=== PATIENT | male | born 1960 | race Hispanic/Latino ===

== ENCOUNTER 2019-10-03 08:04 | Emergency (ER) | payer SELFPAY ==
[2019-10-03 08:33] LABS: BASOPHILS % (AUTO) 0.3 % (0.0-5.0); EOSINOPHILS % (AUTO) 0.4 % (0.0-8.0); HEMATOCRIT 43.6 % (42-54); LYMPHOCYTES % (AUTO) 16.4 % (21.0-51.0); MEAN CORPUSCULAR HEMOGLOBIN 30.1 pg (27.0-33.0); MEAN CORPUSCULAR VOLUME 91.2 fL (79-99); MONOCYTES % (AUTO) 6.4 % (3.0-13.0); NEUTROPHILS % (AUTO) 76.1 % (40.0-77.0); PLATELET COUNT (AUTO) 242 K/uL (130-400); RED BLOOD CELL COUNT(AUTO) 4.78 MIL/uL (4.50-6.20); RED CELL DISTRIBUTION WIDTH 13.4 % (11.0-15.5)
[2019-10-03 08:41] LABS: CREATININE 1.1 mg/dL (0.5-1.5); POTASSIUM 4.3 mmol/L (3.5-5.1)
[2019-10-03 08:44] LABS: INR 0.92 (0.85-1.15); PARTIAL THROMBOPLASTIN TIME 25.7 SEC (26.3-35.5)
[2019-10-03 08:47] LABS: ALBUMIN 3.8 g/dL (3.5-5.0); BILIRUBIN,TOTAL 0.4 mg/dL (0.2-1.0); TOTAL PROTEIN, SERUM 7.4 g/dL (6.0-8.3)
[2019-10-03] MEDS ORDERED: CLOPIDOGREL BISULFATE 300 MG TAB ONE (09:40)
[2019-10-03] MEDS ORDERED: METHYLPREDNISOLONE SOD SUCC 125MG/2ML VIAL ONE (09:41)
[2019-10-03] MEDS ORDERED: ACETAMINOPHEN EXTRA STRENGTH 500 MG TABLET ONE (09:41)
[2019-10-03] MEDS ORDERED: BENZONATATE 100 MG CAPSULE PO ONE (09:41)
[2019-10-03] MEDS ORDERED: ALBUTEROL SULFATE 0.083% 2.5 MG/3 ML INH IH ONE (09:52)
[2019-10-03] MEDS ORDERED: LEVOFLOXACIN 500 MG TABLET ONE ×2 (10:15→10:17)
[2019-10-03 10:21] LABS: AMPHET/METH SCREEN,URINE NEGATIVE (NEGATIVE); BARBITURATE SCREEN, URINE NEGATIVE (NEGATIVE); BENZODIAZEPINES SCREEN,URINE NEGATIVE (NEGATIVE); CANNABINOID SCREEN,URINE POSITIVE (NEGATIVE); COCAINE SCREEN,URINE POSITIVE (NEGATIVE); OPIATE SCREEN,URINE NEGATIVE (NEGATIVE); PHENCYCLIDINE SCREEN,URINE NEGATIVE (NEGATIVE)
== END 2019-10-03 10:29 | disposition home or self-care (01) ==
LOC: EDH 08:04
DX: J20.9 Acute bronchitis, unspecified (principal); F14.10 Cocaine abuse, uncomplicated; I10 Essential (primary) hypertension; E78.00 Pure hypercholesterolemia, unspecified; Z88.0 Allergy status to penicillin; Z88.8 Allergy status to other drugs, medicaments and biological substances; Z72.0 Tobacco use
CPT/HCPCS: 36415; 71045; 80053; 80305; 82550; 84484; 85025; 85610; 85730; 93005; 94640; 96374; 99285; J2930

== ENCOUNTER 2020-04-07 09:18 | Emergency (ER) | payer OTHER ==
[2020-04-07 09:56] LABS: BASOPHILS % (AUTO) 0.3 % (0.0-5.0); EOSINOPHILS % (AUTO) 1.7 % (0.0-8.0); HEMATOCRIT 44.5 % (42-54); LYMPHOCYTES % (AUTO) 22.1 % (21.0-51.0); MEAN CORPUSCULAR HEMOGLOBIN 30.8 pg (27.0-33.0); MEAN CORPUSCULAR HGB CONC 33.3 g/dL (32.0-36.0); MEAN CORPUSCULAR VOLUME 92.5 fL (79-99); MONOCYTES % (AUTO) 5.5 % (3.0-13.0); NEUTROPHILS % (AUTO) 70.1 % (40.0-77.0); PLATELET COUNT (AUTO) 216 K/uL (130-400); RED BLOOD CELL COUNT(AUTO) 4.81 MIL/uL (4.50-6.20); RED CELL DISTRIBUTION WIDTH 13.3 % (11.0-15.5); WHITE BLOOD COUNT (AUTO) 5.9 K/uL (4.8-10.8)
[2020-04-07 10:09] LABS: INR 0.89 (0.85-1.15); PARTIAL THROMBOPLASTIN TIME 24.7 SEC (26.3-35.5); PROTHROMBIN TIME 9.7 SEC (9.6-11.6)
[2020-04-07 10:12] LABS: ALBUMIN 3.3 g/dL (3.5-5.0); BILIRUBIN,DIRECT 0.1 mg/dL (0.0-0.3); BILIRUBIN,TOTAL 0.5 mg/dL (0.2-1.0); TOTAL PROTEIN, SERUM 6.5 g/dL (6.0-8.3)
[2020-04-07 10:32] LABS: B-TYPE NATRIURETIC PEPTIDE 21 pg/mL (0-100)
[2020-04-07 11:06] LABS: AMPHET/METH SCREEN,URINE NEGATIVE (NEGATIVE); BARBITURATE SCREEN, URINE NEGATIVE (NEGATIVE); BENZODIAZEPINES SCREEN,URINE NEGATIVE (NEGATIVE); CANNABINOID SCREEN,URINE POSITIVE (NEGATIVE); COCAINE SCREEN,URINE POSITIVE (NEGATIVE); OPIATE SCREEN,URINE NEGATIVE (NEGATIVE); PHENCYCLIDINE SCREEN,URINE NEGATIVE (NEGATIVE)
== END 2020-04-07 13:26 | disposition home or self-care (01) ==
LOC: EDH 09:18
DX: R07.89 Other chest pain (principal); F14.10 Cocaine abuse, uncomplicated; I10 Essential (primary) hypertension; E78.00 Pure hypercholesterolemia, unspecified; Z88.6 Allergy status to analgesic agent
CPT/HCPCS: 36415; 71045; 80048; 80076; 80305; 82550; 83880; 84484; 85025; 85610; 85730; 93005

== ENCOUNTER 2020-05-12 12:40 | Emergency (ER) | payer OTHER ==
[2020-05-12] MEDS ORDERED: SODIUM CHLORIDE 0.9% 1000ML 1,000 ML IV ONE (13:01)
[2020-05-12 13:06] LABS: BASOPHILS % (AUTO) 0.4 % (0.0-5.0); EOSINOPHILS % (AUTO) 0.5 % (0.0-8.0); LYMPHOCYTES % (AUTO) 28.9 % (21.0-51.0); MEAN CORPUSCULAR HEMOGLOBIN 30.5 pg (27.0-33.0); MEAN CORPUSCULAR HGB CONC 33.9 g/dL (32.0-36.0); MONOCYTES % (AUTO) 8.3 % (3.0-13.0); NEUTROPHILS % (AUTO) 61.6 % (40.0-77.0); PLATELET COUNT (AUTO) 223 K/uL (130-400); RED BLOOD CELL COUNT(AUTO) 4.89 MIL/uL (4.50-6.20); WHITE BLOOD COUNT (AUTO) 7.7 K/uL (4.8-10.8)
[2020-05-12] MEDS ORDERED: IOHEXOL 350 MG/ML 100ML INFUS..BTL IV ONE (13:14)
[2020-05-12 13:24] LABS: APPEARANCE,URINE CLEAR (CLEAR); BILIRUBIN,URINE SMALL (NEGATIVE); COLOR,URINE YELLOW (YELLOW); GLUCOSE, URINE (UA) NEGATIVE (NEGATIVE); KETONES,URINE 40 mg/dL (NEGATIVE); LEUKOCYTE ESTERASE ,URINE NEGATIVE (NEGATIVE); NITRATE,URINE NEGATIVE (NEGATIVE); OCCULT BLOOD,URINE TRACE-INTACT (NEGATIVE); PROTEIN,URINE TRACE mg/dL (NEGATIVE)
[2020-05-12 13:29] LABS: INR 0.92 (0.85-1.15); PARTIAL THROMBOPLASTIN TIME 25.2 SEC (26.3-35.5)
[2020-05-12 13:32] LABS: CREATININE 1.4 mg/dL (0.5-1.5); POTASSIUM 3.8 mmol/L (3.5-5.1)
[2020-05-12 13:36] LABS: RAPID GROUP A STREP NEGATIVE (NEGATIVE)
[2020-05-12 13:40] LABS: ALBUMIN 3.9 g/dL (3.5-5.0); BILIRUBIN,TOTAL 1.1 mg/dL (0.2-1.0); TOTAL PROTEIN, SERUM 7.2 g/dL (6.0-8.3)
[2020-05-12 13:41] LABS: BACTERIA,URINE None Seen /HPF (None Seen); RBC,URINE 0-1 /HPF (0-1); SQUAMOUS EPITHELIAL CELL,UR 0-2 /HPF (0-2); WBC,URINE 0-1 /HPF (0-1)
[2020-05-12] MEDS ORDERED: DICYCLOMINE HCL 20 MG TAB ONE (16:53)
== END 2020-05-12 17:31 | disposition home or self-care (01) ==
LOC: EDH 12:40
DX: K57.90 Diverticulosis of intestine, part unspecified, without perforation or abscess without bleeding (principal); K76.0 Fatty (change of) liver, not elsewhere classified; Z20.828 Contact with and (suspected) exposure to other viral communicable diseases; E78.00 Pure hypercholesterolemia, unspecified; I10 Essential (primary) hypertension; Z72.0 Tobacco use; Z88.6 Allergy status to analgesic agent
CPT/HCPCS: 36415; 74177; 80053; 81001; 83605 ×2; 83690; 84484; 85025; 85610; 85730; 87426; 87804 ×2; 87880; 93005; 96365; 96366; 99285; J7030; Q9967; U0003

== ENCOUNTER 2020-05-19 08:55 | Emergency (ER) | payer OTHER ==
[2020-05-19] MEDS ORDERED: ONDANSETRON HCL 4 MG/2 ML VIAL ONE (09:07)
[2020-05-19] MEDS ORDERED: MORPHINE SULFATE 4 MG/1ML SYG ONE (09:08)
[2020-05-19] MEDS ORDERED: KETOROLAC TROMETHAMINE 30MG/ML ONE (09:08)
[2020-05-19 09:13] LABS: BASOPHILS % (AUTO) 0.2 % (0.0-5.0); EOSINOPHILS % (AUTO) 1.4 % (0.0-8.0); HEMATOCRIT 41.9 % (42-54); LYMPHOCYTES % (AUTO) 18.1 % (21.0-51.0); MEAN CORPUSCULAR HGB CONC 33.2 g/dL (32.0-36.0); MEAN CORPUSCULAR VOLUME 90.5 fL (79-99); MONOCYTES % (AUTO) 10.2 % (3.0-13.0); NEUTROPHILS % (AUTO) 69.7 % (40.0-77.0); PLATELET COUNT (AUTO) 196 K/uL (130-400); RED BLOOD CELL COUNT(AUTO) 4.63 MIL/uL (4.50-6.20); RED CELL DISTRIBUTION WIDTH 12.9 % (11.0-15.5); WHITE BLOOD COUNT (AUTO) 5.7 K/uL (4.8-10.8)
[2020-05-19 09:22] LABS: CREATININE 1.1 mg/dL (0.5-1.5); POTASSIUM 3.9 mmol/L (3.5-5.1)
[2020-05-19 09:26] LABS: ALBUMIN 3.5 g/dL (3.5-5.0); BILIRUBIN,TOTAL 0.3 mg/dL (0.2-1.0); TOTAL PROTEIN, SERUM 6.9 g/dL (6.0-8.3)
== END 2020-05-19 11:19 | disposition home or self-care (01) ==
LOC: EDH 08:55
DX: N23 Unspecified renal colic (principal); I10 Essential (primary) hypertension; E78.00 Pure hypercholesterolemia, unspecified; Z72.0 Tobacco use
CPT/HCPCS: 36415; 74176; 80053; 82150; 83690; 85025; 93005; 96374; 96375; 99285; J1885; J2270; J2405

== ENCOUNTER 2020-07-10 17:16 | Emergency (ER) | payer OTHER ==
[2020-07-10 18:03] LABS: BASOPHILS % (AUTO) 0.4 % (0.0-5.0); EOSINOPHILS % (AUTO) 1.1 % (0.0-8.0); HEMATOCRIT 40.9 % (42-54); LYMPHOCYTES % (AUTO) 22.7 % (21.0-51.0); MEAN CORPUSCULAR HEMOGLOBIN 30.5 pg (27.0-33.0); MEAN CORPUSCULAR HGB CONC 32.8 g/dL (32.0-36.0); MEAN CORPUSCULAR VOLUME 93.2 fL (79-99); MONOCYTES % (AUTO) 6.6 % (3.0-13.0); NEUTROPHILS % (AUTO) 68.9 % (40.0-77.0); PLATELET COUNT (AUTO) 230 K/uL (130-400); RED BLOOD CELL COUNT(AUTO) 4.39 MIL/uL (4.50-6.20); RED CELL DISTRIBUTION WIDTH 13.8 % (11.0-15.5); WHITE BLOOD COUNT (AUTO) 7.1 K/uL (4.8-10.8)
[2020-07-10 18:21] LABS: CREATININE 1.7 mg/dL (0.5-1.5); POTASSIUM 4.2 mmol/L (3.5-5.1)
[2020-07-10 18:26] LABS: ALBUMIN 4.1 g/dL (3.5-5.0); BILIRUBIN,TOTAL 0.6 mg/dL (0.2-1.0); INR 1.02 (0.85-1.15); PROTHROMBIN TIME 10.9 SEC (9.6-11.6); TOTAL PROTEIN, SERUM 7.6 g/dL (6.0-8.3)
[2020-07-10 18:27] LABS: PARTIAL THROMBOPLASTIN TIME 22.5 SEC (26.3-35.5)
[2020-07-10 19:46] LABS: APPEARANCE,URINE Cloudy (CLEAR); BILIRUBIN,URINE Negative (NEGATIVE); COLOR,URINE Yellow (YELLOW); GLUCOSE, URINE (UA) Negative (NEGATIVE); KETONES,URINE Trace mg/dL (NEGATIVE); LEUKOCYTE ESTERASE ,URINE Small (NEGATIVE); NITRATE,URINE Negative (NEGATIVE); OCCULT BLOOD,URINE Negative (NEGATIVE); PROTEIN,URINE Trace mg/dL (NEGATIVE)
[2020-07-10 19:54] LABS: AMPHET/METH SCREEN,URINE NEGATIVE (NEGATIVE); BARBITURATE SCREEN, URINE NEGATIVE (NEGATIVE); BENZODIAZEPINES SCREEN,URINE NEGATIVE (NEGATIVE); CANNABINOID SCREEN,URINE POSITIVE (NEGATIVE); COCAINE SCREEN,URINE POSITIVE (NEGATIVE); OPIATE SCREEN,URINE NEGATIVE (NEGATIVE); PHENCYCLIDINE SCREEN,URINE NEGATIVE (NEGATIVE)
[2020-07-10 20:11] LABS: BACTERIA,URINE Rare /HPF (None Seen); MUCUS,URINE Few LPF (None Seen); RBC,URINE None Seen /HPF (0-1); SQUAMOUS EPITHELIAL CELL,UR None Seen /HPF (0-2)
== END 2020-07-10 21:01 | disposition home or self-care (01) ==
LOC: EDH 17:16
DX: R42 Dizziness and giddiness (principal); F19.10 Other psychoactive substance abuse, uncomplicated; R53.1 Weakness; I10 Essential (primary) hypertension; E78.00 Pure hypercholesterolemia, unspecified; Z88.6 Allergy status to analgesic agent; Z88.8 Allergy status to other drugs, medicaments and biological substances
CPT/HCPCS: 36415; 71045; 80053; 80305; 81001; 82550; 84484; 85025; 85610; 85730; 87088; 93005

== ENCOUNTER 2020-08-09 10:00 | Emergency (ER) | payer SELFPAY ==
[2020-08-09 10:54] LABS: AMPHET/METH SCREEN,URINE NEGATIVE (NEGATIVE); BARBITURATE SCREEN, URINE NEGATIVE (NEGATIVE); BENZODIAZEPINES SCREEN,URINE NEGATIVE (NEGATIVE); CANNABINOID SCREEN,URINE POSITIVE (NEGATIVE); COCAINE SCREEN,URINE POSITIVE (NEGATIVE); OPIATE SCREEN,URINE NEGATIVE (NEGATIVE); PHENCYCLIDINE SCREEN,URINE NEGATIVE (NEGATIVE)
== END 2020-08-09 13:51 | disposition home or self-care (01) ==
LOC: EDH 10:00
DX: F14.19 Cocaine abuse with unspecified cocaine-induced disorder (principal); Z76.5 Malingerer [conscious simulation]; Z91.19 Patient's noncompliance with other medical treatment and regimen; E78.00 Pure hypercholesterolemia, unspecified; I10 Essential (primary) hypertension; Z88.6 Allergy status to analgesic agent
CPT/HCPCS: 80305

== ENCOUNTER 2023-01-01 15:30 | Emergency (ER) | payer BC, OTHER ==
[~2023-01-01] VITALS: Ht 180.3 cm; Wt 65.8 kg
[2023-01-01 15:32] VITALS: BP 151/87; PULSE 77; RESP 16
[2023-01-01 16:30] LABS: MEAN CORPUSCULAR HEMOGLOBIN 30.1 pg (27.0-33.0); MEAN CORPUSCULAR HGB CONC 32.3 g/dL (32.0-36.0); MEAN CORPUSCULAR VOLUME 93.1 fL (79-99); RED BLOOD CELL COUNT(AUTO) 4.19 MIL/uL (4.50-6.20); RED CELL DISTRIBUTION WIDTH 13.6 % (11.0-15.5); WHITE BLOOD COUNT (AUTO) 5.6 K/uL (4.8-10.8)
[2023-01-01 16:47] LABS: AMPHET/METH SCREEN,URINE NEGATIVE (NEGATIVE); BARBITURATE SCREEN, URINE NEGATIVE (NEGATIVE); BENZODIAZEPINES SCREEN,URINE NEGATIVE (NEGATIVE); CANNABINOID SCREEN,URINE POSITIVE (NEGATIVE); COCAINE SCREEN,URINE POSITIVE (NEGATIVE); OPIATE SCREEN,URINE NEGATIVE (NEGATIVE); PHENCYCLIDINE SCREEN,URINE NEGATIVE (NEGATIVE)
[2023-01-01 16:48] LABS: POTASSIUM 3.8 mmol/L (3.5-5.1)
[2023-01-01 17:00] LABS: ALBUMIN 3.4 g/dL (3.5-5.0); TOTAL PROTEIN, SERUM 6.5 g/dL (6.0-8.3)
[2023-01-01] MEDS ORDERED: HYDRALAZINE 20MG/ML VIAL IV ONE (17:00)
== END 2023-01-01 18:24 | disposition left against medical advice (07) ==
LOC: EDH 15:30
DX: R55 Syncope and collapse (principal); R56.9 Unspecified convulsions; F14.10 Cocaine abuse, uncomplicated; F12.10 Cannabis abuse, uncomplicated; E11.9 Type 2 diabetes mellitus without complications; I10 Essential (primary) hypertension; Z88.6 Allergy status to analgesic agent
CPT/HCPCS: 36415; 70140; 70450; 71045; 72125; 80053; 80305; 82550; 83874; 84484; 85027; 93005

== ENCOUNTER 2023-07-30 07:35 | Emergency (ER) | payer BC ==
[~2023-07-30] VITALS: Ht 172.7 cm; Wt 74.8 kg
[2023-07-30 08:10] LABS: BASOPHILS # (AUTO) 0.03 K/uL (0.00-0.20); BASOPHILS % (AUTO) 0.5 % (0.0-5.0); EOSINOPHILS # (AUTO) 0.14 K/uL (0.00-0.70); EOSINOPHILS % (AUTO) 2.2 % (0.0-8.0); HEMATOCRIT 41.7 % (42-54); IMMATURE GRANULOCYTE ABSOLUTE 0.02 K/uL (0-1); LYMPHOCYTES # (AUTO) 1.8 K/uL (1.0-4.8); LYMPHOCYTES % (AUTO) 28.5 % (21.0-51.0); MEAN CORPUSCULAR HEMOGLOBIN 29.6 pg (27.0-33.0); MEAN CORPUSCULAR HGB CONC 33.3 g/dL (32.0-36.0); MEAN CORPUSCULAR VOLUME 88.9 fL (79-99); MONOCYTES # (AUTO) 0.5 K/uL (0.1-1.0); MONOCYTES % (AUTO) 7.4 % (3.0-13.0); NEUTROPHILS # (AUTO) 3.9 K/uL (1.8-7.7); NEUTROPHILS % (AUTO) 61.1 % (40.0-77.0); PLATELET COUNT (AUTO) 206 K/uL (130-400); RED BLOOD CELL COUNT(AUTO) 4.69 MIL/uL (4.50-6.20); RED CELL DISTRIBUTION WIDTH 13.9 % (11.0-15.5); WHITE BLOOD COUNT (AUTO) 6.4 K/uL (4.8-10.8)
[2023-07-30 08:27] LABS: CREATININE 1.2 mg/dL (0.5-1.5); POTASSIUM 3.6 mmol/L (3.5-5.1)
[2023-07-30 08:32] LABS: ALBUMIN 3.8 g/dL (3.5-5.0); BILIRUBIN,TOTAL 0.7 mg/dL (0.2-1.0); TOTAL PROTEIN, SERUM 7.3 g/dL (6.0-8.3)
[2023-07-30] MEDS: ACETAMINOPHEN 500 MG TABLET PO ONE (10:44)
[2023-07-30] MEDS: LACTATED RINGERS 1000ML 1,000 ML IV ONE (11:08)
[2023-07-30 11:37] LABS: APPEARANCE,URINE CLEAR (CLEAR); BILIRUBIN,URINE NEGATIVE (NEGATIVE); COLOR,URINE LIGHT-YELLOW (YELLOW); GLUCOSE, URINE (UA) NEGATIVE (NEGATIVE); KETONES,URINE 20 mg/dL (NEGATIVE); LEUKOCYTE ESTERASE ,URINE NEGATIVE Leu/uL (NEGATIVE); NITRATE,URINE NEGATIVE (NEGATIVE); OCCULT BLOOD,URINE NEGATIVE (NEGATIVE); PROTEIN,URINE 10 mg/dL (NEGATIVE)
[2023-07-30 11:38] LABS: ADD UA MICROSCOPIC YES; AMPHET/METH SCREEN,URINE NEGATIVE (NEGATIVE); BARBITURATE SCREEN, URINE NEGATIVE (NEGATIVE); BENZODIAZEPINES SCREEN,URINE NEGATIVE (NEGATIVE); CANNABINOID SCREEN,URINE POSITIVE (NEGATIVE); COCAINE SCREEN,URINE POSITIVE (NEGATIVE); OPIATE SCREEN,URINE NEGATIVE (NEGATIVE); PHENCYCLIDINE SCREEN,URINE NEGATIVE (NEGATIVE)
[2023-07-30 11:40] LABS: RAPID GROUP A STREP negative (NEGATIVE)
[2023-07-30 11:42] LABS: BACTERIA,URINE RARE /HPF (None Seen); MUCUS,URINE RARE LPF (None Seen)
[2023-07-30 11:44] LABS: SARS-CoV-2, RNA, NAAT NEGATIVE SARS CoV-2 (NEGATIVE)
[2023-07-30 11:50] LABS: INFLUENZA TYPE A Negative For Type A (NEGATIVE)
[2023-07-30 12:03] LABS: INFLUENZA TYPE B Positive For Type B (NEGATIVE)
[2023-07-30] MEDS ORDERED: OSEL75 PO (12:27)
[2023-07-30 12:41] VITALS: BP 141/84; PULSE 71; RESP 18; O2SAT 98
== END 2023-07-30 12:50 | disposition home or self-care (01) ==
LOC: EDH 07:35
DX: J10.1 Influenza due to other identified influenza virus with other respiratory manifestations (principal); F19.10 Other psychoactive substance abuse, uncomplicated; E11.9 Type 2 diabetes mellitus without complications; I10 Essential (primary) hypertension; Z86.73 Personal history of transient ischemic attack (TIA), and cerebral infarction without residual deficits; Z88.6 Allergy status to analgesic agent; Z20.822 Contact with and (suspected) exposure to COVID-19
CPT/HCPCS: 99284; 96360; 70450; 87635; 84484; 80053; 80305; 85025; 87880; 87804 ×2; 81001; 36415; 93005; J7120

== ENCOUNTER 2024-04-21 21:08 | Inpatient (IN) | payer BC, OTHER ==
[~2024-04-21] VITALS: Ht 175.3 cm; Wt 70.6 kg
[~2024-04-21 21:08] MED LIST: OSEL75 PO
--- NOTE | 2024-04-21 21:40 | ERN ---
General Chief Complaint: Chest Pain Stated Complaint: CHEST PAIN Time Seen by MD: 21:20 History of Present Illness Initial Comments 63-year-old male with past medical history of multiple strokes, hypertension, arthritis was brought to ED by EMS after he started experiencing central chest pain radiating to bilateral arms and neck half an hour ago. As per the patient he was walking with his when he suddenly started sweating and experiencing chest pain. Chest pain was severe 10/10 intensity , stabbing in nature which comes and goes. He does not have similar history in the past. He also developed shortness of breath .No history of nausea, no vomiting, no fever, no cough, no abdominal pain reported. Patient denies spasm, alcoholism, recreational drug abuse. Admits that he is not taking any medications for his medical. As per the EMS at the time of arrival his EKG showed regular rhythm, at the time of presentation to ED, his vitals are stable and EKG shows normal sinus rhythm with Pmitrale. Timing/Duration: 1/2 hour Severity/Quality: severe, stabbing Location: central Radiation: arms, neck, shoulders Prior Chest Pain/Cardiac Silvana: no prior chest pain Modifying Factors: nitroglycerin Past Medical History Past Medical History: Diabetes-Type II, Hypertension, Stroke Medical History Other: PARKINSONS Past Surgical History: Other Surgical History Other: TUMORS X 2 REMOVED FROM RUQ Family History Family History: Negative Social History Social History: Smokers, Drugs, Lives with family ROS Dictation REVIEW OF SYSTEMS Positive for chest pain CONSTITUTIONAL: Denies fevers, chills, or night sweats. No unintentional weight loss reported. ENT: No hearing loss, otalgia, otorrhea, rhinitis, rhinorrhea, hoarseness, or sore throat. CARDIOVASCULAR: Denies any exertional angina, dyspnea on exertion, orthopnea, paroxysmal nocturnal dyspnea, palpitations claudication. PULMONARY: Denies any shortness of breath, cough, phlegm / sputum, hemoptysis, pleuritic chest pain. SLEEP: Denies morning headaches, daytime somnolence or napping. Denies difficulty falling asleep, staying asleep, waking from sleep. Denies knowledge of snoring. GASTROINTESTINAL: Denies any type of dysphagia to either liquids or solids. Denies nausea, vomiting, abdominal pain, diarrhea, constipation, blood in stools . NEUROLOGICAL: Denies headache, motor weakness, sensory deficit, vertigo / spinning sensation, gait abnormalities, or tremors. GENITOURINARY: Denies frequency, urgency, nocturia, hematuria or incontinence, low urinary stream, straining to void, urinary intermittency or hesitancy ENDOCRINOLOGY: Denies polyuria, polydipsia, polyphagia or heat / cold intolerance. HEMATOLOGY: Denies thrombophilia / previous clots, or coagulopathy / bleeding disorders. ONCOLOGIC: Denies personal history of malignancy. DERMATOLOGIC: Denies rashes or pruritus. PSYCHIATRIC: Denies any suicidal or homicidal ideation. Denies hallucinations. Nurses Notes Reviewed: Yes Physical Exam Physical Exam Dictation PHYSICAL EXAM GENERAL APPEARANCE: Well nourished . Awake and alert. Oriented to time, place and person. No acute cardiopulmonary distress. HEENT: Head normocephalic , atraumatic. Sclera anicteric . Pupils are round and reactive. Extraocular movements intact . No conjunctival injection. No nasal congestion. No throat congestion .Oral mucosa moist. NECK: Supple. No JVD. No thyromegaly. No submental, submandibular, pre- /postauricular, occipital or supraclavicular lymphadenopathy. No carotid bruits. LUNGS: Clear to auscultation bilaterally . No rales, rhonchi or any wheezing. Equal tactile fremitus. Resonant to percussion . CARDIOVASCULAR: Regular rate and rhythm. Distant heart sounds ABDOMEN: Soft, nontender, and nondistended. There is no rebound tenderness, voluntary guarding, or rigidity. No hepatosplenomegaly. Bowel sounds normal in all four quadrants . NEUROLOGICAL: Cranial nerves II-XII grossly intact. Motor is 5/5 in bilateral upper and lower extremities . No sensory deficits. EXTREMITIES: No edema, No cyanosis , No clubbing. Good capillary refill. SKIN: No skin breakdown. No rashes or lesions . PSYCHIATRY: Normal affect .No auditory or visual hallucinations. Normal speech. No dysarthria. Results Laboratory and Microbiology Lab and Micro Result Laboratory Tests Test 04/21/24 21:37 04/21/24 21:51 04/21/24 22:15 White Blood Count 5.9 K/uL (4.8-10.8) Red Blood Count 4.25 MIL/uL (4.50-6.20) L Hemoglobin 12.7 g/dL (14.0-18.0) L Hematocrit 38.5 % (42-54) L Mean Corpuscular Volume 90.6 fL (79-99) Mean Corpuscular Hemoglobin 29.9 pg (27.0-33.0) Mean Corpuscular Hemoglobin Concent 33.0 g/dL (32.0-36.0) Red Cell Distribution Width 13.7 % (11.0-15.5) Platelet Count 204 K/uL (130-400) Mean Platelet Volume 10.6 fL (7.5-10.5) H Immature Granulocyte % (Auto) 0.7 % (0-1) Neutrophils (%) (Auto) 53.2 % (40.0-77.0) Lymphocytes (%) (Auto) 33.2 % (21.0-51.0) Monocytes (%) (Auto) 8.8 % (3.0-13.0) Eosinophils (%) (Auto) 3.6 % (0.0-8.0) Basophils (%) (Auto) 0.5 % (0.0-5.0) Neutrophils # (Auto) 3.1 K/uL (1.8-7.7) Lymphocytes # (Auto) 2.0 K/uL (1.0-4.8) Monocytes # (Auto) 0.5 K/uL (0.1-1.0) Eosinophils # (Auto) 0.21 K/uL (0.00-0.70) Basophils # (Auto) 0.03 K/uL (0.00-0.20) Absolute Immature Granulocyte (auto 0.04 K/uL (0-1) Nucleated Red Blood Cells 0.0 % (0.0-0.19) Sodium Level 137 mmol/L (136-145) Potassium Level 3.6 mmol/L (3.5-5.1) Chloride Level 102 mmol/L (101-111) Carbon Dioxide Level 29 mmol/L (21-32) Blood Urea Nitrogen 24 mg/dL (7-18) H Creatinine 1.0 mg/dL (0.5-1.3) Glomerular Filtration Rate Calc 85 mL/min (>90) Random Glucose 119 mg/dL (70-105) H Total Calcium 8.2 mg/dL (8.5-10.1) L Total Creatine Kinase 116 U/L (21-232) # Troponin I High Sensitivity 59 ng/L (4-75) B-Type Natriuretic Peptide 90 pg/mL (0-100) Troponin I < 0.05 ng/mL (0.00-0.05) Urine Color LIGHT-YELLOW (YELLOW) Urine Appearance CLEAR (CLEAR) Urine pH 6.0 (5.0-8.0) Urine Specific [place] 1.020 (1.001-1.031) Urine Protein NEGATIVE mg/dL (NEGATIVE) Urine Glucose (UA) NEGATIVE mg/dL (NEGATIVE) Urine Ketones NEGATIVE mg/dL (NEGATIVE) Urine Occult Blood NEGATIVE (NEGATIVE) Urine Nitrate NEGATIVE (NEGATIVE) Urine Bilirubin NEGATIVE mg/dL (NEGATIVE) Urine Urobilinogen 0.2 mg/dL (0.2-1.0) Urine Leukocyte Esterase NEGATIVE Madelyn/uL Urine RBC 2-5 /HPF (0-1) H Urine WBC 2-5 /HPF (0-1) H Urine Squamous Epithelial Cells RARE /HPF (0-2) Urine Bacteria None /HPF (None Seen) Urine Opiates Screen NEGATIVE (NEGATIVE) Urine Barbiturates Screen NEGATIVE (NEGATIVE) Urine Phencyclidine Screen NEGATIVE (NEGATIVE) Urine Amphetamines Screen NEGATIVE (NEGATIVE) Urine Benzodiazepines Screen NEGATIVE (NEGATIVE) Urine Cocaine Screen POSITIVE (NEGATIVE) H Urine Marijuana (THC) Screen POSITIVE (NEGATIVE) H Labs Reviewed?: Yes EKG/XRAY/US/CT/MRI EKG Comment EKG 04/21/2024, 9:18 p.m. Normal sinus rhythm, with ventricular rate 75 beats per minute IL interval 145, QTC 460 P mitrale noted, right bundle branch block No ST elevation. X-RAY Comment Chest x-ray interpreted by me Hyperinflation with emphysematous changes without any obvious focal infiltrate. Orders, Meds, Vital Signs Orders Procedure Category Date Status Time Vital Signs Per CPOE 04/21/24 Transmitted Routine 21:15 B-Type Natriuretic LAB 04/21/24 Complete Peptide 21:15 Chest 1vw RAD 04/21/24 Resulted 21:15 12 Lead Ekg Tracing- EKG 04/21/24 Logged Technical 21:15 Oxygen By Nc/Pulse Ox CPOE 04/21/24 Transmitted 21:15 Maintain Iv CPOE 04/21/24 Transmitted 21:15 Iv Insertion CPOE 04/21/24 Transmitted 21:15 Cardiac Monitoring CPOE 04/21/24 Transmitted 21:15 Pulse Oximetry With CPOE 04/21/24 Transmitted Vs And Prn 21:15 Cbc With Differential LAB 04/21/24 Complete 21:15 Activity: Br W/Brp CPOE 04/21/24 Transmitted With Assist 21:15 Creatine Kinase, Total LAB 04/21/24 Complete 21:15 Urinalysis Profile LAB 04/21/24 Complete 21:15 Troponin Poc Order LAB 04/21/24 Logged Only 21:15 Bedside Troponin-I LAB.ER 04/21/24 In Process (Poc) 21:15 Basic Metabolic Panel LAB 04/21/24 Complete 21:15 Drug Screen Urine LAB 04/21/24 Complete 21:20 Nitroglycerin 0.4mg PHA 04/21/24 In Process Sl Tab (Nitrostat) 21:30 Troponin I High LAB 04/21/24 Complete Sensitivity 21:40 Edm Admit Bridge Order ADM 04/21/24 Transmitted 23:26 Admit Orders ADM 04/21/24 Transmitted 23:26 Current Medications Medications (Trade) Dose Ordered Sig/Aaron Route PRN Reason Start Time Stop Time Status Last Admin Dose Admin Nitroglycerin (Nitrostat) 0.4 mg AD PRN SL CHEST PAIN 04/21/24 21:30 05/21/24 21:29 04/21/24 22:27 Vital Signs Date Time Temp Pulse Resp B/P (MAP) Pulse Ox O2 Delivery O2 Flow Rate FiO2 04/21/24 22:26 98.2 66 16 145/85 100 Room Air* 0 21 04/21/24 21:10 98.1 78 20 131/83 98 Room Air 0 Differential diagnosis : Acute OR, musculoskeletal chest pain, cocaine induced vasospasm, arrhythmia, PE Rationale: Tests considered and ordered secondary to shared decision making include: I will re-evaluate the patient after treatment and diagnostic exams have returned to determine whether they require further testing, can be safely discharged home, or need admission for further treatment and evaluation. Given the social determinants of health affecting care, including literacy, access to medical care, prescription drug management, and [id number] drugs, I will ensure that treatment plans are tailored accordingly. There are no social concerns with this patient. Risk of complication and/or morbidity or mortality of patient management: None Need for hospitalization: Patient does not meet criteria for hospitalization. Need for emergency major/minor surgery: No Prescription drug management Prescriptions will include symptomatic care Medications-Per medication reconciliation Previous outside records reviewed: Old ER visits. Patient's prior external medical records from other ER visits were reviewed by me as indicated. Prior testing and results from previous visits were reviewed. Prior tests were taken into account with medical decision making and resource utilization, independent historian/historians were used to obtain complete medical history. I independently interpreted the test that were performed, results were reviewed by me and considered findings on radiology. Medical management and examination interpretation discussions was done by me with other qualified healthcare professionals as indicated for the patient's care. Revaluation Disposition : DX & DISP Departure Impression: Primary Impression: Chest pain Additional Impressions: Illicit drug use, Lifestyle problems, Marijuana abuse, History of stroke, Hypertension, Diabetes mellitus Condition: Stable Additional Instructions: Patient was informed of all the diagnostic labs and procedures conducted in the emergency room today and demonstrated understanding of the results. I personally reviewed and interpreted all the diagnostic exams performed in the ER today. The patient will be admitted to the hospital for further treatment and evaluation. Disposition-admit to facility Condition-stable/guarded Course-uncertain at this time Pain status-decreased Assessment-exam unchanged Admission Certification- I certify that the patients status is appropriate and is based on my best clinical judgment and the patient's condition as documented in the medical records Referrals: BRIAN NELSON (PCP) I have examined patient, & reviewed all documents, & agreed W/ the Diagnosis, and Plan This is a 62-year-old male who came by ambulance with complaints of chest pain mostly in the left precordial area as he and his were walking which they do normally every night. He also started experiencing radiation to the left arm and some diaphoresis and due to discomfort he called EMS for further evaluation. No history of any syncope. Temperature 98 pulse 78 respirations 20 blood pressure 131/83 with a pulse oximetry of 98%. On room air General: awake, alert, some discomfort due to sharp left-sided pain Head/Face: Normocephalic, atraumatic Eyes: PERRL, EOMI, vision at baseline ENT: oral cavity clear, TMs clear, no signs of infection Neck: Trachea midline, supple, no nuchal rigidity Cardiovascular: RRR, normal S1/S2, No MRGs, no JVD Respiratory: CTAB, no respiratory distress, No rales or wheezes Abdomen: Soft, non-tender, non-distended, normal bowel sounds, no guarding or rebound. Skin: Warm, dry, normal turgor, no rash tattoos all over his arms MS/Extremity: Pulses equal, no cyanosis, neurovascular intact, FROM Neuro: COAx4, GCS 15, strength 5/5, CN 2-12 intact, normal cerebellar exam, normal gait, Psych: Normal behavior, mood, and affect normal Extremities-trace edema without any palpable cords, Homans sign is negative labs reviewed CBC showed a hemoglobin of 12.7 BNP 7 showed a BUN and creatinine are 24 and 1.0. First set of troponins less than 0.05 heart score - chest pain moderately suspicious, EKG showed nonspecific repolarization change, age 45-64, risk factors 1-2-- score 4 points impression - left-sided chest pain -moderate suspicion for a coronary event known history of hypertension diabetes mellitus and previous history of stroke history of substance abuse I recommended admission for evaluation of chest pain and rule out cardiac etiology and pursue echocardiogram and stress test etcetera. Patient and are agreeable 11:30 p.m. hospitalist YURIY rich accepted the patient for admission and further management Critical Care Note Critical Time: 30 minutes TAYE ROBERTSON MD Apr 21, 2024 21:40 ANDREW WATTERS MD Apr 21, 2024 22:42
[2024-04-21 21:41] LABS: BASOPHILS # (AUTO) 0.03 K/uL (0.00-0.20); BASOPHILS % (AUTO) 0.5 % (0.0-5.0); EOSINOPHILS # (AUTO) 0.21 K/uL (0.00-0.70); EOSINOPHILS % (AUTO) 3.6 % (0.0-8.0); HEMATOCRIT 38.5 % (42-54); IMMATURE GRANULOCYTE ABSOLUTE 0.04 K/uL (0-1); LYMPHOCYTES % (AUTO) 33.2 % (21.0-51.0); MEAN CORPUSCULAR HEMOGLOBIN 29.9 pg (27.0-33.0); MEAN CORPUSCULAR VOLUME 90.6 fL (79-99); MONOCYTES # (AUTO) 0.5 K/uL (0.1-1.0); MONOCYTES % (AUTO) 8.8 % (3.0-13.0); NEUTROPHILS # (AUTO) 3.1 K/uL (1.8-7.7); NEUTROPHILS % (AUTO) 53.2 % (40.0-77.0); PLATELET COUNT (AUTO) 204 K/uL (130-400); RED BLOOD CELL COUNT(AUTO) 4.25 MIL/uL (4.50-6.20); RED CELL DISTRIBUTION WIDTH 13.7 % (11.0-15.5); WHITE BLOOD COUNT (AUTO) 5.9 K/uL (4.8-10.8)
[2024-04-21 21:52] LABS: POTASSIUM 3.6 mmol/L (3.5-5.1)
[2024-04-21 22:05] LABS: B-TYPE NATRIURETIC PEPTIDE 90 pg/mL (0-100)
[2024-04-21 22:21] LABS: APPEARANCE,URINE CLEAR (CLEAR); BILIRUBIN,URINE NEGATIVE (NEGATIVE); COLOR,URINE LIGHT-YELLOW (YELLOW); GLUCOSE, URINE (UA) NEGATIVE (NEGATIVE); KETONES,URINE NEGATIVE (NEGATIVE); LEUKOCYTE ESTERASE ,URINE NEGATIVE Leu/uL (NEGATIVE); NITRATE,URINE NEGATIVE (NEGATIVE); OCCULT BLOOD,URINE NEGATIVE (NEGATIVE); PROTEIN,URINE NEGATIVE (NEGATIVE); UROBILINOGEN,URINE 0.2 mg/dL (0.2-1.0)
[2024-04-21 22:22] LABS: ADD UA MICROSCOPIC YES
[2024-04-21 22:23] LABS: MUCUS,URINE RARE LPF (None Seen); SQUAMOUS EPITHELIAL CELL,UR RARE /HPF (0-2)
[2024-04-21] MEDS: NITROGLYCERIN 0.4 MG SL TAB SL PRN (22:27)
--- NOTE | 2024-04-21 22:28 | HMCIMG ---
CHEST 1VW HISTORY: Chest pain COMPARISON: 01/01/2023 FINDINGS: A frontal projection of the chest was obtained. No acute pulmonary infiltrates is seen. The heart is normal in size. Degenerative changes are seen. Prominent interstitial markings are seen. No evidence of aortic calcification is seen. IMPRESSION: 1. No acute pulmonary infiltrate is seen.
[2024-04-21 22:30] LABS: AMPHET/METH SCREEN,URINE NEGATIVE (NEGATIVE); BARBITURATE SCREEN, URINE NEGATIVE (NEGATIVE); BENZODIAZEPINES SCREEN,URINE NEGATIVE (NEGATIVE); CANNABINOID SCREEN,URINE POSITIVE (NEGATIVE); COCAINE SCREEN,URINE POSITIVE (NEGATIVE); OPIATE SCREEN,URINE NEGATIVE (NEGATIVE); PHENCYCLIDINE SCREEN,URINE NEGATIVE (NEGATIVE)
--- NOTE | 2024-04-21 23:32 | HP ---
[facility] HISTORY AND PHYSICAL Date of Service: Apr 21, 2024 Time of Service: 23:25 PCP: Osei Meadows HISTORY OF PRESENT ILLNESS: This is a 63-year-old male with past medical history of arthritis , diabetes, hyperlipidemia, hypertension, multiple stroke, Parkinson's disease and seizure disorder who presents to the ED via EMS for complaints of midsternal chest pain radiating to bilateral arms and neck associated with palpitation, diaphoresis and shortness of breaths onset 30 minutes prior to ER arrival. Patient reports that he was walking with his when he started having sweating and cold clammy and he noticed that he started having chest pain and palpitation. Patient described pain as sharp and severe. Patient also reports similar problem week ago did not seek medical help. Patient states that he stopped taking his medications for the past three years because he has no medical insurance. 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 Patient reports he had seizure episode 1 week ago . Patient states he smoke one cigarette per day and uses marijuana last use was 2 hours ago and also he uses cocaine last use was two days ago. Seen and examined patient in the ER awake alert and coherent appears uncomfortable continue to complain of chest pain 8/10 pain level. Shalonda Weinstein was at bedside during my evaluation. Patient denies fever, chills, cough, abdominal pain, nausea and vomiting. Vital signs temperature 98.2, heart rate 66, blood pressure 145/85, saturation 100% on room air. Labs: Hemoglobin 12.7, hematocrit 38.5, platelet count 204. Sodium 137, potassium 3.6, BUN 24, creatinine 1.0 glucose 119, total calcium 8.2 troponin high sens 59 and troponin one less than 0.05. BNP 90. Wean toxicology positive with cocaine and marijuana. Chest x-ray result no acute pulmonary infiltrate is seen. While in the ER patient was given Nitrostat. Dr. Yee was consulted and notified of patient's case. We will admit patient for further medical management REVIEW OF SYSTEMS CONSTITUTIONAL: Positive diaphoresis Denies fevers, chills, or night sweats. No unintentional weight loss reported. NEUROLOGICAL: Denies headache, amaurosis fugax, motor weakness, sensory deficit, vertigo/spinning sensation, gait abnormalities, or tremors. ENT: No hearing loss, otalgia, otorrhea, rhinitis, rhinorrhea, hoarseness, or sore throat. CARDIOVASCULAR: Positive chest pain Denies orthopnea, paroxysmal nocturnal dyspnea, palpitations, life-threatening arrhythmias, claudication. PULMONARY: Positive shortness of breath Denies cough, phlegm/sputum, hemoptysis, pleuritic chest pain. SLEEP: Denies morning headaches, daytime somnolence or napping. Denies difficulty falling asleep, staying asleep, waking from sleep. Denies knowledge of snoring. GASTROINTESTINAL: Denies any type of dysphagia to either liquids or solids. Denies nausea, vomiting, pyrosis, early satiety, abdominal pain, diarrhea, constipation, or changes in stool consistency or caliber. Denies coffee-ground emesis, hematemesis, hematochezia, or melanotic stools. GENITOURINARY: Denies frequency, urgency, nocturia, hematuria or incontinence (Storage/Irritative symptoms.) Low urinary stream, straining to void, urinary intermittency or hesitancy, splitting of the voiding stream, terminal dribbling. ENDOCRINOLOGIC: Denies polyuria, polydipsia, polyphagia or heat/cold intolerances. HEMATOLOGIC: Denies thrombophilia/previous clots, or coagulopathy/bleeding disorders. ONCOLOGIC: Denies personal history of malignancy. DERMATOLOGIC: Denies rashes or pruritus. PSYCHIATRIC: Denies any suicidal or homicidal ideation. Denies hallucinations. PAST MEDICAL HISTORY: [ arthritis , diabetes, hyperlipidemia, hypertension, multiple stroke, Parkinson's disease and seizure disorder ] PAST SURGICAL HISTORY: [ Removal of abdominal two more x2 ] PAST SOCIAL HISTORY: [ Patient lives with . Patient admits to smoking one cigarette per day denies alcohol use admits to using marijuana and cocaine] FAMILY HISTORY: [Noncontributory ] Coded Allergies: ibuprofen (Unverified Allergy, Unknown, 04/07/20) naproxen (Unverified Allergy, Unknown, 04/07/20) PHYSICAL EXAM GENERAL APPEARANCE: The patient is awake, alert, and oriented, in no acute cardiopulmonary distress. NEUROLOGICAL: Cranial nerves II-XII grossly intact. Motor is 5/5 in bilateral upper and lower extremities proximal to distal. No sensory deficits. HEENT: Face is symmetric. Pupils are equal and reactive. Extraocular movements are intact. NECK: Supple. No JVD. No thyromegaly. No submental, submandibular, pre- /postauricular, occipital or supraclavicular lymphadenopathy. CHEST: Normal chest expansion. No Telemetry. LUNGS: Absence of any rales, rhonchi or any wheezing. CARDIOVASCULAR: Regular. S1 and S2 normal. No appreciable rubs, murmurs or gallops. ABDOMEN: Soft, nontender, and nondistended. There is no rebound, voluntary guarding, or rigidity. : Deferred. No Felix. EXTREMITIES: Non-edematous and not cyanotic. No clubbing. Good capillary refill. SKIN: No skin breakdown. Vital Sign (Last 24 Hours) 04/21/24 22:26 Temp 98.2 Pulse 66 Resp 16 B/P (MAP) 145/85 Pulse Ox 100 O2 Delivery Room Air* O2 Flow Rate 0 FiO2 21 LABS: Laboratory: Test 04/21/24 22:15 04/21/24 21:51 04/21/24 21:37 Range/Units Urine Color LIGHT-YELLOW YELLOW Urine Appearance CLEAR CLEAR Urine pH 6.0 5.0-8.0 Urine Specific [place] 1.020 1.001-1.031 Urine Protein NEGATIVE NEGATIVE mg/dL Urine Glucose (UA) NEGATIVE NEGATIVE mg/dL Urine Ketones NEGATIVE NEGATIVE mg/dL Urine Occult Blood NEGATIVE NEGATIVE Urine Nitrate NEGATIVE NEGATIVE Urine Bilirubin NEGATIVE NEGATIVE mg/dL Urine Urobilinogen 0.2 0.2-1.0 mg/dL Urine Leukocyte Esterase NEGATIVE NEGATIVE Madelyn/uL Urine RBC 2-5 H 0-1 /HPF Urine WBC 2-5 H 0-1 /HPF Urine Squamous Epithelial Cells RARE 0-2 /HPF Urine Bacteria None None Seen /HPF Urine Opiates Screen NEGATIVE NEGATIVE Urine Barbiturates Screen NEGATIVE NEGATIVE Urine Phencyclidine Screen NEGATIVE NEGATIVE Urine Amphetamines Screen NEGATIVE NEGATIVE Urine Benzodiazepines Screen NEGATIVE NEGATIVE Urine Cocaine Screen POSITIVE H NEGATIVE Urine Marijuana (THC) Screen POSITIVE H NEGATIVE Troponin I < 0.05 0.00-0.05 ng/mL White Blood Count 5.9 4.8-10.8 K/uL Red Blood Count 4.25 L 4.50-6.20 MIL/uL Hemoglobin 12.7 L 14.0-18.0 g/dL Hematocrit 38.5 L 42-54 % Mean Corpuscular Volume 90.6 79-99 fL Mean Corpuscular Hemoglobin 29.9 27.0-33.0 pg Mean Corpuscular Hemoglobin Concent 33.0 32.0-36.0 g/dL Red Cell Distribution Width 13.7 11.0-15.5 % Platelet Count 204 130-400 K/uL Mean Platelet Volume 10.6 H 7.5-10.5 fL Immature Granulocyte % (Auto) 0.7 0-1 % Neutrophils (%) (Auto) 53.2 40.0-77.0 % Lymphocytes (%) (Auto) 33.2 21.0-51.0 % Monocytes (%) (Auto) 8.8 3.0-13.0 % Eosinophils (%) (Auto) 3.6 0.0-8.0 % Basophils (%) (Auto) 0.5 0.0-5.0 % Neutrophils # (Auto) 3.1 1.8-7.7 K/uL Lymphocytes # (Auto) 2.0 1.0-4.8 K/uL Monocytes # (Auto) 0.5 0.1-1.0 K/uL Eosinophils # (Auto) 0.21 0.00-0.70 K/uL Basophils # (Auto) 0.03 0.00-0.20 K/uL Absolute Immature Granulocyte (auto 0.04 0-1 K/uL Nucleated Red Blood Cells 0.0 0.0-0.19 % Sodium Level 137 136-145 mmol/L Potassium Level 3.6 3.5-5.1 mmol/L Chloride Level 102 101-111 mmol/L Carbon Dioxide Level 29 21-32 mmol/L Blood Urea Nitrogen 24 H 7-18 mg/dL Creatinine 1.0 0.5-1.3 mg/dL Glomerular Filtration Rate Calc 85 >90 mL/min Random Glucose 119 H 70-105 mg/dL Total Calcium 8.2 L 8.5-10.1 mg/dL Total Creatine Kinase 116 # 21-232 U/L Troponin I High Sensitivity 59 4-75 ng/L B-Type Natriuretic Peptide 90 0-100 pg/mL Current Medications Medications (Trade) Dose Ordered Sig/Aaron Route PRN Reason Start Time Stop Time Status Last Admin Dose Admin Nitroglycerin (Nitrostat) 0.4 mg AD PRN SL CHEST PAIN 04/21/24 21:30 05/21/24 21:29 04/21/24 22:27 0.4 MG DIAGNOSTICS / RADIOLOGY: [ ] ASSESSMENT: Chest pain rule out ACS POA Polysubstance abuse POA Active smoker POA Normocytic normochromic anemia POA Diabetes POA Hyperlipidemia POA Hypertension POA History of seizure disorder POA History of Parkinson's disease POA History of multiple CVA POA PLAN: We will admit patient in We will start patient on heart healthy and consistent carb diet We will start on Famotidine 20 mg p.o. bid for GI prophylaxis NS @75 ml/hr x 1 bag and reevaluate We will start nitropaste 0.5 topical t.i.d. We will start patient on aspirin 81 mg p.o and statin We will replace electrolytes as needed per protocol We will start on insulin sliding scale AC & HS with hypoglycemia protocol We will add prn medication for fever,pain, nausea and vomiting We will reconcile home meds once medlist available Counseled on cigarette smoking and recreational drug use cessation We will request case management service We will obtain echocardiogram We will trend troponin q.6 hours x3 Will start Heparin drip per ACS protocol We will request labs in am We will seek Cardiology consultation Further orders to follow depending on above results Case discussed with attending physician and came up with above treatment and plan of care. ADVANCED CARE PLANNING 1. Which of the following were discussed? Hospice Care - No Therapeutic options - Yes Advance Directives - No Other discussions - 2. Discussed with who? Patient 3. Voluntary nature of this service was explained to the patient? Yes 4. Amount of time spent - ___20____ 5. Reviewed by Physician? (if this service was performed by NPP) Yes Patient seen and examined by me. Agree with note by TECHNICAL SUPPORT ENGINEER SEE ADDITIONAL ORDERS PER CHART DISCUSSED WITH NURSING STAFF ADALID PRINCE WATER METER MECHANIC Apr 21, 2024 23:32
--- NOTE | 2024-04-21 23:34 | NUR ---
ASSUMED PT CARE AT THIS TIME
[2024-04-21] MEDS ORDERED: PHARMACY COMMUNICATION MISC SCH (23:45)
[2024-04-22] VITALS (24 sets, daily range): BP systolic 112–172; BP diastolic 59–125; PULSE 63–88; RESP 8–23; TEMP 97.5–98; O2SAT 96–100
[2024-04-22] MEDS: 0.9%NACL 1000ML 1,000 ML IV SCH (00:59)
[2024-04-22] MEDS: NITROGLYCERIN 1GM OINT 1 INCH/1GM TD SCH (00:59)
--- NOTE | 2024-04-22 01:18 | NUR ---
DR. PITT GEODUCK DIVER AT BEDSIDE AT THIS TIME
[2024-04-22 02:04] LABS: BASOPHILS # (AUTO) 0.03 K/uL (0.00-0.20); BASOPHILS % (AUTO) 0.5 % (0.0-5.0); EOSINOPHILS # (AUTO) 0.23 K/uL (0.00-0.70); EOSINOPHILS % (AUTO) 3.6 % (0.0-8.0); HEMATOCRIT 38.3 % (42-54); IMMATURE GRANULOCYTE ABSOLUTE 0.05 K/uL (0-1); LYMPHOCYTES # (AUTO) 2.2 K/uL (1.0-4.8); LYMPHOCYTES % (AUTO) 34.1 % (21.0-51.0); MEAN CORPUSCULAR HEMOGLOBIN 29.7 pg (27.0-33.0); MEAN CORPUSCULAR HGB CONC 32.9 g/dL (32.0-36.0); MEAN CORPUSCULAR VOLUME 90.3 fL (79-99); MONOCYTES # (AUTO) 0.6 K/uL (0.1-1.0); MONOCYTES % (AUTO) 8.8 % (3.0-13.0); NEUTROPHILS # (AUTO) 3.4 K/uL (1.8-7.7); NEUTROPHILS % (AUTO) 52.2 % (40.0-77.0); PLATELET COUNT (AUTO) 206 K/uL (130-400); RED BLOOD CELL COUNT(AUTO) 4.24 MIL/uL (4.50-6.20); RED CELL DISTRIBUTION WIDTH 13.7 % (11.0-15.5); WHITE BLOOD COUNT (AUTO) 6.4 K/uL (4.8-10.8)
[2024-04-22] MEDS: morPHINE 2 MG SYG IVP PRN (02:07)
[2024-04-22] MEDS: HEParin 5,000 UNIT VIAL IV PRN (02:08)
[2024-04-22] MEDS: HEParin 25,000 UNITS/250ML D5W 250 ML IV SCH (02:11)
--- NOTE | 2024-04-22 03:11 | CONS ---
CONSULT NOTE: CARDIOLOGY Reason for consult: Chest pain HPI/story at presentation: This is a pleasant 61-year-old past medical history as per present with complaints of chest discomfort. Known history of cocaine/marijuana use at [facility] and has been having issues with retrosternal chest pain at presentation. EKG without significant ischemic changes but patient did have elevated troponins greater than 600. Cardiology was consulted for further evaluation management Subjective: 04/21/2024 Chest pain Past medical history: See below Allergies, Meds See chart Review of systems Review of Systems Constitutional: Negative for chills and fever. HENT: Negative for ear discharge and ear pain. Eyes: Negative for photophobia and discharge. Respiratory: Negative for cough, sputum production and stridor. Cardiovascular: Negative for chest pain and palpitations. Gastrointestinal: Negative for diarrhea and vomiting. Genitourinary: Negative for frequency. Musculoskeletal: Negative for myalgias. Skin: Negative for rash. Neurological: Negative for focal weakness and seizures. Endo/Heme/Allergies: Negative for polydipsia. Psychiatric/Behavioral: Negative for hallucinations. Vitals see chart PHYSICAL EXAMINATION GENERAL: The patient is alert and oriented*3 HEENT: Nonicteric sclerae, non traumatic HEART: Regular rate and rhythm with no murmurs LUNGS: Clear to auscultation bilaterally ABDOMEN: No acute issues, non tender GENITAL, RECTAL: deferred SKIN: No rash NEUROLOGIC: NFND EXTREMITIES: No edema ASSESSMENT CHEST PAIN, NSTEMI History of EKG without ischemic changes trop > 600 04/2024 UDS positive for cocaine and marijuana CVA History of, 2019 HYPERTENSION, HYPERLIPIDEMIA TOBACCO USE OTHER MEDICAL PROBLEMS arthritis seizures PLAN 04/21/2024 patient with non-STEMI, no significant ischemic changes on EKG. Can start heparin, will consider cardiac catheterization tomorrow to further evaluate coronaries. UDS positive for cocaine and marijuana, will need to address compliance with medical therapy prior to any intervention. No history of significant peripheral vascular disease with history of strokes in the past. ATTESTATION I was involved substantially in the care of this patient Number and complexity of problems addressed: 1 acute illness with systemic features Amount and or complexity of data Review of prior external note(s) from each unique source: 2+ Ordering of each unique test : 1 Review of the result(s) of each unique test: 2+ Assessment requiring an independent historian(s): No Independent interpretation of test performed by another MD/QHCP/appropriate source (not separately reported) : No Discussion of management or test interpretation with external MD/QHCP/appropriate source (not separately reported) : No Risk status (cardiac, billing related): high TOMMY PITT MD Apr 22, 2024 03:10
--- NOTE | 2024-04-22 06:47 | EKG ---
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
[2024-04-22 07:13] LABS: BASOPHILS # (AUTO) 0.04 K/uL (0.00-0.20); BASOPHILS % (AUTO) 0.7 % (0.0-5.0); EOSINOPHILS # (AUTO) 0.19 K/uL (0.00-0.70); EOSINOPHILS % (AUTO) 3.2 % (0.0-8.0); IMMATURE GRANULOCYTE ABSOLUTE 0.05 K/uL (0-1); LYMPHOCYTES # (AUTO) 2.5 K/uL (1.0-4.8); LYMPHOCYTES % (AUTO) 41.8 % (21.0-51.0); MEAN CORPUSCULAR HEMOGLOBIN 29.5 pg (27.0-33.0); MEAN CORPUSCULAR HGB CONC 31.8 g/dL (32.0-36.0); MONOCYTES # (AUTO) 0.5 K/uL (0.1-1.0); MONOCYTES % (AUTO) 7.9 % (3.0-13.0); NEUTROPHILS # (AUTO) 2.7 K/uL (1.8-7.7); NEUTROPHILS % (AUTO) 45.6 % (40.0-77.0); PLATELET COUNT (AUTO) 191 K/uL (130-400); RED CELL DISTRIBUTION WIDTH 13.7 % (11.0-15.5); WHITE BLOOD COUNT (AUTO) 5.9 K/uL (4.8-10.8)
[2024-04-22 07:25] LABS: HEMOGLOBIN A1C 6.1 % (4.0-6.0)
[2024-04-22] MEDS: INSULIN humuLIN R 100 UNIT/ML 3ML SQ SCH (07:30)
--- NOTE | 2024-04-22 07:42 | NUR ---
DR. DELGADILLO CALL SPOKE TO DR. DELGADILLO REGARDING PATIENT UPDATE. DR. DELGADILLO ORDERED A DIET AND TO FEED THE PATIENT FOR BREAKFAST NOTHING TO EAT OR DRINK AFTER BREAKFAST THE [facility] WILL BE DONE AT 5PM TODAY.
[2024-04-22 07:50] LABS: BILIRUBIN,TOTAL 0.3 mg/dL (0.2-1.0); THYROID STIMULATING HORMONE 6.61 uIU/mL (0.36-3.74); TOTAL PROTEIN, SERUM 5.8 g/dL (6.0-8.3)
--- NOTE | 2024-04-22 07:50 | PN ---
[facility] PROGRESS NOTE Date of Service: Apr 22, 2024 Time of Service: 07:44 SUBJECTIVE: [63-year-old male who presented to the emergency department with chest pain, he is known with positive UDS with marijuana and cocaine. He presented with non- STEMI with elevated troponin. He was evaluated by the supervisor post wave who recommended cardiac catheterization. Patient remained chest pain-free. At this time we will follow up with cardiac catheterization results/recommendations from the supervisor post wave. He will remain on ACS protocol. ] REVIEW OF SYSTEMS CONSTITUTIONAL: Positive diaphoresis Denies fevers, chills, or night sweats. No unintentional weight loss reported. NEUROLOGICAL: Denies headache, amaurosis fugax, motor weakness, sensory deficit, vertigo/spinning sensation, gait abnormalities, or tremors. ENT: No hearing loss, otalgia, otorrhea, rhinitis, rhinorrhea, hoarseness, or sore throat. CARDIOVASCULAR: Positive chest pain Denies orthopnea, paroxysmal nocturnal dyspnea, palpitations, life-threatening arrhythmias, claudication. PULMONARY: Positive shortness of breath Denies cough, phlegm/sputum, hemoptysis, pleuritic chest pain. SLEEP: Denies morning headaches, daytime somnolence or napping. Denies difficulty falling asleep, staying asleep, waking from sleep. Denies knowledge of snoring. GASTROINTESTINAL: Denies any type of dysphagia to either liquids or solids. Denies nausea, vomiting, pyrosis, early satiety, abdominal pain, diarrhea, constipation, or changes in stool consistency or caliber. Denies coffee-ground emesis, hematemesis, hematochezia, or melanotic stools. GENITOURINARY: Denies frequency, urgency, nocturia, hematuria or incontinence (Storage/Irritative symptoms.) Low urinary stream, straining to void, urinary intermittency or hesitancy, splitting of the voiding stream, terminal dribbling. ENDOCRINOLOGIC: Denies polyuria, polydipsia, polyphagia or heat/cold intolerances. HEMATOLOGIC: Denies thrombophilia/previous clots, or coagulopathy/bleeding disorders. ONCOLOGIC: Denies personal history of malignancy. DERMATOLOGIC: Denies rashes or pruritus. PSYCHIATRIC: Denies any suicidal or homicidal ideation. Denies hallucinations. PHYSICAL EXAM GENERAL APPEARANCE: The patient is awake, alert, and oriented, in no acute cardiopulmonary distress. NEUROLOGICAL: Cranial nerves II-XII grossly intact. Motor is 5/5 in bilateral upper and lower extremities proximal to distal. No sensory deficits. HEENT: Face is symmetric. Pupils are equal and reactive. Extraocular movements are intact. NECK: Supple. No JVD. No thyromegaly. No submental, submandibular, pre- /postauricular, occipital or supraclavicular lymphadenopathy. CHEST: Normal chest expansion. No Telemetry. LUNGS: Absence of any rales, rhonchi or any wheezing. CARDIOVASCULAR: Regular. S1 and S2 normal. No appreciable rubs, murmurs or gallops. ABDOMEN: Soft, nontender, and nondistended. There is no rebound, voluntary guarding, or rigidity. : Deferred. No Felix. EXTREMITIES: Non-edematous and not cyanotic. No clubbing. Good capillary refill. SKIN: No skin breakdown. Vital Signs (last 8hr) Date Time Temp Pulse Resp B/P (MAP) Pulse Ox O2 Delivery O2 Flow Rate FiO2 04/22/24 05:29 98.1 60 14 123/72 100 Nasal Cannula* 2 28 04/22/24 02:33 62 12 133/81 100 Nasal Cannula* 2 28 04/22/24 01:00 98.1 65 14 147/88 100 Nasal Cannula* 2 28 LABS: Laboratory: Test 04/22/24 06:41 04/22/24 01:48 04/21/24 22:15 04/21/24 21:51 Range/Units White Blood Count 5.9 4.8-10.8 K/uL Red Blood Count 4.30 L 4.50-6.20 MIL/uL Hemoglobin 12.7 L 14.0-18.0 g/dL Hematocrit 40.0 L 42-54 % Mean Corpuscular Volume 93.0 79-99 fL Mean Corpuscular Hemoglobin 29.5 27.0-33.0 pg Mean Corpuscular Hemoglobin Concent 31.8 L 32.0-36.0 g/dL Red Cell Distribution Width 13.7 11.0-15.5 % Platelet Count 191 130-400 K/uL Mean Platelet Volume 10.6 H 7.5-10.5 fL Immature Granulocyte % (Auto) 0.8 0-1 % Neutrophils (%) (Auto) 45.6 40.0-77.0 % Lymphocytes (%) (Auto) 41.8 21.0-51.0 % Monocytes (%) (Auto) 7.9 3.0-13.0 % Eosinophils (%) (Auto) 3.2 0.0-8.0 % Basophils (%) (Auto) 0.7 0.0-5.0 % Neutrophils # (Auto) 2.7 1.8-7.7 K/uL Lymphocytes # (Auto) 2.5 1.0-4.8 K/uL Monocytes # (Auto) 0.5 0.1-1.0 K/uL Eosinophils # (Auto) 0.19 0.00-0.70 K/uL Basophils # (Auto) 0.04 0.00-0.20 K/uL Absolute Immature Granulocyte (auto 0.05 0-1 K/uL Nucleated Red Blood Cells 0.0 0.0-0.19 % Hemoglobin A1c 6.1 H 4.0-6.0 % Estimated Average Glucose (eAG) 128 H 70-126 mg/dL Troponin I High Sensitivity 800 *H 4-75 ng/L Activated Partial Thromboplast Time 24.5 L 26.3-35.5 SEC Urine Color LIGHT-YELLOW YELLOW Urine Appearance CLEAR CLEAR Urine pH 6.0 5.0-8.0 Urine Specific [place] 1.020 1.001-1.031 Urine Protein NEGATIVE NEGATIVE mg/dL Urine Glucose (UA) NEGATIVE NEGATIVE mg/dL Urine Ketones NEGATIVE NEGATIVE mg/dL Urine Occult Blood NEGATIVE NEGATIVE Urine Nitrate NEGATIVE NEGATIVE Urine Bilirubin NEGATIVE NEGATIVE mg/dL Urine Urobilinogen 0.2 0.2-1.0 mg/dL Urine Leukocyte Esterase NEGATIVE NEGATIVE Madelyn/uL Urine RBC 2-5 H 0-1 /HPF Urine WBC 2-5 H 0-1 /HPF Urine Squamous Epithelial Cells RARE 0-2 /HPF Urine Bacteria None None Seen /HPF Urine Opiates Screen NEGATIVE NEGATIVE Urine Barbiturates Screen NEGATIVE NEGATIVE Urine Phencyclidine Screen NEGATIVE NEGATIVE Urine Amphetamines Screen NEGATIVE NEGATIVE Urine Benzodiazepines Screen NEGATIVE NEGATIVE Urine Cocaine Screen POSITIVE H NEGATIVE Urine Marijuana (THC) Screen POSITIVE H NEGATIVE Troponin I < 0.05 0.00-0.05 ng/mL Test 04/21/24 21:37 Range/Units Sodium Level 137 136-145 mmol/L Potassium Level 3.6 3.5-5.1 mmol/L Chloride Level 102 101-111 mmol/L Carbon Dioxide Level 29 21-32 mmol/L Blood Urea Nitrogen 24 H 7-18 mg/dL Creatinine 1.0 0.5-1.3 mg/dL Glomerular Filtration Rate Calc 85 >90 mL/min Random Glucose 119 H 70-105 mg/dL Total Calcium 8.2 L 8.5-10.1 mg/dL Total Creatine Kinase 116 # 21-232 U/L B-Type Natriuretic Peptide 90 0-100 pg/mL Current Medications Medications (Trade) Dose Ordered Sig/Aaron Route PRN Reason Start Time Stop Time Status Last Admin Dose Admin Aspirin (Aspirin 81mg Ec Tab) 81 mg DAILY PO 04/22/24 09:00 05/22/24 08:59 Atorvastatin Calcium (LIPItor 40MG) 40 mg HS PO 04/22/24 21:00 05/22/24 20:59 Dextrose (D50w) 50 ml AD PRN IV HYPOGLYCEMIA PROTOCOL 04/22/24 00:00 05/22/24 00:00 Famotidine (Pepcid 20mg Vial) 20 mg BID IV 04/22/24 09:00 05/22/24 08:59 Glucagon (Glucagon 1mg Kit) 1 mg AD PRN IM HYPOGLYCEMIA PROTOCOL 04/22/24 00:00 05/22/24 00:00 Heparin Sodium (Porcine) (HEParin 5,000 UNIT VIAL) *calculation based on ACTUAL B... AD PRN IV HEPARIN PROTOCOL 04/22/24 02:30 05/22/24 02:29 04/22/24 02:08 5,000 UNIT Heparin Sodium/ Dextrose 250 ml @ 0 mls/hr Q6H IV 04/22/24 02:30 05/22/24 02:29 04/22/24 02:11 12.7 MLS/HR Hydralazine HCl (APRESOLine 20MG INJ) 10 mg Q6H PRN IV For:SBP above 160;DBP above 90 04/21/24 23:30 05/21/24 23:29 Insulin Human Regular (humuLIN R 100 UNIT/ML 3ML) INSULIN SLIDING SCAL... ACHS SQ 04/22/24 07:30 05/22/24 07:29 Magnesium Sulfate 50 ml @ 0 mls/hr PROTOCOL PRN IV OTHER [SEE ORDER COMMENTS] 04/22/24 00:00 05/22/24 00:00 Morphine Sulfate (morPHINE 2MG SYG) 2 mg Q4H PRN IVP SEVERE PAIN (7-10) 04/22/24 00:00 04/29/24 00:00 04/22/24 06:44 2 MG Nitroglycerin (Nitroglycerin 1gm Oint) 0.5 inch Q8H TD 04/21/24 23:30 05/21/24 23:29 04/22/24 00:59 0.5 INCH Nitroglycerin (Nitrostat) 0.4 mg AD PRN SL CHEST PAIN 04/21/24 21:30 05/21/24 21:29 04/21/24 22:27 0.4 MG Ondansetron HCl (zoFRAN 4MG INJ) 4 mg Q6H PRN IV NAUSEA/VOMITING 04/21/24 23:30 05/21/24 23:29 Pharmacy Profile Note (Pharmacy Communication) PLEASE ENTER HT AND WT Q15M MISC 04/21/24 23:45 04/22/24 00:16 DC Potassium Chloride 100 ml @ 50 mls/hr AD PRN IV POTASSIUM PROTOCOL 04/22/24 00:00 05/22/24 00:00 Sodium Chloride 1,000 ml @ 75 mls/hr [id number] IV 04/22/24 00:00 05/22/24 00:00 04/22/24 00:59 75 MLS/HR DIAGNOSTICS / RADIOLOGY: [ ] ASSESSMENT: Chest pain rule out ACS POA Polysubstance abuse POA Active smoker POA Normocytic normochromic anemia POA Diabetes POA Hyperlipidemia POA Hypertension POA History of seizure disorder POA History of Parkinson's disease POA History of multiple CVA POA PLAN: Continue hospital admission to medical telemetry Patient will be NPO before cardiac catheterization and resume diet post catheterization with heart healthy We continue Famotidine 20 mg p.o. bid for GI prophylaxis C/w NS @75 ml/hr x 1 bag and reevaluate C/w nitropaste 0.5 topical t.i.d. C/w aspirin 81 mg p.o and statin We will replace electrolytes as needed per protocol C/w insulin sliding scale AC & HS with hypoglycemia protocol C/w prn medication for fever,pain, nausea and vomiting We will reconcile home meds once medlist available Counseled on cigarette smoking and recreational drug use cessation F/u case management service We will obtain echocardiogram We will trend troponin q.6 hours x3 C/w Heparin drip per ACS protocol We will request labs in am Appreciate recommendations from Cardiology, cardiac catheterization today Further orders to follow depending on above results Case discussed with attending physician and came up with above treatment and plan of care. ATTESTATION BY PHYSICIAN I have seen and examined the patient. I reviewed the documentation, medical decision making, and treatment plan as noted by the mid-level provider above. I agree with the findings and plan of care. MELISSA ROJAS MD, [facility] Apr 22, 2024 07:50
[2024-04-22] MEDS ORDERED: PoTASSium chloRIDE 20MEQ/100ML 100 ML IV PRN ×2 (08:00)
[2024-04-22] MEDS ORDERED: MAGNESIUM 2GM PREMIX 50ML 50 ML IV PRN ×2 (08:00)
[2024-04-22] MEDS ORDERED: GLUCAGON 1MG KIT 1 MG ML IM PRN ×2 (08:00)
[2024-04-22] MEDS ORDERED: PoTASSium chl 10% ELIXIR 20MEQ 20 MEQ/15 ML UDCUP PO PRN (08:00)
[2024-04-22] MEDS ORDERED: DEXTROSE 50%-WATER 50 ML DISP.SYRIN IV PRN ×2 (08:00)
[2024-04-22] MEDS: FAMOTIDINE 20MG VIAL IV SCH (08:01)
[2024-04-22] MEDS: ASPIRIN 81 MG EC TAB PO SCH (08:01)
[2024-04-22 08:21] LABS: INR 1.03 (0.85-1.15); PROTHROMBIN TIME 11.1 SEC (9.6-11.6)
[2024-04-22 08:22] LABS: PARTIAL THROMBOPLASTIN TIME 79.1 SEC (26.3-35.5)
--- NOTE | 2024-04-22 09:18 | NUR ---
PENDING APTT RESULTS PATIENT IS ON HEPARIN DRIP. APTT WAS DONE AT 0800 PENDING RESULTS STILL. CALLED LAB SPOKE TO KATY REGARDING PENDING RESULTS SHE SAYS THE ANALYZER IS NOT WORKING CORRECTLY, SHE IS TROUBLE SHOOTING MACHINE AND WILL CALL BACK WITH AN UPDATE. HEPARIN DRIP IS AT THE SAME RATE. REPORTED INCIDENT TO ER CHARGE NURSE.
[2024-04-22] MEDS: ondanSETRON 4MG INJ IV PRN (09:41)
[2024-04-22] MEDS: hydrALAZine 20MG/ML VIAL IV PRN (09:57)
[2024-04-22] MEDS: leveTIRACEtam 500 MG/5 ML SD VIAL IV STA (10:05)
--- NOTE | 2024-04-22 10:44 | CONS ---
CONSULT NOTE: [place] [facility] Note # Demographics Consult Type: General Neurology Patient Location: Emergency Room First Name: Darci Last Name: Stan Date of : 1960 Age: 63 Gender: Male Facility: [facility] Time of Initial Page (Central Time): 04/22/2024, 09:54 Time of Return Call (Central Time): 04/22/2024, 09:54 # HPI History: 63 y/o M with breakthrough seizure. Patient reports he came to the hospital for chest pain. While in the hospital he has had two seizures. He is on Depakote but hasn't been getting for some time---last taken a long time ago. # Scores Time of exam and NIHSS (Central Time): 04/22/2024, 10:16 Level of Consciousness 1a: [1] = Not alert; but arousable by minor stim LOC Questions 1b: [0] = Answers both questions correctly LOC Commands 1c: [0] = Performs both tasks correctly Best Gaze 2: [0] = Normal Visual 3: [0] = No visual loss Facial Palsy 4: [0] = Normal symmetrical movements Motor Arm Left 5a: [0] = No drift Motor Arm Right 5b: [0] = No drift Motor Leg Left 6a: [0] = No drift Motor Leg Right 6b: [0] = No drift Limb Ataxia 7: [0] = Absent Sensory 8: [0] = Normal Best Language 9: [0] = No aphasia Dysarthria 10: [0] = Normal Extinction and Inattention 11: [0] = No abnormality NIHSS Total: 1 # PMH-FH-SH Past Medical History: - hypertension - Diabetes - hyperlipidemia - stroke - seizure # Data Other Labs: TSH 6.61 Cr 1 Tox screen positive for cocaine and marijuana # Assessment Impression: breakthrough seizure # Plan Imaging: (urgency: routine): - CT Head without contrast Medication: - levetiracetam (Keppra) 1000 mg twice daily Other: - If patient has any neurological deterioration please call me back immediately Additional Recommendations: Consider EEG if patient not returning to baseline # Demographics First Name: Darci Last Name: Stan Facility: [facility] ALIZE HUMPHREY MD Apr 22, 2024 10:44
[2024-04-22] MEDS ORDERED: INSULIN humuLIN R 100 UNIT/ML 3ML SQ SCH (11:30)
[2024-04-22] MEDS: LORazepam 2 MG/ML 1 ML VIAL IVP ONE (11:46)
--- NOTE | 2024-04-22 12:36 | HMCIMG ---
CT HEAD/BRAIN W/O CONTRAST HISTORY: Seizures COMPARISON: None TECHNIQUE: Multiple sequential axial images of the head were obtained from the base of the skull through vertex. Patient was not given contrast through intravenous route. FINDINGS: The ventricles and extraventricular CSF spaces are nondilated for patient's age. There is no midline shift, mass effect or herniation. No acute intracranial bleed is seen. Visualized portion of the paranasal sinuses are grossly within normal limits. IMPRESSION: 1. No acute intracranial bleed is seen. CT was performed with one or more following dose reduction techniques: automated exposure control, adjustment of the mA and kv according to patient's size, or use of a iterative reconstruction technique.
--- NOTE | 2024-04-22 12:48 | NUR ---
DCP: HOME Sw met with pt and Hany Hernández [phone]. Per , they live in [facility] [place] and are planning to move May 16. 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 PCP is Osei Meadows and uses [facility] rx. Discussed dc options, pt wants to return home Addendum: 04/22/24 at 1250 by DAVID PEÑALOZA SS Amended: Links added.
[2024-04-22] MEDS ORDERED: acetaMINOPHEN 325 MG TAB PO PRN (15:30)
--- NOTE | 2024-04-22 16:20 | NUR ---
quality assurance qa lab technician here stopped heparin drip transferred pt to quality assurance qa lab technician via bed
[2024-04-22] MEDS ORDERED: IOHEXOL 350 MG/ML 100ML INFUS..BTL IV ONE (16:21)
[2024-04-22] MEDS ORDERED: LIDOCAINE HCL 400MG/20ML VIAL ONE (16:21)
[2024-04-22] MEDS ORDERED: HEParin-NS 1,000 UNIT/500 ML 1,000 ML IV ONE (16:22)
[2024-04-22] MEDS ORDERED: NITROGLYCERIN 50MG VIAL ONE (16:22)
[2024-04-22] MEDS ORDERED: HEParin 10,000 UNIT/10ML (1,000 UNIT/ML) VIAL ONE (16:36)
[2024-04-22] MEDS ORDERED: niCARDIpine 25MG INJ IV ONE (17:07)
[2024-04-22] MEDS ORDERED: MIDAZOLAM HCL 1 MG/ML 2ML VIAL ONE (17:09)
[2024-04-22] MEDS ORDERED: FENTanyl CITRate PF 50 MCG/1 ML 2ML VIAL ONE (17:09)
[2024-04-22] MEDS ORDERED: HEParin 25,000 UNITS/250ML D5W 250 ML IV ONE (17:46)
--- NOTE | 2024-04-22 17:46 | NUR ---
charge nurse notified that pt will transfer from [facility] TO ICU#[id number] on balloon pump
--- NOTE | 2024-04-22 17:49 | OP ---
Operative Note: PROCEDURES PERFORMED: 1. Left heart catheterization. 2. Selective coronary angiography. 3. Moderate sedation 4. Insertion of IABP INDICATION FOR PROCEDURE: DESCRIPTION OF PROCEDURE: The patient was brought to the cardiac catheterization lab in fasting state, informed consent was obtained and the patient was prepped and draped in sterile fashion. Mild sedation was administered via versed and fentanyl. I was present during administration of sedation. The right wrist/radial artery region was then anesthetized via 2 mL of 2% lidocaine and the right radial artery was accessed via double wall puncture technique and a 6-Nigerien Radial arterial sheath was advanced over a guidewire using modified Seldinger technique.Next, a 5-Nigerien TIG catheter were advanced over the guidewire to the level of the ascending aorta. The catheter(s) was used to selectively engage the left main coronary artery and RCA. The right coronary artery and LM and its branches were then imaged in multiple planes and views. A femoral access then obtained using a modified Seldinger technique in the right common femoral artery. Subsequently, a 6 Nigerien sheath was upgraded to an 8 Nigerien sheath and a balloon pump was placed through the right groin. At the conclusion of the procedure, the patient had the Radial arterial sheath removed in the cardiac catheterization lab with hemostasis obtained via manual hand Band application devise and the patient was transferred to the Protection Officer observation area. Blood loss was minimal. Moderate sedation: Moderate sedation was used during the procedure, moderate sedation was started at 1720 and completed at 1747 . Patient tolerated the procedure well.Continuous hemodynamic and physiological monitoring was present throughout the procedure. ASA and Mallampatti were assessed prior to the procedure as well. SELECTIVE CORONARY ANGIOGRAPHY: 1. Left main: The left main bifurcates into the left anterior descending and circumflex coronary artery. Mid/distal LM 90% lesion 2. Left anterior descending: The left anterior descending coronary artery gives rise to diagonal(s) and terminates as the apical recurrent branch. NO significant disease. 3. Circumflex: The circumflex coronary artery is noted to provide obtuse marginal(s). Prox Cx with 60-70% disease 4. Right coronary artery: The right coronary artery is dominant and gives PDA and IRENA. No significant disease. 5. Left ventricular end-diastolic pressure is normal at 10 There was no gradient noted upon pullback. Impression Mid/distal LM 90% lesion Prox Cx with 60-70% disease PLAN: CVT surgery eval Aggressive risk factors modification Maximize medical therapy TOMMY PITT MD Apr 22, 2024 17:49
--- NOTE | 2024-04-22 18:40 | NUR ---
Pt arrived to [address] at this 1830. IABP present with R. groin sheath insertion. Site assessed with RN from [address] - bilateral radial and pedal pulses are palpable. Groin site clean, dry; no hematoma noted. IABP currently 1:1 with good waveforms. TR band with stabilization device present on R. wrist from [facility] radial access. Pt alert and oriented x4. C/o pain to back and shoulder from chronic arthritis. Plan of care reviewed with patient; questions and concerns addressed.
[2024-04-22] MEDS: atorVAStatin 40 MG TABLET PO SCH (20:11)
[2024-04-22] MEDS: acetaMINOPHEN 325 MG TAB PO PRN (20:22)
[2024-04-22] MEDS: leveTIRACEtam 500 MG/5 ML SD V 1,000 MG in 0.9%NACL 100ML 100 ML IV SCH (20:41)
--- NOTE | 2024-04-22 21:10 | NUR ---
Heparin drip started without bolus, per order s/p C. PTT drawn prior to initiation.
[2024-04-23] VITALS (44 sets, daily range): BP systolic 110–169; BP diastolic 47–121; PULSE 58–86; RESP 10–41; TEMP 97.5–99.3; O2SAT 96–99
--- NOTE | 2024-04-23 | HMCSR ---
APPROVED REPORT EXAM: Two-dimensional and M-mode echocardiogram with Doppler and color Doppler. Study Details: Hx: arthritis , diabetes, hyperlipidemia, hypertension, multiple stroke, Parkinson's d isease and seizure disorder INDICATION ICD: Chest Pain 2D Dimensions RVDd3.6 cmLVEF(%)40.2 (>50%)LVED Vol(simp.)134.0 mL IVSd0.9 (0.7-1.1cm)FS(%)20 %LVES Vol(simp.)64.1 mL LVDd5.1 (3.8-5.6cm)LA (2D)3.3 (1.6-4.0cm)LVEF(%, simp.)52 % PWd1.0 (0.7-1.1cm)Ao Root(2D)3.4 (2.0-3.7cm)LA ESV INDEX (4CH)40.70 mL/m2 IVSs1.2 cmLVOT diam2.3 (1.8-2.4cm)LA ESV INDEX (2CH)32.50 mL/m2 LVDs4.1 (2.5-4.0cm)LA ESV INDEX (BP)34.40 mL/m2 PWs1.5 cm Deformation Strain Apical 421.0 % Apical 216.0 % Apical 320.0 % Global Rqrxks19.0 % M-Mode Dimensions EPSS0.8 cm LA (MM)4.0 (1.6-4.0cm) Ao Root(MM)3.7 (2.0-3.7cm) Aortic Valve AoV VTI0.2 mAo Mean GR3.0 mmHgLVOT VTI0.17 m ERIC (VMAX)3.2 cm2AVA (VTI) 3.2 cm2 Mitral Valve MV E Vmax63.5 cm/sDECEL Krfm930 ms MV A Vmax39.3 cm/sP 1/2 T64 ms E/A ratio1.6MVA (PHT)3.4 cm2 TDI E/E' Medial7.7E/E' Lateral7.1 Medial E' Peak V8.20 cm/sLateral E' Peak V8.90 cm/s Tricuspid Valve RAP (EST) 3 mmHgRVSP3.0 mmHg Left Ventricle Left ventricular cavity size is normal. GLS -19.0% normal wall motion There is normal left ventricula r wall thickness. LVEF is 55-60% The left ventricular diastolic function is normal. Right Ventricle The right ventricle is normal size. The right ventricular systolic function is normal. Atria The left atrium is borderline dilated. The right atrium is borderline dilated. Aortic Valve The aortic valve is normal in structure and function. No aortic regurgitation is present. There is no aortic valvular stenosis. Mitral Valve There is no mitral valve regurgitation noted. There is no mitral valve stenosis. Tricuspid Valve The tricuspid valve is normal in structure and function. There is trace of tricuspid valve regurgitat ion noted. Great Vessels The aortic root is normal in size. The IVC is normal in size and collapses >50% with inspiration. Pericardium Trivial pericardial effusion. Other Information Quality : Fair Conclusion LVEF is 55-60% The left ventricular diastolic function is normal. There is normal left ventricular wall thickness. Left ventricular cavity size is normal. GLS -19.0% normal wall motion No evidence of pulmonary hypertension No evidence of pericardial effusion Study quality was adequate
[2024-04-23 03:43] LABS: BASOPHILS # (AUTO) 0.03 K/uL (0.00-0.20); BASOPHILS % (AUTO) 0.4 % (0.0-5.0); EOSINOPHILS # (AUTO) 0.13 K/uL (0.00-0.70); EOSINOPHILS % (AUTO) 1.8 % (0.0-8.0); HEMATOCRIT 39.7 % (42-54); IMMATURE GRANULOCYTE ABSOLUTE 0.03 K/uL (0-1); LYMPHOCYTES # (AUTO) 1.9 K/uL (1.0-4.8); LYMPHOCYTES % (AUTO) 26.2 % (21.0-51.0); MEAN CORPUSCULAR HEMOGLOBIN 29.3 pg (27.0-33.0); MEAN CORPUSCULAR HGB CONC 32.2 g/dL (32.0-36.0); MEAN CORPUSCULAR VOLUME 90.8 fL (79-99); MONOCYTES # (AUTO) 0.6 K/uL (0.1-1.0); MONOCYTES % (AUTO) 8.4 % (3.0-13.0); NEUTROPHILS # (AUTO) 4.6 K/uL (1.8-7.7); NEUTROPHILS % (AUTO) 62.8 % (40.0-77.0); PLATELET COUNT (AUTO) 188 K/uL (130-400); RED BLOOD CELL COUNT(AUTO) 4.37 MIL/uL (4.50-6.20); RED CELL DISTRIBUTION WIDTH 13.6 % (11.0-15.5); WHITE BLOOD COUNT (AUTO) 7.3 K/uL (4.8-10.8)
[2024-04-23 04:00] LABS: POTASSIUM 3.8 mmol/L (3.5-5.1)
[2024-04-23] MEDS: LIDOCAINE 4% ADH..PATCH TP STA (04:30)
[2024-04-23 04:36] LABS: ABG BASE EXCESS 1.2 mmol/L (-2.0-3.0); ABG PCO2 29 mmHg (35-48); ABG PH 7.521 (7.350-7.450); CARBON MONOXIDE 0.6 % (0.5-1.5); DEVICE COMMENT LR; PO2, ARTERIAL BG 96.3 mmHg (83.0-108.0); VENT MODE, BG RA (ROOM AIR)
[2024-04-23] MEDS: PoTASSium chloRIDE 20MEQ ER 20 MEQ ERTAB PO PRN (08:24)
--- NOTE | 2024-04-23 08:38 | PN ---
[facility] PROGRESS NOTE Date of Service: Apr 23, 2024 Time of Service: 08:30 SUBJECTIVE: [63-year-old male who presented to the emergency department with chest pain, he is known with positive UDS with marijuana and cocaine. He presented with non- STEMI with elevated troponin. He was evaluated by the fur repair inspector who recommended cardiac catheterization. Status post left heart catheterization noted mid distal LM 90% lesion in, proximal circumflex with 60-60% disease, patient had an insertion of IABP. Cardiovascular surgeon consulted. We will continue to follow. REVIEW OF SYSTEMS CONSTITUTIONAL: Positive diaphoresis Denies fevers, chills, or night sweats. No unintentional weight loss reported. NEUROLOGICAL: Denies headache, amaurosis fugax, motor weakness, sensory deficit, vertigo/spinning sensation, gait abnormalities, or tremors. ENT: No hearing loss, otalgia, otorrhea, rhinitis, rhinorrhea, hoarseness, or sore throat. CARDIOVASCULAR: Positive chest pain Denies orthopnea, paroxysmal nocturnal dyspnea, palpitations, life-threatening arrhythmias, claudication. PULMONARY: Positive shortness of breath Denies cough, phlegm/sputum, hemoptysis, pleuritic chest pain. SLEEP: Denies morning headaches, daytime somnolence or napping. Denies difficulty falling asleep, staying asleep, waking from sleep. Denies knowledge of snoring. GASTROINTESTINAL: Denies any type of dysphagia to either liquids or solids. Denies nausea, vomiting, pyrosis, early satiety, abdominal pain, diarrhea, constipation, or changes in stool consistency or caliber. Denies coffee-ground emesis, hematemesis, hematochezia, or melanotic stools. GENITOURINARY: Denies frequency, urgency, nocturia, hematuria or incontinence (Storage/Irritative symptoms.) Low urinary stream, straining to void, urinary intermittency or hesitancy, splitting of the voiding stream, terminal dribbling. ENDOCRINOLOGIC: Denies polyuria, polydipsia, polyphagia or heat/cold intolerances. HEMATOLOGIC: Denies thrombophilia/previous clots, or coagulopathy/bleeding disorders. ONCOLOGIC: Denies personal history of malignancy. DERMATOLOGIC: Denies rashes or pruritus. PSYCHIATRIC: Denies any suicidal or homicidal ideation. Denies hallucinations. PHYSICAL EXAM GENERAL APPEARANCE: The patient is awake, alert, and oriented, in no acute cardiopulmonary distress. NEUROLOGICAL: Cranial nerves II-XII grossly intact. Motor is 5/5 in bilateral upper and lower extremities proximal to distal. No sensory deficits. HEENT: Face is symmetric. Pupils are equal and reactive. Extraocular movements are intact. NECK: Supple. No JVD. No thyromegaly. No submental, submandibular, pre- /postauricular, occipital or supraclavicular lymphadenopathy. CHEST: Normal chest expansion. No Telemetry. LUNGS: Absence of any rales, rhonchi or any wheezing. CARDIOVASCULAR: Regular. S1 and S2 normal. No appreciable rubs, murmurs or gallops. ABDOMEN: Soft, nontender, and nondistended. There is no rebound, voluntary guarding, or rigidity. : Deferred. No Felix. EXTREMITIES: Non-edematous and not cyanotic. No clubbing. Good capillary refill. SKIN: No skin breakdown. Vital Signs (last 8hr) Date Time Temp Pulse Resp B/P (MAP) Pulse Ox O2 Delivery O2 Flow Rate FiO2 04/23/24 06:18 70 13 138/113 96 Room Air 04/23/24 05:48 80 17 144/121 97 Room Air 04/23/24 05:18 76 13 141/87 97 Room Air 04/23/24 04:49 82 33 145/98 98 Room Air 04/23/24 04:18 80 14 133/105 98 Room Air 04/23/24 04:00 96 Room Air* 0 21 04/23/24 03:55 97.5 59 17 152/119 98 Room Air 04/23/24 03:48 62 10 152/114 98 Room Air 04/23/24 03:18 64 16 147/114 97 Room Air 04/23/24 02:48 63 12 136/109 97 Room Air 04/23/24 02:18 60 18 125/92 95 Room Air 04/23/24 01:48 58 12 118/59 96 Room Air 04/23/24 01:18 59 14 122/94 94 Room Air 04/23/24 00:48 60 12 110/80 96 Room Air LABS: Laboratory: Test 04/23/24 04:35 04/23/24 03:22 04/22/24 19:57 04/22/24 11:46 Range/Units Blood Gas Specimen Type Arterial Arterial Blood pH 7.521 H 7.350-7.450 Arterial Blood Partial Pressure CO2 29 L 35-48 mmHg Arterial Blood Partial Pressure O2 96.3 83.0-108.0 mmHg Arterial Blood HCO3 23.0 21.0-28.0 mmol/L Arterial Blood Oxygen Saturation 98.0 94.0-98.0 % Arterial Blood Base Excess 1.2 -2.0-3.0 mmol/L Hemoglobin (Blood Gas) 13.6 13.5-17.5 g/dL Sodium (Blood Gas) 136 136-145 MMOL/L Bedside Potassium (Blood Gas) 3.7 3.4-4.5 MMOL/L Bedside Chloride (Blood Gas) 104 98-107 MMOL/L Bedside Glucose (Blood Gas) 92 65-95 MG/DL Bedside Ionized Calcium (Blood Gas) 1.18 1.15-1.33 MMOL/L Bedside Lactic Acid (Blood Gas) 1.00 H 0.36-0.75 MMOL/L Blood Gas Temperature 37.0 35.5-37.0 CELSIUS Blood Gas Vent Mode RA ROOM AIR FiO2 21.0 % Blood Gas Specimen Comment LR White Blood Count 7.3 4.8-10.8 K/uL Red Blood Count 4.37 L 4.50-6.20 MIL/uL Hemoglobin 12.8 L 14.0-18.0 g/dL Hematocrit 39.7 L 42-54 % Mean Corpuscular Volume 90.8 79-99 fL Mean Corpuscular Hemoglobin 29.3 27.0-33.0 pg Mean Corpuscular Hemoglobin Concent 32.2 32.0-36.0 g/dL Red Cell Distribution Width 13.6 11.0-15.5 % Platelet Count 188 130-400 K/uL Mean Platelet Volume 10.2 7.5-10.5 fL Immature Granulocyte % (Auto) 0.4 0-1 % Neutrophils (%) (Auto) 62.8 40.0-77.0 % Lymphocytes (%) (Auto) 26.2 21.0-51.0 % Monocytes (%) (Auto) 8.4 3.0-13.0 % Eosinophils (%) (Auto) 1.8 0.0-8.0 % Basophils (%) (Auto) 0.4 0.0-5.0 % Neutrophils # (Auto) 4.6 1.8-7.7 K/uL Lymphocytes # (Auto) 1.9 1.0-4.8 K/uL Monocytes # (Auto) 0.6 0.1-1.0 K/uL Eosinophils # (Auto) 0.13 0.00-0.70 K/uL Basophils # (Auto) 0.03 0.00-0.20 K/uL Absolute Immature Granulocyte (auto 0.03 0-1 K/uL Nucleated Red Blood Cells 0.0 0.0-0.19 % Activated Partial Thromboplast Time 47.8 #H 26.3-35.5 SEC Sodium Level 136 136-145 mmol/L Potassium Level 3.8 3.5-5.1 mmol/L Chloride Level 102 101-111 mmol/L Carbon Dioxide Level 28 21-32 mmol/L Blood Urea Nitrogen 17 7-18 mg/dL Creatinine 1.0 0.5-1.3 mg/dL Glomerular Filtration Rate Calc 85 >90 mL/min Random Glucose 87 70-105 mg/dL Total Calcium 8.6 8.5-10.1 mg/dL Whole Blood Glucose 81 # 70-110 MG/DL Troponin I High Sensitivity 349 *H 4-75 ng/L Test 04/22/24 08:01 04/22/24 06:41 04/21/24 22:15 04/21/24 21:51 Range/Units Prothrombin Time 11.1 9.6-11.6 SEC Prothromb Time International Ratio 1.03 0.85-1.15 Hemoglobin A1c 6.1 H 4.0-6.0 % Estimated Average Glucose (eAG) 128 H 70-126 mg/dL Magnesium Level 2.00 1.80-2.40 mg/dL Total Bilirubin 0.3 0.2-1.0 mg/dL Aspartate Amino Transf (AST/SGOT) 15 10-37 U/L Alanine Aminotransferase (ALT/SGPT) 28 12-78 U/L Alkaline Phosphatase 87 50-136 U/L Total Protein 5.8 L 6.0-8.3 g/dL Albumin 3.0 L 3.5-5.0 g/dL Triglycerides Level 37 30-200 mg/dL Cholesterol Level 170 <200 mg/dL LDL Cholesterol 103 H 0-99 mg/dL HDL Cholesterol 57 29-71 mg/dL Thyroid Stimulating Hormone (TSH) 6.61 H 0.36-3.74 uIU/mL Urine Color LIGHT-YELLOW YELLOW Urine Appearance CLEAR CLEAR Urine pH 6.0 5.0-8.0 Urine Specific [place] 1.020 1.001-1.031 Urine Protein NEGATIVE NEGATIVE mg/dL Urine Glucose (UA) NEGATIVE NEGATIVE mg/dL Urine Ketones NEGATIVE NEGATIVE mg/dL Urine Occult Blood NEGATIVE NEGATIVE Urine Nitrate NEGATIVE NEGATIVE Urine Bilirubin NEGATIVE NEGATIVE mg/dL Urine Urobilinogen 0.2 0.2-1.0 mg/dL Urine Leukocyte Esterase NEGATIVE NEGATIVE Madelyn/uL Urine RBC 2-5 H 0-1 /HPF Urine WBC 2-5 H 0-1 /HPF Urine Squamous Epithelial Cells RARE 0-2 /HPF Urine Bacteria None None Seen /HPF Urine Opiates Screen NEGATIVE NEGATIVE Urine Barbiturates Screen NEGATIVE NEGATIVE Urine Phencyclidine Screen NEGATIVE NEGATIVE Urine Amphetamines Screen NEGATIVE NEGATIVE Urine Benzodiazepines Screen NEGATIVE NEGATIVE Urine Cocaine Screen POSITIVE H NEGATIVE Urine Marijuana (THC) Screen POSITIVE H NEGATIVE Troponin I < 0.05 0.00-0.05 ng/mL Test 04/21/24 21:37 Range/Units Total Creatine Kinase 116 # 21-232 U/L B-Type Natriuretic Peptide 90 0-100 pg/mL Current Medications Medications (Trade) Dose Ordered Sig/Aaron Route PRN Reason Start Time Stop Time Status Last Admin Dose Admin Acetaminophen (TYLenol 325MG TAB) 650 mg Q4H PRN PO TEMPERATURE GREATER THAN 101.5 04/22/24 15:30 05/22/24 15:29 Acetaminophen (TYLenol 325MG TAB) 650 mg Q6H PRN PO MILD PAIN (1-3) 04/22/24 15:30 05/22/24 15:29 04/22/24 20:22 650 MG Aspirin (Aspirin 81mg Ec Tab) 81 mg DAILY PO 04/22/24 09:00 05/22/24 08:59 04/23/24 08:24 81 MG Atorvastatin Calcium (LIPItor 40MG) 40 mg HS PO 04/22/24 21:00 05/22/24 20:59 04/22/24 20:11 40 MG Dextrose (D50w) 50 ml AD PRN IV HYPOGLYCEMIA PROTOCOL 04/22/24 00:00 05/22/24 00:00 Dextrose (D50w) 50 ml AD PRN IV HYPOGLYCEMIA PROTOCOL 04/22/24 08:00 04/22/24 07:52 DC Famotidine (Pepcid 20mg Vial) 20 mg BID IV 04/22/24 09:00 05/22/24 08:59 04/23/24 08:25 20 MG Glucagon (Glucagon 1mg Kit) 1 mg AD PRN IM HYPOGLYCEMIA PROTOCOL 04/22/24 00:00 05/22/24 00:00 Glucagon (Glucagon 1mg Kit) 1 mg AD PRN IM HYPOGLYCEMIA PROTOCOL 04/22/24 08:00 04/22/24 07:52 DC Heparin Sodium (Porcine) (HEParin 5,000 UNIT VIAL) *calculation based on ACTUAL B... AD PRN IV HEPARIN PROTOCOL 04/22/24 02:30 05/22/24 02:29 04/22/24 02:08 5,000 UNIT Heparin Sodium/ Dextrose 250 ml @ 0 mls/hr Q6H IV 04/22/24 02:30 05/22/24 02:29 04/22/24 14:42 11.21 MLS/HR Hydralazine HCl (APRESOLine 20MG INJ) 10 mg Q6H PRN IV For:SBP above 160;DBP above 90 04/21/24 23:30 05/21/24 23:29 04/23/24 04:08 10 MG Insulin Human Regular (humuLIN R 100 UNIT/ML 3ML) INSULIN SLIDING SCAL... ACHS SQ 04/22/24 07:30 05/22/24 07:29 Insulin Human Regular (humuLIN R 100 UNIT/ML 3ML) INSULIN SLIDING SCAL... ACHS SQ 04/22/24 11:30 04/22/24 07:51 DC Levetiracetam (kepPRA 500 MG/5 ML SD VIAL) 500 mg ONCE STAT IV 04/22/24 09:47 04/22/24 09:56 DC 04/22/24 10:05 500 MG Levetiracetam 1000 mg/Sodium Chloride 100 ml @ 400 mls/hr BID IV 04/22/24 21:00 05/22/24 20:59 04/22/24 20:41 400 MLS/HR Lidocaine (Lidocaine Patch 4%) 1 each ONCE STAT TP 04/23/24 04:20 04/23/24 04:26 DC 04/23/24 04:30 1 EACH Magnesium Sulfate 50 ml @ 0 mls/hr PROTOCOL PRN IV OTHER [SEE ORDER COMMENTS] 04/22/24 00:00 05/22/24 00:00 Magnesium Sulfate 50 ml @ 0 mls/hr PROTOCOL PRN IV MAGNESIUM PROTOCOL 04/22/24 08:00 04/22/24 07:52 DC Morphine Sulfate (morPHINE 2MG SYG) 2 mg Q4H PRN IVP SEVERE PAIN (7-10) 04/22/24 00:00 04/29/24 00:00 04/23/24 03:27 2 MG Nitroglycerin (Nitroglycerin 1gm Oint) 0.5 inch Q8H TD 04/21/24 23:30 05/21/24 23:29 04/23/24 08:25 0.5 INCH Nitroglycerin (Nitrostat) 0.4 mg AD PRN SL CHEST PAIN 04/21/24 21:30 05/21/24 21:29 04/21/24 22:27 0.4 MG Ondansetron HCl (zoFRAN 4MG INJ) 4 mg Q6H PRN IV NAUSEA/VOMITING 04/21/24 23:30 05/21/24 23:29 04/22/24 09:41 4 MG Pharmacy Profile Note (Pharmacy Communication) PLEASE ENTER HT AND WT Q15M MISC 04/21/24 23:45 04/22/24 00:16 DC Potassium Chloride 100 ml @ 50 mls/hr AD PRN IV POTASSIUM PROTOCOL 04/22/24 00:00 05/22/24 00:00 Potassium Chloride 100 ml @ 100 mls/hr AD PRN IV POTASSIUM PROTOCOL 04/22/24 08:00 04/22/24 07:52 DC Potassium Chloride (K-Dur/Klor-Con 20meq) 20 meq AD PRN PO POTASSIUM PROTOCOL 04/22/24 08:00 05/22/24 07:59 04/23/24 08:24 20 MEQ Potassium Chloride (KCl 10% Elixir 20meq/15ml) 20 meq AD PRN PO POTASSIUM PROTOCOL 04/22/24 08:00 05/22/24 07:59 Sodium Chloride 1,000 ml @ 75 mls/hr [id number] IV 04/22/24 00:00 05/22/24 00:00 04/23/24 01:44 75 MLS/HR DIAGNOSTICS / RADIOLOGY: [ ] ASSESSMENT: Chest pain rule in ACS POA Mid distal LM 90% lesion by left heart catheterization, POA Prox CX with 60-60% disease, by by left heart catheterization, POA Polysubstance abuse POA Active smoker, POA Normocytic normochromic anemia POA Diabetes POA Hyperlipidemia POA Hypertension POA History of seizure disorder POA History of Parkinson's disease POA History of multiple CVA POA PLAN: Patient will remain in ICU We will follow recommendations from fur repair inspector, due to results of left heart catheterization, we will follow up with cardiovascular surgeon Continue with heparin drip Counseled on polysubstance abuse Continue with ACS protocol GI and DVT prophylaxis Repeat labs tomorrow We will continue to monitor electrolytes and replace as necessary Case was seen in ICU with Dr. Rojas, above plan was formulated Critical care time: Spent 35 minutes of critical care time with the patient. Reviewed the lab work, reconciled and updated patient's medications, and coordinated plan of care in ICU. ATTESTATION BY PHYSICIAN I have seen and examined the patient. I reviewed the documentation, medical decision making, and treatment plan as noted by the mid-level provider above. I agree with the findings and plan of care. MELISSA ROJAS MD, [facility] Apr 23, 2024 08:38
--- NOTE | 2024-04-23 09:27 | CONS ---
[facility] CONSULTATION NOTE Date Patient Seen: Apr 23, 2024 Time of Visit: 09:27 Supervising Physician: Dr Haylee Jacobson MD Reason for Consultation: Critical care Primary Care Physician: Adolfo Morales MD Outpatient Specialists: None Inpatient Consults: BRIANA, Dr Murray, Dr Rasheed, Dr Yee PROBLEM LIST: NSTEMI status post LHC and Balloon Pump placement for MCS 04/23 Severe coronary artery disease to left main 90% stenosis, pending CV consult Polysubstance abuse POA + cocaine and marijuana Suspicion for COPD, POA Normocytic normochromic anemia POA Hyperglycemia, POA Hyperlipidemia POA Essential Hypertension POA History of seizure disorder POA History of Parkinson's disease POA History of multiple CVA POA Active smoker POA HPI: This is a 63-year-old male with a history of hyperglycemia, hypertension, hyperlipidemia, multiple previous CVA, Parkinson's disease, seizure disorder, and drug abuse who came in for sudden chest pain that radiated to bilateral shoulders while walking with his . In ED EKG findings without significant ischemia changes the patient did have elevation in troponins: 59, 656, 800, 349. He was taken last night for a left heart catheterization by Dr. Murray and was found to have the proximal left main coronary artery severely occluded at 90%. He arrived to the ICU post heart catheterization with a balloon pump, currently on MCS of 1:1 and heparin drip. Per Cardiology recommendation CV surgery has been consulted and pending to see. We were consulted by primary team for critical care management. As per RN overnight he had seizure episode and neuro tele was consulted. Patient was started on Keppra 1000 mg b.i.d. per recommendation. On assessment patient he is awake alert and oriented x3. In reverse Trendelenburg position. He is hemodynamically stable a blood pressure 138/113 heart rate in the 70s respiratory rate of 13 O2 sat of 96% on room air. Patient has been afebrile. Urine output of 1.7 L with a negative balance of 764 mL. On laboratory WBCs are normal H&H is 12.8/39.7 CBC unremarkable. Chemistry kidneys are doing good creatinine of 1.0 GFR of 85, troponins trending down now. Otherwise unremarkable chemistry. On toxicology patient is positive for cocaine and marijuana. ABGs for this morning show a pH of 7.42 pCO2 of 29 lactic acid of 1. Urinalysis RBCs 2-5 WBCs 2-5. Chest x-ray with no acute pulmonary infiltrates seen. Enlarged lungs with flattening of diaphragm, suspicion for COPD. On 2D echo LVEF is 55-60% with left ventricular diastolic function normal. There is no evidence of pulmonary hypertension no evidence of pericardial effusion right ventricle is normal size right ventricle systolic function is normal. PAST MEDICAL HX: Diabetes mellitus type 2 Hypertension Hyperlipidemia Drug abuse Parkinson's disease Seizures Previous CVA Lipoma removal from right lower quadrant with recurrence PAST SURGICAL HX: Lipoma removal from right lower quadrant with recurrence SOCIAL HISTORY: Patient denies alcohol use Positive for cocaine and marijuana Active smoker Coded Allergies: ibuprofen (Unverified Allergy, Unknown, 04/07/20) naproxen (Unverified Allergy, Unknown, 04/07/20) REVIEW OF SYSTEMS: Const: [fever, fatigue, or weight changes] yes for generalized body pain. Eyes:[ no recent vision problems] ENT: [No congestion, ear pain, or sore throat] C/V: [no chest pain, palpitations or edema] Resp: [No cough, congestion, wheezing , no for shortness of breaths GI: [No abdominal pain, nausea, vomiting, constipation, or diarrhea] : [No incontinence of or dyuria] M/S: [No joint or pain swelling] Skin: [No rash] Neuro: [no headache, focal numbness, or weakness, dizziness or seizures] Psych: [no depression or anxiety] Heme: [no abnormal bruising or bleeding] Lymph: [no swollen glands] PHYSICAL EXAM: GENERAL: alert, weak, awake oriented x 3 HEENT: EOMI, Sclera non icteric, moist mucosa NECK: Supple, no JVD, trachea midline LUNGS: Diminished breath sounds bilaterally. No wheezes HEART: Regular rate and rhythm. Normal S1 and S2, without murmurs , balloon pump one-to-one ABD: Abdomen soft, nontender. Bowel sounds present EXT: No clubbing cyanosis or edema, +1 pedal pulse bilaterally NEURO: Alert and oriented to person, follows commands Vital Signs (last 8hr) Date Time Temp Pulse Resp B/P (MAP) Pulse Ox O2 Delivery O2 Flow Rate FiO2 04/23/24 06:18 70 13 138/113 96 Room Air 04/23/24 05:48 80 17 144/121 97 Room Air 04/23/24 05:18 76 13 141/87 97 Room Air 04/23/24 04:49 82 33 145/98 98 Room Air 04/23/24 04:18 80 14 133/105 98 Room Air 04/23/24 04:00 96 Room Air* 0 21 04/23/24 03:55 97.5 59 17 152/119 98 Room Air 04/23/24 03:48 62 10 152/114 98 Room Air 04/23/24 03:18 64 16 147/114 97 Room Air 04/23/24 02:48 63 12 136/109 97 Room Air 04/23/24 02:18 60 18 125/92 95 Room Air 04/23/24 01:48 58 12 118/59 96 Room Air LABS: Hematology Labs: Test 04/23/24 03:22 Range/Units White Blood Count 7.3 4.8-10.8 K/uL Red Blood Count 4.37 L 4.50-6.20 MIL/uL Hemoglobin 12.8 L 14.0-18.0 g/dL Hematocrit 39.7 L 42-54 % Mean Corpuscular Volume 90.8 79-99 fL Mean Corpuscular Hemoglobin 29.3 27.0-33.0 pg Mean Corpuscular Hemoglobin Concent 32.2 32.0-36.0 g/dL Red Cell Distribution Width 13.6 11.0-15.5 % Platelet Count 188 130-400 K/uL Mean Platelet Volume 10.2 7.5-10.5 fL Immature Granulocyte % (Auto) 0.4 0-1 % Neutrophils (%) (Auto) 62.8 40.0-77.0 % Lymphocytes (%) (Auto) 26.2 21.0-51.0 % Monocytes (%) (Auto) 8.4 3.0-13.0 % Eosinophils (%) (Auto) 1.8 0.0-8.0 % Basophils (%) (Auto) 0.4 0.0-5.0 % Neutrophils # (Auto) 4.6 1.8-7.7 K/uL Lymphocytes # (Auto) 1.9 1.0-4.8 K/uL Monocytes # (Auto) 0.6 0.1-1.0 K/uL Eosinophils # (Auto) 0.13 0.00-0.70 K/uL Basophils # (Auto) 0.03 0.00-0.20 K/uL Absolute Immature Granulocyte (auto 0.03 0-1 K/uL Nucleated Red Blood Cells 0.0 0.0-0.19 % Chemistry Labs: Test 04/23/24 03:22 04/22/24 19:57 04/22/24 11:46 04/22/24 06:41 Range/Units Sodium Level 136 136-145 mmol/L Potassium Level 3.8 3.5-5.1 mmol/L Chloride Level 102 101-111 mmol/L Carbon Dioxide Level 28 21-32 mmol/L Blood Urea Nitrogen 17 7-18 mg/dL Creatinine 1.0 0.5-1.3 mg/dL Glomerular Filtration Rate Calc 85 >90 mL/min Random Glucose 87 70-105 mg/dL Total Calcium 8.6 8.5-10.1 mg/dL Whole Blood Glucose 81 # 70-110 MG/DL Troponin I High Sensitivity 349 *H 4-75 ng/L Hemoglobin A1c 6.1 H 4.0-6.0 % Estimated Average Glucose (eAG) 128 H 70-126 mg/dL Magnesium Level 2.00 1.80-2.40 mg/dL Total Bilirubin 0.3 0.2-1.0 mg/dL Aspartate Amino Transf (AST/SGOT) 15 10-37 U/L Alanine Aminotransferase (ALT/SGPT) 28 12-78 U/L Alkaline Phosphatase 87 50-136 U/L Total Protein 5.8 L 6.0-8.3 g/dL Albumin 3.0 L 3.5-5.0 g/dL Triglycerides Level 37 30-200 mg/dL Cholesterol Level 170 <200 mg/dL LDL Cholesterol 103 H 0-99 mg/dL HDL Cholesterol 57 29-71 mg/dL Thyroid Stimulating Hormone (TSH) 6.61 H 0.36-3.74 uIU/mL Test 04/21/24 21:51 04/21/24 21:37 Range/Units Troponin I < 0.05 0.00-0.05 ng/mL Total Creatine Kinase 116 # 21-232 U/L B-Type Natriuretic Peptide 90 0-100 pg/mL Coagulation Labs: Test 04/23/24 03:22 04/22/24 08:01 Range/Units Activated Partial Thromboplast Time 47.8 #H 26.3-35.5 SEC Prothrombin Time 11.1 9.6-11.6 SEC Prothromb Time International Ratio 1.03 0.85-1.15 DIAGNOSTICS / RADIOLOGY RESULTS: IMAGING REPORT Signed PATIENT: CHARLES BREEN MR#: [id number] : 1960 SEX: M AGE: 63 [facility] STATUS: ADM IN REPORT#: [id number] SERVICE REASON: POSSIBLE BEDSIDE SEIZURE ORDERING PHYSICIAN: MELISSA YEE MD PROCEDURE: HEAD WO - CT HEAD/BRAIN W/O CONTRAST CT HEAD/BRAIN W/O CONTRAST HISTORY: Seizures COMPARISON: None TECHNIQUE: Multiple sequential axial images of the head were obtained from the base of the skull through vertex. Patient was not given contrast through intravenous route. FINDINGS: The ventricles and extraventricular CSF spaces are nondilated for patient's age. There is no midline shift, mass effect or herniation. No acute intracranial bleed is seen. Visualized portion of the paranasal sinuses are grossly within normal limits. IMPRESSION: 1. No acute intracranial bleed is seen. CT was performed with one or more following dose reduction techniques: automated exposure control, adjustment of the mA and kv according to patient's size, or use of a iterative reconstruction technique. DICTATED BY: KWAME JUSTICE MD DATE: 04/22/241233 ELECTRONICALLY SIGNED BY: KWAME JUSTICE MD DATE: 04/22/246 PATIENT: CHARLES BREEN MR#: [id number] : 1960 SEX: M AGE: 63 LOCATION: [facility] ORDER 3 STATUS: ADM IN REPORT#: [id number] SERVICE 2 REASON: cp ORDERING PHYSICIAN: TOMMY PITT MD PROCEDURE: ECHO CMP - ECHO 2-D COMPLETE APPROVED REPORT EXAM: Two-dimensional and M-mode echocardiogram with Doppler and color Doppler. Study Details: Hx: arthritis , diabetes, hyperlipidemia, hypertension, multiple stroke, Parkinson's disease and seizure disorder INDICATION ICD: Chest Pain 2D Dimensions RVDd 3.6 cm LVEF(%) 40.2 (>50%) LVED Vol(simp.) 134.0 mL IVSd 0.9 (0.7-1.1cm) FS(%) 20 % LVES Vol(simp.) 64.1 mL LVDd 5.1 (3.8-5.6cm) LA (2D) 3.3 (1.6-4.0cm) LVEF(%, simp.) 52 % PWd 1.0 (0.7-1.1cm) Ao Root(2D) 3.4 (2.0-3.7cm) LA ESV INDEX (4CH) 40.70 mL/m2 IVSs 1.2 cm LVOT diam 2.3 (1.8-2.4cm) LA ESV INDEX (2CH) 32.50 mL/m2 LVDs 4.1 (2.5-4.0cm) LA ESV INDEX (BP) 34.40 mL/m2 PWs 1.5 cm Deformation Strain Apical 4 21.0 % Apical 2 16.0 % Apical 3 20.0 % Global Strain 19.0 % M-Mode Dimensions EPSS 0.8 cm LA (MM) 4.0 (1.6-4.0cm) Ao Root(MM) 3.7 (2.0-3.7cm) Aortic Valve AoV VTI 0.2 m Ao Mean GR 3.0 mmHg LVOT VTI 0.17 m EIRC (VMAX) 3.2 cm2 ERIC (VTI) 3.2 cm2 Mitral Valve MV E Vmax 63.5 cm/s DECEL Time 218 ms MV A Vmax 39.3 cm/s P 1/2 T 64 ms E/A ratio 1.6 MVA (PHT) 3.4 cm2 TDI E/E' Medial 7.7 E/E' Lateral 7.1 Medial E' Peak V 8.20 cm/s Lateral E' Peak V 8.90 cm/s Tricuspid Valve RAP (EST) 3 mmHg RVSP 3.0 mmHg Left Ventricle Left ventricular cavity size is normal. GLS -19.0% normal wall motion There is normal left ventricular wall thickness. LVEF is 55-60% The left ventricular diastolic function is normal. Right Ventricle The right ventricle is normal size. The right ventricular systolic function is normal. Atria The left atrium is borderline dilated. The right atrium is borderline dilated. Aortic Valve The aortic valve is normal in structure and function. No aortic regurgitation is present. There is no aortic valvular stenosis. Mitral Valve There is no mitral valve regurgitation noted. There is no mitral valve stenosis. Tricuspid Valve The tricuspid valve is normal in structure and function. There is trace of tricuspid valve regurgitation noted. Great Vessels The aortic root is normal in size. The IVC is normal in size and collapses >50% with inspiration. Pericardium Trivial pericardial effusion. Other Information Quality : Fair Conclusion LVEF is 55-60% The left ventricular diastolic function is normal. There is normal left ventricular wall thickness. Left ventricular cavity size is normal. GLS -19.0% normal wall motion No evidence of pulmonary hypertension No evidence of pericardial effusion Study quality was adequate DICTATED BY: TOMMY PITT MD DATE: 04/22/24 1038 ELECTRONICALLY SIGNED BY: TOMMY PITT MD DATE: 04/23/24 0000 IMAGING REPORT Signed PATIENT: CHARLES BREEN MR#: [id number] : 1960 SEX: M AGE: 63 LOCATION: ED ORDER 15 STATUS: [facility] REPORT#: [id number] SERVICE 14 REASON: CHEST PAIN ORDERING PHYSICIAN: ANDREW WATTERS MD PROCEDURE: CXR1VW - CHEST 1VW CHEST 1VW HISTORY: Chest pain COMPARISON: 01/01/2023 FINDINGS: A frontal projection of the chest was obtained. No acute pulmonary infiltrates is seen. The heart is normal in size. Degenerative changes are seen. Prominent interstitial markings are seen. No evidence of aortic calcification is seen. IMPRESSION: 1. No acute pulmonary infiltrate is seen. DICTATED BY: KWAME JUSTICE MD DATE: 04/21/242222 ELECTRONICALLY SIGNED BY: KWAME JUSTICE MD DATE: 04/21/242227 PLAN Telemetry monitoring Follow CT surgeon recommendations Follow cardiology recommendations Multimodal pain management Balloon pump per Cardiology Chest x-ray in the morning 2D echo done-normal diastolic function EF 55-60% Transfuse if absolutely necessary to keep hemoglobin above 8 Maintain O2 sats greater than 92% Incentive spirometry Hemoglobin A1c 6.1 Glycemic control with goal of 80-180 Referral for cardiac rehabilitation on DC Speech to eval once patient is extubated Educated patient to stop cocaine and marijuana use. Informed him the next time that he does cocaine he may likely . Patient verbalized understanding. NEURO: Minimize central acting medications as possible. Fall Precautions. Well lighted room through the day and minimize interruptions through the night to prevent acute delirium. PULMONARY: Supplemental 02 as needed Titrate Fio2 to keep Spo2 > or = 90% DuoNebs and CPT as needed IS hourly while awake for pulmonary hygiene Out of bed to chair as tolerated CARDIOVASCULAR: Follow hemodynamics. Titrate vasopressor to keep MAP >65 or systolic blood pressure >95mmHg Drips: Heparin LINES: PIV GI & NUTRITION: Continue nutritional support Aspirations precautions Prokinetic agents and laxatives as needed KIDNEYS & ELECTROLYTES: Strict monitoring of intake and output Daily weights Avoid nephrotoxic agents Monitor electrolytes and replace as needed Goal urine output of 30mL/hr or 0.5mL/kg/hr Urine output: 1.7 L Fluid Balance: [ ] ENDOCRINE: Maintain blood glucose between 100-180 at all times. Insulin sliding scale for blood glucose management INFECTIOUS DISEASE: Trend temperature. Chong-culture if febrile. Micro: [ ] Antibiotics: None HEMATOLOGY & COAGULATION: Monitor H&H. Keep Hgb > 7 Transfuse 1 unit of PRBC for Hgb < 7 Transfuse 1 pack of platelets of platelets < 20, 000 Watch for any signs and symptoms of bleeding SKIN: Pressure ulcer prevention per facility protocol Rehab: PT/OT Prophylaxis: GI: Pepcid DVT: Patient is already on a heparin drip Code Status: Full Resuscitation Disposition: ICU Other: Total patient care time exceeds 45 minutes excluding all procedures. Case was discussed and seen with my supervising physician. The above plan was formulated and agreed upon. ERIC LIMP Apr 23, 2024 09:27
--- NOTE | 2024-04-23 12:01 | HMCIMG ---
US CAROTID DUPLEX HISTORY: Preop COMPARISON: None TECHNIQUE: Duplex carotid arterial Doppler ultrasound study was performed. FINDINGS: The common, internal and external carotid arteries are visualized. The peak systolic velocities of right common carotid artery is 139 centimeters per second, right internal carotid artery is 156 centimeters per second, right external carotid artery is 207 centimeters per second, and right vertebral artery is 64 centimeters per second. Right internal carotid artery to right common carotid artery ratio is 1.1. Right vertebral artery is seen with antegrade flow. The peak systolic velocities of left common carotid artery is 115 centimeters per second, left internal carotid artery is 123 centimeters per second, left external carotid artery is 126 centimeters per second, and left vertebral artery is 43 centimeters per second. Left internal carotid artery to left common carotid artery ratio is 1.1. Left vertebral artery is seen with antegrade flow. There are bilateral echogenic plaques. IMPRESSION: 1. No hemodynamically significant lesion is seen of either extracranial carotid artery system.
--- NOTE | 2024-04-23 13:00 | NUR ---
Nursing Note Patient on NPO status, per CV surgeon. Educated patient on rationale for NPO status and current IV hydration, unsuccessful. Patient noncompliant with NPO status and ate food his brought him. Per patient, he wanted to eat because he has not had food in 2 days. Notified CV surgeon's nurse Trini of patient's food intake.
--- NOTE | 2024-04-23 20:46 | CONS ---
REFERRING PHYSICIAN: Vu Jacobson MD CONSULTING PHYSICIAN: Oswaldo Rasheed MD REASON FOR CONSULTATION: Left main coronary artery disease. HISTORY OF PRESENT ILLNESS: This is a 63-year-old gentleman who presents with coronary artery disease. Cardiac catheterization demonstrates left main coronary artery disease. I had the opportunity to review the films and discussed the case with Dr. Jacobson for the care in Cardiology. We both agree with surgery as indicated and we have recommended. In addition, I have discussed with the patient and his the indications for surgery as well as the potential complications of the operation including but not limited to postoperative bleeding, infection, stroke and/or . He understands this as well as associated morbidity and mortality of the procedure. He ____ comorbidities and wishes to proceed. Plan now after surgery. TID: [id number] RECEIPT: [id number]
[2024-04-23] MEDS: ceFAZolin SODIUM 2 GM VIAL IVP SCH (21:38)
--- NOTE | 2024-04-23 22:19 | PN ---
CARDIOLOGY Reason for consult: Chest pain HPI/story at presentation: This is a pleasant 61-year-old past medical history as per present with complaints of chest discomfort. Known history of cocaine/marijuana use at baseline and has been having issues with retrosternal chest pain at presentation. EKG without significant ischemic changes but patient did have elevated troponins greater than 600. Cardiology was consulted for further evaluation management Subjective: 04/22/2024 Chest pain Past medical history: See below Allergies, Meds See chart Review of systems Review of Systems Constitutional: Negative for chills and fever. HENT: Negative for ear discharge and ear pain. Eyes: Negative for photophobia and discharge. Respiratory: Negative for cough, sputum production and stridor. Cardiovascular: Negative for chest pain and palpitations. Gastrointestinal: Negative for diarrhea and vomiting. Genitourinary: Negative for frequency. Musculoskeletal: Negative for myalgias. Skin: Negative for rash. Neurological: Negative for focal weakness and seizures. Endo/Heme/Allergies: Negative for polydipsia. Psychiatric/Behavioral: Negative for hallucinations. Vitals see chart PHYSICAL EXAMINATION GENERAL: The patient is alert and oriented*3 HEENT: Nonicteric sclerae, non traumatic HEART: Regular rate and rhythm with no murmurs LUNGS: Clear to auscultation bilaterally ABDOMEN: No acute issues, non tender GENITAL, RECTAL: deferred SKIN: No rash NEUROLOGIC: NFND EXTREMITIES: No edema ASSESSMENT CHEST PAIN, NSTEMI :HC with severe disease of LM, s/p IABP History of EKG without ischemic changes trop > 600 04/2024 UDS positive for cocaine and marijuana CVA History of, 2019 HYPERTENSION, HYPERLIPIDEMIA TOBACCO USE OTHER MEDICAL PROBLEMS arthritis seizures PLAN 04/22/2024 patient with non-STEMI, no significant ischemic changes on EKG. Can start heparin, will consider cardiac catheterization tomorrow to further evaluate coronaries. UDS positive for cocaine and marijuana, will need to address compliance with medical therapy prior to any intervention. No history of significant peripheral vascular disease with history of strokes in the past. 04/23/2024 Remains on balloon pump, having issues with back pain in the setting of arthritis but otherwise, stable hemodynamic and electrical status. Remains on heparin drip and tolerating well. Timing of surgery per CVT. On metoprolol statin and aspirin, continue. Echocardiogram showed normal ejection fraction as well. ATTESTATION I was involved substantially in the care of this patient Number and complexity of problems addressed: 1 acute illness with systemic features Amount and or complexity of data Review of prior external note(s) from each unique source: 2+ Ordering of each unique test : 1 Review of the result(s) of each unique test: 2+ Assessment requiring an independent historian(s): No Independent interpretation of test performed by another MD/QHCP/appropriate source (not separately reported) : No Discussion of management or test interpretation with external MD/QHCP/appropriate source (not separately reported) : No Risk status (cardiac, billing related): Moderate Vitals/Labs Vital Signs Date Time Temp Pulse Resp B/P (MAP) Pulse Ox O2 Delivery O2 Flow Rate FiO2 04/23/24 20:00 96 Room Air* 0 21 04/23/24 18:00 77 20 130/66 04/23/24 16:00 98.1 Laboratory Tests 04/23/24 03:22 Medications Current Medications Nitroglycerin 0.4 mg AD PRN SL Last administered on 04/21/24at 22:27; Start 04/21/24 at 21:30; Stop 05/21/24 at 21:29 Ondansetron HCl 4 mg Q6H PRN IV Last administered on 04/22/24at 09:41; Start 04/21/24 at 23:30; Stop 05/21/24 at 23:29 Nitroglycerin 0.5 inch Q8H TD Last administered on 04/23/24at 08:25; Start 04/21/24 at 23:30; Stop 04/23/24 at 09:03; Status DC Hydralazine HCl 10 mg Q6H PRN IV Last administered on 04/23/24at 04:08; Start 04/21/24 at 23:30; Stop 05/21/24 at 23:29 Famotidine 20 mg BID IV Last administered on 04/23/24at 19:25; Start 04/22/24 at 09:00; Stop 05/22/24 at 08:59 Pharmacy Profile Note PLEASE ENTER HT AND WT Q15M MISC; Start 04/21/24 at 23:45; Stop 04/22/24 at 00:16; Status DC Insulin Human Regular INSULIN SLIDING SCAL... ACHS SQ; Start 04/22/24 at 07:30; Stop 05/22/24 at 07:29 Dextrose 50 ml AD PRN IV; Start 04/22/24 at 00:00; Stop 05/22/24 at 00:00 Glucagon 1 mg AD PRN IM; Start 04/22/24 at 00:00; Stop 05/22/24 at 00:00 Potassium Chloride 100 ml @ 50 mls/hr AD PRN IV; Start 04/22/24 at 00:00; Stop 05/22/24 at 00:00 Magnesium Sulfate 50 ml @ 0 mls/hr PROTOCOL PRN IV; Start 04/22/24 at 00:00; Stop 05/22/24 at 00:00 Morphine Sulfate 2 mg Q4H PRN IVP Last administered on 04/23/24at 19:25; Start 04/22/24 at 00:00; Stop 04/29/24 at 00:00 Sodium Chloride 1,000 ml @ 75 mls/hr [id number] IV Last administered on 04/23/24at 17:50; Start 04/22/24 at 00:00; Stop 04/23/24 at 23:59 Aspirin 81 mg DAILY PO Last administered on 04/23/24at 08:24; Start 04/22/24 at 09:00; Stop 05/22/24 at 08:59 Atorvastatin Calcium 40 mg HS PO Last administered on 04/23/24at 19:25; Start 04/22/24 at 21:00; Stop 05/22/24 at 20:59 Heparin Sodium (Porcine) *calculation based on ACTUAL B... AD PRN IV Last administered on 04/22/24at 02:08; Start 04/22/24 at 02:30; Stop 05/22/24 at 02:29 Heparin Sodium/ Dextrose 250 ml @ 0 mls/hr Q6H IV Last administered on 04/23/24at 18:56; Start 04/22/24 at 02:30; Stop 05/22/24 at 02:29 Insulin Human Regular INSULIN SLIDING SCAL... ACHS SQ; Start 04/22/24 at 11:30; Stop 04/22/24 at 07:51; Status DC Dextrose 50 ml AD PRN IV; Start 04/22/24 at 08:00; Stop 04/22/24 at 07:52; Status DC Glucagon 1 mg AD PRN IM; Start 04/22/24 at 08:00; Stop 04/22/24 at 07:52; Status DC Magnesium Sulfate 50 ml @ 0 mls/hr PROTOCOL PRN IV; Start 04/22/24 at 08:00; Stop 04/22/24 at 07:52; Status DC Potassium Chloride 100 ml @ 100 mls/hr AD PRN IV; Start 04/22/24 at 08:00; Stop 04/22/24 at 07:52; Status DC Potassium Chloride 20 meq AD PRN PO; Start 04/22/24 at 08:00; Stop 05/22/24 at 07:59 Potassium Chloride 20 meq AD PRN PO Last administered on 04/23/24at 08:24; Start 04/22/24 at 08:00; Stop 05/22/24 at 07:59 Lorazepam 2 mg ONCE ONCE IVP; Start 04/22/24 at 10:00; Stop 04/22/24 at 10:01; Status DC Levetiracetam 500 mg ONCE STAT IV Last administered on 04/22/24at 10:05; Start 04/22/24 at 09:47; Stop 04/22/24 at 09:56; Status DC Levetiracetam 1000 mg/Sodium Chloride 100 ml @ 400 mls/hr BID IV Last administered on 04/23/24at 21:10; Start 04/22/24 at 21:00; Stop 05/22/24 at 20:59 Acetaminophen 650 mg Q6H PRN PO Last administered on 04/22/24at 20:22; Start 04/22/24 at 15:30; Stop 05/22/24 at 15:29 Acetaminophen 650 mg Q4H PRN PO; Start 04/22/24 at 15:30; Stop 05/22/24 at 15:29 Lidocaine HCl 20 ml STK-MED ONCE .ROUTE; Start 04/22/24 at 16:21; Stop 04/22/24 at 16:24; Status DC Iohexol 35,000 mg STK-MED ONCE IV; Start 04/22/24 at 16:21; Stop 04/22/24 at 16:24; Status DC Heparin Sodium/ Sodium Chloride 1,000 ml @ As Directed STK-MED ONCE IV; Start 04/22/24 at 16:22; Stop 04/22/24 at 16:24; Status DC Nitroglycerin 50 mg STK-MED ONCE .ROUTE; Start 04/22/24 at 16:22; Stop 04/22/24 at 16:24; Status DC Heparin Sodium (Porcine) 10,000 unit STK-MED ONCE .ROUTE; Start 04/22/24 at 16:36; Stop 04/22/24 at 16:36; Status DC Nicardipine HCl 25 mg STK-MED ONCE IV; Start 04/22/24 at 17:07; Stop 04/22/24 at 17:08; Status DC Fentanyl Citrate 100 mcg STK-MED ONCE .ROUTE; Start 04/22/24 at 17:09; Stop 04/22/24 at 17:09; Status DC Midazolam HCl 2 mg STK-MED ONCE .ROUTE; Start 04/22/24 at 17:09; Stop 04/22/24 at 17:09; Status DC Heparin Sodium/ Dextrose 250 ml @ As Directed STK-MED ONCE IV; Start 04/22/24 at 17:46; Stop 04/22/24 at 17:46; Status DC Lidocaine 1 each ONCE STAT TP Last administered on 04/23/24at 04:30; Start 04/23/24 at 04:20; Stop 04/23/24 at 04:26; Status DC Cefazolin Sodium 2 gm ONCALL IVP Last administered on 04/23/24at 21:38; Start 04/23/24 at 21:30; Stop 04/25/24 at 21:29 Metoprolol Tartrate 12.5 mg ONCE ONCE PO; Start 04/24/24 at 09:00; Stop 04/24/24 at 09:01 TOMMY PITT MD Apr 23, 2024 22:19
[2024-04-24] VITALS (51 sets, daily range): BP systolic 67–190; BP diastolic 29–125; PULSE 60–113; RESP 8–30; TEMP 97.2–98.8; O2SAT 96–100
[2024-04-24 04:07] LABS: HEMATOCRIT 38.5 % (42-54); MEAN CORPUSCULAR HEMOGLOBIN 30.2 pg (27.0-33.0); MEAN CORPUSCULAR HGB CONC 32.7 g/dL (32.0-36.0); MEAN CORPUSCULAR VOLUME 92.3 fL (79-99); RED BLOOD CELL COUNT(AUTO) 4.17 MIL/uL (4.50-6.20); RED CELL DISTRIBUTION WIDTH 13.7 % (11.0-15.5); WHITE BLOOD COUNT (AUTO) 6.1 K/uL (4.8-10.8)
[2024-04-24 04:19] LABS: CREATININE 1.1 mg/dL (0.5-1.3); POTASSIUM 3.7 mmol/L (3.5-5.1)
[2024-04-24 04:23] LABS: INR 1.01 (0.85-1.15); PROTHROMBIN TIME 10.9 SEC (9.6-11.6)
[2024-04-24 04:24] LABS: ALBUMIN 2.9 g/dL (3.5-5.0); BILIRUBIN,TOTAL 0.5 mg/dL (0.2-1.0); TOTAL PROTEIN, SERUM 5.9 g/dL (6.0-8.3)
[2024-04-24 04:25] LABS: PARTIAL THROMBOPLASTIN TIME 54.1 SEC (26.3-35.5)
[2024-04-24] MEDS: metoPROLOL tartRATE 25 MG TAB PO ONE (08:21)
--- NOTE | 2024-04-24 08:59 | HMCIMG ---
CHEST 1VW HISTORY: Preop CABG COMPARISON: 04/21/2024 FINDINGS: A frontal projection of the chest was obtained. No acute pulmonary infiltrates is seen. The heart is normal in size. Prominent interstitial markings are seen. No evidence of aortic calcification is seen. IMPRESSION: 1. No acute pulmonary infiltrate is seen.
--- NOTE | 2024-04-24 10:22 | PN ---
[facility] PROGRESS NOTE Date Patient Seen: Apr 24, 2024 Time of Visit: 10:17 Supervising Physician: Rg Jackson MD Primary Care Physician: Adolfo Morales MD Outpatient Specialists: None Inpatient Consults: BRIANA, Dr Murray, Dr Vitale, Dr Yee PROBLEM LIST: NSTEMI status post LHC and Balloon Pump placement for MCS 04/23 Severe coronary artery disease to left main 90% stenosis, pending CV consult Polysubstance abuse POA + cocaine and marijuana Suspicion for COPD, POA Normocytic normochromic anemia POA Hyperglycemia, POA Hyperlipidemia POA Essential Hypertension POA History of seizure disorder POA History of Parkinson's disease POA History of multiple CVA POA Active smoker POA LVEF is 55-60% with normal ventricular diastolic function. On 2D echo 04/23/24 INTERVAL HISTORY: Patient is awake alert and oriented x3 hemodynamically stable. Continues with balloon pump 1:1 MCS. Patient was seen by CV surgery and has agreed to move all with CABG. Heparin is on hold. Scheduled for CABG for noon today. Chest x-ray with no acute pulmonary infiltrates seen. Balloon pump seems in proper position. On arterial ultrasound no hemodynamically significant lesions seen either extracranial carotid arteries. Patient has good urine output 2 L in the last 24, CBC unremarkable similar to yesterday. Chemistry kidneys are doing well creatinine 1.1 GFR of 75 BUN of 19 total calcium 8.1 albumin 2.9. We will continue to follow alongside cardiovascular surgeon and Cardiology. REVIEW OF SYSTEMS: Const: [fever, fatigue, or weight changes] yes for generalized body pain. Eyes:[ no recent vision problems] ENT: [No congestion, ear pain, or sore throat] C/V: [no chest pain, palpitations or edema] Resp: [No cough, congestion, wheezing , no for shortness of breaths GI: [No abdominal pain, nausea, vomiting, constipation, or diarrhea] : [No incontinence of or dyuria] M/S: [No joint or pain swelling] Skin: [No rash] Neuro: [no headache, focal numbness, or weakness, dizziness or seizures] Psych: [no depression or anxiety] Heme: [no abnormal bruising or bleeding] Lymph: [no swollen glands] PHYSICAL EXAM: GENERAL: alert, weak, awake oriented x 3 HEENT: EOMI, Sclera non icteric, moist mucosa NECK: Supple, no JVD, trachea midline LUNGS: Diminished breath sounds bilaterally. No wheezes HEART: Regular rate and rhythm. Normal S1 and S2, without murmurs , balloon pump one-to-one ABD: Abdomen soft, nontender. Bowel sounds present EXT: No clubbing cyanosis or edema, +1 pedal pulse bilaterally NEURO: Alert and oriented to person, follows commands Vital Signs (last 8hr) Date Time Temp Pulse Resp B/P (MAP) Pulse Ox O2 Delivery O2 Flow Rate FiO2 04/24/24 09:00 98.8 60 18 169/101 97 04/24/24 08:00 62 30 176/99 98 04/24/24 08:00 96 Room Air* 0 21 04/24/24 07:00 75 16 164/99 97 Room Air 04/24/24 06:00 62 12 157/114 96 Room Air 04/24/24 05:00 63 12 172/122 97 Room Air 04/24/24 04:00 96 Room Air* 0 21 04/24/24 04:00 98.4 66 17 182/121 97 Room Air 04/24/24 03:00 66 13 158/115 96 Room Air LABS: Hematology Labs: Test 04/24/24 03:48 04/23/24 03:22 Range/Units White Blood Count 6.1 4.8-10.8 K/uL Red Blood Count 4.17 L 4.50-6.20 MIL/uL Hemoglobin 12.6 L 14.0-18.0 g/dL Hematocrit 38.5 L 42-54 % Mean Corpuscular Volume 92.3 79-99 fL Mean Corpuscular Hemoglobin 30.2 27.0-33.0 pg Mean Corpuscular Hemoglobin Concent 32.7 32.0-36.0 g/dL Red Cell Distribution Width 13.7 11.0-15.5 % Platelet Count 145 130-400 K/uL Mean Platelet Volume 10.2 7.5-10.5 fL Nucleated Red Blood Cells 0.0 0.0-0.19 % Immature Granulocyte % (Auto) 0.4 0-1 % Neutrophils (%) (Auto) 62.8 40.0-77.0 % Lymphocytes (%) (Auto) 26.2 21.0-51.0 % Monocytes (%) (Auto) 8.4 3.0-13.0 % Eosinophils (%) (Auto) 1.8 0.0-8.0 % Basophils (%) (Auto) 0.4 0.0-5.0 % Neutrophils # (Auto) 4.6 1.8-7.7 K/uL Lymphocytes # (Auto) 1.9 1.0-4.8 K/uL Monocytes # (Auto) 0.6 0.1-1.0 K/uL Eosinophils # (Auto) 0.13 0.00-0.70 K/uL Basophils # (Auto) 0.03 0.00-0.20 K/uL Absolute Immature Granulocyte (auto 0.03 0-1 K/uL Chemistry Labs: Test 04/24/24 03:48 04/23/24 19:20 04/22/24 11:46 Range/Units Sodium Level 137 136-145 mmol/L Potassium Level 3.7 3.5-5.1 mmol/L Chloride Level 103 101-111 mmol/L Carbon Dioxide Level 28 21-32 mmol/L Blood Urea Nitrogen 19 H 7-18 mg/dL Creatinine 1.1 0.5-1.3 mg/dL Glomerular Filtration Rate Calc 75 >90 mL/min Random Glucose 101 70-105 mg/dL Total Calcium 8.1 L 8.5-10.1 mg/dL Total Bilirubin 0.5 0.2-1.0 mg/dL Aspartate Amino Transf (AST/SGOT) 13 10-37 U/L Alanine Aminotransferase (ALT/SGPT) 23 12-78 U/L Alkaline Phosphatase 88 50-136 U/L B-Type Natriuretic Peptide 31 0-100 pg/mL Total Protein 5.9 L 6.0-8.3 g/dL Albumin 2.9 L 3.5-5.0 g/dL Triglycerides Level 41 30-200 mg/dL Cholesterol Level 165 <200 mg/dL LDL Cholesterol 95 0-99 mg/dL HDL Cholesterol 60 29-71 mg/dL Whole Blood Glucose 108 70-110 MG/DL Troponin I High Sensitivity 349 *H 4-75 ng/L Coagulation Labs: Test 04/24/24 03:48 Range/Units Prothrombin Time 10.9 9.6-11.6 SEC Prothromb Time International Ratio 1.01 0.85-1.15 Activated Partial Thromboplast Time 54.1 H 26.3-35.5 SEC DIAGNOSTICS / RADIOLOGY RESULTS: IMAGING REPORT Signed PATIENT: CHARLES BREEN MR#: [id number] : 1960 SEX: M AGE: 63 LOCATION: 2BH ORDER 230 STATUS: ADM IN REPORT#: [id number] SERVICE 06 REASON: preop CABG ORDERING PHYSICIAN: JACKELYN VITALE MD PROCEDURE: CXR1VW - CHEST 1VW CHEST 1VW HISTORY: Preop CABG COMPARISON: 04/21/2024 FINDINGS: A frontal projection of the chest was obtained. No acute pulmonary infiltrates is seen. The heart is normal in size. Prominent interstitial markings are seen. No evidence of aortic calcification is seen. IMPRESSION: 1. No acute pulmonary infiltrate is seen. DICTATED BY: KWAME JUSTICE MD DATE: 04/24/24851 ELECTRONICALLY SIGNED BY: KWAME JUSTICE MD DATE: 04/24/24858 PLAN Telemetry monitoring Follow CT surgeon recommendations Follow cardiology recommendations Multimodal pain management Balloon pump per Cardiology Chest x-ray in the morning 2D echo done-normal diastolic function EF 55-60% Transfuse if absolutely necessary to keep hemoglobin above 8 Maintain O2 sats greater than 92% Incentive spirometry Hemoglobin A1c 6.1 Glycemic control with goal of 80-180 Referral for cardiac rehabilitation on DC Speech to eval once patient is extubated Educated patient to stop cocaine and marijuana use. Informed him the next time that he does cocaine he may likely . Patient verbalized understanding. NEURO: Minimize central acting medications as possible. Fall Precautions. Well lighted room through the day and minimize interruptions through the night to prevent acute delirium. PULMONARY: Supplemental 02 as needed Titrate Fio2 to keep Spo2 > or = 90% DuoNebs and CPT as needed IS hourly while awake for pulmonary hygiene Out of bed to chair as tolerated CARDIOVASCULAR: Follow hemodynamics. Titrate vasopressor to keep MAP >65 or systolic blood pressure >95mmHg Drips: Heparin LINES: PIV GI & NUTRITION: Continue nutritional support Aspirations precautions Prokinetic agents and laxatives as needed KIDNEYS & ELECTROLYTES: Strict monitoring of intake and output Daily weights Avoid nephrotoxic agents Monitor electrolytes and replace as needed Goal urine output of 30mL/hr or 0.5mL/kg/hr Urine output: 1.7 L Fluid Balance: [ ] ENDOCRINE: Maintain blood glucose between 100-180 at all times. Insulin sliding scale for blood glucose management INFECTIOUS DISEASE: Trend temperature. Chong-culture if febrile. Micro: [ ] Antibiotics: None HEMATOLOGY & COAGULATION: Monitor H&H. Keep Hgb > 7 Transfuse 1 unit of PRBC for Hgb < 7 Transfuse 1 pack of platelets of platelets < 20, 000 Watch for any signs and symptoms of bleeding SKIN: Pressure ulcer prevention per facility protocol Rehab: PT/OT Prophylaxis: GI: Pepcid DVT: Patient is already on a heparin drip Code Status: Full Resuscitation Disposition: ICU Other: Total patient care time exceeds 45 minutes excluding all procedures. Case was discussed and seen with my supervising physician. The above plan was formulated and agreed upon. ERIC LIM [facility] Apr 24, 2024 10:22
--- NOTE | 2024-04-24 10:39 | PN ---
CARDIOLOGY Reason for consult: Chest pain HPI/story at presentation: This is a pleasant 61-year-old past medical history as per present with complaints of chest discomfort. Known history of cocaine/marijuana use at baseline and has been having issues with retrosternal chest pain at presentation. EKG without significant ischemic changes but patient did have elevated troponins greater than 600. Cardiology was consulted for further evaluation management Subjective: 04/22/2024 Chest pain 04/24/2024 plan for surgery today, anxious Past medical history: See below Allergies, Meds See chart Review of systems Review of Systems Constitutional: Negative for chills and fever. HENT: Negative for ear discharge and ear pain. Eyes: Negative for photophobia and discharge. Respiratory: Negative for cough, sputum production and stridor. Cardiovascular: Negative for chest pain and palpitations. Gastrointestinal: Negative for diarrhea and vomiting. Genitourinary: Negative for frequency. Musculoskeletal: Negative for myalgias. Skin: Negative for rash. Neurological: Negative for focal weakness and seizures. Endo/Heme/Allergies: Negative for polydipsia. Psychiatric/Behavioral: Negative for hallucinations. Vitals see chart PHYSICAL EXAMINATION GENERAL: The patient is alert and oriented*3 HEENT: Nonicteric sclerae, non traumatic HEART: Regular rate and rhythm with no murmurs LUNGS: Clear to auscultation bilaterally ABDOMEN: No acute issues, non tender GENITAL, RECTAL: deferred SKIN: No rash NEUROLOGIC: NFND EXTREMITIES: No edema ASSESSMENT CHEST PAIN, NSTEMI :HC with severe disease of LM, s/p IABP History of EKG without ischemic changes trop > 600 04/2024 UDS positive for cocaine and marijuana CVA History of, 2019 HYPERTENSION, HYPERLIPIDEMIA TOBACCO USE OTHER MEDICAL PROBLEMS arthritis seizures PLAN 04/22/2024 patient with non-STEMI, no significant ischemic changes on EKG. Can start heparin, will consider cardiac catheterization tomorrow to further evaluate coronaries. UDS positive for cocaine and marijuana, will need to address compliance with medical therapy prior to any intervention. No history of significant peripheral vascular disease with history of strokes in the past. 04/23/2024 Remains on balloon pump, having issues with back pain in the setting of arthritis but otherwise, stable hemodynamic and electrical status. Remains on heparin drip and tolerating well. Timing of surgery per CVT. On metoprolol statin and aspirin, continue. Echocardiogram showed normal ejection fraction as well. 04/24/2024 reportedly plan for surgery today, remains on IABP 1:1. on good meds, will follow perioperatively, multiple questions answered. ATTESTATION I was involved substantially in the care of this patient Number and complexity of problems addressed: 1 acute illness with systemic features Amount and or complexity of data Review of prior external note(s) from each unique source: 2+ Ordering of each unique test : 1 Review of the result(s) of each unique test: 2+ Assessment requiring an independent historian(s): No Independent interpretation of test performed by another MD/QHCP/appropriate source (not separately reported) : No Discussion of management or test interpretation with external MD/QHCP/appropriate source (not separately reported) : No Risk status (cardiac, billing related): Moderate Vitals/Labs Vital Signs Date Time Temp Pulse Resp B/P (MAP) Pulse Ox O2 Delivery O2 Flow Rate FiO2 04/24/24 09:00 98.8 60 18 169/101 97 04/24/24 08:00 Room Air* 0 21 Laboratory Tests 04/24/24 03:48 Medications Current Medications Nitroglycerin 0.4 mg AD PRN SL Last administered on 04/21/24at 22:27; Start 04/21/24 at 21:30; Stop 05/21/24 at 21:29 Ondansetron HCl 4 mg Q6H PRN IV Last administered on 04/22/24at 09:41; Start 04/21/24 at 23:30; Stop 05/21/24 at 23:29 Nitroglycerin 0.5 inch Q8H TD Last administered on 04/23/24at 08:25; Start 04/21/24 at 23:30; Stop 04/23/24 at 09:03; Status DC Hydralazine HCl 10 mg Q6H PRN IV Last administered on 04/24/24at 09:55; Start 04/21/24 at 23:30; Stop 05/21/24 at 23:29 Famotidine 20 mg BID IV Last administered on 04/24/24at 08:21; Start 04/22/24 at 09:00; Stop 05/22/24 at 08:59 Pharmacy Profile Note PLEASE ENTER HT AND WT Q15M MISC; Start 04/21/24 at 23:45; Stop 04/22/24 at 00:16; Status DC Insulin Human Regular INSULIN SLIDING SCAL... ACHS SQ; Start 04/22/24 at 07:30; Stop 05/22/24 at 07:29 Dextrose 50 ml AD PRN IV; Start 04/22/24 at 00:00; Stop 05/22/24 at 00:00 Glucagon 1 mg AD PRN IM; Start 04/22/24 at 00:00; Stop 05/22/24 at 00:00 Potassium Chloride 100 ml @ 50 mls/hr AD PRN IV; Start 04/22/24 at 00:00; Stop 05/22/24 at 00:00 Magnesium Sulfate 50 ml @ 0 mls/hr PROTOCOL PRN IV; Start 04/22/24 at 00:00; Stop 05/22/24 at 00:00 Morphine Sulfate 2 mg Q4H PRN IVP Last administered on 04/24/24at 08:31; Start 04/22/24 at 00:00; Stop 04/29/24 at 00:00 Sodium Chloride 1,000 ml @ 75 mls/hr [id number] IV Last administered on 04/23/24at 17:50; Start 04/22/24 at 00:00; Stop 04/23/24 at 23:59; Status DC Aspirin 81 mg DAILY PO Last administered on 04/24/24at 08:21; Start 04/22/24 at 09:00; Stop 05/22/24 at 08:59 Atorvastatin Calcium 40 mg HS PO Last administered on 04/23/24at 19:25; Start 04/22/24 at 21:00; Stop 05/22/24 at 20:59 Heparin Sodium (Porcine) *calculation based on ACTUAL B... AD PRN IV Last administered on 04/22/24at 02:08; Start 04/22/24 at 02:30; Stop 05/22/24 at 02:29 Heparin Sodium/ Dextrose 250 ml @ 0 mls/hr Q6H IV Last administered on 04/23/24at 18:56; Start 04/22/24 at 02:30; Stop 05/22/24 at 02:29 Insulin Human Regular INSULIN SLIDING SCAL... ACHS SQ; Start 04/22/24 at 11:30; Stop 04/22/24 at 07:51; Status DC Dextrose 50 ml AD PRN IV; Start 04/22/24 at 08:00; Stop 04/22/24 at 07:52; Status DC Glucagon 1 mg AD PRN IM; Start 04/22/24 at 08:00; Stop 04/22/24 at 07:52; Status DC Magnesium Sulfate 50 ml @ 0 mls/hr PROTOCOL PRN IV; Start 04/22/24 at 08:00; Stop 04/22/24 at 07:52; Status DC Potassium Chloride 100 ml @ 100 mls/hr AD PRN IV; Start 04/22/24 at 08:00; Stop 04/22/24 at 07:52; Status DC Potassium Chloride 20 meq AD PRN PO; Start 04/22/24 at 08:00; Stop 05/22/24 at 07:59 Potassium Chloride 20 meq AD PRN PO Last administered on 04/23/24at 08:24; Start 04/22/24 at 08:00; Stop 05/22/24 at 07:59 Lorazepam 2 mg ONCE ONCE IVP; Start 04/22/24 at 10:00; Stop 04/22/24 at 10:01; Status DC Levetiracetam 500 mg ONCE STAT IV Last administered on 04/22/24at 10:05; Start 04/22/24 at 09:47; Stop 04/22/24 at 09:56; Status DC Levetiracetam 1000 mg/Sodium Chloride 100 ml @ 400 mls/hr BID IV Last administered on 04/24/24at 08:21; Start 04/22/24 at 21:00; Stop 05/22/24 at 20:59 Acetaminophen 650 mg Q6H PRN PO Last administered on 04/22/24at 20:22; Start 04/22/24 at 15:30; Stop 05/22/24 at 15:29 Acetaminophen 650 mg Q4H PRN PO; Start 04/22/24 at 15:30; Stop 05/22/24 at 15:29 Lidocaine HCl 20 ml STK-MED ONCE .ROUTE; Start 04/22/24 at 16:21; Stop 04/22/24 at 16:24; Status DC Iohexol 35,000 mg STK-MED ONCE IV; Start 04/22/24 at 16:21; Stop 04/22/24 at 16:24; Status DC Heparin Sodium/ Sodium Chloride 1,000 ml @ As Directed STK-MED ONCE IV; Start 04/22/24 at 16:22; Stop 04/22/24 at 16:24; Status DC Nitroglycerin 50 mg STK-MED ONCE .ROUTE; Start 04/22/24 at 16:22; Stop 04/22/24 at 16:24; Status DC Heparin Sodium (Porcine) 10,000 unit STK-MED ONCE .ROUTE; Start 04/22/24 at 16:36; Stop 04/22/24 at 16:36; Status DC Nicardipine HCl 25 mg STK-MED ONCE IV; Start 04/22/24 at 17:07; Stop 04/22/24 at 17:08; Status DC Fentanyl Citrate 100 mcg STK-MED ONCE .ROUTE; Start 04/22/24 at 17:09; Stop 04/22/24 at 17:09; Status DC Midazolam HCl 2 mg STK-MED ONCE .ROUTE; Start 04/22/24 at 17:09; Stop 04/22/24 at 17:09; Status DC Heparin Sodium/ Dextrose 250 ml @ As Directed STK-MED ONCE IV; Start 04/22/24 at 17:46; Stop 04/22/24 at 17:46; Status DC Lidocaine 1 each ONCE STAT TP Last administered on 04/23/24at 04:30; Start 04/23/24 at 04:20; Stop 04/23/24 at 04:26; Status DC Cefazolin Sodium 2 gm ONCALL IVP Last administered on 04/23/24at 21:38; Start 04/23/24 at 21:30; Stop 04/25/24 at 21:29 Metoprolol Tartrate 12.5 mg ONCE ONCE PO Last administered on 04/24/24at 08:21; Start 04/24/24 at 09:00; Stop 04/24/24 at 09:01; Status DC TOMMY PITT MD Apr 24, 2024 10:39
[2024-04-24] MEDS ORDERED: aminoCAProic ACID 5,000MG VIAL 15,000 MG in 0.9% NACL 500ML IV.SOLN 420 ML IV PRN (11:00)
[2024-04-24] MEDS ORDERED: NOREPINEPHRIN 8MG/250ML NS 250 ML IV PRN (11:00)
[2024-04-24] MEDS ORDERED: EPINEPHrine PF 1MG (1:1,000) 10 MG in 0.9% NACL 250ML 240 ML IV PRN ×2 (11:00→15:00)
[2024-04-24] MEDS ORDERED: NITROGLYCERIN 50MG/D5W 250ML 1 BOT ONE (11:17)
[2024-04-24] MEDS ORDERED: ceFAZolin SODIUM 1 GM VIAL ONE ×2 (11:44→11:55)
[2024-04-24] MEDS ORDERED: PAPAVERINE HCL 30 MG/ML 2ML VIAL ONE (11:45)
[2024-04-24] MEDS: HEParin-NS 1,000 UNIT/500 ML 500 ML IV ONE (11:57)
--- NOTE | 2024-04-24 13:19 | PN ---
[facility] PROGRESS NOTE Date of Service: Apr 24, 2024 Time of Service: 13:17 Patient was seen and examined. Case discussed with RN and family by the bedside. He is very anxious about upcoming open heart surgery. He denies any chest pain or shortness for breath but reports some arthritis pain. He is on IABP 1:1 SUBJECTIVE: [63-year-old male who presented to the emergency department with chest pain, he is known with positive UDS with marijuana and cocaine. He presented with non- STEMI with elevated troponin. He was evaluated by the guest relations representative who recommended cardiac catheterization. Status post left heart catheterization noted mid distal LM 90% lesion in, proximal circumflex with 60-60% disease, patient had an insertion of IABP. Cardiovascular surgeon consulted. We will continue to follow. REVIEW OF SYSTEMS CONSTITUTIONAL: Positive diaphoresis Denies fevers, chills, or night sweats. No unintentional weight loss reported. NEUROLOGICAL: Denies headache, amaurosis fugax, motor weakness, sensory deficit, vertigo/spinning sensation, gait abnormalities, or tremors. ENT: No hearing loss, otalgia, otorrhea, rhinitis, rhinorrhea, hoarseness, or sore throat. CARDIOVASCULAR: Positive chest pain Denies orthopnea, paroxysmal nocturnal dyspnea, palpitations, life-threatening arrhythmias, claudication. PULMONARY: Positive shortness of breath Denies cough, phlegm/sputum, hemop tysis, pleuritic chest pain. SLEEP: Denies morning headaches, daytime somnolence or napping. Denies d ifficulty falling asleep, staying asleep, waking from sleep. Denies knowledge of snoring. GASTROINTESTINAL: Denies any type of dysphagia to either liquids or solids. Denies nausea, vomiting, pyrosis, early satiety, abdominal pain, diarrhea, constipation, or changes in stool consistency or caliber. Denies coffee-ground emesis, hematemesis, hematochezia, or melanotic stools. GENITOURINARY: Denies frequency, urgency, nocturia, hematuria or incontinence (Storage/Irritative symptoms.) Low urinary stream, straining to void, urinary intermittency or hesitancy, splitting of the voiding stream, terminal dribbling. ENDOCRINOLOGIC: Denies polyuria, polydipsia, polyphagia or heat/cold intolerances. HEMATOLOGIC: Denies thrombophilia/previous clots, or coagulopathy/bleeding disorders. ONCOLOGIC: Denies personal history of malignancy. DERMATOLOGIC: Denies rashes or pruritus. PSYCHIATRIC: Denies any suicidal or homicidal ideation. Denies hallucinations. PHYSICAL EXAM GENERAL APPEARANCE: The patient is awake, alert, and oriented, in no acute cardiopulmonary distress. NEUROLOGICAL: Cranial nerves II-XII grossly intact. Motor is 5/5 in bilateral upper and lower extremities proximal to distal. No sensory deficits. HEENT: Face is symmetric. Pupils are equal and reactive. Extraocular movements are intact. NECK: Supple. No JVD. No thyromegaly. No submental, submandibular, pre- /postauricular, occipital or supraclavicular lymphadenopathy. CHEST: Normal chest expansion. No Telemetry. LUNGS: Absence of any rales, rhonchi or any wheezing. CARDIOVASCULAR: Regular. S1 and S2 normal. No appreciable rubs, murmurs or gallops. ABDOMEN: Soft, nontender, and nondistended. There is no rebound, voluntary guarding, or rigidity. : Deferred. No Felix. EXTREMITIES: Non-edematous and not cyanotic. No clubbing. Good capillary refill. SKIN: No skin breakdown. Vital Signs (last 8hr) Date Time Temp Pulse Resp B/P (MAP) Pulse Ox O2 Delivery O2 Flow Rate FiO2 04/24/24 12:00 98.1 72 19 159/101 97 04/24/24 11:00 71 19 152/99 97 04/24/24 10:00 66 19 159/100 97 04/24/24 09:00 98.8 60 18 169/101 97 04/24/24 08:00 62 30 176/99 98 04/24/24 08:00 96 Room Air* 0 21 04/24/24 07:00 75 16 164/99 97 Room Air 04/24/24 06:00 62 12 157/114 96 Room Air LABS: Laboratory: Test 04/24/24 11:18 04/24/24 03:48 04/23/24 04:35 04/23/24 03:22 Range/Units Whole Blood Glucose 103 70-110 MG/DL White Blood Count 6.1 4.8-10.8 K/uL Red Blood Count 4.17 L 4.50-6.20 MIL/uL Hemoglobin 12.6 L 14.0-18.0 g/dL Hematocrit 38.5 L 42-54 % Mean Corpuscular Volume 92.3 79-99 fL Mean Corpuscular Hemoglobin 30.2 27.0-33.0 pg Mean Corpuscular Hemoglobin Concent 32.7 32.0-36.0 g/dL Red Cell Distribution Width 13.7 11.0-15.5 % Platelet Count 145 130-400 K/uL Mean Platelet Volume 10.2 7.5-10.5 fL Nucleated Red Blood Cells 0.0 0.0-0.19 % Prothrombin Time 10.9 9.6-11.6 SEC Prothromb Time International Ratio 1.01 0.85-1.15 Activated Partial Thromboplast Time 54.1 H 26.3-35.5 SEC Sodium Level 137 136-145 mmol/L Potassium Level 3.7 3.5-5.1 mmol/L Chloride Level 103 101-111 mmol/L Carbon Dioxide Level 28 21-32 mmol/L Blood Urea Nitrogen 19 H 7-18 mg/dL Creatinine 1.1 0.5-1.3 mg/dL Glomerular Filtration Rate Calc 75 >90 mL/min Random Glucose 101 70-105 mg/dL Total Calcium 8.1 L 8.5-10.1 mg/dL Total Bilirubin 0.5 0.2-1.0 mg/dL Aspartate Amino Transf (AST/SGOT) 13 10-37 U/L Alanine Aminotransferase (ALT/SGPT) 23 12-78 U/L Alkaline Phosphatase 88 50-136 U/L B-Type Natriuretic Peptide 31 0-100 pg/mL Total Protein 5.9 L 6.0-8.3 g/dL Albumin 2.9 L 3.5-5.0 g/dL Triglycerides Level 41 30-200 mg/dL Cholesterol Level 165 <200 mg/dL LDL Cholesterol 95 0-99 mg/dL HDL Cholesterol 60 29-71 mg/dL Blood Gas Specimen Type Arterial Arterial Blood pH 7.521 H 7.350-7.450 Arterial Blood Partial Pressure CO2 29 L 35-48 mmHg Arterial Blood Partial Pressure O2 96.3 83.0-108.0 mmHg Arterial Blood HCO3 23.0 21.0-28.0 mmol/L Arterial Blood Oxygen Saturation 98.0 94.0-98.0 % Arterial Blood Base Excess 1.2 -2.0-3.0 mmol/L Hemoglobin (Blood Gas) 13.6 13.5-17.5 g/dL Sodium (Blood Gas) 136 136-145 MMOL/L Bedside Potassium (Blood Gas) 3.7 3.4-4.5 MMOL/L Bedside Chloride (Blood Gas) 104 98-107 MMOL/L Bedside Glucose (Blood Gas) 92 65-95 MG/DL Bedside Ionized Calcium (Blood Gas) 1.18 1.15-1.33 MMOL/L Bedside Lactic Acid (Blood Gas) 1.00 H 0.36-0.75 MMOL/L Blood Gas Temperature 37.0 35.5-37.0 CELSIUS Blood Gas Vent Mode RA ROOM AIR FiO2 21.0 % Blood Gas Specimen Comment LR Immature Granulocyte % (Auto) 0.4 0-1 % Neutrophils (%) (Auto) 62.8 40.0-77.0 % Lymphocytes (%) (Auto) 26.2 21.0-51.0 % Monocytes (%) (Auto) 8.4 3.0-13.0 % Eosinophils (%) (Auto) 1.8 0.0-8.0 % Basophils (%) (Auto) 0.4 0.0-5.0 % Neutrophils # (Auto) 4.6 1.8-7.7 K/uL Lymphocytes # (Auto) 1.9 1.0-4.8 K/uL Monocytes # (Auto) 0.6 0.1-1.0 K/uL Eosinophils # (Auto) 0.13 0.00-0.70 K/uL Basophils # (Auto) 0.03 0.00-0.20 K/uL Absolute Immature Granulocyte (auto 0.03 0-1 K/uL Current Medications Medications (Trade) Dose Ordered Sig/Aaron Route PRN Reason Start Time Stop Time Status Last Admin Dose Admin Acetaminophen (TYLenol 325MG TAB) 650 mg Q4H PRN PO TEMPERATURE GREATER THAN 101.5 04/22/24 15:30 05/22/24 15:29 Acetaminophen (TYLenol 325MG TAB) 650 mg Q6H PRN PO MILD PAIN (1-3) 04/22/24 15:30 05/22/24 15:29 04/22/24 20:22 650 MG Aminocaproic Acid 47414 mg/Sodium Chloride 480 ml @ 0 mls/hr AD PRN IV BLEEDING CONTROL 04/24/24 11:00 05/24/24 10:59 Aspirin (Aspirin 81mg Ec Tab) 81 mg DAILY PO 04/22/24 09:00 05/22/24 08:59 04/24/24 08:21 81 MG Atorvastatin Calcium (LIPItor 40MG) 40 mg HS PO 04/22/24 21:00 05/22/24 20:59 04/23/24 19:25 40 MG Cefazolin Sodium (Ancef) 2 gm ONCALL IVP 04/23/24 21:30 04/25/24 21:29 04/23/24 21:38 2 GM Dextrose (D50w) 50 ml AD PRN IV HYPOGLYCEMIA PROTOCOL 04/22/24 00:00 05/22/24 00:00 Dextrose (D50w) 50 ml AD PRN IV HYPOGLYCEMIA PROTOCOL 04/22/24 08:00 04/22/24 07:52 DC Epinephrine HCl 10 mg/Sodium Chloride 250 ml @ 0 mls/hr AD PRN IV TITRATE 04/24/24 11:00 05/24/24 10:59 Famotidine (Pepcid 20mg Vial) 20 mg BID IV 04/22/24 09:00 05/22/24 08:59 04/24/24 08:21 20 MG Glucagon (Glucagon 1mg Kit) 1 mg AD PRN IM HYPOGLYCEMIA PROTOCOL 04/22/24 00:00 05/22/24 00:00 Glucagon (Glucagon 1mg Kit) 1 mg AD PRN IM HYPOGLYCEMIA PROTOCOL 04/22/24 08:00 04/22/24 07:52 DC Heparin Sodium (Porcine) (HEParin 5,000 UNIT VIAL) *calculation based on ACTUAL B... AD PRN IV HEPARIN PROTOCOL 04/22/24 02:30 05/22/24 02:29 04/22/24 02:08 5,000 UNIT Heparin Sodium/ Dextrose 250 ml @ 0 mls/hr Q6H IV 04/22/24 02:30 05/22/24 02:29 04/23/24 18:56 10.8 MLS/HR Hydralazine HCl (APRESOLine 20MG INJ) 10 mg Q6H PRN IV For:SBP above 160;DBP above 90 04/21/24 23:30 05/21/24 23:29 04/24/24 09:55 10 MG Insulin Human Regular (humuLIN R 100 UNIT/ML 3ML) INSULIN SLIDING SCAL... ACHS SQ 04/22/24 07:30 05/22/24 07:29 Insulin Human Regular (humuLIN R 100 UNIT/ML 3ML) INSULIN SLIDING SCAL... ACHS SQ 04/22/24 11:30 04/22/24 07:51 DC Levetiracetam (kepPRA 500 MG/5 ML SD VIAL) 500 mg ONCE STAT IV 04/22/24 09:47 04/22/24 09:56 DC 04/22/24 10:05 500 MG Levetiracetam 1000 mg/Sodium Chloride 100 ml @ 400 mls/hr BID IV 04/22/24 21:00 05/22/24 20:59 04/24/24 08:21 400 MLS/HR Lidocaine (Lidocaine Patch 4%) 1 each ONCE STAT TP 04/23/24 04:20 04/23/24 04:26 DC 04/23/24 04:30 1 EACH Magnesium Sulfate 50 ml @ 0 mls/hr PROTOCOL PRN IV OTHER [SEE ORDER COMMENTS] 04/22/24 00:00 05/22/24 00:00 Magnesium Sulfate 50 ml @ 0 mls/hr PROTOCOL PRN IV MAGNESIUM PROTOCOL 04/22/24 08:00 04/22/24 07:52 DC Morphine Sulfate (morPHINE 2MG SYG) 2 mg Q4H PRN IVP SEVERE PAIN (7-10) 04/22/24 00:00 04/29/24 00:00 04/24/24 12:12 2 MG Nitroglycerin (Nitroglycerin 1gm Oint) 0.5 inch Q8H TD 04/21/24 23:30 04/23/24 09:03 DC 04/23/24 08:25 0.5 INCH Nitroglycerin (Nitrostat) 0.4 mg AD PRN SL CHEST PAIN 04/21/24 21:30 05/21/24 21:29 04/21/24 22:27 0.4 MG Norepinephrine Bitartrate 250 ml @ 0 mls/hr AD PRN IV TITRATE 04/24/24 11:00 05/24/24 10:59 Ondansetron HCl (zoFRAN 4MG INJ) 4 mg Q6H PRN IV NAUSEA/VOMITING 04/21/24 23:30 05/21/24 23:29 04/22/24 09:41 4 MG Pharmacy Profile Note (Pharmacy Communication) PLEASE ENTER HT AND WT Q15M MISC 04/21/24 23:45 04/22/24 00:16 DC Potassium Chloride 100 ml @ 50 mls/hr AD PRN IV POTASSIUM PROTOCOL 04/22/24 00:00 05/22/24 00:00 Potassium Chloride 100 ml @ 100 mls/hr AD PRN IV POTASSIUM PROTOCOL 04/22/24 08:00 04/22/24 07:52 DC Potassium Chloride (K-Dur/Klor-Con 20meq) 20 meq AD PRN PO POTASSIUM PROTOCOL 04/22/24 08:00 05/22/24 07:59 04/23/24 08:24 20 MEQ Potassium Chloride (KCl 10% Elixir 20meq/15ml) 20 meq AD PRN PO POTASSIUM PROTOCOL 04/22/24 08:00 05/22/24 07:59 Sodium Chloride 1,000 ml @ 75 mls/hr [id number] IV 04/22/24 00:00 04/23/24 23:59 DC 04/23/24 17:50 75 MLS/HR DIAGNOSTICS / RADIOLOGY: [ ] ASSESSMENT: Chest pain rule in ACS POA Mid distal LM 90% lesion by left heart catheterization, POA Prox CX with 60-60% disease, by by left heart catheterization, POA Polysubstance abuse POA Active smoker, POA Normocytic normochromic anemia POA Diabetes POA Hyperlipidemia POA Hypertension POA History of seizure disorder POA History of Parkinson's disease POA History of multiple CVA POA PLAN: Patient will remain in ICU We will follow recommendations from guest relations representative, due to results of left heart catheterization, planned for CABG today Continue with heparin drip Counseled on polysubstance abuse Continue with ACS protocol GI and DVT prophylaxis Repeat labs tomorrow We will continue to monitor electrolytes and replace as necessary Critical care time: Spent 35 minutes of critical care time with the patient. Reviewed the lab work, reconciled and updated patient's medications, and coordinated plan of care in ICU. ALEXANDRA JEFFERS MD Apr 24, 2024 13:19
[2024-04-24] MEDS: IpraTROPium 0.5 MG/2.5 ML INH IH ONE (13:50)
[2024-04-24] MEDS: MIDAZOLAM HCL 1 MG/ML 2ML VIAL ONE (14:12)
--- NOTE | 2024-04-24 14:20 | NUR ---
OR PT TAKEN TO OR FOR CABG. VS NOTED EMR.
[2024-04-24] MEDS ORDERED: EPINEPHrine PF 1MG (1:1,000) 1 MG/ML AMP ONE (14:23)
[2024-04-24] MEDS ORDERED: NOREPINEPHRINE BITARTRATE 1 MG/1 ML ML IV ONE (14:23)
[2024-04-24] MEDS ORDERED: HEParin 10,000 UNIT/10ML (1,000 UNIT/ML) VIAL ONE ×2 (14:23→15:19)
[2024-04-24] MEDS ORDERED: SODIUM BICARB 50MEQ 50ML VIAL 200 ML ONE (14:23)
[2024-04-24] MEDS ORDERED: PROTamine SULFate 10 MG/ML 25ML VIAL IV ONE (14:23)
[2024-04-24] MEDS ORDERED: LIDOCAINE PF 100MG/5ML (2%) SYRINGE 5ML ONE (14:23)
[2024-04-24] MEDS ORDERED: rocuRONium bROMide 10MG/1ML 5ML VL ONE (14:24)
[2024-04-24] MEDS ORDERED: proPOFol 10 MG/ML 20ML VIAL IV ONE (14:24)
[2024-04-24] MEDS ORDERED: GLYCOPYRROLATE 0.2 MG/ML 5 ML VIAL ONE (14:24)
[2024-04-24] MEDS ORDERED: FENTanyl CITRate PF 50 MCG/1 ML 20ML VIAL IJ ONE (14:24)
[2024-04-24] MEDS ORDERED: ketaMINE 50MG/ML SYRINGE 50 MG/ML DISP.SYRIN ONE ×2 (14:25→16:11)
[2024-04-24] MEDS ORDERED: IpraTROPium 0.5 MG/2.5 ML INH IH PRN (14:30)
[2024-04-24] MEDS: ceFAZolin SODIUM 2 GM VIAL IVPB ONE ×2 (14:45)
[2024-04-24] MEDS ORDERED: morPHINE 2 MG SYG IV PRN (15:00)
[2024-04-24] MEDS ORDERED: 0.9%NACL 10ML VIAL IVP PRN (15:00)
[2024-04-24] MEDS ORDERED: NOREPINEPHRINE BITARTRATE 8 MG in DEXTROSE 5%-WATER 250 ML IV PRN (15:00)
[2024-04-24] MEDS ORDERED: ondanSETRON 4MG INJ IV PRN (15:00)
[2024-04-24] MEDS ORDERED: MAGNESIUM HYDROXIDE 30 ML/UDCUP PO PRN (15:00)
[2024-04-24] MEDS ORDERED: 0.9% NACL 500ML IV.SOLN 500 ML IV SCH (15:00)
[2024-04-24] MEDS ORDERED: aminoCAProic ACID 5,000MG VIAL 15,000 MG in 0.9% NACL 250ML 250 ML IV SCH (15:00)
[2024-04-24] MEDS ORDERED: GLUCAGON 1MG KIT 1 MG ML IM PRN (15:00)
[2024-04-24] MEDS ORDERED: proPOFol 1000 MG/100 ML 100 ML IV PRN (15:00)
[2024-04-24] MEDS ORDERED: acetaMINOPHEN 325 MG TAB PO PRN ×2 (15:00)
[2024-04-24] MEDS ORDERED: acetaMINOPHEN 650 MG SUPPOSITORY RC PRN (15:00)
[2024-04-24] MEDS ORDERED: DEXTROSE 50%-WATER 50 ML DISP.SYRIN IV PRN (15:00)
[2024-04-24] MEDS ORDERED: poTASSium PHOS 15 mMOL+NS250ML 250 ML IV PRN (15:00)
--- NOTE | 2024-04-24 15:08 | EKG ---
[facility] Test Date: 2024-04-24 Test Time: 04:40:31 Pat Name: CHARLES BREEN Department: 2CV Room: 213 1 Gender: M Infusion Nurse: LORNE : 1960 Requested By: JACKELYN VITALE Order Number: [id number] Reading MD: Chandler Lerner Measurements Intervals [place] Rate: 65 P: 83 HI: 154 QRS: 55 QRSD: 113 T: 89 QT: 450 QTc: 467 Interpretive Statements Sinus rhythm INCOMPLETE RIGHT BUNDLE BRANCH BLOCK Compared to ECG 04/21/2024 21:18:12 Myocardial infarct finding now present Electronically Signed On 04-24-2024 17:36:22 GRADES 1 THRU 6 HOME TEACHER by Chandler Lerner Please click the below link to view image of tracing.
[2024-04-24] MEDS ORDERED: VASOpressin 20 UNITS/ML 1ML VIAL ONE (15:10)
[2024-04-24 15:29] LABS: ABG BASE EXCESS 0.8 mmol/L (-2.0-3.0); ABG HCO3 25.9 mmol/L (21.0-28.0); ABG OXYGEN SATURATION 99.8 % (94.0-98.0); ABG PCO2 43 mmHg (35-48); ABG PH 7.396 (7.350-7.450); CARBON MONOXIDE 0.3 % (0.5-1.5); DEVICE COMMENT 1; HHb 0.2; PO2, ARTERIAL BG > 500.0 mmHg (83.0-108.0)
[2024-04-24] MEDS ORDERED: PoTASSium chloRIDE 20MEQ/100ML 100 ML IV ONE (15:31)
[2024-04-24 16:24] LABS: ABG BASE EXCESS -4.5 mmol/L (-2.0-3.0); ABG HCO3 21.4 mmol/L (21.0-28.0); ABG OXYGEN SATURATION 99.6 % (94.0-98.0); ABG PCO2 42 mmHg (35-48); ABG PH 7.321 (7.350-7.450); CARBON MONOXIDE 0.3 % (0.5-1.5); DEVICE COMMENT 3; HHb 0.4; PO2, ARTERIAL BG 471.9 mmHg (83.0-108.0)
--- NOTE | 2024-04-24 17:00 | NUR ---
POST CABG RECEIVED PATIENT FROM OR POST CABG. PT ORALLY INTUBATED ON PRESCRIBED VENT SETTINGS. PT ON EPINEPHRINE DRIP AND LEVOPHED DRIP VIA LEFT SUBCLAVIAN CVC, CHEST TUBES X 2 WITH MODERATE SANGUINOUS OUTPUT. FC TO GRAVITY, LEFT RADIAL ART LINE IN PLACE. PT STARTING TO OPEN EYES AND NODS YES TO PAIN. MEDICATED WITH MORPHINE ORDERED. CONTINUE TO MONITOR PT. HEMODYNAMICS NOTED IN EMR. AT BEDSIDE UPDATED. CONTINUE TO MONITOR PT.
[2024-04-24 17:04] LABS: ABG BASE EXCESS -0.6 mmol/L (-2.0-3.0); ABG HCO3 25.4 mmol/L (21.0-28.0); ABG OXYGEN SATURATION 99.4 % (94.0-98.0); ABG PCO2 47 mmHg (35-48); ABG PH 7.347 (7.350-7.450); CARBON MONOXIDE 0.2 % (0.5-1.5); DEVICE COMMENT ALINE; HHb 0.6; PO2, ARTERIAL BG 466.2 mmHg (83.0-108.0); VENT MODE, BG SIMV (ROOM AIR)
--- NOTE | 2024-04-24 17:07 | EKG ---
[facility] Test Date: 2024-04-24 Test Time: 17:06:06 Pat Name: CHARLES BREEN Department: 2CV Room: 213 1 Gender: M Glass Frame Fitter: RICH : 1960 Requested By: JACKELYN VITALE Order Number: [id number] Reading MD: Chandler Lerner Measurements Intervals [place] Rate: 84 P: 86 PA: 148 QRS: 67 QRSD: 106 T: 80 QT: 434 QTc: 512 Interpretive Statements Normal sinus rhythm Incomplete right bundle branch block Prolonged QT Compared to ECG 04/24/2024 04:40:31 Incomplete right bundle-branch block now present Prolonged QT interval now present Myocardial infarct finding no longer present Electronically Signed On 04-24-2024 17:33:05 PHARMACEUTICAL PROCESS ENGINEER by Chandler Lerner Please click the below link to view image of tracing.
[2024-04-24] MEDS: PoTASSium chloRIDE 20MEQ/100ML 100 ML IV PRN (17:18)
[2024-04-24] MEDS: 0.9%NACL 1000ML 1,000 ML IV SCH (17:18)
[2024-04-24] MEDS: morPHINE 4 MG SYG IV PRN (17:18)
[2024-04-24] MEDS: INSULIN REGULAR, HUMAN 3ML 100 UNIT in 0.9%NACL 100ML 99 ML IV SCH (17:21)
--- NOTE | 2024-04-24 17:28 | HMCIMG ---
INDICATION: s/p CABG TECHNIQUE: CHEST 1VW COMPARISON: 04/24/2024 FINDINGS/IMPRESSION: Bilateral airspace consolidations Postop changes are noted. Endotracheal tube terminates 8.5 cm above the luigi. Remaining Tubes and lines are seen in place. Cardiac silhouette is within normal limits. Mild degenerative changes of the spine. The visualized upper abdomen appears unremarkable.
[2024-04-24] MEDS: NITROGLYCERIN 50MG/D5W 250ML 250 BOT IV SCH (17:30)
[2024-04-24] MEDS: ASPIRIN 81MG CHEW TAB NG ONE (17:31)
[2024-04-24 17:37] LABS: HEMATOCRIT 32.9 % (42-54); MEAN CORPUSCULAR HEMOGLOBIN 29.6 pg (27.0-33.0); MEAN CORPUSCULAR HGB CONC 32.8 g/dL (32.0-36.0); MEAN CORPUSCULAR VOLUME 90.1 fL (79-99); RED BLOOD CELL COUNT(AUTO) 3.65 MIL/uL (4.50-6.20); RED CELL DISTRIBUTION WIDTH 13.5 % (11.0-15.5)
[2024-04-24 17:46] LABS: INR 1.11 (0.85-1.15); PROTHROMBIN TIME 11.9 SEC (9.6-11.6)
[2024-04-24 17:47] LABS: CREATININE 1.2 mg/dL (0.5-1.3); MAGNESIUM 1.5 mg/dL (1.80-2.40); PARTIAL THROMBOPLASTIN TIME 23.4 SEC (26.3-35.5); PHOSPHORUS 4.8 mg/dL (2.5-4.9); POTASSIUM 3.4 mmol/L (3.5-5.1)
[2024-04-24 18:24] LABS: ABG HCO3 23.9 mmol/L (21.0-28.0); ABG OXYGEN SATURATION 99.5 % (94.0-98.0); ABG PCO2 45 mmHg (35-48); ABG PH 7.343 (7.350-7.450); CARBON MONOXIDE 0.2 % (0.5-1.5); HHb 0.5; VENT MODE, BG SIMV PS 10 (ROOM AIR)
[2024-04-24] MEDS: MAGNESIUM 2GM PREMIX 50ML 50 ML IV PRN (18:28)
[2024-04-24] MEDS: acetaMINOPHEN 1,000 MG/100 ML VIAL IV SCH (18:31)
[2024-04-24] MEDS: SODIUM BICARB 50MEQ 50ML VIAL IV PRN (18:37)
[2024-04-24] MEDS: ALBUMIN (HUMAN) 5% 250 ML IV PRN (18:56)
[2024-04-24] MEDS: dexmedeTOMIDine 400MCG/NS100ML IV SCH (19:02)
[2024-04-24 19:25] LABS: ABG BASE EXCESS -1.1 mmol/L (-2.0-3.0); ABG HCO3 24.4 mmol/L (21.0-28.0); ABG OXYGEN SATURATION 99.1 % (94.0-98.0); ABG PCO2 44 mmHg (35-48); ABG PH 7.365 (7.350-7.450); CARBON MONOXIDE 0.3 % (0.5-1.5); HHb 0.9; PO2, ARTERIAL BG 278.3 mmHg (83.0-108.0); VENT MODE, BG SIMV PS10 (ROOM AIR)
[2024-04-24] MEDS: ceFAZolin SODIUM 2 GM VIAL IVPB SCH (19:53)
[2024-04-24] MEDS: FAMOTIDINE 20MG VIAL IV SCH (19:58)
[2024-04-24] MEDS: doCUSate SODIUM 100 MG CAP PO SCH (19:58)
[2024-04-24] MEDS ORDERED: dexmedeTOMIDine 400MCG/NS100ML IV SCH (20:00)
[2024-04-24 20:38] LABS: ABG BASE EXCESS -1.8 mmol/L (-2.0-3.0); ABG HCO3 23.6 mmol/L (21.0-28.0); ABG OXYGEN SATURATION 98.6 % (94.0-98.0); ABG PCO2 43 mmHg (35-48); CARBON MONOXIDE 0.3 % (0.5-1.5); HHb 1.4; PO2, ARTERIAL BG 165.5 mmHg (83.0-108.0); VENT MODE, BG SIMV PS10 (ROOM AIR)
[2024-04-24] MEDS: CALCIUM GLUC 1GM 1 GM in 0.9%NACL 50ML 50 ML IV PRN (20:52)
[2024-04-24 22:04] LABS: ABG BASE EXCESS -3.5 mmol/L (-2.0-3.0); ABG HCO3 21.4 mmol/L (21.0-28.0); ABG OXYGEN SATURATION 98.7 % (94.0-98.0); ABG PCO2 38 mmHg (35-48); ABG PH 7.368 (7.350-7.450); CARBON MONOXIDE 0.1 % (0.5-1.5); HHb 1.3; PO2, ARTERIAL BG 166.9 mmHg (83.0-108.0); VENT MODE, BG SIMV PS10 (ROOM AIR)
[2024-04-24] MEDS: SODIUM BICARB 50MEQ 50ML VIAL 150 ML ONE (22:30)
[2024-04-24 23:10] LABS: ABG BASE EXCESS 1.1 mmol/L (-2.0-3.0); ABG HCO3 25.7 mmol/L (21.0-28.0); ABG OXYGEN SATURATION 98.6 % (94.0-98.0); ABG PCO2 41 mmHg (35-48); ABG PH 7.415 (7.350-7.450); CARBON MONOXIDE 0.3 % (0.5-1.5); HHb 1.4; PO2, ARTERIAL BG 162.2 mmHg (83.0-108.0); VENT MODE, BG SIMV PS10 (ROOM AIR)
[2024-04-24 23:58] LABS: ABG BASE EXCESS 4.4 mmol/L (-2.0-3.0); ABG HCO3 28.1 mmol/L (21.0-28.0); ABG OXYGEN SATURATION 98.7 % (94.0-98.0); ABG PCO2 38 mmHg (35-48); ABG PH 7.482 (7.350-7.450); CARBON MONOXIDE 0.3 % (0.5-1.5); HHb 1.3; PO2, ARTERIAL BG 195.4 mmHg (83.0-108.0); VENT MODE, BG SIMV PS10 (ROOM AIR)
[2024-04-25] VITALS (100 sets, daily range): BP systolic 94–184; BP diastolic 34–99; PULSE 67–94; RESP 5–50; TEMP 98.6–99.3; O2SAT 97–98
--- NOTE | 2024-04-25 00:17 | NUR ---
EXTUBATION PT EXTUBATED PER CVR PROTOCOL TO COOL MIST AEROSOL FACEMASK @ 40% FIO2 NIP -49 TV [id number] WILL REPEAT POST EXTUBATION ABG IN 1 HOUR
--- NOTE | 2024-04-25 00:25 | PN ---
SUBJECTIVE: A 63-year-old gentleman admitted with left main coronary artery disease. Intraaortic balloon pump was placed. The patient was referred for surgical revascularization. Plan for surgery today. TID: [id number] RECEIPT: [id number]
--- NOTE | 2024-04-25 00:59 | OP ---
DATE OF PROCEDURE: 04/24/2024 PREOPERATIVE DIAGNOSIS: Coronary artery disease, left main. POSTOPERATIVE DIAGNOSIS: Coronary artery disease, left main. PROCEDURES PERFORMED: Off-pump CABG x 2, NOLAN to LAD, reverse saphenous vein graft to first diagonal. SURGEON: Oswaldo Rasheed MD CHEMICAL PACKAGER: Dominic. ANESTHESIA: Card. ____: Dr. Jacobson. DISPOSITION: Stable. COMPLICATIONS: None. INDICATIONS FOR SURGERY: The patient of Dr. Jacobson who has history of drug abuse with cocaine, presents with chest pain. Cardiac catheterization demonstrates left main coronary artery disease with a clean coronaries after this. An intraaortic balloon pump was placed and the patient was referred for surgical revascularization. I have had the opportunity to review the films, discussed the case with Dr. Jacobson and agreed with him that surgery is indicated and we have recommended. I have discussed with the patient and his indications for surgery as well as the potential complications of the operation including but not limited to postoperative bleeding, infection, stroke and/or . He understands and would like to proceed with surgical revascularization. Plan for surgical revascularization. IMPLANTS: Three JOLENE plates with eighteen #16 gauge screws. DRAINS: A #32 mediastinal and #19 left-sided Kevin. FINDINGS AT TIME OF SURGERY: The NOLAN was anastomosed to the LAD, which was a good size vessel a 2.5 mm and there was a diagonal #1 which was about 2 mm. The oblique marginal was a small vessel of 1.5. At the end of procedure, the patient was hemodynamically stable and EKG was isoelectric. DESCRIPTION OF PROCEDURE IN DETAIL: With the patient in supine position after adequate induction of general endotracheal anesthesia, preoperative intravenous antibiotics, percutaneous arterial and venous lines, surgeon directed timeout utilizing 2 patient identifiers followed by mid sternotomy, then harvesting of the left internal mammary artery from anterior left chest wall and greater saphenous vein from the left lower extremity using endoscopic technique. The patient systemically heparinized and the mammary artery from chest in preparation for bypass. Chest retractor was placed. Utilizing mechanical stabilizer, 4-prong tourniquet for vascular control, 2 distal anastomoses performed in sterile fashion with NOLAN and LAD, and reverse saphenous vein graft and first diagonal. Partial occlusion clamp placed on the ascending aorta and one 4.8 mm punch was performed, running suture of 5-0 Prolene to construct the proximal anastomosis. Grafts de-aired and myocardium revascularized. Protamine, hemostasis and closure. Two chest drains, stainless steel wires for sternum, open reduction and internal fixation utilizing 3 JOLENE plates and eighteen #16 gauge screws, #1 Vicryl and 3-0 Monocryl for closure. The patient was transferred in stable condition to the ICU. TID: [id number] RECEIPT: [id number]
[2024-04-25 02:08] LABS: ABG BASE EXCESS 2.9 mmol/L (-2.0-3.0); ABG HCO3 27.5 mmol/L (21.0-28.0); ABG OXYGEN SATURATION 97.9 % (94.0-98.0); ABG PCO2 43 mmHg (35-48); ABG PH 7.429 (7.350-7.450); CARBON MONOXIDE 0.3 % (0.5-1.5); HHb 2.1; PO2, ARTERIAL BG 123.4 mmHg (83.0-108.0); VENT MODE, BG COOL MIST (ROOM AIR)
[2024-04-25] MEDS: traMADol HCL 50 MG TABLET PO PRN (02:44)
[2024-04-25 04:32] LABS: HEMATOCRIT 28.7 % (42-54); MEAN CORPUSCULAR HEMOGLOBIN 29.1 pg (27.0-33.0); MEAN CORPUSCULAR HGB CONC 32.1 g/dL (32.0-36.0); MEAN CORPUSCULAR VOLUME 90.8 fL (79-99); RED BLOOD CELL COUNT(AUTO) 3.16 MIL/uL (4.50-6.20); RED CELL DISTRIBUTION WIDTH 13.8 % (11.0-15.5); WHITE BLOOD COUNT (AUTO) 9.4 K/uL (4.8-10.8)
[2024-04-25 04:53] LABS: CREATININE 1.2 mg/dL (0.5-1.3); INR 1.02 (0.85-1.15); MAGNESIUM 1.9 mg/dL (1.80-2.40); PHOSPHORUS 3.7 mg/dL (2.5-4.9); POTASSIUM 4.1 mmol/L (3.5-5.1)
[2024-04-25 04:54] LABS: PARTIAL THROMBOPLASTIN TIME 26.8 SEC (26.3-35.5)
[2024-04-25] MEDS: CALCIUM GLUC 1GM/10ML VIAL ONE (04:59)
--- NOTE | 2024-04-25 07:36 | PN ---
CARDIOLOGY Reason for consult: Chest pain HPI/story at presentation: This is a pleasant 61-year-old past medical history as per present with complaints of chest discomfort. Known history of cocaine/marijuana use at baseline and has been having issues with retrosternal chest pain at presentation. EKG without significant ischemic changes but patient did have elevated troponins greater than 600. Cardiology was consulted for further evaluation management Subjective: 04/22/2024 Chest pain 04/24/2024 plan for surgery today, anxious 04/25/2024 extubated Past medical history: See below Allergies, Meds See chart Review of systems Review of Systems Constitutional: Negative for chills and fever. HENT: Negative for ear discharge and ear pain. Eyes: Negative for photophobia and discharge. Respiratory: Negative for cough, sputum production and stridor. Cardiovascular: Negative for chest pain and palpitations. Gastrointestinal: Negative for diarrhea and vomiting. Genitourinary: Negative for frequency. Musculoskeletal: Negative for myalgias. Skin: Negative for rash. Neurological: Negative for focal weakness and seizures. Endo/Heme/Allergies: Negative for polydipsia. Psychiatric/Behavioral: Negative for hallucinations. Vitals see chart PHYSICAL EXAMINATION GENERAL: The patient is alert HEENT: Nonicteric sclerae, non traumatic HEART: Regular rate and rhythm with no murmurs LUNGS: Clear to auscultation bilaterally ABDOMEN: No acute issues, non tender GENITAL, RECTAL: deferred SKIN: No rash NEUROLOGIC: NFND EXTREMITIES: No edema ASSESSMENT CHEST PAIN, NSTEMI, S/P BYPASS NOLAN to LAD, SVG to Diag,m CX was not bypassed :HC with severe disease of LM, s/p IABP History of EKG without ischemic changes trop > 600 04/2024 UDS positive for cocaine and marijuana CVA History of, 2019 HYPERTENSION, HYPERLIPIDEMIA TOBACCO USE OTHER MEDICAL PROBLEMS arthritis seizures PLAN 04/22/2024 patient with non-STEMI, no significant ischemic changes on EKG. Can start heparin, will consider cardiac catheterization tomorrow to further evaluate coronaries. UDS positive for cocaine and marijuana, will need to address compliance with medical therapy prior to any intervention. No history of significant peripheral vascular disease with history of strokes in the past. 04/23/2024 Remains on balloon pump, having issues with back pain in the setting of arthritis but otherwise, stable hemodynamic and electrical status. Remains on heparin drip and tolerating well. Timing of surgery per CVT. On metoprolol statin and aspirin, continue. Echocardiogram showed normal ejection fraction as well. 04/24/2024 reportedly plan for surgery today, remains on IABP 1:1. on good meds, will follow perioperatively, multiple questions answered. 04/25/2024atient status post bypass yesterday, doing well, extubated overnight, currently on a small dose of pressors. The patient received SVG to the diagonal and NOLAN to the LAD, obtuse marginal was not bypassed as it was a small-vessel may consider intervention to the true circumflex if needed as an outpatient. Intra-aortic balloon pump remains in situ. Currently on Lasix we will update medical therapy for CAD once patient is off pressors. ATTESTATION I was involved substantially in the care of this patient Number and complexity of problems addressed: 1 acute illness with systemic features Amount and or complexity of data Review of prior external note(s) from each unique source: 2+ Ordering of each unique test : 1 Review of the result(s) of each unique test: 2+ Assessment requiring an independent historian(s): No Independent interpretation of test performed by another MD/QHCP/appropriate source (not separately reported) : No Discussion of management or test interpretation with external MD/QHCP/appropriate source (not separately reported) : No Risk status (cardiac, billing related): Moderate Vitals/Labs Vital Signs Date Time Temp Pulse Resp B/P (MAP) Pulse Ox O2 Delivery O2 Flow Rate FiO2 04/25/24 06:30 83 50 109/60 (76) 98 120/84 (96) 04/25/24 06:00 28 04/25/24 04:00 Nasal Cannula* 2 04/24/24 17:00 97.2 Laboratory Tests 04/24/24 17:20 04/25/24 04:17 Medications Current Medications Nitroglycerin 0.4 mg AD PRN SL Last administered on 04/21/24at 22:27; Start 04/21/24 at 21:30; Stop 04/24/24 at 14:51; Status DC Ondansetron HCl 4 mg Q6H PRN IV Last administered on 04/22/24at 09:41; Start 04/21/24 at 23:30; Stop 04/24/24 at 14:51; Status DC Nitroglycerin 0.5 inch Q8H TD Last administered on 04/23/24at 08:25; Start 04/21/24 at 23:30; Stop 04/23/24 at 09:03; Status DC Hydralazine HCl 10 mg Q6H PRN IV Last administered on 04/24/24at 13:43; Start 04/21/24 at 23:30; Stop 04/24/24 at 14:51; Status DC Famotidine 20 mg BID IV Last administered on 04/24/24at 08:21; Start 04/22/24 at 09:00; Stop 04/24/24 at 14:51; Status DC Pharmacy Profile Note PLEASE ENTER HT AND WT Q15M MISC; Start 04/21/24 at 23:45; Stop 04/22/24 at 00:16; Status DC Insulin Human Regular INSULIN SLIDING SCAL... ACHS SQ; Start 04/22/24 at 07:30; Stop 04/24/24 at 14:51; Status DC Dextrose 50 ml AD PRN IV; Start 04/22/24 at 00:00; Stop 04/24/24 at 15:13; Status DC Glucagon 1 mg AD PRN IM; Start 04/22/24 at 00:00; Stop 04/24/24 at 15:15; Status DC Potassium Chloride 100 ml @ 50 mls/hr AD PRN IV; Start 04/22/24 at 00:00; Stop 04/24/24 at 14:51; Status DC Magnesium Sulfate 50 ml @ 0 mls/hr PROTOCOL PRN IV; Start 04/22/24 at 00:00; Stop 04/24/24 at 14:51; Status DC Morphine Sulfate 2 mg Q4H PRN IVP Last administered on 04/24/24at 12:12; Start 04/22/24 at 00:00; Stop 04/24/24 at 14:51; Status DC Sodium Chloride 1,000 ml @ 75 mls/hr [id number] IV Last administered on 04/23/24at 17:50; Start 04/22/24 at 00:00; Stop 04/23/24 at 23:59; Status DC Aspirin 81 mg DAILY PO Last administered on 04/24/24at 08:21; Start 04/22/24 at 09:00; Stop 05/22/24 at 08:59 Atorvastatin Calcium 40 mg HS PO Last administered on 04/24/24at 19:58; Start 04/22/24 at 21:00; Stop 05/22/24 at 20:59 Heparin Sodium (Porcine) *calculation based on ACTUAL B... AD PRN IV Last administered on 04/22/24at 02:08; Start 04/22/24 at 02:30; Stop 04/24/24 at 14:51; Status DC Heparin Sodium/ Dextrose 250 ml @ 0 mls/hr Q6H IV Last administered on 04/23/24at 18:56; Start 04/22/24 at 02:30; Stop 04/24/24 at 14:51; Status DC Insulin Human Regular INSULIN SLIDING SCAL... ACHS SQ; Start 04/22/24 at 11:30; Stop 04/22/24 at 07:51; Status DC Dextrose 50 ml AD PRN IV; Start 04/22/24 at 08:00; Stop 04/22/24 at 07:52; Status DC Glucagon 1 mg AD PRN IM; Start 04/22/24 at 08:00; Stop 04/22/24 at 07:52; Status DC Magnesium Sulfate 50 ml @ 0 mls/hr PROTOCOL PRN IV; Start 04/22/24 at 08:00; Stop 04/22/24 at 07:52; Status DC Potassium Chloride 100 ml @ 100 mls/hr AD PRN IV; Start 04/22/24 at 08:00; Stop 04/22/24 at 07:52; Status DC Potassium Chloride 20 meq AD PRN PO; Start 04/22/24 at 08:00; Stop 04/24/24 at 14:51; Status DC Potassium Chloride 20 meq AD PRN PO Last administered on 04/23/24at 08:24; Start 04/22/24 at 08:00; Stop 04/24/24 at 14:51; Status DC Lorazepam 2 mg ONCE ONCE IVP; Start 04/22/24 at 10:00; Stop 04/22/24 at 10:01; Status DC Levetiracetam 500 mg ONCE STAT IV Last administered on 04/22/24at 10:05; Start 04/22/24 at 09:47; Stop 04/22/24 at 09:56; Status DC Levetiracetam 1000 mg/Sodium Chloride 100 ml @ 400 mls/hr BID IV Last administered on 04/24/24at 20:04; Start 04/22/24 at 21:00; Stop 05/22/24 at 20:59 Acetaminophen 650 mg Q6H PRN PO Last administered on 04/22/24at 20:22; Start 04/22/24 at 15:30; Stop 04/24/24 at 14:51; Status DC Acetaminophen 650 mg Q4H PRN PO; Start 04/22/24 at 15:30; Stop 04/24/24 at 14:51; Status DC Lidocaine HCl 20 ml STK-MED ONCE .ROUTE; Start 04/22/24 at 16:21; Stop 04/22/24 at 16:24; Status DC Iohexol 35,000 mg STK-MED ONCE IV; Start 04/22/24 at 16:21; Stop 04/22/24 at 16:24; Status DC Heparin Sodium/ Sodium Chloride 1,000 ml @ As Directed STK-MED ONCE IV; Start 04/22/24 at 16:22; Stop 04/22/24 at 16:24; Status DC Nitroglycerin 50 mg STK-MED ONCE .ROUTE; Start 04/22/24 at 16:22; Stop 04/22/24 at 16:24; Status DC Heparin Sodium (Porcine) 10,000 unit STK-MED ONCE .ROUTE; Start 04/22/24 at 16:36; Stop 04/22/24 at 16:36; Status DC Nicardipine HCl 25 mg STK-MED ONCE IV; Start 04/22/24 at 17:07; Stop 04/22/24 at 17:08; Status DC Fentanyl Citrate 100 mcg STK-MED ONCE .ROUTE; Start 04/22/24 at 17:09; Stop 04/22/24 at 17:09; Status DC Midazolam HCl 2 mg STK-MED ONCE .ROUTE; Start 04/22/24 at 17:09; Stop 04/22/24 at 17:09; Status DC Heparin Sodium/ Dextrose 250 ml @ As Directed STK-MED ONCE IV; Start 04/22/24 at 17:46; Stop 04/22/24 at 17:46; Status DC Lidocaine 1 each ONCE STAT TP Last administered on 04/23/24at 04:30; Start 04/23/24 at 04:20; Stop 04/23/24 at 04:26; Status DC Cefazolin Sodium 2 gm ONCALL IVP Last administered on 04/23/24at 21:38; Start 04/23/24 at 21:30; Stop 04/25/24 at 21:29 Metoprolol Tartrate 12.5 mg ONCE ONCE PO Last administered on 04/24/24at 08:21; Start 04/24/24 at 09:00; Stop 04/24/24 at 09:01; Status DC Epinephrine HCl 10 mg/Sodium Chloride 250 ml @ 0 mls/hr AD PRN IV; Start 04/24/24 at 11:00; Stop 04/24/24 at 15:17; Status DC Norepinephrine Bitartrate 250 ml @ 0 mls/hr AD PRN IV; Start 04/24/24 at 11:00; Stop 04/24/24 at 15:13; Status DC Aminocaproic Acid 59269 mg/Sodium Chloride 480 ml @ 0 mls/hr AD PRN IV; Start 04/24/24 at 11:00; Stop 04/24/24 at 15:05; Status DC Nitroglycerin/ Dextrose 1 ml @ As Directed STK-MED ONCE .ROUTE; Start 04/24/24 at 11:17; Stop 04/24/24 at 11:17; Status DC Cefazolin Sodium 1 gm STK-MED ONCE .ROUTE; Start 04/24/24 at 11:44; Stop 04/24/24 at 11:44; Status DC Heparin Sodium/ Sodium Chloride 500 ml @ As Directed STK-MED ONCE IV Last administered on 04/24/24at 11:57; Start 04/24/24 at 11:44; Stop 04/24/24 at 11:45; Status DC Papaverine HCl 60 mg STK-MED ONCE .ROUTE; Start 04/24/24 at 11:45; Stop 04/24/24 at 11:45; Status DC Cefazolin Sodium 2 gm STK-MED ONCE IVPB; Start 04/24/24 at 00:00; Stop 04/24/24 at 00:01; Status Cancel Papaverine HCl 60 mg STK-MED ONCE IRRIG; Start 04/24/24 at 00:00; Stop 04/24/24 at 00:01; Status Cancel Cefazolin Sodium 1 gm STK-MED ONCE .ROUTE; Start 04/24/24 at 11:55; Stop 04/24/24 at 11:55; Status DC Cefazolin Sodium 1 gm STK-MED ONCE IRRIG; Start 04/24/24 at 00:00; Stop 04/24/24 at 00:01; Status Cancel Ipratropium Vesta 0.5 mg STK-MED ONCE IH Last administered on 04/24/24at 13:50; Start 04/24/24 at 13:44; Stop 04/24/24 at 13:44; Status DC Midazolam HCl 2 mg STK-MED ONCE .ROUTE; Start 04/24/24 at 14:12; Stop 04/24/24 at 14:12; Status DC Protamine Sulfate 250 mg STK-MED ONCE IV; Start 04/24/24 at 14:23; Stop 04/24/24 at 14:23; Status DC Lidocaine HCl 100 mg STK-MED ONCE .ROUTE; Start 04/24/24 at 14:23; Stop 04/24/24 at 14:23; Status DC Heparin Sodium (Porcine) 10,000 unit STK-MED ONCE .ROUTE; Start 04/24/24 at 14:23; Stop 04/24/24 at 14:23; Status DC Epinephrine HCl 1 mg STK-MED ONCE .ROUTE; Start 04/24/24 at 14:23; Stop 04/24/24 at 14:23; Status DC Sodium Bicarbonate 200 ml @ As Directed STK-MED ONCE .ROUTE; Start 04/24/24 at 14:23; Stop 04/24/24 at 14:23; Status DC Norepinephrine Bitartrate 4 mg STK-MED ONCE IV; Start 04/24/24 at 14:23; Stop 04/24/24 at 14:24; Status DC Propofol 200 mg STK-MED ONCE IV; Start 04/24/24 at 14:24; Stop 04/24/24 at 14:24; Status DC Fentanyl Citrate 1,000 mcg STK-MED ONCE IJ; Start 04/24/24 at 14:24; Stop 04/24/24 at 14:24; Status DC Glycopyrrolate 1 mg STK-MED ONCE .ROUTE; Start 04/24/24 at 14:24; Stop 04/24/24 at 14:24; Status DC Rocuronium Vesta 50 mg STK-MED ONCE .ROUTE; Start 04/24/24 at 14:24; Stop 04/24/24 at 14:25; Status DC Ketamine HCl 50 mg STK-MED ONCE .ROUTE; Start 04/24/24 at 14:25; Stop 04/24/24 at 14:25; Status DC Ipratropium Vesta 0.5 MG Q4H PRN IH; Start 04/24/24 at 14:30; Stop 05/24/24 at 14:29 Acetaminophen 1,000 mg Q6H6 IV Last administered on 04/25/24at 05:41; Start 04/24/24 at 18:00; Stop 04/25/24 at 17:59 Aspirin 81 mg ONCE ONCE NG Last administered on 04/24/24at 19:58; Start 04/24/24 at 18:00; Stop 04/24/24 at 18:01; Status DC Docusate Sodium 100 mg BID PO Last administered on 04/24/24at 19:58; Start 04/24/24 at 21:00; Stop 05/24/24 at 20:59 Lactulose 20 gm BID PRN PO; Start 04/24/24 at 15:00; Stop 05/24/24 at 14:59 Furosemide 20 mg Q12H PO; Start 04/26/24 at 09:00; Stop 05/26/24 at 08:59 Furosemide 20 mg Q12H IV; Start 04/25/24 at 09:00; Stop 04/26/24 at 08:59 Magnesium Hydroxide 30 ml DAILY PRN PO; Start 04/24/24 at 15:00; Stop 05/24/24 at 14:59 Dexmedetomidine/ Sodium Chloride 400 mcg PROTOCOL IV Last administered on 04/24/24at 19:02; Start 04/24/24 at 15:00; Stop 04/25/24 at 14:59 Acetaminophen 650 mg Q6H PRN PO; Start 04/24/24 at 15:00; Stop 04/24/24 at 15:55; Status DC Sodium Chloride 1,000 ml @ 10 mls/hr ONCE IV Last administered on 04/24/24at 17:18; Start 04/24/24 at 15:00; Stop 04/25/24 at 14:59 Sodium Chloride 10 ml Q8H PRN IVP; Start 04/24/24 at 15:00; Stop 05/24/24 at 14:59 Morphine Sulfate 0.5 mg Q2H PRN IV; Start 04/24/24 at 15:00; Stop 04/25/24 at 14:59 Morphine Sulfate 1 mg Q2H PRN IV Last administered on 04/24/24at 20:15; Start 04/24/24 at 15:00; Stop 04/25/24 at 14:59 Acetaminophen 650 mg Q4H PRN RC; Start 04/24/24 at 15:00; Stop 04/24/24 at 15:57; Status DC Ondansetron HCl 4 mg Q6H PRN IV; Start 04/24/24 at 15:00; Stop 05/24/24 at 14:59 Sodium Chloride 500 ml @ 0 mls/hr AD IV; Start 04/24/24 at 15:00; Stop 05/24/24 at 14:59 Nitroglycerin/ Dextrose 0 ml @ 0 mls/hr AD IV Last administered on 04/24/24at 17:30; Start 04/24/24 at 15:00; Stop 04/27/24 at 14:59 Propofol 100 ml @ 0 mls/hr AD PRN IV; Start 04/24/24 at 15:00; Stop 04/28/24 at 14:59 Norepinephrine Bitartrate 8 mg/ Dextrose 250 ml @ 0 mls/hr AD PRN IV; Start 04/24/24 at 15:00; Stop 04/29/24 at 14:59 Epinephrine HCl 10 mg/Sodium Chloride 250 ml @ 11.533 mls/ hr AD PRN IV; Start 04/24/24 at 15:00; Stop 04/29/24 at 14:59 Aminocaproic Acid 95915 mg/Sodium Chloride 310 ml @ 25 mls/hr AD IV; Start 04/24/24 at 15:00; Stop 04/25/24 at 03:23; Status DC Calcium Gluconate 1 gm/Sodium Chloride 60 ml @ 200 mls/hr AD PRN IV Last administered on 04/25/24at 04:58; Start 04/24/24 at 15:00; Stop 05/24/24 at 14:59 Magnesium Sulfate 50 ml @ 12.5 mls/hr AD PRN IV Last administered on 04/25/24at 04:58; Start 04/24/24 at 15:00; Stop 05/24/24 at 14:59 Potassium Chloride 100 ml @ 100 mls/hr AD PRN IV Last administered on 04/25/24at 02:26; Start 04/24/24 at 15:00; Stop 05/24/24 at 14:59 Potassium Phosphate 250 ml @ 42 mls/hr AD PRN IV; Start 04/24/24 at 15:00; Stop 05/24/24 at 14:59 Albumin Human 250 ml @ 0 mls/hr AD PRN IV Last administered on 04/24/24at 18:56; Start 04/24/24 at 15:00; Stop 04/24/24 at 18:56; Status DC Acetaminophen 650 mg Q4H PRN PO; Start 04/24/24 at 15:00; Stop 04/24/24 at 15:56; Status DC Insulin Human Regular 100 unit/ Sodium Chloride 100 ml @ 0 mls/hr AD IV Last administered on 04/24/24at 17:21; Start 04/24/24 at 15:00; Stop 04/26/24 at 14:59 Cefazolin Sodium 2 gm Q8H IVPB Last administered on 04/25/24at 04:02; Start 04/24/24 at 20:00; Stop 04/25/24 at 12:01 Tramadol HCl 25 mg Q6H PRN PO; Start 04/24/24 at 15:00; Stop 04/29/24 at 14:59 Tramadol HCl 50 mg Q6H PRN PO Last administered on 04/25/24at 02:44; Start 04/24/24 at 15:00; Stop 04/29/24 at 14:59 Famotidine 20 mg BID IV Last administered on 04/24/24at 19:58; Start 04/24/24 at 21:00; Stop 05/24/24 at 20:59 Sodium Bicarbonate 50 meq AD PRN IV Last administered on 04/24/24at 22:30; Start 04/24/24 at 15:00; Stop 04/27/24 at 14:59 Dextrose 50 ml AD PRN IV; Start 04/24/24 at 15:00; Stop 05/24/24 at 14:59 Glucagon 1 mg AD PRN IM; Start 04/24/24 at 15:00; Stop 05/24/24 at 14:59 Vasopressin 20 units STK-MED ONCE .ROUTE; Start 04/24/24 at 15:10; Stop 04/24/24 at 15:10; Status DC Heparin Sodium (Porcine) 10,000 unit STK-MED ONCE .ROUTE; Start 04/24/24 at 15:19; Stop 04/24/24 at 15:19; Status DC Potassium Chloride 100 ml @ As Directed STK-MED ONCE IV; Start 04/24/24 at 15:31; Stop 04/24/24 at 15:32; Status DC Cefazolin Sodium 2 gm STK-MED ONCE IVPB Last administered on 04/24/24at 14:45; Start 04/24/24 at 14:45; Stop 04/24/24 at 15:45; Status DC Papaverine HCl 60 mg STK-MED ONCE IRRIG Last administered on 04/24/24at 15:05; Start 04/24/24 at 15:05; Stop 04/24/24 at 15:45; Status DC Cefazolin Sodium 1 gm STK-MED ONCE IRRIG Last administered on 04/24/24at 15:05; Start 04/24/24 at 15:05; Stop 04/24/24 at 15:45; Status DC Acetaminophen 650 mg Q6H PRN PO; Start 04/25/24 at 18:00; Stop 05/25/24 at 17:59 Acetaminophen 650 mg Q4H PRN PO; Start 04/25/24 at 18:00; Stop 05/25/24 at 17:59 Acetaminophen 650 mg Q4H PRN RC; Start 04/25/24 at 18:00; Stop 05/25/24 at 17:59 Ketamine HCl 50 mg STK-MED ONCE .ROUTE; Start 04/24/24 at 16:11; Stop 04/24/24 at 16:11; Status DC Nicardipine HCl 100 mg/Sodium Chloride 100 ml @ 0 mls/hr PROTOCOL IV; Start 04/24/24 at 18:00; Stop 05/24/24 at 17:59 Dexmedetomidine/ Sodium Chloride 400 mcg PROTOCOL IV; Start 04/24/24 at 20:00; Stop 05/24/24 at 19:59 Sodium Bicarbonate 150 ml @ As Directed STK-MED ONCE .ROUTE; Start 04/24/24 at 22:15; Stop 04/24/24 at 22:15; Status DC Calcium Gluconate 1 gm STK-MED ONCE .ROUTE; Start 04/25/24 at 04:56; Stop 04/25/24 at 04:57; Status DC TOMMY PITT MD Apr 25, 2024 07:36
--- NOTE | 2024-04-25 07:59 | HMCIMG ---
CHEST 1VW HISTORY: Post CABG COMPARISON: 04/24/2024 FINDINGS: A frontal projection of the chest was obtained. There are bilateral pulmonary infiltrates suggestive of pulmonary vascular congestion with possible superimposed pneumonitis. Poststernotomy changes are seen. The heart is enlarged. Degenerative changes of the thoracolumbar spine are present. All the lines and tubes are again seen in place. No evidence of aortic calcification is seen. IMPRESSION: 1. Bilateral pulmonary infiltrates are seen suggestive of pulmonary vascular congestion with possible superimposed pneumonitis.
[2024-04-25] MEDS: furoSEMIDE 20MG VIAL IV SCH (08:16)
--- NOTE | 2024-04-25 08:54 | NUR ---
PT eval on hold d/t pt continues with balloon pump as per nurse. PT team to follow up.
--- NOTE | 2024-04-25 11:00 | NUR ---
Dr.[place] Dr. Soto in to see pt plan of care, labs, drips, medication discussed. IABP placed on 1:2, pt tolerating well. Plan to dc IABP tomorrow. spoke to patient and , all questions answered. Continue to monitor pt.
--- NOTE | 2024-04-25 11:55 | PN ---
[facility] PROGRESS NOTE Date Patient Seen: Apr 25, 2024 Time of Visit: 11:55 Supervising Physician: Rg Jackson MD Primary Care Physician: Adolfo Morales MD Outpatient Specialists: None Inpatient Consults: BRIANA, Dr Murray, Dr Vitale, Dr Yee PROBLEM LIST: Severe coronary artery disease to left main 90% stenosis, S/P CABG X2 on 04/24/24 (Dr Vitale ) Postop acute hypoxic respiratory failure as expected NSTEMI status post LHC and Balloon Pump placement for MCS 04/23 Polysubstance abuse POA + cocaine and marijuana Suspicion for COPD, POA Thrombocytopenia not POA Normocytic normochromic anemia POA Hyperglycemia, POA Hyperlipidemia POA Essential Hypertension POA History of seizure disorder POA History of Parkinson's disease POA History of multiple CVA POA Active smoker POA LVEF is 55-60% with normal ventricular diastolic function. On 2D echo 04/23/24 INTERVAL HISTORY: 04/25-Patient is awake alert and oriented x3 hemodynamically stable. Continues with balloon pump 1:1 MCS. Patient was seen by CV surgery and has agreed to move all with CABG. Heparin is on hold. Scheduled for CABG for noon today. Chest x-ray with no acute pulmonary infiltrates seen. Balloon pump seems in proper position. On arterial ultrasound no hemodynamically significant lesions seen either extracranial carotid arteries. Patient has good urine output 2 L in the last 24, CBC unremarkable similar to yesterday. Chemistry kidneys are doing well creatinine 1.1 GFR of 75 BUN of 19 total calcium 8.1 albumin 2.9. We will continue to follow alongside cardiovascular surgeon and Cardiology. 04/26-patient is awake alert and oriented x3 he was extubated around midnight last night. He continues on low-dose epinephrine at 0.02 micrograms/kilogram p er minute and MCS with balloon pump support of 1:2. Patient is afebrile, heart rate in the 80s, respiratory rate of 18 unlabored saturating 98% with 2 L via nasal cannula, blood pressure via arterial line 137/55 patient has good urine output 2.9 L in the last 24 hours chest tube output 350 mL with a balance of-1.4 L. H&H slightly lower than yesterday 9.2/28.7 platelet count trended down today [id number]. Chemistry unremarkable. Chest x-ray shows bilateral pulmonary infiltrates with this is pulmonary vascular congestion. Post sternotomy changes. Enlarged heart. Balloon pump and left subclavian Cordis central line in place. REVIEW OF SYSTEMS: Const: [no fever, fatigue, or weight changes] Eyes:[ no recent vision problems] ENT: [No congestion, ear pain, or sore throat] C/V: [no chest pain, palpitations or edema] Resp: [No cough, congestion, wheezing , no for shortness of breaths GI: [No abdominal pain, nausea, vomiting, constipation, or diarrhea] : [No incontinence of or dyuria] M/S: [No joint or pain swelling] Skin: [No rash] Neuro: [no headache, focal numbness, or weakness, dizziness or seizures] Psych: [no depression or anxiety] Heme: [no abnormal bruising or bleeding] Lymph: [no swollen glands] PHYSICAL EXAM: GENERAL: alert, weak, awake oriented x 3 HEENT: EOMI, Sclera non icteric, moist mucosa NECK: Supple, no JVD, trachea midline LUNGS: Diminished breath sounds bilaterally. No wheezes HEART: Regular rate and rhythm. Normal S1 and S2, without murmurs , balloon pump one-to-one ABD: Abdomen soft, nontender. Bowel sounds present EXT: No clubbing cyanosis or edema, +1 pedal pulse bilaterally NEURO: Alert and oriented to person, follows commands Vital Signs (last 8hr) Date Time Temp Pulse Resp B/P (MAP) Pulse Ox O2 Delivery O2 Flow Rate FiO2 04/25/24 11:15 83 18 144/51 (82) 99 04/25/24 11:08 98 Nasal Cannula* 2 28 04/25/24 11:00 77 16 137/55 (82) 98 04/25/24 10:45 78 13 142/61 (88) 99 127/59 (81) 04/25/24 10:30 78 16 140/48 (78) 97 04/25/24 10:15 77 16 142/53 (82) 98 04/25/24 10:00 82 14 136/51 (79) 98 126/99 (108) 04/25/24 09:45 73 11 125/49 (74) 97 04/25/24 09:30 74 12 129/45 (73) 97 04/25/24 09:15 67 14 126/58 (80) 99 04/25/24 09:00 72 13 139/49 (79) 98 04/25/24 08:45 75 15 131/50 (77) 98 122/83 (96) 04/25/24 08:30 76 18 135/55 (81) 99 04/25/24 08:15 74 15 138/49 (78) 98 118/89 (99) 04/25/24 08:00 73 17 116/45 (68) 99 04/25/24 07:45 75 23 124/49 (74) 97 116/73 (87) 04/25/24 07:40 98 Nasal Cannula* 2 28 04/25/24 07:30 73 14 116/46 (69) 98 04/25/24 07:18 72 13 113/45 (67) 98 101/62 (75) 04/25/24 07:15 73 12 116/46 (69) 98 04/25/24 07:00 73 12 117/46 (69) 98 04/25/24 06:30 83 50 109/60 (76) 98 120/84 (96) 04/25/24 06:15 78 18 123/46 (71) 99 04/25/24 06:00 76 12 115/47 (69) 97 28 04/25/24 05:45 81 13 121/46 (71) 95 04/25/24 05:30 78 14 139/51 (80) 98 133/86 (102) 04/25/24 05:15 79 16 138/50 (79) 98 04/25/24 05:00 80 13 137/52 (80) 98 28 123/91 (102) 04/25/24 04:45 80 13 139/54 (82) 98 04/25/24 04:30 82 18 100/62 (75) 98 114/69 (84) 04/25/24 04:15 74 13 119/56 (77) 98 04/25/24 04:00 98 Nasal Cannula* 2 28 04/25/24 04:00 73 11 122/53 (76) 98 28 120/77 (91) LABS: Hematology Labs: Test 04/25/24 04:17 Range/Units White Blood Count 9.4 # 4.8-10.8 K/uL Red Blood Count 3.16 L 4.50-6.20 MIL/uL Hemoglobin 9.2 L 14.0-18.0 g/dL Hematocrit 28.7 L 42-54 % Mean Corpuscular Volume 90.8 79-99 fL Mean Corpuscular Hemoglobin 29.1 27.0-33.0 pg Mean Corpuscular Hemoglobin Concent 32.1 32.0-36.0 g/dL Red Cell Distribution Width 13.8 11.0-15.5 % Platelet Count 95 #L 130-400 K/uL Mean Platelet Volume 10.6 H 7.5-10.5 fL Nucleated Red Blood Cells 0.0 0.0-0.19 % Chemistry Labs: Test 04/25/24 09:00 04/25/24 04:17 04/24/24 03:48 Range/Units Whole Blood Glucose 94 70-110 MG/DL Sodium Level 144 136-145 mmol/L Potassium Level 4.1 3.5-5.1 mmol/L Chloride Level 108 101-111 mmol/L Carbon Dioxide Level 32 21-32 mmol/L Blood Urea Nitrogen 16 7-18 mg/dL Creatinine 1.2 0.5-1.3 mg/dL Glomerular Filtration Rate Calc 68 >90 mL/min Random Glucose 118 H 70-105 mg/dL Total Calcium 8.8 8.5-10.1 mg/dL Ionized Calcium 1.17 1.16-1.32 MMOL/L Phosphorus Level 3.7 2.5-4.9 mg/dL Magnesium Level 1.90 1.80-2.40 mg/dL Total Bilirubin 0.5 0.2-1.0 mg/dL Aspartate Amino Transf (AST/SGOT) 13 10-37 U/L Alanine Aminotransferase (ALT/SGPT) 23 12-78 U/L Alkaline Phosphatase 88 50-136 U/L B-Type Natriuretic Peptide 31 0-100 pg/mL Total Protein 5.9 L 6.0-8.3 g/dL Albumin 2.9 L 3.5-5.0 g/dL Triglycerides Level 41 30-200 mg/dL Cholesterol Level 165 <200 mg/dL LDL Cholesterol 95 0-99 mg/dL HDL Cholesterol 60 29-71 mg/dL Coagulation Labs: Test 04/25/24 04:17 Range/Units Prothrombin Time 11.0 9.6-11.6 SEC Prothromb Time International Ratio 1.02 0.85-1.15 Activated Partial Thromboplast Time 26.8 26.3-35.5 SEC Fibrinogen 334 180-350 mg/dL DIAGNOSTICS / RADIOLOGY RESULTS: PATIENT: CHARLES BREEN MR#: [id number] : 1960 SEX: M AGE: 63 LOCATION: 2CV ORDER 99 STATUS: ADM IN REPORT#: [id number] SERVICE 0400 REASON: s/p CABG ORDERING PHYSICIAN: JACKELYN VITALE MD PROCEDURE: CXR1VW - CHEST 1VW CHEST 1VW HISTORY: Post CABG COMPARISON: 04/24/2024 FINDINGS: A frontal projection of the chest was obtained. There are bilateral pulmonary infiltrates suggestive of pulmonary vascular congestion with possible superimposed pneumonitis. Poststernotomy changes are seen. The heart is enlarged. Degenerative changes of the thoracolumbar spine are present. All the lines and tubes are again seen in place. No evidence of aortic calcification is seen. IMPRESSION: 1. Bilateral pulmonary infiltrates are seen suggestive of pulmonary vascular congestion with possible superimposed pneumonitis. DICTATED BY: KWAME JUSTICE MD DATE: 04/25/24755 ELECTRONICALLY SIGNED BY: KWAME JUSTICE MD DATE: 04/25/24758 PLAN Low-dose epinephrine keep it minimum at 0.01 mcg kg improvement as recommended per CV surgery Follow CT surgeon recommendations Follow cardiology recommendations Multimodal pain management Balloon pump per Cardiology likely removal tomorrow. Chest x-ray in the morning 2D echo done-normal diastolic function EF 55-60% Transfuse if absolutely necessary to keep hemoglobin above 8 Maintain O2 sats greater than 92% Incentive spirometry Glycemic control with goal of 80-180 Referral for cardiac rehabilitation on DC Speech to eval once patient is extubated Educated patient to stop cocaine and marijuana use. Informed him the next time that he does cocaine he may likely . Patient verbalized understanding. Continue Keppra for patient history of seizure NEURO: Minimize central acting medications as possible. Fall Precautions. Well lighted room through the day and minimize interruptions through the night to prevent acute delirium. PULMONARY: Supplemental 02 as needed Titrate Fio2 to keep Spo2 > or = 90% DuoNebs and CPT as needed IS hourly while awake for pulmonary hygiene Out of bed to chair as tolerated CARDIOVASCULAR: Follow hemodynamics. Titrate vasopressor to keep MAP >65 or systolic blood pressure >95mmHg Drips: Epinephrine drip LINES: PIV Arterial line Chest tube Left subclavian Cordis Felix catheter GI & NUTRITION: Continue nutritional support Aspirations precautions Prokinetic agents and laxatives as needed KIDNEYS & ELECTROLYTES: Strict monitoring of intake and output Daily weights Avoid nephrotoxic agents Monitor electrolytes and replace as needed Goal urine output of 30mL/hr or 0.5mL/kg/hr ENDOCRINE: Maintain blood glucose between 100-180 at all times. Insulin sliding scale for blood glucose management INFECTIOUS DISEASE: Trend temperature. Chong-culture if febrile. Micro: [ ] Antibiotics: None HEMATOLOGY & COAGULATION: Monitor H&H. Keep Hgb > 7 Transfuse 1 unit of PRBC for Hgb < 7 Transfuse 1 pack of platelets of platelets < 20, 000 Watch for any signs and symptoms of bleeding SKIN: Pressure ulcer prevention per facility protocol Rehab: PT/OT Prophylaxis: GI: Pepcid DVT: Patient is already on a heparin drip Code Status: Full Resuscitation Disposition: ICU Other: Total patient care time exceeds 45 minutes excluding all procedures. Case was discussed and seen with my supervising physician. The above plan was formulated and agreed upon. ERIC LIM [facility] Apr 25, 2024 11:55
--- NOTE | 2024-04-25 12:53 | PN ---
[facility] PROGRESS NOTE Date of Service: Apr 25, 2024 Time of Service: 12:51 Patient was seen and examined. Case discussed with RN by the bedside. He is status post Off-pump CABG x 2, NOLAN to LAD, reverse saphenous vein graft to first diagonal. . He is doing well with stable vital signs. We will continue to monitor and follow with the consultants SUBJECTIVE: [63-year-old male who presented to the emergency department with chest pain, he is known with positive UDS with marijuana and cocaine. He presented with non- STEMI with elevated troponin. He was evaluated by the controls engineer who recommended cardiac catheterization. Status post left heart catheterization noted mid distal LM 90% lesion in, proximal circumflex with 60-60% disease, patient had an insertion of IABP. Cardiovascular surgeon consulted. We will continue to follow. REVIEW OF SYSTEMS CONSTITUTIONAL: Positive diaphoresis Denies fevers, chills, or night sweats. No unintentional weight loss reported. NEUROLOGICAL: Denies headache, amaurosis fugax, motor weakness, sensory deficit, vertigo/spinning sensation, gait abnormalities, or tremors. ENT: No hearing loss, otalgia, otorrhea, rhinitis, rhinorrhea, hoarseness, or sore throat. CARDIOVASCULAR: Positive chest pain Denies orthopnea, paroxysmal nocturnal dyspnea, palpitations, life-threatening arrhythmias, claudication. PULMONARY: Positive shortness of breath Denies cough, phlegm/sputum, hemoptysis, pleuritic chest pain. SLEEP: Denies morning headaches, daytime somnolence or napping. Denies difficulty falling asleep, staying asleep, waking from sleep. Denies knowledge of snoring. GASTROINTESTINAL: Denies any type of dysphagia to either liquids or solids. Denies nausea, vomiting, pyrosis, early satiety, abdominal pain, diarrhea, constipation, or changes in stool consistency or caliber. Denies coffee-ground emesis, hematemesis, hematochezia, or melanotic stools. GENITOURINARY: Denies frequency, urgency, nocturia, hematuria or incontinence (Storage/Irritative symptoms.) Low urinary stream, straining to void, urinary intermittency or hesitancy, splitting of the voiding stream, terminal dribbling. ENDOCRINOLOGIC: Denies polyuria, polydipsia, polyphagia or heat/cold intolerances. HEMATOLOGIC: Denies thrombophilia/previous clots, or coagulopathy/bleeding disorders. ONCOLOGIC: Denies personal history of malignancy. DERMATOLOGIC: Denies rashes or pruritus. PSYCHIATRIC: Denies any suicidal or homicidal ideation. Denies hallucinations. PHYSICAL EXAM GENERAL APPEARANCE: The patient is awake, alert, and oriented, in no acute cardiopulmonary distress. NEUROLOGICAL: Cranial nerves II-XII grossly intact. Motor is 5/5 in bilateral upper and lower extremities proximal to distal. No sensory deficits. HEENT: Face is symmetric. Pupils are equal and reactive. Extraocular movements are intact. NECK: Supple. No JVD. No thyromegaly. No submental, submandibular, pre- /postauricular, occipital or supraclavicular lymphadenopathy. CHEST: Normal chest expansion. No Telemetry. LUNGS: Absence of any rales, rhonchi or any wheezing. CARDIOVASCULAR: Regular. S1 and S2 normal. No appreciable rubs, murmurs or gallops. ABDOMEN: Soft, nontender, and nondistended. There is no rebound, voluntary guarding, or rigidity. : Deferred. No Felix. EXTREMITIES: Non-edematous and not cyanotic. No clubbing. Good capillary refill. SKIN: No skin breakdown. Vital Signs (last 8hr) Date Time Temp Pulse Resp B/P (MAP) Pulse Ox O2 Delivery O2 Flow Rate FiO2 04/25/24 11:15 83 18 144/51 (82) 99 04/25/24 11:08 98 Nasal Cannula* 2 28 04/25/24 11:00 77 16 137/55 (82) 98 04/25/24 10:45 78 13 142/61 (88) 99 127/59 (81) 04/25/24 10:30 78 16 140/48 (78) 97 04/25/24 10:15 77 16 142/53 (82) 98 04/25/24 10:00 82 14 136/51 (79) 98 126/99 (108) 04/25/24 09:45 73 11 125/49 (74) 97 04/25/24 09:30 74 12 129/45 (73) 97 04/25/24 09:15 67 14 126/58 (80) 99 04/25/24 09:00 72 13 139/49 (79) 98 04/25/24 08:45 75 15 131/50 (77) 98 122/83 (96) 04/25/24 08:30 76 18 135/55 (81) 99 04/25/24 08:15 74 15 138/49 (78) 98 118/89 (99) 04/25/24 08:00 73 17 116/45 (68) 99 04/25/24 07:45 75 23 124/49 (74) 97 116/73 (87) 04/25/24 07:40 98 Nasal Cannula* 2 28 04/25/24 07:30 73 14 116/46 (69) 98 04/25/24 07:18 72 13 113/45 (67) 98 101/62 (75) 04/25/24 07:15 73 12 116/46 (69) 98 04/25/24 07:00 73 12 117/46 (69) 98 04/25/24 06:30 83 50 109/60 (76) 98 120/84 (96) 04/25/24 06:15 78 18 123/46 (71) 99 04/25/24 06:00 76 12 115/47 (69) 97 28 04/25/24 05:45 81 13 121/46 (71) 95 04/25/24 05:30 78 14 139/51 (80) 98 133/86 (102) 04/25/24 05:15 79 16 138/50 (79) 98 04/25/24 05:00 80 13 137/52 (80) 98 28 123/91 (102) LABS: Laboratory: Test 04/25/24 11:55 04/25/24 04:17 04/25/24 02:06 04/24/24 23:57 Range/Units Whole Blood Glucose 95 70-110 MG/DL White Blood Count 9.4 # 4.8-10.8 K/uL Red Blood Count 3.16 L 4.50-6.20 MIL/uL Hemoglobin 9.2 L 14.0-18.0 g/dL Hematocrit 28.7 L 42-54 % Mean Corpuscular Volume 90.8 79-99 fL Mean Corpuscular Hemoglobin 29.1 27.0-33.0 pg Mean Corpuscular Hemoglobin Concent 32.1 32.0-36.0 g/dL Red Cell Distribution Width 13.8 11.0-15.5 % Platelet Count 95 #L 130-400 K/uL Mean Platelet Volume 10.6 H 7.5-10.5 fL Nucleated Red Blood Cells 0.0 0.0-0.19 % Prothrombin Time 11.0 9.6-11.6 SEC Prothromb Time International Ratio 1.02 0.85-1.15 Activated Partial Thromboplast Time 26.8 26.3-35.5 SEC Fibrinogen 334 180-350 mg/dL Sodium Level 144 136-145 mmol/L Potassium Level 4.1 3.5-5.1 mmol/L Chloride Level 108 101-111 mmol/L Carbon Dioxide Level 32 21-32 mmol/L Blood Urea Nitrogen 16 7-18 mg/dL Creatinine 1.2 0.5-1.3 mg/dL Glomerular Filtration Rate Calc 68 >90 mL/min Random Glucose 118 H 70-105 mg/dL Total Calcium 8.8 8.5-10.1 mg/dL Ionized Calcium 1.17 1.16-1.32 MMOL/L Phosphorus Level 3.7 2.5-4.9 mg/dL Magnesium Level 1.90 1.80-2.40 mg/dL Blood Gas Specimen Type Arterial Arterial Blood pH 7.429 7.350-7.450 Arterial Blood Partial Pressure CO2 43 35-48 mmHg Arterial Blood Partial Pressure O2 123.4 H 83.0-108.0 mmHg Arterial Blood HCO3 27.5 21.0-28.0 mmol/L Arterial Blood Oxygen Saturation 97.9 94.0-98.0 % Arterial Blood Base Excess 2.9 -2.0-3.0 mmol/L Hemoglobin (Blood Gas) 10.7 L 13.5-17.5 g/dL Sodium (Blood Gas) 144 136-145 MMOL/L Bedside Potassium (Blood Gas) 4.2 3.4-4.5 MMOL/L Bedside Chloride (Blood Gas) 107 98-107 MMOL/L Bedside Glucose (Blood Gas) 128 H 65-95 MG/DL Bedside Ionized Calcium (Blood Gas) 1.18 1.15-1.33 MMOL/L Bedside Lactic Acid (Blood Gas) 2.37 H 0.36-0.75 MMOL/L Blood Gas Temperature 37.0 35.5-37.0 CELSIUS Blood Gas Flow-by 10.00 0.00-15.00 L/min Blood Gas Vent Mode COOL MIST ROOM AIR FiO2 40.0 % Blood Gas Specimen Comment RN, AL Blood Gas Respiration Rate 4.0 min. Blood Gas Tidal Volume 600 ml Blood Gas PEEP 5 cm H2O Test 04/24/24 03:48 Range/Units Total Bilirubin 0.5 0.2-1.0 mg/dL Aspartate Amino Transf (AST/SGOT) 13 10-37 U/L Alanine Aminotransferase (ALT/SGPT) 23 12-78 U/L Alkaline Phosphatase 88 50-136 U/L B-Type Natriuretic Peptide 31 0-100 pg/mL Total Protein 5.9 L 6.0-8.3 g/dL Albumin 2.9 L 3.5-5.0 g/dL Triglycerides Level 41 30-200 mg/dL Cholesterol Level 165 <200 mg/dL LDL Cholesterol 95 0-99 mg/dL HDL Cholesterol 60 29-71 mg/dL Current Medications Medications (Trade) Dose Ordered Sig/Aaron Route PRN Reason Start Time Stop Time Status Last Admin Dose Admin Acetaminophen (TYLenol 325MG TAB) 650 mg Q4H PRN PO Temp >38.3C(AFTER EXTUBATION) 04/25/24 18:00 05/25/24 17:59 Acetaminophen (TYLenol 325MG TAB) 650 mg Q4H PRN PO TEMPERATURE GREATER THAN 101.5 04/22/24 15:30 04/24/24 14:51 DC Acetaminophen (TYLenol 325MG TAB) 650 mg Q4H PRN PO Temp >38.3C(AFTER EXTUBATION) 04/24/24 15:00 04/24/24 15:56 DC Acetaminophen (TYLenol 325MG TAB) 650 mg Q6H PRN PO MILD PAIN (1-3) 04/25/24 18:00 05/25/24 17:59 Acetaminophen (TYLenol 325MG TAB) 650 mg Q6H PRN PO MILD PAIN (1-3) 04/22/24 15:30 04/24/24 14:51 DC 04/22/24 20:22 650 MG Acetaminophen (TYLenol 325MG TAB) 650 mg Q6H PRN PO MILD PAIN (1-3) 04/24/24 15:00 04/24/24 15:55 DC Acetaminophen (TYLenol 650MG SUPPOSITORY) 650 mg Q4H PRN RC Temp >38.3C WHILE INTUBATED 04/25/24 18:00 05/25/24 17:59 Acetaminophen (TYLenol 650MG SUPPOSITORY) 650 mg Q4H PRN RC Temp >38.3C WHILE INTUBATED 04/24/24 15:00 04/24/24 15:57 DC Acetaminophen (acetaMINOPHEN) 1,000 mg Q6H6 IV 04/24/24 18:00 04/25/24 17:59 04/25/24 11:45 1,000 MG Albumin Human 250 ml @ 0 mls/hr AD PRN IV IF HEMODYNAMICALLY UNSTABLE 04/24/24 15:00 04/24/24 18:56 DC 04/24/24 18:56 250 MLS/HR Aminocaproic Acid 20348 mg/Sodium Chloride 310 ml @ 25 mls/hr AD IV 04/24/24 15:00 04/25/24 03:23 DC Aminocaproic Acid 46915 mg/Sodium Chloride 480 ml @ 0 mls/hr AD PRN IV BLEEDING CONTROL 04/24/24 11:00 04/24/24 15:05 DC Aspirin (Aspirin 81mg Ec Tab) 81 mg DAILY PO 04/22/24 09:00 05/22/24 08:59 04/25/24 08:16 81 MG Atorvastatin Calcium (LIPItor 40MG) 40 mg HS PO 04/22/24 21:00 05/22/24 20:59 04/24/24 19:58 40 MG Calcium Gluconate 1 gm/Sodium Chloride 60 ml @ 200 mls/hr AD PRN IV HYPOCALCEMIA 04/24/24 15:00 05/24/24 14:59 04/25/24 04:58 200 MLS/HR Cefazolin Sodium (Ancef) 2 gm ONCALL IVP 04/23/24 21:30 04/25/24 21:29 04/23/24 21:38 2 GM Cefazolin Sodium (Ancef) 2 gm Q8H IVPB 04/24/24 20:00 04/25/24 12:01 DC 04/25/24 11:30 2 GM Dexmedetomidine/ Sodium Chloride (PRECEdex 400MCG/ 100ML-NS) 400 mcg PROTOCOL IV 04/24/24 15:00 04/25/24 14:59 04/24/24 19:02 400 MCG Dexmedetomidine/ Sodium Chloride (PRECEdex 400MCG/ 100ML-NS) 400 mcg PROTOCOL IV 04/24/24 20:00 05/24/24 19:59 Dextrose (D50w) 50 ml AD PRN IV HYPOGLYCEMIA PROTOCOL 04/22/24 00:00 04/24/24 15:13 DC Dextrose (D50w) 50 ml AD PRN IV HYPOGLYCEMIA PROTOCOL 04/22/24 08:00 04/22/24 07:52 DC Dextrose (D50w) 50 ml AD PRN IV HYPOGLYCEMIA PROTOCOL 04/24/24 15:00 05/24/24 14:59 Docusate Sodium (COLace 100MG CAP) 100 mg BID PO 04/24/24 21:00 05/24/24 20:59 04/25/24 08:16 100 MG Epinephrine HCl 10 mg/Sodium Chloride 250 ml @ 11.533 mls/ hr AD PRN IV POST-OP CARDIOVASCULAR ORDERS 04/24/24 15:00 04/29/24 14:59 Epinephrine HCl 10 mg/Sodium Chloride 250 ml @ 0 mls/hr AD PRN IV TITRATE 04/24/24 11:00 04/24/24 15:17 DC Famotidine (Pepcid 20mg Vial) 20 mg BID IV 04/22/24 09:00 04/24/24 14:51 DC 04/24/24 08:21 20 MG Famotidine (Pepcid 20mg Vial) 20 mg BID IV 04/24/24 21:00 05/24/24 20:59 04/25/24 08:16 20 MG Furosemide (LASix 20MG TAB) 20 mg Q12H PO 04/26/24 09:00 05/26/24 08:59 Furosemide (LASix 20MG VIAL) 20 mg Q12H IV 04/25/24 09:00 04/26/24 08:59 04/25/24 08:16 20 MG Glucagon (Glucagon 1mg Kit) 1 mg AD PRN IM HYPOGLYCEMIA PROTOCOL 04/22/24 00:00 04/24/24 15:15 DC Glucagon (Glucagon 1mg Kit) 1 mg AD PRN IM HYPOGLYCEMIA PROTOCOL 04/22/24 08:00 04/22/24 07:52 DC Glucagon (Glucagon 1mg Kit) 1 mg AD PRN IM HYPOGLYCEMIA PROTOCOL 04/24/24 15:00 05/24/24 14:59 Heparin Sodium (Porcine) (HEParin 5,000 UNIT VIAL) *calculation based on ACTUAL B... AD PRN IV HEPARIN PROTOCOL 04/22/24 02:30 04/24/24 14:51 DC 04/22/24 02:08 5,000 UNIT Heparin Sodium/ Dextrose 250 ml @ 0 mls/hr Q6H IV 04/22/24 02:30 04/24/24 14:51 DC 04/23/24 18:56 10.8 MLS/HR Hydralazine HCl (APRESOLine 20MG INJ) 10 mg Q6H PRN IV For:SBP above 160;DBP above 90 04/21/24 23:30 04/24/24 14:51 DC 04/24/24 13:43 10 MG Insulin Human Regular (humuLIN R 100 UNIT/ML 3ML) INSULIN SLIDING SCAL... ACHS SQ 04/22/24 07:30 04/24/24 14:51 DC Insulin Human Regular (humuLIN R 100 UNIT/ML 3ML) INSULIN SLIDING SCAL... ACHS SQ 04/22/24 11:30 04/22/24 07:51 DC Insulin Human Regular 100 unit/ Sodium Chloride 100 ml @ 0 mls/hr AD IV 04/24/24 15:00 04/26/24 14:59 04/24/24 17:21 1.5 MLS/HR Ipratropium [place] (AtrovENT UD) 0.5 MG Q4H PRN IH SHORTNESS OF BREATH 04/24/24 14:30 05/24/24 14:29 Lactulose (Constulose 20gm/ 30ml Udcup) 20 gm BID PRN PO CONSTIPATION 04/24/24 15:00 05/24/24 14:59 Levetiracetam (kepPRA 500 MG/5 ML SD VIAL) 500 mg ONCE STAT IV 04/22/24 09:47 04/22/24 09:56 DC 04/22/24 10:05 500 MG Levetiracetam 1000 mg/Sodium Chloride 100 ml @ 400 mls/hr BID IV 04/22/24 21:00 05/22/24 20:59 04/25/24 08:16 400 MLS/HR Lidocaine (Lidocaine Patch 4%) 1 each ONCE STAT TP 04/23/24 04:20 04/23/24 04:26 DC 04/23/24 04:30 1 EACH Magnesium Hydroxide (Milk Of Magnesium 30ml) 30 ml DAILY PRN PO CONSTIPATION 04/24/24 15:00 05/24/24 14:59 Magnesium Sulfate 50 ml @ 12.5 mls/hr AD PRN IV MAG LEVEL LESS THAN 2.0 04/24/24 15:00 05/24/24 14:59 04/25/24 04:58 12.5 MLS/HR Magnesium Sulfate 50 ml @ 0 mls/hr PROTOCOL PRN IV OTHER [SEE ORDER COMMENTS] 04/22/24 00:00 04/24/24 14:51 DC Magnesium Sulfate 50 ml @ 0 mls/hr PROTOCOL PRN IV MAGNESIUM PROTOCOL 04/22/24 08:00 04/22/24 07:52 DC Morphine Sulfate (morPHINE 2MG SYG) 0.5 mg Q2H PRN IV MODERATE PAIN (4-6) 04/24/24 15:00 04/25/24 14:59 Morphine Sulfate (morPHINE 2MG SYG) 2 mg Q4H PRN IVP SEVERE PAIN (7-10) 04/22/24 00:00 04/24/24 14:51 DC 04/24/24 12:12 2 MG Morphine Sulfate (morPHINE 4MG SYG) 1 mg Q2H PRN IV SEVERE PAIN (7-10) 04/24/24 15:00 04/25/24 14:59 04/24/24 20:15 1 MG Nicardipine HCl 100 mg/Sodium Chloride 100 ml @ 0 mls/hr PROTOCOL IV 04/24/24 18:00 05/24/24 17:59 Nitroglycerin (Nitroglycerin 1gm Oint) 0.5 inch Q8H TD 04/21/24 23:30 04/23/24 09:03 DC 04/23/24 08:25 0.5 INCH Nitroglycerin (Nitrostat) 0.4 mg AD PRN SL CHEST PAIN 04/21/24 21:30 04/24/24 14:51 DC 04/21/24 22:27 0.4 MG Nitroglycerin/ Dextrose 0 ml @ 0 mls/hr AD IV 04/24/24 15:00 04/27/24 14:59 04/24/24 17:30 3 MLS/HR Norepinephrine Bitartrate 250 ml @ 0 mls/hr AD PRN IV TITRATE 04/24/24 11:00 04/24/24 15:13 DC Norepinephrine Bitartrate 8 mg/ Dextrose 250 ml @ 0 mls/hr AD PRN IV POST-OP CARDIOVASCULAR ORDERS 04/24/24 15:00 04/29/24 14:59 Ondansetron HCl (zoFRAN 4MG INJ) 4 mg Q6H PRN IV NAUSEA/VOMITING 04/21/24 23:30 04/24/24 14:51 DC 04/22/24 09:41 4 MG Ondansetron HCl (zoFRAN 4MG INJ) 4 mg Q6H PRN IV NAUSEA/VOMITING 04/24/24 15:00 05/24/24 14:59 Pharmacy Profile Note (Pharmacy Communication) PLEASE ENTER HT AND WT Q15M MISC 04/21/24 23:45 04/22/24 00:16 DC Potassium Phosphate 250 ml @ 42 mls/hr AD PRN IV LOW PHOS LEVEL 04/24/24 15:00 05/24/24 14:59 Potassium Chloride 100 ml @ 50 mls/hr AD PRN IV POTASSIUM PROTOCOL 04/22/24 00:00 04/24/24 14:51 DC Potassium Chloride 100 ml @ 100 mls/hr AD PRN IV POTASSIUM PROTOCOL 04/22/24 08:00 04/22/24 07:52 DC Potassium Chloride 100 ml @ 100 mls/hr AD PRN IV HYPOKALEMIA 04/24/24 15:00 05/24/24 14:59 04/25/24 02:26 100 MLS/HR Potassium Chloride (K-Dur/Klor-Con 20meq) 20 meq AD PRN PO POTASSIUM PROTOCOL 04/22/24 08:00 04/24/24 14:51 DC 04/23/24 08:24 20 MEQ Potassium Chloride (KCl 10% Elixir 20meq/15ml) 20 meq AD PRN PO POTASSIUM PROTOCOL 04/22/24 08:00 04/24/24 14:51 DC Propofol 100 ml @ 0 mls/hr AD PRN IV SEDATION 04/24/24 15:00 04/28/24 14:59 Sodium Bicarbonate (Sodium Bicarb 50meq 50ml Vial) 50 meq AD PRN IV OTHER[SEE DOSING INSTRUCTIONS] 04/24/24 15:00 04/27/24 14:59 04/24/24 22:30 150 MEQ Sodium Chloride 500 ml @ 0 mls/hr AD IV 04/24/24 15:00 05/24/24 14:59 Sodium Chloride 1,000 ml @ 10 mls/hr ONCE IV 04/24/24 15:00 04/25/24 14:59 04/24/24 17:18 10 MLS/HR Sodium Chloride 1,000 ml @ 75 mls/hr [id number] IV 04/22/24 00:00 04/23/24 23:59 DC 04/23/24 17:50 75 MLS/HR Sodium Chloride (NS Flush 10ml) 10 ml Q8H PRN IVP IV LINE FLUSH 04/24/24 15:00 05/24/24 14:59 Tramadol HCl (UltRAM) 25 mg Q6H PRN PO MODERATE PAIN (4-6) 04/24/24 15:00 04/29/24 14:59 Tramadol HCl (UltRAM) 50 mg Q6H PRN PO SEVERE PAIN (7-10) 04/24/24 15:00 04/29/24 14:59 04/25/24 08:58 50 MG DIAGNOSTICS / RADIOLOGY: [ ] ASSESSMENT: Chest pain rule in ACS POA Mid distal LM 90% lesion by left heart catheterization, POA Prox CX with 60-60% disease, by by left heart catheterization, POA Polysubstance abuse POA Active smoker, POA Normocytic normochromic anemia POA Diabetes POA Hyperlipidemia POA Hypertension POA History of seizure disorder POA History of Parkinson's disease POA History of multiple CVA POA PLAN: Patient will remain in ICU We will follow recommendations from controls engineer, due to results of left heart catheterization, s/p Off-pump CABG x 2, NOLAN to LAD, reverse saphenous vein graft to first diagonal 04/25/24 Continue with heparin drip Counseled on polysubstance abuse Continue with ACS protocol GI and DVT prophylaxis Repeat labs tomorrow We will continue to monitor electrolytes and replace as necessary Critical care time: Spent 35 minutes of critical care time with the patient. Reviewed the lab work, reconciled and updated patient's medications, and coordinated plan of care in ICU. ALEXANDRA JEFFERS MD Apr 25, 2024 12:53
--- NOTE | 2024-04-25 15:45 | PN ---
SUBJECTIVE: The patient is postop day #1 from a coronary artery bypass grafting. The patient has an intraaortic balloon pump. He is extubated and he is on a low-dose epinephrine drip. OBJECTIVE: VITAL SIGNS: Reveal pulse of 75, blood pressure is 122/83, respirations 15, oxygen saturation 98%. GENERAL: The patient is lying in bed. He is in no apparent distress. HEENT: Reveals normocephalic, atraumatic. Extraocular movements intact. He has nasal cannula oxygen prongs under his nose. CHEST: Reveals a midline sternal incision with chest tubes in place, draining 380 mL of total output since the time of surgery yesterday. He has a left subclavicular Cordis introducer. He is receiving epinephrine at 0.02 mcg/kg/min. HEART: S1, S2 and regular. LUNGS: Unlabored with mild rhonchi bilaterally. ABDOMEN: Flat with positive bowel sounds. He has Felix catheter in his bladder. He has a femoral intraaortic balloon pump on one-to-one support. EXTREMITIES: He has SCDs and FRAN stockings on his lower extremities. LABORATORY DATA: His hemoglobin is 9.2, BUN is 16, creatinine is 1.2. ASSESSMENT AND PLAN: * Status post coronary artery bypass grafting with intraaortic balloon pump support. We will place an intraaortic balloon pump to 1:2 support and plan decreasing it to 1:3 tomorrow morning in anticipation of removing it tomorrow. Begin aspirin, Lasix. Keep chest tubes in place. Do not wean epinephrine drip below 0.01 mcg/kg/min. * Postoperative acute pulmonary insufficiency. Encourage incentive spirometry. Support oxygen needs with nasal cannula oxygen to maintain oxygen saturations greater than 90%. * Hypercholesterolemia. Lipitor at bedtime and low cholesterol, cardiac diet. * Deep venous thrombosis prophylaxis. Maintain sequential compression devices to lower extremities. * History of seizure disorder. Continue levetiracetam. Time spent 30 minutes. The patient is critically ill in the ICU. TID: [id number] RECEIPT: [id number]
[2024-04-25] MEDS ORDERED: acetaMINOPHEN 325 MG TAB PO PRN (18:00)
[2024-04-25] MEDS ORDERED: acetaMINOPHEN 650 MG SUPPOSITORY RC PRN (18:00)
[2024-04-25 21:38] LABS: MAGNESIUM 1.9 mg/dL (1.80-2.40); POTASSIUM 4.1 mmol/L (3.5-5.1)
[2024-04-26] VITALS (94 sets, daily range): BP systolic 60–205; BP diastolic 44–96; PULSE 70–170; RESP 10–84; TEMP 98.9–99.8; O2SAT 92–97
[2024-04-26] MEDS: traMADol HCL 50 MG TABLET PO PRN (02:16)
[2024-04-26 04:52] LABS: HEMATOCRIT 32.5 % (42-54); MEAN CORPUSCULAR HEMOGLOBIN 29.8 pg (27.0-33.0); MEAN CORPUSCULAR HGB CONC 31.7 g/dL (32.0-36.0); MEAN CORPUSCULAR VOLUME 93.9 fL (79-99); RED BLOOD CELL COUNT(AUTO) 3.46 MIL/uL (4.50-6.20); RED CELL DISTRIBUTION WIDTH 14.2 % (11.0-15.5); WHITE BLOOD COUNT (AUTO) 12.4 K/uL (4.8-10.8)
[2024-04-26 05:03] LABS: PROTHROMBIN TIME 10.8 SEC (9.6-11.6)
[2024-04-26 05:04] LABS: PARTIAL THROMBOPLASTIN TIME 36.5 SEC (26.3-35.5)
[2024-04-26 05:14] LABS: CREATININE 1.2 mg/dL (0.5-1.3); MAGNESIUM 2.2 mg/dL (1.80-2.40)
[2024-04-26] MEDS ORDERED: AMIOdarone 900MG VIAL 540 MG in DEXTROSE 5%-WATER 300 ML IV SCH (05:30)
[2024-04-26] MEDS: AMIOdarone 150MG VIAL 150 MG in DEXTROSE 5%-WATER 100 ML IV SCH (05:47)
[2024-04-26] MEDS: AMIOdarone 900MG VIAL 360 MG in DEXTROSE 5%-WATER 200 ML IV SCH (05:48)
[2024-04-26] MEDS: INSULIN humuLIN R 100 UNIT/ML 3ML SQ SCH (07:30)
[2024-04-26] MEDS: furoSEMIDE 20 MG TABLET PO SCH (08:02)
[2024-04-26] MEDS: ASPIRIN 81 MG EC TAB PO SCH (08:33)
--- NOTE | 2024-04-26 09:37 | HMCIMG ---
CHEST 1VW REASON: s/p CABG COMPARISON: 04/25/2024 FINDINGS: There is some atelectasis medial right lung base which is new since prior exam. Lungs are otherwise clear. Heart size is stable with no vascular congestion. Tubes and lines remain in place including the right chest tube. IMPRESSION: 1. Interval development of moderate atelectasis medial left lung base.
[2024-04-26] MEDS: LACTULOSE 20 GM/30 ML UDCUP PO PRN (09:51)
--- NOTE | 2024-04-26 10:03 | PN ---
[facility] PROGRESS NOTE Date Patient Seen: Apr 26, 2024 Time of Visit: 09:55 Supervising Physician: Rodolfo Lopez MD Primary Care Physician: Adolfo Morales MD Outpatient Specialists: None Inpatient Consults: BRIANA, Dr Murray, Dr Vitale, Dr Yee PROBLEM LIST: Severe coronary artery disease to left main 90% stenosis, S/P CABG X2 on 04/24/24 (Dr Vitale ) Postoperative AFib with RVR on amiodarone drip 04/26/24 Postop acute hypoxic respiratory failure as expected NSTEMI status post LHC and Balloon Pump placement for MCS 04/23 Polysubstance abuse POA + cocaine and marijuana Suspicion for COPD, POA Thrombocytopenia not POA Normocytic normochromic anemia POA Hyperglycemia, POA Hyperlipidemia POA Essential Hypertension POA Constipation History of seizure disorder POA History of Parkinson's disease POA History of multiple CVA POA Active smoker POA LVEF is 55-60% with normal ventricular diastolic function. On 2D echo 04/23/24 INTERVAL HISTORY: 04/24-Patient is awake alert and oriented x3 hemodynamically stable. Continues with balloon pump 1:1 MCS. Patient was seen by CV surgery and has agreed to move all with CABG. Heparin is on hold. Scheduled for CABG for noon today. Chest x-ray with no acute pulmonary infiltrates seen. Balloon pump seems in proper position. On arterial ultrasound no hemodynamically significant lesions seen either extracranial carotid arteries. Patient has good urine output 2 L in the last 24, CBC unremarkable similar to yesterday. Chemistry kidneys are doing well creatinine 1.1 GFR of 75 BUN of 19 total calcium 8.1 albumin 2.9. We will continue to follow alongside cardiovascular surgeon and Cardiology. 04/25-patient is awake alert and oriented x3 he was extubated around midnight last night. He continues on low-dose epinephrine at 0.02 micrograms/kilogram per minute and MCS with balloon pump support of 1:2. Patient is afebrile, heart rate in the 80s, respiratory rate of 18 unlabored saturating 98% with 2 L via nasal cannula, blood pressure via arterial line 137/55 patient has good urine output 2.9 L in the last 24 hours chest tube output 350 mL with a balance of-1.4 L. H&H slightly lower than yesterday 9.2/28.7 platelet count trended down today [id number]. Chemistry unremarkable. Chest x-ray shows bilateral pulmonary infiltrates with this is pulmonary vascular congestion. Post sternotomy changes. Enlarged heart. Balloon pump and left subclavian Cordis central line in place. 04/26 patient is awake alert and oriented x3. Denies any chest pain does report palpitations. Reports no bowel movement for 4 days, currently receiving bowel regimen. This morning patient converted to AFib with RVR was given amiodarone bolus and started on amiodarone drip per protocol. Patient continues on low- dose epinephrine at 0.01 micrograms/kilogram per minute. Balloon pump support decreased today to 1:3. Plans for removal of balloon pump today. Otherwise patient is hemodynamically stable blood pressure 154/59 saturating 96% with 2 L via nasal cannula heart rate in the 130s AFib with RVR. T-max 99.9 with a T low of 97.2. Urine output 3.1 L with a balance of-1.2 L chest tube output 70 mL. On laboratory WBCs trended up slightly 12.4 H&H is 10.3/32.5 [place] [address]. Similar to yesterday. Chemistries sodium 134 chloride 97 carbon dioxide 33 creatinine is 1.2 GFR of 68 glucose 115 mg/dL. pH Chest x- ray with increased pulmonary vascular congestion patient has been started on Lasix 20 mg q.12 IV per Cardiology. Patient given bowel regimen for co nstipation. REVIEW OF SYSTEMS: Const: [no fever, fatigue, or weight changes] Eyes:[ no recent vision problems] ENT: [No congestion, ear pain, or sore throat] C/V: [no chest pain, palpitations or edema] Resp: [No cough, congestion, wheezing , no for shortness of breaths GI: [No abdominal pain, nausea, vomiting, yes to constipation, no diarrhea] : [No incontinence of or dyuria] M/S: [No joint or pain swelling] Skin: [No rash] Neuro: [no headache, focal numbness, or weakness, dizziness or seizures] Psych: [no depression or anxiety] Heme: [no abnormal bruising or bleeding] Lymph: [no swollen glands] PHYSICAL EXAM: GENERAL: alert, weak, awake oriented x 3 HEENT: EOMI, Sclera non icteric, moist mucosa NECK: Supple, no JVD, trachea midline LUNGS: Diminished breath sounds bilaterally. No wheezes HEART: Regular rate and rhythm. Normal S1 and S2, without murmurs , balloon pump one-to-one ABD: Abdomen soft, nontender. Bowel sounds present EXT: No clubbing cyanosis or edema, +1 pedal pulse bilaterally NEURO: Alert and oriented to person, follows commands Vital Signs (last 8hr) Date Time Temp Pulse Resp B/P (MAP) Pulse Ox O2 Delivery O2 Flow Rate FiO2 04/26/24 08:00 96 Nasal Cannula* 2 28 04/26/24 07:36 136 18 N/Cannula Low lpm 2.0 28 04/26/24 07:15 148 31 154/59 (90) 92 04/26/24 07:00 157 18 164/61 (95) 96 04/26/24 06:45 145 29 143/57 (85) 96 04/26/24 06:30 156 28 149/57 (87) 96 04/26/24 06:15 152 18 147/50 (82) 96 04/26/24 06:00 147 23 145/56 (85) 95 04/26/24 05:45 163 23 116/50 (72) 94 04/26/24 05:30 170 23 205/65 (111) 96 04/26/24 05:15 165 23 173/63 (99) 96 04/26/24 05:00 162 25 160/56 (90) 89 04/26/24 04:45 98 23 195/49 (97) 88 04/26/24 04:30 101 21 186/49 (94) 90 04/26/24 04:15 88 21 188/51 (96) 90 04/26/24 04:00 99 22 178/46 (90) 90 04/26/24 04:00 92 Nasal Cannula* 2 28 04/26/24 03:45 95 12 194/49 (97) 96 04/26/24 03:30 95 12 191/46 (94) 96 04/26/24 03:15 95 12 188/47 (94) 97 04/26/24 03:00 92 15 195/64 (107) 99 04/26/24 02:45 91 18 185/47 (93) 96 04/26/24 02:30 93 17 189/52 (97) 96 04/26/24 02:15 91 17 180/44 (89) 96 04/26/24 02:00 95 12 181/50 (93) 89 LABS: Hematology Labs: Test 04/26/24 04:24 Range/Units White Blood Count 12.4 H 4.8-10.8 K/uL Red Blood Count 3.46 L 4.50-6.20 MIL/uL Hemoglobin 10.3 L 14.0-18.0 g/dL Hematocrit 32.5 L 42-54 % Mean Corpuscular Volume 93.9 79-99 fL Mean Corpuscular Hemoglobin 29.8 27.0-33.0 pg Mean Corpuscular Hemoglobin Concent 31.7 L 32.0-36.0 g/dL Red Cell Distribution Width 14.2 11.0-15.5 % Platelet Count 95 L 130-400 K/uL Mean Platelet Volume 10.9 H 7.5-10.5 fL Nucleated Red Blood Cells 0.0 0.0-0.19 % Chemistry Labs: Test 04/26/24 06:21 04/26/24 04:24 04/25/24 04:17 Range/Units Whole Blood Glucose 150 H 70-110 MG/DL Sodium Level 134 L 136-145 mmol/L Potassium Level 4.0 3.5-5.1 mmol/L Chloride Level 97 L 101-111 mmol/L Carbon Dioxide Level 33 H 21-32 mmol/L Blood Urea Nitrogen 14 7-18 mg/dL Creatinine 1.2 0.5-1.3 mg/dL Glomerular Filtration Rate Calc 68 >90 mL/min Random Glucose 115 H 70-105 mg/dL Total Calcium 8.7 8.5-10.1 mg/dL Magnesium Level 2.20 1.80-2.40 mg/dL Ionized Calcium 1.17 1.16-1.32 MMOL/L Phosphorus Level 3.7 2.5-4.9 mg/dL Coagulation Labs: Test 04/26/24 04:24 Range/Units Prothrombin Time 10.8 9.6-11.6 SEC Prothromb Time International Ratio 1.00 0.85-1.15 Activated Partial Thromboplast Time 36.5 H 26.3-35.5 SEC Fibrinogen 668 *H 180-350 mg/dL DIAGNOSTICS / RADIOLOGY RESULTS: IMAGING REPORT Signed PATIENT: CHARLES BREEN MR#: [id number] : 1960 SEX: M AGE: 63 LOCATION: 2BH ORDER 99 STATUS: ADM IN REPORT#: [id number] SERVICE 0400 REASON: s/p CABG ORDERING PHYSICIAN: JACKELYN VITALE MD PROCEDURE: CXR1VW - CHEST 1VW CHEST 1VW REASON: s/p CABG COMPARISON: 04/25/2024 FINDINGS: There is some atelectasis medial right lung base which is new since prior exam. Lungs are otherwise clear. Heart size is stable with no vascular congestion. Tubes and lines remain in place including the right chest tube. IMPRESSION: 1. Interval development of moderate atelectasis medial left lung base. DICTATED BY: LAURA CASTELAN MD DATE: 04/26/24933 ELECTRONICALLY SIGNED BY: LAURA CASTELAN MD DATE: 04/26/24936 PLAN Low-dose epinephrine keep it minimum at 0.01 mcg kg improvement as recommended per CV surgery Follow CT surgeon recommendations Follow cardiology recommendations Multimodal pain management Balloon pump per Cardiology likely removal today. Chest x-ray in the morning Continue bowel regimen. 2D echo done-normal diastolic function EF 55-60% Transfuse if absolutely necessary to keep hemoglobin above 8 Maintain O2 sats greater than 92% Incentive spirometry Glycemic control with goal of 80-180 Referral for cardiac rehabilitation on DC Speech to eval once patient is extubated Educated patient to stop cocaine and marijuana use. Informed him the next time that he does cocaine he may likely . Patient verbalized understanding. Continue Keppra for patient history of seizure NEURO: Minimize central acting medications as possible. Fall Precautions. Well lighted room through the day and minimize interruptions through the night to prevent acute delirium. PULMONARY: Supplemental 02 as needed Titrate Fio2 to keep Spo2 > or = 90% DuoNebs and CPT as needed IS hourly while awake for pulmonary hygiene Out of bed to chair as tolerated CARDIOVASCULAR: Follow hemodynamics. Titrate vasopressor to keep MAP >65 or systolic blood pressure >95mmHg Drips: Epinephrine drip LINES: PIV Arterial line Chest tube Left subclavian Cordis Felix catheter GI & NUTRITION: Continue nutritional support Aspirations precautions Prokinetic agents and laxatives as needed KIDNEYS & ELECTROLYTES: Strict monitoring of intake and output Daily weights Avoid nephrotoxic agents Monitor electrolytes and replace as needed Goal urine output of 30mL/hr or 0.5mL/kg/hr ENDOCRINE: Maintain blood glucose between 100-180 at all times. Insulin sliding scale for blood glucose management INFECTIOUS DISEASE: Trend temperature. Chong-culture if febrile. Micro: [ ] Antibiotics: None HEMATOLOGY & COAGULATION: Monitor H&H. Keep Hgb > 7 Transfuse 1 unit of PRBC for Hgb < 7 Transfuse 1 pack of platelets of platelets < 20, 000 Watch for any signs and symptoms of bleeding SKIN: Pressure ulcer prevention per facility protocol Rehab: PT/OT Prophylaxis: GI: Pepcid DVT: Patient is already on a heparin drip Code Status: Full Resuscitation Disposition: ICU Other: Total patient care time exceeds 45 minutes excluding all procedures. Case was discussed and seen with my supervising physician. The above plan was formulated and agreed upon. ERIC LIM Apr 26, 2024 10:03
[2024-04-26] MEDS ORDERED: PHARMACY COMMUNICATION MISC SCH (10:30)
--- NOTE | 2024-04-26 10:45 | NUR ---
Patient follow up: patient remains on balloon pump at this time. PT team to follow.
--- NOTE | 2024-04-26 10:55 | PN ---
CARDIOLOGY Reason for consult: Chest pain HPI/story at presentation: This is a pleasant 61-year-old past medical history as per present with complaints of chest discomfort. Known history of cocaine/marijuana use at baseline and has been having issues with retrosternal chest pain at presentation. EKG without significant ischemic changes but patient did have elevated troponins greater than 600. Cardiology was consulted for further evaluation management Subjective: 04/22/2024 Chest pain 04/24/2024 plan for surgery today, anxious 04/25/2024 extubated 04/26/2024 No complaints Past medical history: See below Allergies, Meds See chart Review of systems Review of Systems Constitutional: Negative for chills and fever. HENT: Negative for ear discharge and ear pain. Eyes: Negative for photophobia and discharge. Respiratory: Negative for cough, sputum production and stridor. Cardiovascular: Negative for chest pain and palpitations. Gastrointestinal: Negative for diarrhea and vomiting. Genitourinary: Negative for frequency. Musculoskeletal: Negative for myalgias. Skin: Negative for rash. Neurological: Negative for focal weakness and seizures. Endo/Heme/Allergies: Negative for polydipsia. Psychiatric/Behavioral: Negative for hallucinations. Vitals see chart PHYSICAL EXAMINATION GENERAL: The patient is alert HEENT: Nonicteric sclerae, non traumatic HEART: IRREGUALR 04/26/2024 LUNGS: Clear to auscultation bilaterally ABDOMEN: No acute issues, non tender GENITAL, RECTAL: deferred SKIN: No rash NEUROLOGIC: NFND EXTREMITIES: No edema ASSESSMENT CHEST PAIN, NSTEMI, S/P BYPASS NOLAN to LAD, SVG to Diag,m CX was not bypassed :HC with severe disease of LM, s/p IABP History of EKG without ischemic changes trop > 600 04/2024 UDS positive for cocaine and marijuana CVA History of, 2019 HYPERTENSION, HYPERLIPIDEMIA TOBACCO USE OTHER MEDICAL PROBLEMS arthritis seizures PLAN 04/22/2024 patient with non-STEMI, no significant ischemic changes on EKG. Can start heparin, will consider cardiac catheterization tomorrow to further evaluate coronaries. UDS positive for cocaine and marijuana, will need to address compliance with medical therapy prior to any intervention. No history of significant peripheral vascular disease with history of strokes in the past. 04/23/2024 Remains on balloon pump, having issues with back pain in the setting of arthritis but otherwise, stable hemodynamic and electrical status. Remains on heparin drip and tolerating well. Timing of surgery per CVT. On metoprolol statin and aspirin, continue. Echocardiogram showed normal ejection fraction as well. 04/24/2024 reportedly plan for surgery today, remains on IABP 1:1. on good meds, will follow perioperatively, multiple questions answered. 04/25/2024atient status post bypass yesterday, doing well, extubated overnight, currently on a small dose of pressors. The patient received SVG to the diagonal and NOLAN to the LAD, obtuse marginal was not bypassed as it was a small-vessel may consider intervention to the true circumflex if needed as an outpatient. Intra-aortic balloon pump remains in situ. Currently on Lasix we will update medical therapy for CAD once patient is off pressors. 04/26/2024 Patient converted to atrial fibrillation this morning, currently on amiodarone. Currently, balloon pump is set at 1 is to 3 and patient remains hemodynamically stable with. Possibly, balloon pump may get pulled today. Family at bedside, questions answered. Will go ahead and start Cardizem as well to try to help with rate, will start this without a bolus and adjust as needed. Chest tube still considerable, urine output is good. Currently on IV diuresis as well., Agree. Good blood pressure room. Atelectasis on x-ray. EF on echocardiogram was normal prior to bypass. ideally, will need anticoagulation for afib ATTESTATION I was involved substantially in the care of this patient Number and complexity of problems addressed: 1 acute illness with systemic features Amount and or complexity of data Review of prior external note(s) from each unique source: 2+ Ordering of each unique test : 1 Review of the result(s) of each unique test: 2+ Assessment requiring an independent historian(s): No Independent interpretation of test performed by another MD/QHCP/appropriate source (not separately reported) : No Discussion of management or test interpretation with external MD/QHCP/appropriate source (not separately reported) : No Risk status (cardiac, billing related): Moderate Vitals/Labs Vital Signs Date Time Temp Pulse Resp B/P (MAP) Pulse Ox O2 Delivery O2 Flow Rate FiO2 04/26/24 08:00 96 Nasal Cannula* 2 28 04/26/24 07:36 136 18 04/26/24 07:15 154/59 (90) 04/26/24 00:00 99.9 Laboratory Tests 04/25/24 21:00 04/26/24 04:24 Medications Current Medications Nitroglycerin 0.4 mg AD PRN SL Last administered on 04/21/24at 22:27; Start 04/21/24 at 21:30; Stop 04/24/24 at 14:51; Status DC Ondansetron HCl 4 mg Q6H PRN IV Last administered on 04/22/24at 09:41; Start 04/21/24 at 23:30; Stop 04/24/24 at 14:51; Status DC Nitroglycerin 0.5 inch Q8H TD Last administered on 04/23/24at 08:25; Start 04/21/24 at 23:30; Stop 04/23/24 at 09:03; Status DC Hydralazine HCl 10 mg Q6H PRN IV Last administered on 04/24/24at 13:43; Start 04/21/24 at 23:30; Stop 04/24/24 at 14:51; Status DC Famotidine 20 mg BID IV Last administered on 04/24/24at 08:21; Start 04/22/24 at 09:00; Stop 04/24/24 at 14:51; Status DC Pharmacy Profile Note PLEASE ENTER HT AND WT Q15M MISC; Start 04/21/24 at 23:45; Stop 04/22/24 at 00:16; Status DC Insulin Human Regular INSULIN SLIDING SCAL... ACHS SQ; Start 04/22/24 at 07:30; Stop 04/24/24 at 14:51; Status DC Dextrose 50 ml AD PRN IV; Start 04/22/24 at 00:00; Stop 04/24/24 at 15:13; Status DC Glucagon 1 mg AD PRN IM; Start 04/22/24 at 00:00; Stop 04/24/24 at 15:15; Status DC Potassium Chloride 100 ml @ 50 mls/hr AD PRN IV; Start 04/22/24 at 00:00; Stop 04/24/24 at 14:51; Status DC Magnesium Sulfate 50 ml @ 0 mls/hr PROTOCOL PRN IV; Start 04/22/24 at 00:00; Stop 04/24/24 at 14:51; Status DC Morphine Sulfate 2 mg Q4H PRN IVP Last administered on 04/24/24at 12:12; Start 04/22/24 at 00:00; Stop 04/24/24 at 14:51; Status DC Sodium Chloride 1,000 ml @ 75 mls/hr [id number] IV Last administered on 04/23/24at 17:50; Start 04/22/24 at 00:00; Stop 04/23/24 at 23:59; Status DC Aspirin 81 mg DAILY PO Last administered on 04/25/24at 08:16; Start 04/22/24 at 09:00; Stop 04/26/24 at 08:22; Status DC Atorvastatin Calcium 40 mg HS PO Last administered on 04/25/24at 21:11; Start 04/22/24 at 21:00; Stop 05/22/24 at 20:59 Heparin Sodium (Porcine) *calculation based on ACTUAL B... AD PRN IV Last administered on 04/22/24at 02:08; Start 04/22/24 at 02:30; Stop 04/24/24 at 14:51; Status DC Heparin Sodium/ Dextrose 250 ml @ 0 mls/hr Q6H IV Last administered on 04/23/24at 18:56; Start 04/22/24 at 02:30; Stop 04/24/24 at 14:51; Status DC Insulin Human Regular INSULIN SLIDING SCAL... ACHS SQ; Start 04/22/24 at 11:30; Stop 04/22/24 at 07:51; Status DC Dextrose 50 ml AD PRN IV; Start 04/22/24 at 08:00; Stop 04/22/24 at 07:52; Status DC Glucagon 1 mg AD PRN IM; Start 04/22/24 at 08:00; Stop 04/22/24 at 07:52; Status DC Magnesium Sulfate 50 ml @ 0 mls/hr PROTOCOL PRN IV; Start 04/22/24 at 08:00; Stop 04/22/24 at 07:52; Status DC Potassium Chloride 100 ml @ 100 mls/hr AD PRN IV; Start 04/22/24 at 08:00; Stop 04/22/24 at 07:52; Status DC Potassium Chloride 20 meq AD PRN PO; Start 04/22/24 at 08:00; Stop 04/24/24 at 14:51; Status DC Potassium Chloride 20 meq AD PRN PO Last administered on 04/23/24at 08:24; Start 04/22/24 at 08:00; Stop 04/24/24 at 14:51; Status DC Lorazepam 2 mg ONCE ONCE IVP; Start 04/22/24 at 10:00; Stop 04/22/24 at 10:01; Status DC Levetiracetam 500 mg ONCE STAT IV Last administered on 04/22/24at 10:05; Start 04/22/24 at 09:47; Stop 04/22/24 at 09:56; Status DC Levetiracetam 1000 mg/Sodium Chloride 100 ml @ 400 mls/hr BID IV Last administered on 04/26/24at 08:34; Start 04/22/24 at 21:00; Stop 05/22/24 at 20:59 Acetaminophen 650 mg Q6H PRN PO Last administered on 04/22/24at 20:22; Start 04/22/24 at 15:30; Stop 04/24/24 at 14:51; Status DC Acetaminophen 650 mg Q4H PRN PO; Start 04/22/24 at 15:30; Stop 04/24/24 at 14:51; Status DC Lidocaine HCl 20 ml STK-MED ONCE .ROUTE; Start 04/22/24 at 16:21; Stop 04/22/24 at 16:24; Status DC Iohexol 35,000 mg STK-MED ONCE IV; Start 04/22/24 at 16:21; Stop 04/22/24 at 16:24; Status DC Heparin Sodium/ Sodium Chloride 1,000 ml @ As Directed STK-MED ONCE IV; Start 04/22/24 at 16:22; Stop 04/22/24 at 16:24; Status DC Nitroglycerin 50 mg STK-MED ONCE .ROUTE; Start 04/22/24 at 16:22; Stop 04/22/24 at 16:24; Status DC Heparin Sodium (Porcine) 10,000 unit STK-MED ONCE .ROUTE; Start 04/22/24 at 16:36; Stop 04/22/24 at 16:36; Status DC Nicardipine HCl 25 mg STK-MED ONCE IV; Start 04/22/24 at 17:07; Stop 04/22/24 at 17:08; Status DC Fentanyl Citrate 100 mcg STK-MED ONCE .ROUTE; Start 04/22/24 at 17:09; Stop 04/22/24 at 17:09; Status DC Midazolam HCl 2 mg STK-MED ONCE .ROUTE; Start 04/22/24 at 17:09; Stop 04/22/24 at 17:09; Status DC Heparin Sodium/ Dextrose 250 ml @ As Directed STK-MED ONCE IV; Start 04/22/24 at 17:46; Stop 04/22/24 at 17:46; Status DC Lidocaine 1 each ONCE STAT TP Last administered on 04/23/24at 04:30; Start 04/23/24 at 04:20; Stop 04/23/24 at 04:26; Status DC Cefazolin Sodium 2 gm ONCALL IVP Last administered on 04/23/24at 21:38; Start 04/23/24 at 21:30; Stop 04/25/24 at 21:29; Status DC Metoprolol Tartrate 12.5 mg ONCE ONCE PO Last administered on 04/24/24at 08:21; Start 04/24/24 at 09:00; Stop 04/24/24 at 09:01; Status DC Epinephrine HCl 10 mg/Sodium Chloride 250 ml @ 0 mls/hr AD PRN IV; Start 04/24/24 at 11:00; Stop 04/24/24 at 15:17; Status DC Norepinephrine Bitartrate 250 ml @ 0 mls/hr AD PRN IV; Start 04/24/24 at 11:00; Stop 04/24/24 at 15:13; Status DC Aminocaproic Acid 33279 mg/Sodium Chloride 480 ml @ 0 mls/hr AD PRN IV; Start 04/24/24 at 11:00; Stop 04/24/24 at 15:05; Status DC Nitroglycerin/ Dextrose 1 ml @ As Directed STK-MED ONCE .ROUTE; Start 04/24/24 at 11:17; Stop 04/24/24 at 11:17; Status DC Cefazolin Sodium 1 gm STK-MED ONCE .ROUTE; Start 04/24/24 at 11:44; Stop 04/24/24 at 11:44; Status DC Heparin Sodium/ Sodium Chloride 500 ml @ As Directed STK-MED ONCE IV Last administered on 04/24/24at 11:57; Start 04/24/24 at 11:44; Stop 04/24/24 at 11:45; Status DC Papaverine HCl 60 mg STK-MED ONCE .ROUTE; Start 04/24/24 at 11:45; Stop 04/24/24 at 11:45; Status DC Cefazolin Sodium 2 gm STK-MED ONCE IVPB; Start 04/24/24 at 00:00; Stop 04/24/24 at 00:01; Status Cancel Papaverine HCl 60 mg STK-MED ONCE IRRIG; Start 04/24/24 at 00:00; Stop 04/24/24 at 00:01; Status Cancel Cefazolin Sodium 1 gm STK-MED ONCE .ROUTE; Start 04/24/24 at 11:55; Stop 04/24/24 at 11:55; Status DC Cefazolin Sodium 1 gm STK-MED ONCE IRRIG; Start 04/24/24 at 00:00; Stop 04/24/24 at 00:01; Status Cancel Ipratropium [place] 0.5 mg STK-MED ONCE IH Last administered on 04/24/24at 13:50; Start 04/24/24 at 13:44; Stop 04/24/24 at 13:44; Status DC Midazolam HCl 2 mg STK-MED ONCE .ROUTE; Start 04/24/24 at 14:12; Stop 04/24/24 at 14:12; Status DC Protamine Sulfate 250 mg STK-MED ONCE IV; Start 04/24/24 at 14:23; Stop 04/24/24 at 14:23; Status DC Lidocaine HCl 100 mg STK-MED ONCE .ROUTE; Start 04/24/24 at 14:23; Stop 04/24/24 at 14:23; Status DC Heparin Sodium (Porcine) 10,000 unit STK-MED ONCE .ROUTE; Start 04/24/24 at 14:23; Stop 04/24/24 at 14:23; Status DC Epinephrine HCl 1 mg STK-MED ONCE .ROUTE; Start 04/24/24 at 14:23; Stop 04/24/24 at 14:23; Status DC Sodium Bicarbonate 200 ml @ As Directed STK-MED ONCE .ROUTE; Start 04/24/24 at 14:23; Stop 04/24/24 at 14:23; Status DC Norepinephrine Bitartrate 4 mg STK-MED ONCE IV; Start 04/24/24 at 14:23; Stop 04/24/24 at 14:24; Status DC Propofol 200 mg STK-MED ONCE IV; Start 04/24/24 at 14:24; Stop 04/24/24 at 14:24; Status DC Fentanyl Citrate 1,000 mcg STK-MED ONCE IJ; Start 04/24/24 at 14:24; Stop 04/24/24 at 14:24; Status DC Glycopyrrolate 1 mg STK-MED ONCE .ROUTE; Start 04/24/24 at 14:24; Stop 04/24/24 at 14:24; Status DC Rocuronium [place] 50 mg STK-MED ONCE .ROUTE; Start 04/24/24 at 14:24; Stop 04/24/24 at 14:25; Status DC Ketamine HCl 50 mg STK-MED ONCE .ROUTE; Start 04/24/24 at 14:25; Stop 04/24/24 at 14:25; Status DC Ipratropium [place] 0.5 MG Q4H PRN IH; Start 04/24/24 at 14:30; Stop 05/24/24 at 14:29 Acetaminophen 1,000 mg Q6H6 IV Last administered on 04/25/24at 17:42; Start 04/24/24 at 18:00; Stop 04/25/24 at 17:59; Status DC Aspirin 81 mg ONCE ONCE NG Last administered on 04/24/24at 19:58; Start 04/24/24 at 18:00; Stop 04/24/24 at 18:01; Status DC Docusate Sodium 100 mg BID PO Last administered on 04/26/24at 08:02; Start 04/24/24 at 21:00; Stop 05/24/24 at 20:59 Lactulose 20 gm BID PRN PO Last administered on 04/26/24at 09:51; Start 04/24/24 at 15:00; Stop 05/24/24 at 14:59 Furosemide 20 mg Q12H PO Last administered on 04/26/24at 08:02; Start 04/26/24 at 09:00; Stop 05/26/24 at 08:59 Furosemide 20 mg Q12H IV Last administered on 04/25/24at 21:12; Start 04/25/24 at 09:00; Stop 04/26/24 at 08:59; Status DC Magnesium Hydroxide 30 ml DAILY PRN PO; Start 04/24/24 at 15:00; Stop 05/24/24 at 14:59 Dexmedetomidine/ Sodium Chloride 400 mcg PROTOCOL IV Last administered on 04/24/24at 19:02; Start 04/24/24 at 15:00; Stop 04/25/24 at 14:59; Status DC Acetaminophen 650 mg Q6H PRN PO; Start 04/24/24 at 15:00; Stop 04/24/24 at 15:55; Status DC Sodium Chloride 1,000 ml @ 10 mls/hr ONCE IV Last administered on 04/24/24at 17:18; Start 04/24/24 at 15:00; Stop 04/25/24 at 14:59; Status DC Sodium Chloride 10 ml Q8H PRN IVP; Start 04/24/24 at 15:00; Stop 05/24/24 at 14:59 Morphine Sulfate 0.5 mg Q2H PRN IV; Start 04/24/24 at 15:00; Stop 04/25/24 at 14:59; Status DC Morphine Sulfate 1 mg Q2H PRN IV Last administered on 04/24/24at 20:15; Start 04/24/24 at 15:00; Stop 04/25/24 at 14:59; Status DC Acetaminophen 650 mg Q4H PRN RC; Start 04/24/24 at 15:00; Stop 04/24/24 at 15:57; Status DC Ondansetron HCl 4 mg Q6H PRN IV; Start 04/24/24 at 15:00; Stop 05/24/24 at 14:59 Sodium Chloride 500 ml @ 0 mls/hr AD IV; Start 04/24/24 at 15:00; Stop 05/24/24 at 14:59 Nitroglycerin/ Dextrose 0 ml @ 0 mls/hr AD IV Last administered on 04/24/24at 17:30; Start 04/24/24 at 15:00; Stop 04/27/24 at 14:59 Propofol 100 ml @ 0 mls/hr AD PRN IV; Start 04/24/24 at 15:00; Stop 04/28/24 at 14:59 Norepinephrine Bitartrate 8 mg/ Dextrose 250 ml @ 0 mls/hr AD PRN IV; Start 04/24/24 at 15:00; Stop 04/29/24 at 14:59 Epinephrine HCl 10 mg/Sodium Chloride 250 ml @ 11.533 mls/ hr AD PRN IV; Start 04/24/24 at 15:00; Stop 04/29/24 at 14:59 Aminocaproic Acid 80368 mg/Sodium Chloride 310 ml @ 25 mls/hr AD IV; Start 04/24/24 at 15:00; Stop 04/25/24 at 03:23; Status DC Calcium Gluconate 1 gm/Sodium Chloride 60 ml @ 200 mls/hr AD PRN IV Last administered on 04/25/24at 04:58; Start 04/24/24 at 15:00; Stop 05/24/24 at 14:59 Magnesium Sulfate 50 ml @ 12.5 mls/hr AD PRN IV Last administered on 04/25/24at 22:14; Start 04/24/24 at 15:00; Stop 05/24/24 at 14:59 Potassium Chloride 100 ml @ 100 mls/hr AD PRN IV Last administered on 04/25/24at 02:26; Start 04/24/24 at 15:00; Stop 05/24/24 at 14:59 Potassium Phosphate 250 ml @ 42 mls/hr AD PRN IV; Start 04/24/24 at 15:00; Stop 05/24/24 at 14:59 Albumin Human 250 ml @ 0 mls/hr AD PRN IV Last administered on 04/24/24at 18:56; Start 04/24/24 at 15:00; Stop 04/24/24 at 18:56; Status DC Acetaminophen 650 mg Q4H PRN PO; Start 04/24/24 at 15:00; Stop 04/24/24 at 15:56; Status DC Insulin Human Regular 100 unit/ Sodium Chloride 100 ml @ 0 mls/hr AD IV Last administered on 04/24/24at 17:21; Start 04/24/24 at 15:00; Stop 04/26/24 at 14:59 Cefazolin Sodium 2 gm Q8H IVPB Last administered on 04/25/24at 11:30; Start 04/24/24 at 20:00; Stop 04/25/24 at 12:01; Status DC Tramadol HCl 25 mg Q6H PRN PO Last administered on 04/26/24at 02:16; Start 04/24/24 at 15:00; Stop 04/29/24 at 14:59 Tramadol HCl 50 mg Q6H PRN PO Last administered on 04/26/24at 08:03; Start 04/24/24 at 15:00; Stop 04/29/24 at 14:59 Famotidine 20 mg BID IV Last administered on 04/26/24at 08:03; Start 04/24/24 at 21:00; Stop 05/24/24 at 20:59 Sodium Bicarbonate 50 meq AD PRN IV Last administered on 04/24/24at 22:30; Start 04/24/24 at 15:00; Stop 04/27/24 at 14:59 Dextrose 50 ml AD PRN IV; Start 04/24/24 at 15:00; Stop 05/24/24 at 14:59 Glucagon 1 mg AD PRN IM; Start 04/24/24 at 15:00; Stop 05/24/24 at 14:59 Vasopressin 20 units STK-MED ONCE .ROUTE; Start 04/24/24 at 15:10; Stop 04/24/24 at 15:10; Status DC Heparin Sodium (Porcine) 10,000 unit STK-MED ONCE .ROUTE; Start 04/24/24 at 15:19; Stop 04/24/24 at 15:19; Status DC Potassium Chloride 100 ml @ As Directed STK-MED ONCE IV; Start 04/24/24 at 15:31; Stop 04/24/24 at 15:32; Status DC Cefazolin Sodium 2 gm STK-MED ONCE IVPB Last administered on 04/24/24at 14:45; Start 04/24/24 at 14:45; Stop 04/24/24 at 15:45; Status DC Papaverine HCl 60 mg STK-MED ONCE IRRIG Last administered on 04/24/24at 15:05; Start 04/24/24 at 15:05; Stop 04/24/24 at 15:45; Status DC Cefazolin Sodium 1 gm STK-MED ONCE IRRIG Last administered on 04/24/24at 15:05; Start 04/24/24 at 15:05; Stop 04/24/24 at 15:45; Status DC Acetaminophen 650 mg Q6H PRN PO; Start 04/25/24 at 18:00; Stop 05/25/24 at 17:59 Acetaminophen 650 mg Q4H PRN PO; Start 04/25/24 at 18:00; Stop 05/25/24 at 17:59 Acetaminophen 650 mg Q4H PRN RC; Start 04/25/24 at 18:00; Stop 05/25/24 at 17:59 Ketamine HCl 50 mg STK-MED ONCE .ROUTE; Start 04/24/24 at 16:11; Stop 04/24/24 at 16:11; Status DC Nicardipine HCl 100 mg/Sodium Chloride 100 ml @ 0 mls/hr PROTOCOL IV; Start 04/24/24 at 18:00; Stop 05/24/24 at 17:59 Dexmedetomidine/ Sodium Chloride 400 mcg PROTOCOL IV; Start 04/24/24 at 20:00; Stop 05/24/24 at 19:59 Sodium Bicarbonate 150 ml @ As Directed STK-MED ONCE .ROUTE; Start 04/24/24 at 22:15; Stop 04/24/24 at 22:15; Status DC Calcium Gluconate 1 gm STK-MED ONCE .ROUTE; Start 04/25/24 at 04:56; Stop 04/25/24 at 04:57; Status DC Amiodarone HCl 150 mg/Dextrose 100 ml @ 400 mls/hr PROTOCOL IV Last administered on 04/26/24at 05:47; Start 04/26/24 at 05:30; Stop 04/26/24 at 07:16; Status DC Amiodarone HCl 540 mg/Dextrose 300 ml @ 0 mls/hr PROTOCOL IV; Start 04/26/24 at 05:30; Stop 04/26/24 at 05:29; Status DC Amiodarone HCl 360 mg/Dextrose 200 ml @ 33.333 mls/ hr PROTOCOL IV Last administered on 04/26/24at 05:48; Start 04/26/24 at 05:45; Stop 05/26/24 at 05:44 Amiodarone HCl 540 mg/Dextrose 300 ml @ 16.667 mls/ hr PROTOCOL IV; Start 04/26/24 at 11:45; Stop 05/26/24 at 11:44 Insulin Human Regular INSULIN SLIDING SCAL... ACHS SQ; Start 04/26/24 at 07:30; Stop 05/26/24 at 07:29 Aspirin 81 mg DAILY PO Last administered on 04/26/24at 08:33; Start 04/26/24 at 09:00; Stop 05/26/24 at 08:59 Polyethylene Glycol 17 gm DAILY PO; Start 04/27/24 at 09:00; Stop 05/27/24 at 08:59 Pharmacy Profile Note 1 each ONCE MISC; Start 04/26/24 at 10:30; Stop 04/26/24 at 10:27; Status DC Diltiazem HCl 125 ml @ 0 mls/hr AD IV; Start 04/26/24 at 10:30; Stop 05/26/24 at 10:29 TOMMY PITT MD Apr 26, 2024 10:55
[2024-04-26] MEDS: dilTIAZem 125MG+100 ML NS 125 ML IV SCH (11:01)
[2024-04-26] MEDS: AMIOdarone 900MG VIAL 540 MG in DEXTROSE 5%-WATER 300 ML IV SCH (11:02)
--- NOTE | 2024-04-26 11:11 | PN ---
[facility] PROGRESS NOTE Date of Service: Apr 26, 2024 Time of Service: 11:02 SUBJECTIVE: 63-year-old male who presented to the emergency department with chest pain, he is known with positive UDS with marijuana and cocaine. He presented with non- STEMI with elevated troponin. He was evaluated by the depot agent who recommended cardiac catheterization. Status post left heart catheterization noted mid distal LM 90% lesion in, proximal circumflex with 60-60% disease, patient had an insertion of IABP. Cardiovascular surgeon consulted. We will continue to follow. 04/26 - Pt seen at bedside, he converted to afib with RVR overnight and was started on amiodarone drip. He continued to be in rvr into the am and cardiology started cardizem drip, will defer further adjustements to cardiology. He remains on balloon pump, and low dose levophed. CT surgery to manage. Hgb improved from 9.2 up to 10.3, platelets mildly decreased at 95, similar to yesterday, remainder of labs relatively unremarkable. REVIEW OF SYSTEMS 12 point ROS negative unless noted in HPI PHYSICAL EXAM GENERAL APPEARANCE: The patient is awake, alert, and oriented, in no acute cardiopulmonary distress. NEUROLOGICAL: Cranial nerves II-XII grossly intact. Motor is 5/5 in bilateral upper and lower extremities proximal to distal. No sensory deficits. HEENT: Face is symmetric. Pupils are equal and reactive. Extraocular movements are intact. NECK: Supple. No JVD. No thyromegaly. No submental, submandibular, pre- /postauricular, occipital or supraclavicular lymphadenopathy. CHEST: Normal chest expansion. No Telemetry. LUNGS: Absence of any rales, rhonchi or any wheezing. CARDIOVASCULAR: Regular. S1 and S2 normal. No appreciable rubs, murmurs or gallops. ABDOMEN: Soft, nontender, and nondistended. There is no rebound, voluntary guarding, or rigidity. : Deferred. No Felix. EXTREMITIES: Non-edematous and not cyanotic. No clubbing. Good capillary refill. SKIN: No skin breakdown. Vital Signs (last 8hr) Date Time Temp Pulse Resp B/P (MAP) Pulse Ox O2 Delivery O2 Flow Rate FiO2 04/26/24 08:00 96 Nasal Cannula* 2 28 04/26/24 07:36 136 18 N/Cannula Low lpm 2.0 28 04/26/24 07:15 148 31 154/59 (90) 92 04/26/24 07:00 157 18 164/61 (95) 96 04/26/24 06:45 145 29 143/57 (85) 96 04/26/24 06:30 156 28 149/57 (87) 96 04/26/24 06:15 152 18 147/50 (82) 96 04/26/24 06:00 147 23 145/56 (85) 95 04/26/24 05:45 163 23 116/50 (72) 94 04/26/24 05:30 170 23 205/65 (111) 96 04/26/24 05:15 165 23 173/63 (99) 96 04/26/24 05:00 162 25 160/56 (90) 89 04/26/24 04:45 98 23 195/49 (97) 88 04/26/24 04:30 101 21 186/49 (94) 90 04/26/24 04:15 88 21 188/51 (96) 90 04/26/24 04:00 99 22 178/46 (90) 90 04/26/24 04:00 92 Nasal Cannula* 2 28 04/26/24 03:45 95 12 194/49 (97) 96 04/26/24 03:30 95 12 191/46 (94) 96 04/26/24 03:15 95 12 188/47 (94) 97 LABS: Laboratory: Test 04/26/24 06:21 04/26/24 04:24 04/25/24 04:17 04/25/24 02:06 Range/Units Whole Blood Glucose 150 H 70-110 MG/DL White Blood Count 12.4 H 4.8-10.8 K/uL Red Blood Count 3.46 L 4.50-6.20 MIL/uL Hemoglobin 10.3 L 14.0-18.0 g/dL Hematocrit 32.5 L 42-54 % Mean Corpuscular Volume 93.9 79-99 fL Mean Corpuscular Hemoglobin 29.8 27.0-33.0 pg Mean Corpuscular Hemoglobin Concent 31.7 L 32.0-36.0 g/dL Red Cell Distribution Width 14.2 11.0-15.5 % Platelet Count 95 L 130-400 K/uL Mean Platelet Volume 10.9 H 7.5-10.5 fL Nucleated Red Blood Cells 0.0 0.0-0.19 % Prothrombin Time 10.8 9.6-11.6 SEC Prothromb Time International Ratio 1.00 0.85-1.15 Activated Partial Thromboplast Time 36.5 H 26.3-35.5 SEC Fibrinogen 668 *H 180-350 mg/dL Sodium Level 134 L 136-145 mmol/L Potassium Level 4.0 3.5-5.1 mmol/L Chloride Level 97 L 101-111 mmol/L Carbon Dioxide Level 33 H 21-32 mmol/L Blood Urea Nitrogen 14 7-18 mg/dL Creatinine 1.2 0.5-1.3 mg/dL Glomerular Filtration Rate Calc 68 >90 mL/min Random Glucose 115 H 70-105 mg/dL Total Calcium 8.7 8.5-10.1 mg/dL Magnesium Level 2.20 1.80-2.40 mg/dL Ionized Calcium 1.17 1.16-1.32 MMOL/L Phosphorus Level 3.7 2.5-4.9 mg/dL Blood Gas Specimen Type Arterial Arterial Blood pH 7.429 7.350-7.450 Arterial Blood Partial Pressure CO2 43 35-48 mmHg Arterial Blood Partial Pressure O2 123.4 H 83.0-108.0 mmHg Arterial Blood HCO3 27.5 21.0-28.0 mmol/L Arterial Blood Oxygen Saturation 97.9 94.0-98.0 % Arterial Blood Base Excess 2.9 -2.0-3.0 mmol/L Hemoglobin (Blood Gas) 10.7 L 13.5-17.5 g/dL Sodium (Blood Gas) 144 136-145 MMOL/L Bedside Potassium (Blood Gas) 4.2 3.4-4.5 MMOL/L Bedside Chloride (Blood Gas) 107 98-107 MMOL/L Bedside Glucose (Blood Gas) 128 H 65-95 MG/DL Bedside Ionized Calcium (Blood Gas) 1.18 1.15-1.33 MMOL/L Bedside Lactic Acid (Blood Gas) 2.37 H 0.36-0.75 MMOL/L Blood Gas Temperature 37.0 35.5-37.0 CELSIUS Blood Gas Flow-by 10.00 0.00-15.00 L/min Blood Gas Vent Mode COOL MIST ROOM AIR FiO2 40.0 % Blood Gas Specimen Comment LYNSEY CROUCH Test 04/24/24 23:57 Range/Units Blood Gas Respiration Rate 4.0 min. Blood Gas Tidal Volume 600 ml Blood Gas PEEP 5 cm H2O Current Medications Medications (Trade) Dose Ordered Sig/Aaron Route PRN Reason Start Time Stop Time Status Last Admin Dose Admin Acetaminophen (TYLenol 325MG TAB) 650 mg Q4H PRN PO Temp >38.3C(AFTER EXTUBATION) 04/25/24 18:00 05/25/24 17:59 Acetaminophen (TYLenol 325MG TAB) 650 mg Q4H PRN PO TEMPERATURE GREATER THAN 101.5 04/22/24 15:30 04/24/24 14:51 DC Acetaminophen (TYLenol 325MG TAB) 650 mg Q4H PRN PO Temp >38.3C(AFTER EXTUBATION) 04/24/24 15:00 04/24/24 15:56 DC Acetaminophen (TYLenol 325MG TAB) 650 mg Q6H PRN PO MILD PAIN (1-3) 04/25/24 18:00 05/25/24 17:59 Acetaminophen (TYLenol 325MG TAB) 650 mg Q6H PRN PO MILD PAIN (1-3) 04/22/24 15:30 04/24/24 14:51 DC 04/22/24 20:22 650 MG Acetaminophen (TYLenol 325MG TAB) 650 mg Q6H PRN PO MILD PAIN (1-3) 04/24/24 15:00 04/24/24 15:55 DC Acetaminophen (TYLenol 650MG SUPPOSITORY) 650 mg Q4H PRN RC Temp >38.3C WHILE INTUBATED 04/25/24 18:00 05/25/24 17:59 Acetaminophen (TYLenol 650MG SUPPOSITORY) 650 mg Q4H PRN RC Temp >38.3C WHILE INTUBATED 04/24/24 15:00 04/24/24 15:57 DC Acetaminophen (acetaMINOPHEN) 1,000 mg Q6H6 IV 04/24/24 18:00 04/25/24 17:59 DC 04/25/24 17:42 1,000 MG Albumin Human 250 ml @ 0 mls/hr AD PRN IV IF HEMODYNAMICALLY UNSTABLE 04/24/24 15:00 04/24/24 18:56 DC 04/24/24 18:56 250 MLS/HR Aminocaproic Acid 96167 mg/Sodium Chloride 310 ml @ 25 mls/hr AD IV 04/24/24 15:00 04/25/24 03:23 DC Aminocaproic Acid 17283 mg/Sodium Chloride 480 ml @ 0 mls/hr AD PRN IV BLEEDING CONTROL 04/24/24 11:00 04/24/24 15:05 DC Amiodarone HCl 150 mg/Dextrose 100 ml @ 400 mls/hr PROTOCOL IV 04/26/24 05:30 04/26/24 07:16 DC 04/26/24 05:47 400 MLS/HR Amiodarone HCl 360 mg/Dextrose 200 ml @ 33.333 mls/ hr PROTOCOL IV 04/26/24 05:45 05/26/24 05:44 04/26/24 05:48 33.333 MLS/HR Amiodarone HCl 540 mg/Dextrose 300 ml @ 16.667 mls/ hr PROTOCOL IV 04/26/24 11:45 05/26/24 11:44 Amiodarone HCl 540 mg/Dextrose 300 ml @ 0 mls/hr PROTOCOL IV 04/26/24 05:30 04/26/24 05:29 DC Aspirin (Aspirin 81mg Ec Tab) 81 mg DAILY PO 04/26/24 09:00 05/26/24 08:59 04/26/24 08:33 81 MG Aspirin (Aspirin 81mg Ec Tab) 81 mg DAILY PO 04/22/24 09:00 04/26/24 08:22 DC 04/25/24 08:16 81 MG Atorvastatin Calcium (LIPItor 40MG) 40 mg HS PO 04/22/24 21:00 05/22/24 20:59 04/25/24 21:11 40 MG Calcium Gluconate 1 gm/Sodium Chloride 60 ml @ 200 mls/hr AD PRN IV HYPOCALCEMIA 04/24/24 15:00 05/24/24 14:59 04/25/24 04:58 200 MLS/HR Cefazolin Sodium (Ancef) 2 gm ONCALL IVP 04/23/24 21:30 04/25/24 21:29 DC 04/23/24 21:38 2 GM Cefazolin Sodium (Ancef) 2 gm Q8H IVPB 04/24/24 20:00 04/25/24 12:01 DC 04/25/24 11:30 2 GM Dexmedetomidine/ Sodium Chloride (PRECEdex 400MCG/ 100ML-NS) 400 mcg PROTOCOL IV 04/24/24 15:00 04/25/24 14:59 DC 04/24/24 19:02 400 MCG Dexmedetomidine/ Sodium Chloride (PRECEdex 400MCG/ 100ML-NS) 400 mcg PROTOCOL IV 04/24/24 20:00 05/24/24 19:59 Dextrose (D50w) 50 ml AD PRN IV HYPOGLYCEMIA PROTOCOL 04/22/24 00:00 04/24/24 15:13 DC Dextrose (D50w) 50 ml AD PRN IV HYPOGLYCEMIA PROTOCOL 04/22/24 08:00 04/22/24 07:52 DC Dextrose (D50w) 50 ml AD PRN IV HYPOGLYCEMIA PROTOCOL 04/24/24 15:00 05/24/24 14:59 Diltiazem HCl 125 ml @ 0 mls/hr AD IV 04/26/24 10:30 05/26/24 10:29 Docusate Sodium (COLace 100MG CAP) 100 mg BID PO 04/24/24 21:00 05/24/24 20:59 04/26/24 08:02 100 MG Epinephrine HCl 10 mg/Sodium Chloride 250 ml @ 11.533 mls/ hr AD PRN IV POST-OP CARDIOVASCULAR ORDERS 04/24/24 15:00 04/29/24 14:59 Epinephrine HCl 10 mg/Sodium Chloride 250 ml @ 0 mls/hr AD PRN IV TITRATE 04/24/24 11:00 04/24/24 15:17 DC Famotidine (Pepcid 20mg Vial) 20 mg BID IV 04/22/24 09:00 04/24/24 14:51 DC 04/24/24 08:21 20 MG Famotidine (Pepcid 20mg Vial) 20 mg BID IV 04/24/24 21:00 05/24/24 20:59 04/26/24 08:03 20 MG Furosemide (LASix 20MG TAB) 20 mg Q12H PO 04/26/24 09:00 05/26/24 08:59 04/26/24 08:02 20 MG Furosemide (LASix 20MG VIAL) 20 mg Q12H IV 04/25/24 09:00 04/26/24 08:59 DC 04/25/24 21:12 20 MG Glucagon (Glucagon 1mg Kit) 1 mg AD PRN IM HYPOGLYCEMIA PROTOCOL 04/22/24 00:00 04/24/24 15:15 DC Glucagon (Glucagon 1mg Kit) 1 mg AD PRN IM HYPOGLYCEMIA PROTOCOL 04/22/24 08:00 04/22/24 07:52 DC Glucagon (Glucagon 1mg Kit) 1 mg AD PRN IM HYPOGLYCEMIA PROTOCOL 04/24/24 15:00 05/24/24 14:59 Heparin Sodium (Porcine) (HEParin 5,000 UNIT VIAL) *calculation based on ACTUAL B... AD PRN IV HEPARIN PROTOCOL 04/22/24 02:30 04/24/24 14:51 DC 04/22/24 02:08 5,000 UNIT Heparin Sodium/ Dextrose 250 ml @ 0 mls/hr Q6H IV 04/22/24 02:30 04/24/24 14:51 DC 04/23/24 18:56 10.8 MLS/HR Hydralazine HCl (APRESOLine 20MG INJ) 10 mg Q6H PRN IV For:SBP above 160;DBP above 90 04/21/24 23:30 04/24/24 14:51 DC 04/24/24 13:43 10 MG Insulin Human Regular (humuLIN R 100 UNIT/ML 3ML) INSULIN SLIDING SCAL... ACHS SQ 04/26/24 07:30 05/26/24 07:29 Insulin Human Regular (humuLIN R 100 UNIT/ML 3ML) INSULIN SLIDING SCAL... ACHS SQ 04/22/24 07:30 04/24/24 14:51 DC Insulin Human Regular (humuLIN R 100 UNIT/ML 3ML) INSULIN SLIDING SCAL... ACHS SQ 04/22/24 11:30 04/22/24 07:51 DC Insulin Human Regular 100 unit/ Sodium Chloride 100 ml @ 0 mls/hr AD IV 04/24/24 15:00 04/26/24 14:59 04/24/24 17:21 1.5 MLS/HR Ipratropium [place] (AtrovENT UD) 0.5 MG Q4H PRN IH SHORTNESS OF BREATH 04/24/24 14:30 05/24/24 14:29 Lactulose (Constulose 20gm/ 30ml Udcup) 20 gm BID PRN PO CONSTIPATION 04/24/24 15:00 05/24/24 14:59 04/26/24 09:51 20 GM Levetiracetam (kepPRA 500 MG/5 ML SD VIAL) 500 mg ONCE STAT IV 04/22/24 09:47 04/22/24 09:56 DC 04/22/24 10:05 500 MG Levetiracetam 1000 mg/Sodium Chloride 100 ml @ 400 mls/hr BID IV 04/22/24 21:00 05/22/24 20:59 04/26/24 08:34 400 MLS/HR Lidocaine (Lidocaine Patch 4%) 1 each ONCE STAT TP 04/23/24 04:20 04/23/24 04:26 DC 04/23/24 04:30 1 EACH Magnesium Hydroxide (Milk Of Magnesium 30ml) 30 ml DAILY PRN PO CONSTIPATION 04/24/24 15:00 05/24/24 14:59 Magnesium Sulfate 50 ml @ 12.5 mls/hr AD PRN IV MAG LEVEL LESS THAN 2.0 04/24/24 15:00 05/24/24 14:59 04/25/24 22:14 12.5 MLS/HR Magnesium Sulfate 50 ml @ 0 mls/hr PROTOCOL PRN IV OTHER [SEE ORDER COMMENTS] 04/22/24 00:00 04/24/24 14:51 DC Magnesium Sulfate 50 ml @ 0 mls/hr PROTOCOL PRN IV MAGNESIUM PROTOCOL 04/22/24 08:00 04/22/24 07:52 DC Morphine Sulfate (morPHINE 2MG SYG) 0.5 mg Q2H PRN IV MODERATE PAIN (4-6) 04/24/24 15:00 04/25/24 14:59 DC Morphine Sulfate (morPHINE 2MG SYG) 2 mg Q4H PRN IVP SEVERE PAIN (7-10) 04/22/24 00:00 04/24/24 14:51 DC 04/24/24 12:12 2 MG Morphine Sulfate (morPHINE 4MG SYG) 1 mg Q2H PRN IV SEVERE PAIN (7-10) 04/24/24 15:00 04/25/24 14:59 DC 04/24/24 20:15 1 MG Nicardipine HCl 100 mg/Sodium Chloride 100 ml @ 0 mls/hr PROTOCOL IV 04/24/24 18:00 05/24/24 17:59 Nitroglycerin (Nitroglycerin 1gm Oint) 0.5 inch Q8H TD 04/21/24 23:30 04/23/24 09:03 DC 04/23/24 08:25 0.5 INCH Nitroglycerin (Nitrostat) 0.4 mg AD PRN SL CHEST PAIN 04/21/24 21:30 04/24/24 14:51 DC 04/21/24 22:27 0.4 MG Nitroglycerin/ Dextrose 0 ml @ 0 mls/hr AD IV 04/24/24 15:00 04/27/24 14:59 04/24/24 17:30 3 MLS/HR Norepinephrine Bitartrate 250 ml @ 0 mls/hr AD PRN IV TITRATE 04/24/24 11:00 04/24/24 15:13 DC Norepinephrine Bitartrate 8 mg/ Dextrose 250 ml @ 0 mls/hr AD PRN IV POST-OP CARDIOVASCULAR ORDERS 04/24/24 15:00 04/29/24 14:59 Ondansetron HCl (zoFRAN 4MG INJ) 4 mg Q6H PRN IV NAUSEA/VOMITING 04/21/24 23:30 04/24/24 14:51 DC 04/22/24 09:41 4 MG Ondansetron HCl (zoFRAN 4MG INJ) 4 mg Q6H PRN IV NAUSEA/VOMITING 04/24/24 15:00 05/24/24 14:59 Pharmacy Profile Note (Pharmacy Communication) [address] [facility] 04/26/24 10:30 04/26/24 10:27 DC Pharmacy Profile Note (Pharmacy Communication) PLEASE ENTER HT AND WT Q15M MISC 04/21/24 23:45 04/22/24 00:16 DC Polyethylene Glycol (MIRalax 3350 17 GM POWD.PACK) 17 gm DAILY PO 04/27/24 09:00 05/27/24 08:59 Potassium Phosphate 250 ml @ 42 mls/hr AD PRN IV LOW PHOS LEVEL 04/24/24 15:00 05/24/24 14:59 Potassium Chloride 100 ml @ 50 mls/hr AD PRN IV POTASSIUM PROTOCOL 04/22/24 00:00 04/24/24 14:51 DC Potassium Chloride 100 ml @ 100 mls/hr AD PRN IV POTASSIUM PROTOCOL 04/22/24 08:00 04/22/24 07:52 DC Potassium Chloride 100 ml @ 100 mls/hr AD PRN IV HYPOKALEMIA 04/24/24 15:00 05/24/24 14:59 04/25/24 02:26 100 MLS/HR Potassium Chloride (K-Dur/Klor-Con 20meq) 20 meq AD PRN PO POTASSIUM PROTOCOL 04/22/24 08:00 04/24/24 14:51 DC 04/23/24 08:24 20 MEQ Potassium Chloride (KCl 10% Elixir 20meq/15ml) 20 meq AD PRN PO POTASSIUM PROTOCOL 04/22/24 08:00 04/24/24 14:51 DC Propofol 100 ml @ 0 mls/hr AD PRN IV SEDATION 04/24/24 15:00 04/28/24 14:59 Sodium Bicarbonate (Sodium Bicarb 50meq 50ml Vial) 50 meq AD PRN IV OTHER[SEE DOSING INSTRUCTIONS] 04/24/24 15:00 04/27/24 14:59 04/24/24 22:30 150 MEQ Sodium Chloride 500 ml @ 0 mls/hr AD IV 04/24/24 15:00 05/24/24 14:59 Sodium Chloride 1,000 ml @ 10 mls/hr ONCE IV 04/24/24 15:00 04/25/24 14:59 DC 04/24/24 17:18 10 MLS/HR Sodium Chloride 1,000 ml @ 75 mls/hr [id number] IV 04/22/24 00:00 04/23/24 23:59 DC 04/23/24 17:50 75 MLS/HR Sodium Chloride (NS Flush 10ml) 10 ml Q8H PRN IVP IV LINE FLUSH 04/24/24 15:00 05/24/24 14:59 Tramadol HCl (UltRAM) 25 mg Q6H PRN PO MODERATE PAIN (4-6) 04/24/24 15:00 04/29/24 14:59 04/26/24 02:16 50 MG Tramadol HCl (UltRAM) 50 mg Q6H PRN PO SEVERE PAIN (7-10) 04/24/24 15:00 04/29/24 14:59 04/26/24 08:03 50 MG DIAGNOSTICS / RADIOLOGY: [ ] ASSESSMENT: Chest pain rule in ACS POA New onset afib with RVR, POA Mid distal LM 90% lesion by left heart catheterization, POA Prox CX with 60-60% disease, by by left heart catheterization, POA Polysubstance abuse POA Active smoker, POA Normocytic normochromic anemia POA Diabetes POA Hyperlipidemia POA Hypertension POA Seizure disorder POA Parkinson's disease POA History of multiple CVA POA PLAN: Patient will remain in ICU We will follow recommendations from depot agent, due to results of left heart catheterization, s/p Off-pump CABG x 2, NOLAN to LAD, reverse saphenous vein graft to first diagonal 04/25/24 Continue with heparin drip Continue levophed Continue balloon pump, management per CV surgery Chest tube in place, 60 cc output, further management per CV surgery Start amiodarone drip Start cardizem drip Defer to cardiology and CV surgery regarding anticoagulation in the setting of afib with RVR Counseled on polysubstance abuse GI and DVT prophylaxis Disposition: Pending resolution of RVR, removal of Chest tube and balloon pump, PT eval, improvement in clinical status. Critical care time: Spent 35 minutes of critical care time with the patient. Reviewed the lab work, reconciled and updated patient's medications, and coordinated plan of care in ICU. CORNELL RIDDLE MD Apr 26, 2024 11:11
[2024-04-26] MEDS: DIGOxin 250 MCG/ML 2ML AMP IV ONE ×2 (12:46→17:57)
[2024-04-26] MEDS: acetaMINOPHEN 325 MG TAB PO PRN (13:28)
[2024-04-26] MEDS: metoPROLOL tartRATE 25 MG TAB PO ONE (17:27)
[2024-04-26] MEDS: guaiFENesin 600 MG TABLET.ER PO SCH (20:58)
[2024-04-27] VITALS (43 sets, daily range): BP systolic 83–171; BP diastolic 53–98; PULSE 69–95; RESP 12–33; TEMP 98.6–99.8; O2SAT 95–97
[2024-04-27] MEDS: DIGOxin 250 MCG/ML 2ML AMP IV ONE (00:30)
[2024-04-27 05:28] LABS: HEMATOCRIT 29.8 % (42-54); MEAN CORPUSCULAR HEMOGLOBIN 29.6 pg (27.0-33.0); MEAN CORPUSCULAR HGB CONC 32.6 g/dL (32.0-36.0); MEAN CORPUSCULAR VOLUME 90.9 fL (79-99); RED BLOOD CELL COUNT(AUTO) 3.28 MIL/uL (4.50-6.20); RED CELL DISTRIBUTION WIDTH 13.6 % (11.0-15.5); WHITE BLOOD COUNT (AUTO) 10.9 K/uL (4.8-10.8)
[2024-04-27 05:50] LABS: CREATININE 1.2 mg/dL (0.5-1.3)
--- NOTE | 2024-04-27 05:57 | PN ---
SUBJECTIVE: The patient is postop day #2 from intraaortic balloon pump supported coronary artery bypass grafting. The patient's balloon pump has been weaned to 1:3 support. The patient also has had issues with rapid ventricular response. He was treated with an amiodarone drip and then a Cardizem drip with still with poor rate control. OBJECTIVE: VITAL SIGNS: Reveal pulse of 139, blood pressure is 162/90, respirations 22, oxygen saturation 93% on nasal cannula oxygen. HEENT: Reveals normocephalic, atraumatic. Extraocular movements intact. He has nasal cannula oxygen prongs under his nose. He has a left subclavian central venous line, which he is receiving an amiodarone drip at 0.5 mcg per minute and a diltiazem drip at 7.5 mg per hour and an epinephrine drip at 0.01 mcg per kilo per minute. CHEST: His sternal wound is bandaged. His chest tubes are in place with serosanguineous drainage. HEART: Irregularly irregular and tachycardic. LUNGS: Unlabored at rest, lying flat on oxygen. ABDOMEN: Reveals positive bowel sounds. His right femoral artery has an intraaortic balloon pump on 1:3 support. He has a knee immobilizer on his right lower extremity. He has SCDs on both lower extremities. LABORATORY DATA: His creatinine is 1.2, hemoglobin is 10, INR is 1. Platelet count is 95,000. ASSESSMENT AND PLAN: * Status post coronary artery bypass grafting, postoperative day #2. We will discontinue his intraaortic balloon pump. Then, wean his epinephrine drip to off. Continue aspirin daily. Keep chest tubes in place and on suction until the patient could be set up 4-6 hours after balloon pump is removed. * Postoperative acute pulmonary insufficiency. Wean nasal cannula oxygen to maintain oxygen saturations greater than 90% on room air. * Hypercholesterolemia. Lipitor at bedtime and low cholesterol, cardiac diet. * Postoperative paroxysmal atrial fibrillation with rapid ventricular response. We will load with digoxin, in addition to amiodarone drip at . * Deep venous thrombosis prophylaxis. Maintain sequential compression devices to lower extremities. Time spent 30 minutes. The patient is critically ill in the ICU. TID: [id number] RECEIPT: [id number]
[2024-04-27] MEDS: AMIOdarone 200 MG TABLET PO SCH (08:57)
[2024-04-27] MEDS: metoPROLOL tartRATE 25 MG TAB PO SCH (08:58)
[2024-04-27] MEDS: polyETHYLene GLYCol 3350 17 GM POWD.PACK PO SCH (08:59)
[2024-04-27] MEDS: DIGOxin 125 MCG TABLET PO SCH (08:59)
--- NOTE | 2024-04-27 09:21 | PN ---
[facility] PROGRESS NOTE Date Patient Seen: Apr 27, 2024 Time of Visit: 09:19 Supervising Physician: Dr. Lopez Primary Care Physician: Adolfo Morales MD Outpatient Specialists: None Inpatient Consults: BRIANA, Dr Murray, Dr Rasheed, Dr Yee PROBLEM LIST: Severe coronary artery disease to left main 90% stenosis S/P CABG X2 on 04/24/24 (Dr Rasheed ) Postoperative AFib with RVR on amiodarone drip 04/26/24 Postop acute hypoxic respiratory failure as expected NSTEMI status post LHC and Balloon Pump placement for MCS 04/23- dc on 04/26 Polysubstance abuse POA + cocaine and marijuana Suspicion for COPD, POA Thrombocytopenia not POA Normocytic normochromic anemia POA Hyperglycemia, POA Hyperlipidemia POA Essential Hypertension POA Constipation History of seizure disorder POA History of Parkinson's disease POA History of multiple CVA POA Active smoker POA LVEF is 55-60% with normal ventricular diastolic function. On 2D echo 04/23/24 INTERVAL HISTORY: 04/24-Patient is awake alert and oriented x3 hemodynamically stable. Continues with balloon pump 1:1 MCS. Patient was seen by CV surgery and has agreed to move all with CABG. Heparin is on hold. Scheduled for CABG for noon today. Chest x-ray with no acute pulmonary infiltrates seen. Balloon pump seems in proper position. On arterial ultrasound no hemodynamically significant lesions seen either extracranial carotid arteries. Patient has good urine output 2 L in the last 24, CBC unremarkable similar to yesterday. Chemistry kidneys are doing well creatinine 1.1 GFR of 75 BUN of 19 total calcium 8.1 albumin 2.9. We will continue to follow alongside cardiovascular surgeon and Cardiology. 04/25-patient is awake alert and oriented x3 he was extubated around midnight la night. He continues on low-dose epinephrine at 0.02 micrograms/kilogram per minute and MCS with balloon pump support of 1:2. Patient is afebrile, heart rate in the 80s, respiratory rate of 18 unlabored saturating 98% with 2 L via nasal cannula, blood pressure via arterial line 137/55 patient has good urine output 2.9 L in the last 24 hours chest tube output 350 mL with a balance of-1.4 L. H&H slightly lower than yesterday 9.2/28.7 platelet count trended down today [id number]. Chemistry unremarkable. Chest x-ray shows bilateral pulmonary infiltrates with this is pulmonary vascular congestion. Post sternotomy changes. Enlarged heart. Balloon pump and left subclavian Cordis central line in place. 04/26 patient is awake alert and oriented x3. Denies any chest pain does report palpitations. Reports no bowel movement for 4 days, currently receiving bowel regimen. This morning patient converted to AFib with RVR was given amiodarone bolus and started on amiodarone drip per protocol. Patient continues on low- dose epinephrine at 0.01 micrograms/kilogram per minute. Balloon pump support decreased today to 1:3. Plans for removal of balloon pump today. Otherwise patient is hemodynamically stable blood pressure 154/59 saturating 96% with 2 L via nasal cannula heart rate in the 130s AFib with RVR. T-max 99.9 with a T low of 97.2. Urine output 3.1 L with a balance of-1.2 L chest tube output 70 mL. On laboratory WBCs trended up slightly 12.4 H&H is 10.3/32.5 [place] [address]. Similar to yesterday. Chemistries sodium 134 chloride 97 carbon dioxide 33 creatinine is 1.2 GFR of 68 glucose 115 mg/dL. pH Chest x- ray with increased pulmonary vascular congestion patient has been started on Lasix 20 mg q.12 IV per Cardiology. Patient given bowel regimen for constipation. 04/27 patient is awake alert oriented x3 not in acute distress. No acute event overnight. He had his intra-aortic balloon pump removed yesterday. Chest x-ray with no acute changes. Left septal given central line in place no pneumothorax. Chest tube in place. Continue with incentive spirometry. Urine output is 2.3 L with the chest tube output of 20 cc. Net balance is-1.4 L. lab this morning with WBC down to 10 from 12 hemoglobin is 9.7 platelet count is 106 up from 95. Chemistry he is unremarkable. He remains afib last night but converted to sinus rhythm, on amiodarone and loaded digoxin. Cardiology following. Repeat magnesium level. Will continue post CABG care, IS, PT, ambulation, wound care. REVIEW OF SYSTEMS: Const: [no fever, fatigue, or weight changes] Eyes:[ no recent vision problems] ENT: [No congestion, ear pain, or sore throat] C/V: [no chest pain, palpitations or edema] Resp: [No cough, congestion, wheezing , no for shortness of breaths GI: [No abdominal pain, nausea, vomiting, yes to constipation, no diarrhea] : [No incontinence of or dyuria] M/S: [No joint or pain swelling] Skin: [No rash] Neuro: [no headache, focal numbness, or weakness, dizziness or seizures] Psych: [no depression or anxiety] Heme: [no abnormal bruising or bleeding] Lymph: [no swollen glands] PHYSICAL EXAM: GENERAL: alert, weak, awake oriented x 3 HEENT: EOMI, Sclera non icteric, moist mucosa NECK: Supple, no JVD, trachea midline LUNGS: Diminished breath sounds bilaterally. No wheezes HEART: Regular rate and rhythm. Normal S1 and S2, without murmurs. ABD: Abdomen soft, nontender. Bowel sounds present EXT: No clubbing cyanosis or edema, +1 pedal pulse bilaterally NEURO: Alert and oriented to person, follows commands Vital Signs (last 8hr) Date Time Temp Pulse Resp B/P (MAP) Pulse Ox O2 Delivery O2 Flow Rate FiO2 04/27/24 08:59 84 04/27/24 06:15 84 16 86/78 (81) 94 04/27/24 06:03 84 16 83/74 (77) 93 141/75 (97) 04/27/24 06:00 86 18 119/70 (86) 93 04/27/24 05:49 86 33 88/77 (81) 94 146/74 (98) 04/27/24 05:45 81 13 91/83 (86) 94 04/27/24 05:33 84 12 130/83 (99) 93 144/81 (102) 04/27/24 05:30 82 15 89/74 (79) 94 04/27/24 05:18 77 19 149/69 (95) 92 142/70 (94) 04/27/24 05:15 77 20 155/71 (99) 93 04/27/24 05:04 95 21 156/82 (106) 95 171/98 (122) 04/27/24 05:00 92 14 113/75 (88) 95 04/27/24 04:48 79 18 100/61 (74) 92 119/66 (83) 04/27/24 04:45 82 16 106/58 (74) 94 04/27/24 04:33 79 16 84/56 (65) 94 119/66 (83) 04/27/24 04:30 72 16 86/57 (67) 94 04/27/24 04:18 77 16 116/53 (74) 94 132/65 (87) 04/27/24 04:15 82 16 129/59 (82) 94 04/27/24 04:03 76 16 139/58 (85) 94 137/67 (90) 04/27/24 04:00 99.9 79 16 145/60 (88) 94 04/27/24 04:00 96 Nasal Cannula* 2 28 04/27/24 02:15 70 137/58 (84) 96 04/27/24 02:03 70 18 134/57 (82) 95 133/75 (94) 04/27/24 02:00 70 18 131/57 (81) 95 04/27/24 01:48 70 18 133/57 (82) 96 130/72 (91) 04/27/24 01:45 70 18 135/58 (83) 96 04/27/24 01:33 70 18 139/57 (84) 96 134/70 (91) 04/27/24 01:30 70 17 139/57 (84) 95 LABS: Hematology Labs: Test 04/27/24 05:10 Range/Units White Blood Count 10.9 H 4.8-10.8 K/uL Red Blood Count 3.28 L 4.50-6.20 MIL/uL Hemoglobin 9.7 L 14.0-18.0 g/dL Hematocrit 29.8 L 42-54 % Mean Corpuscular Volume 90.9 79-99 fL Mean Corpuscular Hemoglobin 29.6 27.0-33.0 pg Mean Corpuscular Hemoglobin Concent 32.6 32.0-36.0 g/dL Red Cell Distribution Width 13.6 11.0-15.5 % Platelet Count 106 L 130-400 K/uL Mean Platelet Volume 10.7 H 7.5-10.5 fL Nucleated Red Blood Cells 0.0 0.0-0.19 % Chemistry Labs: Test 04/27/24 05:10 04/26/24 20:27 11/11/24 04:24 Range/Units Sodium Level 137 136-145 mmol/L Potassium Level 4.0 3.5-5.1 mmol/L Chloride Level 100 L 101-111 mmol/L Carbon Dioxide Level 31 21-32 mmol/L Blood Urea Nitrogen 16 7-18 mg/dL Creatinine 1.2 0.5-1.3 mg/dL Glomerular Filtration Rate Calc 68 >90 mL/min Random Glucose 142 H 70-105 mg/dL Total Calcium 8.3 L 8.5-10.1 mg/dL Whole Blood Glucose 130 H 70-110 MG/DL Magnesium Level 2.20 1.80-2.40 mg/dL Coagulation Labs: Test 04/26/24 04:24 Range/Units Prothrombin Time 10.8 9.6-11.6 SEC Prothromb Time International Ratio 1.00 0.85-1.15 Activated Partial Thromboplast Time 36.5 H 26.3-35.5 SEC Fibrinogen 668 *H 180-350 mg/dL DIAGNOSTICS / RADIOLOGY RESULTS: [ ] PLAN Post CABG care Wound care Incentive spirometry Ambulation PT/OT Educated patient to stop cocaine and marijuana use. Informed him the next time that he does cocaine he may likely . Patient verbalized understanding. Continue AED Anti arrhythmia PCCU downgrade NEURO: Minimize central acting medications as possible. Fall Precautions. Well lighted room through the day and minimize interruptions through the night to prevent acute delirium. PULMONARY: Supplemental 02 as needed Titrate Fio2 to keep Spo2 > or = 90% DuoNebs and CPT as needed IS hourly while awake for pulmonary hygiene Out of bed to chair as tolerated CARDIOVASCULAR: Follow hemodynamics. Titrate vasopressor to keep MAP >65 or systolic blood pressure >95mmHg Drips: Epinephrine drip off 04/26 LINES: PIV Arterial line dc 04/27 Chest tube dc 04/27 Left subclavian Cordis dc 04/27 Felix catheter dc04/27 GI & NUTRITION: Continue nutritional support Aspirations precautions Prokinetic agents and laxatives as needed KIDNEYS & ELECTROLYTES: Strict monitoring of intake and output Daily weights Avoid nephrotoxic agents Monitor electrolytes and replace as needed Goal urine output of 30mL/hr or 0.5mL/kg/hr ENDOCRINE: Maintain blood glucose between 100-180 at all times. Insulin sliding scale for blood glucose management INFECTIOUS DISEASE: Trend temperature. Chong-culture if febrile. Micro: [ ] Antibiotics: None HEMATOLOGY & COAGULATION: Monitor H&H. Keep Hgb > 7 Transfuse 1 unit of PRBC for Hgb < 7 Transfuse 1 pack of platelets of platelets < 20, 000 Watch for any signs and symptoms of bleeding SKIN: Pressure ulcer prevention per facility protocol Rehab: PT/OT Prophylaxis: GI: Pepcid DVT: Patient is already on a heparin drip Code Status: Full Resuscitation Disposition: ICU - downgrade to PCU Other: Total patient care time exceeds 45 minutes excluding all procedures. Case was discussed and seen with my supervising physician. The above plan was formulated and agreed upon. MARCOS [facility] Apr 27, 2024 09:21
--- NOTE | 2024-04-27 10:10 | HMCIMG ---
CHEST 1VW REASON: s/p CABG COMPARISON: 04/26/2024 FINDINGS: There is mild atelectasis medial left lung base. Lungs are otherwise clear. Heart size is normal. There is no vascular congestion. Remaining tubes and lines are unchanged. IMPRESSION: 1. Atelectasis medial left lung base, otherwise unremarkable postop chest.
[2024-04-27] MEDS: APIXaban 5 MG TABLET PO SCH (10:12)
--- NOTE | 2024-04-27 13:08 | PN ---
[facility] PROGRESS NOTE Date of Service: Apr 27, 2024 Time of Service: 13:01 SUBJECTIVE: 63-year-old male who presented to the emergency department with chest pain, he is known with positive UDS with marijuana and cocaine. He presented with non- STEMI with elevated troponin. He was evaluated by the rf design engineer who recommended cardiac catheterization. Status post left heart catheterization noted mid distal LM 90% lesion in, proximal circumflex with 60-60% disease, patient had an insertion of IABP. Cardiovascular surgeon consulted. We will continue to follow. 04/26 - Pt seen at bedside, he converted to afib with RVR overnight and was started on amiodarone drip. He continued to be in rvr into the am and cardiology started cardizem drip, will defer further adjustements to cardiology. He remains on balloon pump, and low dose levophed. CT surgery to manage. Hgb improved from 9.2 up to 10.3, platelets mildly decreased at 95, similar to yesterday, remainder of labs relatively unremarkable. 04/27 - Pt seen at bedside, no acute events overnight. He is s/p CABG post op day 2. Digoxin was added on yesterday in addition to amiodarone and cardizem. Pt was rate controlled this am and diltiazem and digoxin were discontinued. He was transitioned to PO amiodarone. Chest tube and galicia will be removed today and patient will be weaned off pressors. PT consulted to start working with patient. Continue aggressive spirometry. WBC improved from 12.4 down to 10.9, Hgb decreased from 10.3 down to 9.7, remainder of hs labs are relatively unremarkable REVIEW OF SYSTEMS 12 point ROS negative unless noted in HPI PHYSICAL EXAM GENERAL APPEARANCE: The patient is awake, alert, and oriented, in no acute cardiopulmonary distress. NEUROLOGICAL: Cranial nerves II-XII grossly intact. Motor is 5/5 in bilateral upper and lower extremities proximal to distal. No sensory deficits. HEENT: Face is symmetric. Pupils are equal and reactive. Extraocular movements are intact. NECK: Supple. No JVD. No thyromegaly. No submental, submandibular, pre- /postauricular, occipital or supraclavicular lymphadenopathy. CHEST: Normal chest expansion. No Telemetry. LUNGS: Absence of any rales, rhonchi or any wheezing. CARDIOVASCULAR: Regular. S1 and S2 normal. No appreciable rubs, murmurs or gallops. ABDOMEN: Soft, nontender, and nondistended. There is no rebound, voluntary guarding, or rigidity. : Deferred. No Galicia. EXTREMITIES: Non-edematous and not cyanotic. No clubbing. Good capillary refill. SKIN: No skin breakdown. Vital Signs (last 8hr) Date Time Temp Pulse Resp B/P (MAP) Pulse Ox O2 Delivery O2 Flow Rate FiO2 04/27/24 08:59 84 04/27/24 06:15 84 16 86/78 (81) 94 04/27/24 06:03 84 16 83/74 (77) 93 141/75 (97) 04/27/24 06:00 86 18 119/70 (86) 93 04/27/24 05:49 86 33 88/77 (81) 94 146/74 (98) 04/27/24 05:45 81 13 91/83 (86) 94 04/27/24 05:33 84 12 130/83 (99) 93 144/81 (102) 04/27/24 05:30 82 15 89/74 (79) 94 04/27/24 05:18 77 19 149/69 (95) 92 142/70 (94) 04/27/24 05:15 77 20 155/71 (99) 93 04/27/24 05:04 95 21 156/82 (106) 95 171/98 (122) LABS: Laboratory: Test 04/27/24 11:48 04/27/24 05:10 04/26/24 04:24 Range/Units Whole Blood Glucose 154 H 70-110 MG/DL White Blood Count 10.9 H 4.8-10.8 K/uL Red Blood Count 3.28 L 4.50-6.20 MIL/uL Hemoglobin 9.7 L 14.0-18.0 g/dL Hematocrit 29.8 L 42-54 % Mean Corpuscular Volume 90.9 79-99 fL Mean Corpuscular Hemoglobin 29.6 27.0-33.0 pg Mean Corpuscular Hemoglobin Concent 32.6 32.0-36.0 g/dL Red Cell Distribution Width 13.6 11.0-15.5 % Platelet Count 106 L 130-400 K/uL Mean Platelet Volume 10.7 H 7.5-10.5 fL Nucleated Red Blood Cells 0.0 0.0-0.19 % Sodium Level 137 136-145 mmol/L Potassium Level 4.0 3.5-5.1 mmol/L Chloride Level 100 L 101-111 mmol/L Carbon Dioxide Level 31 21-32 mmol/L Blood Urea Nitrogen 16 7-18 mg/dL Creatinine 1.2 0.5-1.3 mg/dL Glomerular Filtration Rate Calc 68 >90 mL/min Random Glucose 142 H 70-105 mg/dL Total Calcium 8.3 L 8.5-10.1 mg/dL Magnesium Level 1.80 1.80-2.40 mg/dL Prothrombin Time 10.8 9.6-11.6 SEC Prothromb Time International Ratio 1.00 0.85-1.15 Activated Partial Thromboplast Time 36.5 H 26.3-35.5 SEC Fibrinogen 668 *H 180-350 mg/dL Current Medications Medications (Trade) Dose Ordered Sig/Aaron Route PRN Reason Start Time Stop Time Status Last Admin Dose Admin Acetaminophen (TYLenol 325MG TAB) 650 mg Q4H PRN PO Temp >38.3C(AFTER EXTUBATION) 04/25/24 18:00 05/25/24 17:59 Acetaminophen (TYLenol 325MG TAB) 650 mg Q4H PRN PO TEMPERATURE GREATER THAN 101.5 04/22/24 15:30 04/24/24 14:51 DC Acetaminophen (TYLenol 325MG TAB) 650 mg Q4H PRN PO Temp >38.3C(AFTER EXTUBATION) 04/24/24 15:00 04/24/24 15:56 DC Acetaminophen (TYLenol 325MG TAB) 650 mg Q6H PRN PO MILD PAIN (1-3) 04/25/24 18:00 05/25/24 17:59 04/27/24 09:35 650 MG Acetaminophen (TYLenol 325MG TAB) 650 mg Q6H PRN PO MILD PAIN (1-3) 04/22/24 15:30 04/24/24 14:51 DC 04/22/24 20:22 650 MG Acetaminophen (TYLenol 325MG TAB) 650 mg Q6H PRN PO MILD PAIN (1-3) 04/24/24 15:00 04/24/24 15:55 DC Acetaminophen (TYLenol 650MG SUPPOSITORY) 650 mg Q4H PRN RC Temp >38.3C WHILE INTUBATED 04/25/24 18:00 05/25/24 17:59 Acetaminophen (TYLenol 650MG SUPPOSITORY) 650 mg Q4H PRN RC Temp >38.3C WHILE INTUBATED 04/24/24 15:00 04/24/24 15:57 DC Acetaminophen (acetaMINOPHEN) 1,000 mg Q6H6 IV 04/24/24 18:00 04/25/24 17:59 DC 04/25/24 17:42 1,000 MG Albumin Human 250 ml @ 0 mls/hr AD PRN IV IF HEMODYNAMICALLY UNSTABLE 04/24/24 15:00 04/24/24 18:56 DC 04/24/24 18:56 250 MLS/HR Aminocaproic Acid 23628 mg/Sodium Chloride 310 ml @ 25 mls/hr AD IV 04/24/24 15:00 04/25/24 03:23 DC Aminocaproic Acid 43882 mg/Sodium Chloride 480 ml @ 0 mls/hr AD PRN IV BLEEDING CONTROL 04/24/24 11:00 04/24/24 15:05 DC Amiodarone HCl (pacERONE 200MG) 200 mg BID PO 04/27/24 09:00 05/27/24 08:59 04/27/24 08:57 200 MG Amiodarone HCl 150 mg/Dextrose 100 ml @ 400 mls/hr PROTOCOL IV 04/26/24 05:30 04/26/24 07:16 DC 04/26/24 05:47 400 MLS/HR Amiodarone HCl 360 mg/Dextrose 200 ml @ 33.333 mls/ hr PROTOCOL IV 04/26/24 05:45 05/26/24 05:44 04/26/24 05:48 33.333 MLS/HR Amiodarone HCl 540 mg/Dextrose 300 ml @ 16.667 mls/ hr PROTOCOL IV 04/26/24 11:45 05/26/24 11:44 04/27/24 05:26 16.667 MLS/HR Amiodarone HCl 540 mg/Dextrose 300 ml @ 0 mls/hr PROTOCOL IV 04/26/24 05:30 04/26/24 05:29 DC Apixaban (EliquIS) 5 mg BID PO 04/27/24 09:00 05/27/24 08:59 04/27/24 10:12 5 MG Aspirin (Aspirin 81mg Ec Tab) 81 mg DAILY PO 04/26/24 09:00 05/26/24 08:59 04/27/24 08:58 81 MG Aspirin (Aspirin 81mg Ec Tab) 81 mg DAILY PO 04/22/24 09:00 04/26/24 08:22 DC 04/25/24 08:16 81 MG Atorvastatin Calcium (LIPItor 40MG) 40 mg HS PO 04/22/24 21:00 05/22/24 20:59 04/26/24 20:58 40 MG Calcium Gluconate 1 gm/Sodium Chloride 60 ml @ 200 mls/hr AD PRN IV HYPOCALCEMIA 04/24/24 15:00 05/24/24 14:59 04/25/24 04:58 200 MLS/HR Cefazolin Sodium (Ancef) 2 gm ONCALL IVP 04/23/24 21:30 04/25/24 21:29 DC 04/23/24 21:38 2 GM Cefazolin Sodium (Ancef) 2 gm Q8H IVPB 04/24/24 20:00 04/25/24 12:01 DC 04/25/24 11:30 2 GM Dexmedetomidine/ Sodium Chloride (PRECEdex 400MCG/ 100ML-NS) 400 mcg PROTOCOL IV 04/24/24 15:00 04/25/24 14:59 DC 04/24/24 19:02 400 MCG Dexmedetomidine/ Sodium Chloride (PRECEdex 400MCG/ 100ML-NS) 400 mcg PROTOCOL IV 04/24/24 20:00 05/24/24 19:59 Dextrose (D50w) 50 ml AD PRN IV HYPOGLYCEMIA PROTOCOL 04/22/24 00:00 04/24/24 15:13 DC Dextrose (D50w) 50 ml AD PRN IV HYPOGLYCEMIA PROTOCOL 04/22/24 08:00 04/22/24 07:52 DC Dextrose (D50w) 50 ml AD PRN IV HYPOGLYCEMIA PROTOCOL 04/24/24 15:00 05/24/24 14:59 Digoxin (LANOxin 125mcg) 125 mcg DAILY PO 04/27/24 09:00 04/27/24 09:07 DC 04/27/24 08:59 125 MCG Diltiazem HCl 125 ml @ 0 mls/hr AD IV 04/26/24 10:30 05/26/24 10:29 04/26/24 21:40 10 MLS/HR Docusate Sodium (COLace 100MG CAP) 100 mg BID PO 04/24/24 21:00 05/24/24 20:59 04/27/24 08:59 100 MG Epinephrine HCl 10 mg/Sodium Chloride 250 ml @ 11.533 mls/ hr AD PRN IV POST-OP CARDIOVASCULAR ORDERS 04/24/24 15:00 04/29/24 14:59 Epinephrine HCl 10 mg/Sodium Chloride 250 ml @ 0 mls/hr AD PRN IV TITRATE 04/24/24 11:00 04/24/24 15:17 DC Famotidine (Pepcid 20mg Vial) 20 mg BID IV 04/22/24 09:00 04/24/24 14:51 DC 04/24/24 08:21 20 MG Famotidine (Pepcid 20mg Vial) 20 mg BID IV 04/24/24 21:00 05/24/24 20:59 04/27/24 08:59 20 MG Furosemide (LASix 20MG TAB) 20 mg Q12H PO 04/26/24 09:00 05/26/24 08:59 04/27/24 08:59 20 MG Furosemide (LASix 20MG VIAL) 20 mg Q12H IV 04/25/24 09:00 04/26/24 08:59 DC 04/25/24 21:12 20 MG Glucagon (Glucagon 1mg Kit) 1 mg AD PRN IM HYPOGLYCEMIA PROTOCOL 04/22/24 00:00 04/24/24 15:15 DC Glucagon (Glucagon 1mg Kit) 1 mg AD PRN IM HYPOGLYCEMIA PROTOCOL 04/22/24 08:00 04/22/24 07:52 DC Glucagon (Glucagon 1mg Kit) 1 mg AD PRN IM HYPOGLYCEMIA PROTOCOL 04/24/24 15:00 05/24/24 14:59 Guaifenesin (MUCinex 600 MG TABLET.ER) 600 mg BID PO 04/26/24 21:00 05/26/24 20:59 04/27/24 08:57 600 MG Heparin Sodium (Porcine) (HEParin 5,000 UNIT VIAL) *calculation based on ACTUAL B... AD PRN IV HEPARIN PROTOCOL 04/22/24 02:30 04/24/24 14:51 DC 04/22/24 02:08 5,000 UNIT Heparin Sodium/ Dextrose 250 ml @ 0 mls/hr Q6H IV 04/22/24 02:30 04/24/24 14:51 DC 04/23/24 18:56 10.8 MLS/HR Hydralazine HCl (APRESOLine 20MG INJ) 10 mg Q6H PRN IV For:SBP above 160;DBP above 90 04/21/24 23:30 04/24/24 14:51 DC 04/24/24 13:43 10 MG Insulin Human Regular (humuLIN R 100 UNIT/ML 3ML) INSULIN SLIDING SCAL... ACHS SQ 04/26/24 07:30 05/26/24 07:29 Insulin Human Regular (humuLIN R 100 UNIT/ML 3ML) INSULIN SLIDING SCAL... ACHS SQ 04/22/24 07:30 04/24/24 14:51 DC Insulin Human Regular (humuLIN R 100 UNIT/ML 3ML) INSULIN SLIDING SCAL... ACHS SQ 04/22/24 11:30 04/22/24 07:51 DC Insulin Human Regular 100 unit/ Sodium Chloride 100 ml @ 0 mls/hr AD IV 04/24/24 15:00 04/26/24 14:59 DC 04/24/24 17:21 1.5 MLS/HR Ipratropium [place] (AtrovENT UD) 0.5 MG Q4H PRN IH SHORTNESS OF BREATH 04/24/24 14:30 05/24/24 14:29 Lactulose (Constulose 20gm/ 30ml Udcup) 20 gm BID PRN PO CONSTIPATION 04/24/24 15:00 05/24/24 14:59 04/26/24 17:27 20 GM Levetiracetam (kepPRA 500 MG/5 ML SD VIAL) 500 mg ONCE STAT IV 04/22/24 09:47 04/22/24 09:56 DC 04/22/24 10:05 500 MG Levetiracetam 1000 mg/Sodium Chloride 100 ml @ 400 mls/hr BID IV 04/22/24 21:00 05/22/24 20:59 04/27/24 09:01 400 MLS/HR Lidocaine (Lidocaine Patch 4%) 1 each ONCE STAT TP 04/23/24 04:20 04/23/24 04:26 DC 04/23/24 04:30 1 EACH Magnesium Hydroxide (Milk Of Magnesium 30ml) 30 ml DAILY PRN PO CONSTIPATION 04/24/24 15:00 05/24/24 14:59 Magnesium Sulfate 50 ml @ 12.5 mls/hr AD PRN IV MAG LEVEL LESS THAN 2.0 04/24/24 15:00 05/24/24 14:59 04/27/24 10:35 12.5 MLS/HR Magnesium Sulfate 50 ml @ 0 mls/hr PROTOCOL PRN IV OTHER [SEE ORDER COMMENTS] 04/22/24 00:00 04/24/24 14:51 DC Magnesium Sulfate 50 ml @ 0 mls/hr PROTOCOL PRN IV MAGNESIUM PROTOCOL 04/22/24 08:00 04/22/24 07:52 DC Metoprolol Tartrate (loprESSOR) 25 mg BID PO 04/27/24 09:00 05/27/24 08:59 04/27/24 08:58 25 MG Morphine Sulfate (morPHINE 2MG SYG) 0.5 mg Q2H PRN IV MODERATE PAIN (4-6) 04/24/24 15:00 04/25/24 14:59 DC Morphine Sulfate (morPHINE 2MG SYG) 2 mg Q4H PRN IVP SEVERE PAIN (7-10) 04/22/24 00:00 04/24/24 14:51 DC 04/24/24 12:12 2 MG Morphine Sulfate (morPHINE 4MG SYG) 1 mg Q2H PRN IV SEVERE PAIN (7-10) 04/24/24 15:00 04/25/24 14:59 DC 04/24/24 20:15 1 MG Nicardipine HCl 100 mg/Sodium Chloride 100 ml @ 0 mls/hr PROTOCOL IV 04/24/24 18:00 05/24/24 17:59 Nitroglycerin (Nitroglycerin 1gm Oint) 0.5 inch Q8H TD 04/21/24 23:30 04/23/24 09:03 DC 04/23/24 08:25 0.5 INCH Nitroglycerin (Nitrostat) 0.4 mg AD PRN SL CHEST PAIN 04/21/24 21:30 04/24/24 14:51 DC 04/21/24 22:27 0.4 MG Nitroglycerin/ Dextrose 0 ml @ 0 mls/hr AD IV 04/24/24 15:00 04/27/24 14:59 04/24/24 17:30 3 MLS/HR Norepinephrine Bitartrate 250 ml @ 0 mls/hr AD PRN IV TITRATE 04/24/24 11:00 04/24/24 15:13 DC Norepinephrine Bitartrate 8 mg/ Dextrose 250 ml @ 0 mls/hr AD PRN IV POST-OP CARDIOVASCULAR ORDERS 04/24/24 15:00 04/29/24 14:59 Ondansetron HCl (zoFRAN 4MG INJ) 4 mg Q6H PRN IV NAUSEA/VOMITING 04/21/24 23:30 04/24/24 14:51 DC 04/22/24 09:41 4 MG Ondansetron HCl (zoFRAN 4MG INJ) 4 mg Q6H PRN IV NAUSEA/VOMITING 04/24/24 15:00 05/24/24 14:59 Pharmacy Profile Note (Pharmacy Communication) 1 each ONCE MISC 04/26/24 10:30 04/26/24 10:27 DC Pharmacy Profile Note (Pharmacy Communication) PLEASE ENTER HT AND WT Q15M MIS 04/21/24 23:45 04/22/24 00:16 DC Polyethylene Glycol (MIRalax 3350 17 GM POWD.PACK) 17 gm DAILY PO 04/27/24 09:00 05/27/24 08:59 04/27/24 08:59 17 GM Potassium Phosphate 250 ml @ 42 mls/hr AD PRN IV LOW PHOS LEVEL 04/24/24 15:00 05/24/24 14:59 Potassium Chloride 100 ml @ 50 mls/hr AD PRN IV POTASSIUM PROTOCOL 04/22/24 00:00 04/24/24 14:51 DC Potassium Chloride 100 ml @ 100 mls/hr AD PRN IV POTASSIUM PROTOCOL 04/22/24 08:00 04/22/24 07:52 DC Potassium Chloride 100 ml @ 100 mls/hr AD PRN IV HYPOKALEMIA 04/24/24 15:00 05/24/24 14:59 04/25/24 02:26 100 MLS/HR Potassium Chloride (K-Dur/Klor-Con 20meq) 20 meq AD PRN PO POTASSIUM PROTOCOL 04/22/24 08:00 04/24/24 14:51 DC 04/23/24 08:24 20 MEQ Potassium Chloride (KCl 10% Elixir 20meq/15ml) 20 meq AD PRN PO POTASSIUM PROTOCOL 04/22/24 08:00 04/24/24 14:51 DC Propofol 100 ml @ 0 mls/hr AD PRN IV SEDATION 04/24/24 15:00 04/28/24 14:59 Sodium Bicarbonate (Sodium Bicarb 50meq 50ml Vial) 50 meq AD PRN IV OTHER[SEE DOSING INSTRUCTIONS] 04/24/24 15:00 04/27/24 14:59 04/24/24 22:30 150 MEQ Sodium Chloride 500 ml @ 0 mls/hr AD IV 04/24/24 15:00 05/24/24 14:59 Sodium Chloride 1,000 ml @ 10 mls/hr ONCE IV 04/24/24 15:00 04/25/24 14:59 DC 04/24/24 17:18 10 MLS/HR Sodium Chloride 1,000 ml @ 75 mls/hr [id number] IV 04/22/24 00:00 04/23/24 23:59 DC 04/23/24 17:50 75 MLS/HR Sodium Chloride (NS Flush 10ml) 10 ml Q8H PRN IVP IV LINE FLUSH 04/24/24 15:00 05/24/24 14:59 Tramadol HCl (UltRAM) 25 mg Q6H PRN PO MODERATE PAIN (4-6) 04/24/24 15:00 04/29/24 14:59 04/26/24 02:16 50 MG Tramadol HCl (UltRAM) 50 mg Q6H PRN PO SEVERE PAIN (7-10) 04/24/24 15:00 04/29/24 14:59 04/26/24 08:03 50 MG DIAGNOSTICS / RADIOLOGY: [ ] ASSESSMENT: CAD s/p CABG (04/25/24) POA New onset afib with RVR, rate controlled POA Mid distal LM 90% lesion by left heart catheterization, POA Prox CX with 60-60% disease, by by left heart catheterization, POA Polysubstance abuse POA Active smoker, POA Normocytic normochromic anemia POA Diabetes POA Hyperlipidemia POA Hypertension POA Seizure disorder POA Parkinson's disease POA History of multiple CVA POA PLAN: Patient will remain in ICU We will follow recommendations from rf design engineer, due to results of left heart catheterization, s/p Off-pump CABG x 2, NOLAN to LAD, reverse saphenous vein graft to first diagonal 04/25/24 Discontinue with heparin drip Start apixaban 5mg BID Continue metoprolol 25mg BID Continue aspirin 81mg q24h Continue lasix 20mg PO BID Discontinue IV amiodarone, start PO amiodarone 200mg BID Continue levophed, wean as able Discontinue chest tube and galicia Discontinue cardizem drip Counseled on polysubstance abuse GI and DVT prophylaxis PT to work with patient Disposition: Pending PT eval, cardiology and CV surgery recommmendations Critical care time: Spent 35 minutes of critical care time with the patient. Reviewed the lab work, reconciled and updated patient's medications, and coordinated plan of care in ICU. CORNELL RIDDLE MD Apr 27, 2024 13:08
--- NOTE | 2024-04-27 16:07 | PN ---
CARDIOLOGY Reason for consult: Chest pain HPI/story at presentation: This is a pleasant 61-year-old past medical history as per present with complaints of chest discomfort. Known history of cocaine/marijuana use at baseline and has been having issues with retrosternal chest pain at presentation. EKG without significant ischemic changes but patient did have elevated troponins greater than 600. Cardiology was consulted for further evaluation management Subjective: 04/22/2024 Chest pain 04/24/2024 plan for surgery today, anxious 04/25/2024 extubated 04/26/2024 No complaints 04/27/2024 no complaints Past medical history: See below Allergies, Meds See chart Review of systems Review of Systems Constitutional: Negative for chills and fever. HENT: Negative for ear discharge and ear pain. Eyes: Negative for photophobia and discharge. Respiratory: Negative for cough, sputum production and stridor. Cardiovascular: Negative for chest pain and palpitations. Gastrointestinal: Negative for diarrhea and vomiting. Genitourinary: Negative for frequency. Musculoskeletal: Negative for myalgias. Skin: Negative for rash. Neurological: Negative for focal weakness and seizures. Endo/Heme/Allergies: Negative for polydipsia. Psychiatric/Behavioral: Negative for hallucinations. Vitals see chart PHYSICAL EXAMINATION GENERAL: The patient is alert HEENT: Nonicteric sclerae, non traumatic HEART: IRREGUALR 04/26/2024 LUNGS: Clear to auscultation bilaterally ABDOMEN: No acute issues, non tender GENITAL, RECTAL: deferred SKIN: No rash NEUROLOGIC: NFND EXTREMITIES: No edema ASSESSMENT CHEST PAIN, NSTEMI, S/P BYPASS NOLAN to LAD, SVG to Diag,m CX was not bypassed :HC with severe disease of LM, s/p IABP History of EKG without ischemic changes trop > 600 04/2024 UDS positive for cocaine and marijuana CVA History of, 2019 HYPERTENSION, HYPERLIPIDEMIA TOBACCO USE OTHER MEDICAL PROBLEMS arthritis seizures PLAN 04/22/2024 patient with non-STEMI, no significant ischemic changes on EKG. Can start heparin, will consider cardiac catheterization tomorrow to further evaluate coronaries. UDS positive for cocaine and marijuana, will need to address compliance with medical therapy prior to any intervention. No history of significant peripheral vascular disease with history of strokes in the past. 04/23/2024 Remains on balloon pump, having issues with back pain in the setting of arthritis but otherwise, stable hemodynamic and electrical status. Remains on heparin drip and tolerating well. Timing of surgery per CVT. On metoprolol statin and aspirin, continue. Echocardiogram showed normal ejection fraction as well. 04/24/2024 reportedly plan for surgery today, remains on IABP 1:1. on good meds, will follow perioperatively, multiple questions answered. 04/25/2024atient status post bypass yesterday, doing well, extubated overnight, currently on a small dose of pressors. The patient received SVG to the diagonal and NOLAN to the LAD, obtuse marginal was not bypassed as it was a small-vessel may consider intervention to the true circumflex if needed as an outpatient. Intra-aortic balloon pump remains in situ. Currently on Lasix we will update medical therapy for CAD once patient is off pressors. 04/26/2024 Patient converted to atrial fibrillation this morning, currently on amiodarone. Currently, balloon pump is set at 1 is to 3 and patient remains hemodynamically stable with. Possibly, balloon pump may get pulled today. Family at bedside, questions answered. Will go ahead and start Cardizem as well to try to help with rate, will start this without a bolus and adjust as needed. Chest tube still considerable, urine output is good. Currently on IV diuresis as well., Agree. Good blood pressure room. Atelectasis on x-ray. EF on echocardiogram was normal prior to bypass. ideally, will need anticoagulation for afib 04/27/2024 Was loaded with digoxin yesterday and has converted to NSR, primary has started him on eliquis as well. Continue amio. Currently off cardizem, feeling much improved.Chest tube is likely being removed today. Appreciate CVT surgery, critical care. ATTESTATION I was involved substantially in the care of this patient Number and complexity of problems addressed: 1 acute illness with systemic features Amount and or complexity of data Review of prior external note(s) from each unique source: 2+ Ordering of each unique test : 1 Review of the result(s) of each unique test: 2+ Assessment requiring an independent historian(s): No Independent interpretation of test performed by another MD/QHCP/appropriate source (not separately reported) : No Discussion of management or test interpretation with external MD/QHCP/appropriate source (not separately reported) : No Risk status (cardiac, billing related): Moderate Vitals/Labs Vital Signs Date Time Temp Pulse Resp B/P (MAP) Pulse Ox O2 Delivery O2 Flow Rate FiO2 04/27/24 08:59 84 04/27/24 08:00 99.5 18 141/69 (93) 94 04/27/24 08:00 Nasal Cannula* 3 32 Laboratory Tests 04/27/24 05:10 Medications Current Medications Nitroglycerin 0.4 mg AD PRN SL Last administered on 04/21/24at 22:27; Start 04/21/24 at 21:30; Stop 04/24/24 at 14:51; Status DC Ondansetron HCl 4 mg Q6H PRN IV Last administered on 04/22/24at 09:41; Start 04/21/24 at 23:30; Stop 04/24/24 at 14:51; Status DC Nitroglycerin 0.5 inch Q8H TD Last administered on 04/23/24at 08:25; Start 04/21/24 at 23:30; Stop 04/23/24 at 09:03; Status DC Hydralazine HCl 10 mg Q6H PRN IV Last administered on 04/24/24at 13:43; Start 04/21/24 at 23:30; Stop 04/24/24 at 14:51; Status DC Famotidine 20 mg BID IV Last administered on 04/24/24at 08:21; Start 04/22/24 at 09:00; Stop 04/24/24 at 14:51; Status DC Pharmacy Profile Note PLEASE ENTER HT AND WT Q15M MISC; Start 04/21/24 at 23:45; Stop 04/22/24 at 00:16; Status DC Insulin Human Regular INSULIN SLIDING SCAL... ACHS SQ; Start 04/22/24 at 07:30; Stop 04/24/24 at 14:51; Status DC Dextrose 50 ml AD PRN IV; Start 04/22/24 at 00:00; Stop 04/24/24 at 15:13; Status DC Glucagon 1 mg AD PRN IM; Start 04/22/24 at 00:00; Stop 04/24/24 at 15:15; Status DC Potassium Chloride 100 ml @ 50 mls/hr AD PRN IV; Start 04/22/24 at 00:00; Stop 04/24/24 at 14:51; Status DC Magnesium Sulfate 50 ml @ 0 mls/hr PROTOCOL PRN IV; Start 04/22/24 at 00:00; Stop 04/24/24 at 14:51; Status DC Morphine Sulfate 2 mg Q4H PRN IVP Last administered on 04/24/24at 12:12; Start 04/22/24 at 00:00; Stop 04/24/24 at 14:51; Status DC Sodium Chloride 1,000 ml @ 75 mls/hr [id number] IV Last administered on 04/23/24at 17:50; Start 04/22/24 at 00:00; Stop 04/23/24 at 23:59; Status DC Aspirin 81 mg DAILY PO Last administered on 04/25/24at 08:16; Start 04/22/24 at 09:00; Stop 04/26/24 at 08:22; Status DC Atorvastatin Calcium 40 mg HS PO Last administered on 04/26/24at 20:58; Start 04/22/24 at 21:00; Stop 05/22/24 at 20:59 Heparin Sodium (Porcine) *calculation based on ACTUAL B... AD PRN IV Last administered on 04/22/24at 02:08; Start 04/22/24 at 02:30; Stop 04/24/24 at 14:51; Status DC Heparin Sodium/ Dextrose 250 ml @ 0 mls/hr Q6H IV Last administered on 04/23/24at 18:56; Start 04/22/24 at 02:30; Stop 04/24/24 at 14:51; Status DC Insulin Human Regular INSULIN SLIDING SCAL... ACHS SQ; Start 04/22/24 at 11:30; Stop 04/22/24 at 07:51; Status DC Dextrose 50 ml AD PRN IV; Start 04/22/24 at 08:00; Stop 04/22/24 at 07:52; Status DC Glucagon 1 mg AD PRN IM; Start 04/22/24 at 08:00; Stop 04/22/24 at 07:52; Status DC Magnesium Sulfate 50 ml @ 0 mls/hr PROTOCOL PRN IV; Start 04/22/24 at 08:00; Stop 04/22/24 at 07:52; Status DC Potassium Chloride 100 ml @ 100 mls/hr AD PRN IV; Start 04/22/24 at 08:00; Stop 04/22/24 at 07:52; Status DC Potassium Chloride 20 meq AD PRN PO; Start 04/22/24 at 08:00; Stop 04/24/24 at 14:51; Status DC Potassium Chloride 20 meq AD PRN PO Last administered on 04/23/24at 08:24; Start 04/22/24 at 08:00; Stop 04/24/24 at 14:51; Status DC Lorazepam 2 mg ONCE ONCE IVP; Start 04/22/24 at 10:00; Stop 04/22/24 at 10:01; Status DC Levetiracetam 500 mg ONCE STAT IV Last administered on 04/22/24at 10:05; Start 04/22/24 at 09:47; Stop 04/22/24 at 09:56; Status DC Levetiracetam 1000 mg/Sodium Chloride 100 ml @ 400 mls/hr BID IV Last administered on 04/27/24at 09:01; Start 04/22/24 at 21:00; Stop 05/22/24 at 20:59 Acetaminophen 650 mg Q6H PRN PO Last administered on 04/22/24at 20:22; Start 04/22/24 at 15:30; Stop 04/24/24 at 14:51; Status DC Acetaminophen 650 mg Q4H PRN PO; Start 04/22/24 at 15:30; Stop 04/24/24 at 14:51; Status DC Lidocaine HCl 20 ml STK-MED ONCE .ROUTE; Start 04/22/24 at 16:21; Stop 04/22/24 at 16:24; Status DC Iohexol 35,000 mg STK-MED ONCE IV; Start 04/22/24 at 16:21; Stop 04/22/24 at 16:24; Status DC Heparin Sodium/ Sodium Chloride 1,000 ml @ As Directed STK-MED ONCE IV; Start 04/22/24 at 16:22; Stop 04/22/24 at 16:24; Status DC Nitroglycerin 50 mg STK-MED ONCE .ROUTE; Start 04/22/24 at 16:22; Stop 04/22/24 at 16:24; Status DC Heparin Sodium (Porcine) 10,000 unit STK-MED ONCE .ROUTE; Start 04/22/24 at 16:36; Stop 04/22/24 at 16:36; Status DC Nicardipine HCl 25 mg STK-MED ONCE IV; Start 04/22/24 at 17:07; Stop 04/22/24 at 17:08; Status DC Fentanyl Citrate 100 mcg STK-MED ONCE .ROUTE; Start 04/22/24 at 17:09; Stop 04/22/24 at 17:09; Status DC Midazolam HCl 2 mg STK-MED ONCE .ROUTE; Start 04/22/24 at 17:09; Stop 04/22/24 at 17:09; Status DC Heparin Sodium/ Dextrose 250 ml @ As Directed STK-MED ONCE IV; Start 04/22/24 at 17:46; Stop 04/22/24 at 17:46; Status DC Lidocaine 1 each ONCE STAT TP Last administered on 04/23/24at 04:30; Start 04/23/24 at 04:20; Stop 04/23/24 at 04:26; Status DC Cefazolin Sodium 2 gm ONCALL IVP Last administered on 04/23/24at 21:38; Start 04/23/24 at 21:30; Stop 04/25/24 at 21:29; Status DC Metoprolol Tartrate 12.5 mg ONCE ONCE PO Last administered on 04/24/24at 08:21; Start 04/24/24 at 09:00; Stop 04/24/24 at 09:01; Status DC Epinephrine HCl 10 mg/Sodium Chloride 250 ml @ 0 mls/hr AD PRN IV; Start 04/24/24 at 11:00; Stop 04/24/24 at 15:17; Status DC Norepinephrine Bitartrate 250 ml @ 0 mls/hr AD PRN IV; Start 04/24/24 at 11:00; Stop 04/24/24 at 15:13; Status DC Aminocaproic Acid 16592 mg/Sodium Chloride 480 ml @ 0 mls/hr AD PRN IV; Start 04/24/24 at 11:00; Stop 04/24/24 at 15:05; Status DC Nitroglycerin/ Dextrose 1 ml @ As Directed STK-MED ONCE .ROUTE; Start 04/24/24 at 11:17; Stop 04/24/24 at 11:17; Status DC Cefazolin Sodium 1 gm STK-MED ONCE .ROUTE; Start 04/24/24 at 11:44; Stop 04/24/24 at 11:44; Status DC Heparin Sodium/ Sodium Chloride 500 ml @ As Directed STK-MED ONCE IV Last administered on 04/24/24at 11:57; Start 04/24/24 at 11:44; Stop 04/24/24 at 11:45; Status DC Papaverine HCl 60 mg STK-MED ONCE .ROUTE; Start 04/24/24 at 11:45; Stop 04/24/24 at 11:45; Status DC Cefazolin Sodium 2 gm STK-MED ONCE IVPB; Start 04/24/24 at 00:00; Stop 04/24/24 at 00:01; Status Cancel Papaverine HCl 60 mg STK-MED ONCE IRRIG; Start 04/24/24 at 00:00; Stop 04/24/24 at 00:01; Status Cancel Cefazolin Sodium 1 gm STK-MED ONCE .ROUTE; Start 04/24/24 at 11:55; Stop 04/24/24 at 11:55; Status DC Cefazolin Sodium 1 gm STK-MED ONCE IRRIG; Start 04/24/24 at 00:00; Stop 04/24/24 at 00:01; Status Cancel Ipratropium [place] 0.5 mg STK-MED ONCE IH Last administered on 04/24/24at 13:50; Start 04/24/24 at 13:44; Stop 04/24/24 at 13:44; Status DC Midazolam HCl 2 mg STK-MED ONCE .ROUTE; Start 04/24/24 at 14:12; Stop 04/24/24 at 14:12; Status DC Protamine Sulfate 250 mg STK-MED ONCE IV; Start 04/24/24 at 14:23; Stop 04/24/24 at 14:23; Status DC Lidocaine HCl 100 mg STK-MED ONCE .ROUTE; Start 04/24/24 at 14:23; Stop 04/24/24 at 14:23; Status DC Heparin Sodium (Porcine) 10,000 unit STK-MED ONCE .ROUTE; Start 04/24/24 at 14:23; Stop 04/24/24 at 14:23; Status DC Epinephrine HCl 1 mg STK-MED ONCE .ROUTE; Start 04/24/24 at 14:23; Stop 04/24/24 at 14:23; Status DC Sodium Bicarbonate 200 ml @ As Directed STK-MED ONCE .ROUTE; Start 04/24/24 at 14:23; Stop 04/24/24 at 14:23; Status DC Norepinephrine Bitartrate 4 mg STK-MED ONCE IV; Start 04/24/24 at 14:23; Stop 04/24/24 at 14:24; Status DC Propofol 200 mg STK-MED ONCE IV; Start 04/24/24 at 14:24; Stop 04/24/24 at 14:24; Status DC Fentanyl Citrate 1,000 mcg STK-MED ONCE IJ; Start 04/24/24 at 14:24; Stop 04/24/24 at 14:24; Status DC Glycopyrrolate 1 mg STK-MED ONCE .ROUTE; Start 04/24/24 at 14:24; Stop 04/24/24 at 14:24; Status DC Rocuronium [place] 50 mg STK-MED ONCE .ROUTE; Start 04/24/24 at 14:24; Stop 04/24/24 at 14:25; Status DC Ketamine HCl 50 mg STK-MED ONCE .ROUTE; Start 04/24/24 at 14:25; Stop 04/24/24 at 14:25; Status DC Ipratropium [place] 0.5 MG Q4H PRN IH; Start 04/24/24 at 14:30; Stop 05/24/24 at 14:29 Acetaminophen 1,000 mg Q6H6 IV Last administered on 04/25/24at 17:42; Start 04/24/24 at 18:00; Stop 04/25/24 at 17:59; Status DC Aspirin 81 mg ONCE ONCE NG Last administered on 04/24/24at 19:58; Start 04/24/24 at 18:00; Stop 04/24/24 at 18:01; Status DC Docusate Sodium 100 mg BID PO Last administered on 04/27/24at 08:59; Start 04/24/24 at 21:00; Stop 05/24/24 at 20:59 Lactulose 20 gm BID PRN PO Last administered on 04/26/24at 17:27; Start 04/24/24 at 15:00; Stop 05/24/24 at 14:59 Furosemide 20 mg Q12H PO Last administered on 04/27/24at 08:59; Start 04/26/24 at 09:00; Stop 05/26/24 at 08:59 Furosemide 20 mg Q12H IV Last administered on 04/25/24at 21:12; Start 04/25/24 at 09:00; Stop 04/26/24 at 08:59; Status DC Magnesium Hydroxide 30 ml DAILY PRN PO; Start 04/24/24 at 15:00; Stop 05/24/24 at 14:59 Dexmedetomidine/ Sodium Chloride 400 mcg PROTOCOL IV Last administered on 04/24/24at 19:02; Start 04/24/24 at 15:00; Stop 04/25/24 at 14:59; Status DC Acetaminophen 650 mg Q6H PRN PO; Start 04/24/24 at 15:00; Stop 04/24/24 at 15:55; Status DC Sodium Chloride 1,000 ml @ 10 mls/hr ONCE IV Last administered on 04/24/24at 17:18; Start 04/24/24 at 15:00; Stop 04/25/24 at 14:59; Status DC Sodium Chloride 10 ml Q8H PRN IVP; Start 04/24/24 at 15:00; Stop 05/24/24 at 14:59 Morphine Sulfate 0.5 mg Q2H PRN IV; Start 04/24/24 at 15:00; Stop 04/25/24 at 14:59; Status DC Morphine Sulfate 1 mg Q2H PRN IV Last administered on 04/24/24at 20:15; Start 04/24/24 at 15:00; Stop 04/25/24 at 14:59; Status DC Acetaminophen 650 mg Q4H PRN RC; Start 04/24/24 at 15:00; Stop 04/24/24 at 15:57; Status DC Ondansetron HCl 4 mg Q6H PRN IV; Start 04/24/24 at 15:00; Stop 05/24/24 at 14:59 Sodium Chloride 500 ml @ 0 mls/hr AD IV; Start 04/24/24 at 15:00; Stop 05/24/24 at 14:59 Nitroglycerin/ Dextrose 0 ml @ 0 mls/hr AD IV Last administered on 04/24/24at 17:30; Start 04/24/24 at 15:00; Stop 04/27/24 at 14:59; Status DC Propofol 100 ml @ 0 mls/hr AD PRN IV; Start 04/24/24 at 15:00; Stop 04/28/24 at 14:59 Norepinephrine Bitartrate 8 mg/ Dextrose 250 ml @ 0 mls/hr AD PRN IV; Start 04/24/24 at 15:00; Stop 04/29/24 at 14:59 Epinephrine HCl 10 mg/Sodium Chloride 250 ml @ 11.533 mls/ hr AD PRN IV; Start 04/24/24 at 15:00; Stop 04/29/24 at 14:59 Aminocaproic Acid 21355 mg/Sodium Chloride 310 ml @ 25 mls/hr AD IV; Start 04/24/24 at 15:00; Stop 04/25/24 at 03:23; Status DC Calcium Gluconate 1 gm/Sodium Chloride 60 ml @ 200 mls/hr AD PRN IV Last administered on 04/25/24at 04:58; Start 04/24/24 at 15:00; Stop 05/24/24 at 14:59 Magnesium Sulfate 50 ml @ 12.5 mls/hr AD PRN IV Last administered on 04/27/24at 10:35; Start 04/24/24 at 15:00; Stop 05/24/24 at 14:59 Potassium Chloride 100 ml @ 100 mls/hr AD PRN IV Last administered on 04/25/24at 02:26; Start 04/24/24 at 15:00; Stop 05/24/24 at 14:59 Potassium Phosphate 250 ml @ 42 mls/hr AD PRN IV; Start 04/24/24 at 15:00; Stop 05/24/24 at 14:59 Albumin Human 250 ml @ 0 mls/hr AD PRN IV Last administered on 04/24/24at 18:56; Start 04/24/24 at 15:00; Stop 04/24/24 at 18:56; Status DC Acetaminophen 650 mg Q4H PRN PO; Start 04/24/24 at 15:00; Stop 04/24/24 at 15:56; Status DC Insulin Human Regular 100 unit/ Sodium Chloride 100 ml @ 0 mls/hr AD IV Last administered on 04/24/24at 17:21; Start 04/24/24 at 15:00; Stop 04/26/24 at 14:59; Status DC Cefazolin Sodium 2 gm Q8H IVPB Last administered on 04/25/24at 11:30; Start 04/24/24 at 20:00; Stop 04/25/24 at 12:01; Status DC Tramadol HCl 25 mg Q6H PRN PO Last administered on 04/26/24at 02:16; Start 04/24/24 at 15:00; Stop 04/29/24 at 14:59 Tramadol HCl 50 mg Q6H PRN PO Last administered on 04/26/24at 08:03; Start 04/24/24 at 15:00; Stop 04/29/24 at 14:59 Famotidine 20 mg BID IV Last administered on 04/27/24at 08:59; Start 04/24/24 at 21:00; Stop 05/24/24 at 20:59 Sodium Bicarbonate 50 meq AD PRN IV Last administered on 04/24/24at 22:30; Start 04/24/24 at 15:00; Stop 04/27/24 at 14:59; Status DC Dextrose 50 ml AD PRN IV; Start 04/24/24 at 15:00; Stop 05/24/24 at 14:59 Glucagon 1 mg AD PRN IM; Start 04/24/24 at 15:00; Stop 05/24/24 at 14:59 Vasopressin 20 units STK-MED ONCE .ROUTE; Start 04/24/24 at 15:10; Stop 04/24/24 at 15:10; Status DC Heparin Sodium (Porcine) 10,000 unit STK-MED ONCE .ROUTE; Start 04/24/24 at 15:19; Stop 04/24/24 at 15:19; Status DC Potassium Chloride 100 ml @ As Directed STK-MED ONCE IV; Start 04/24/24 at 15:31; Stop 04/24/24 at 15:32; Status DC Cefazolin Sodium 2 gm STK-MED ONCE IVPB Last administered on 04/24/24at 14:45; Start 04/24/24 at 14:45; Stop 04/24/24 at 15:45; Status DC Papaverine HCl 60 mg STK-MED ONCE IRRIG Last administered on 04/24/24at 15:05; Start 04/24/24 at 15:05; Stop 04/24/24 at 15:45; Status DC Cefazolin Sodium 1 gm STK-MED ONCE IRRIG Last administered on 04/24/24at 15:05; Start 04/24/24 at 15:05; Stop 04/24/24 at 15:45; Status DC Acetaminophen 650 mg Q6H PRN PO Last administered on 04/27/24at 09:35; Start 04/25/24 at 18:00; Stop 05/25/24 at 17:59 Acetaminophen 650 mg Q4H PRN PO; Start 04/25/24 at 18:00; Stop 05/25/24 at 17:59 Acetaminophen 650 mg Q4H PRN RC; Start 04/25/24 at 18:00; Stop 05/25/24 at 17:59 Ketamine HCl 50 mg STK-MED ONCE .ROUTE; Start 04/24/24 at 16:11; Stop 04/24/24 at 16:11; Status DC Nicardipine HCl 100 mg/Sodium Chloride 100 ml @ 0 mls/hr PROTOCOL IV; Start 04/24/24 at 18:00; Stop 05/24/24 at 17:59 Dexmedetomidine/ Sodium Chloride 400 mcg PROTOCOL IV; Start 04/24/24 at 20:00; Stop 05/24/24 at 19:59 Sodium Bicarbonate 150 ml @ As Directed STK-MED ONCE .ROUTE; Start 04/24/24 at 22:15; Stop 04/24/24 at 22:15; Status DC Calcium Gluconate 1 gm STK-MED ONCE .ROUTE; Start 04/25/24 at 04:56; Stop 04/25/24 at 04:57; Status DC Amiodarone HCl 150 mg/Dextrose 100 ml @ 400 mls/hr PROTOCOL IV Last administered on 04/26/24at 05:47; Start 04/26/24 at 05:30; Stop 04/26/24 at 07:16; Status DC Amiodarone HCl 540 mg/Dextrose 300 ml @ 0 mls/hr PROTOCOL IV; Start 04/26/24 at 05:30; Stop 04/26/24 at 05:29; Status DC Amiodarone HCl 360 mg/Dextrose 200 ml @ 33.333 mls/ hr PROTOCOL IV Last administered on 04/26/24at 05:48; Start 04/26/24 at 05:45; Stop 05/26/24 at 05:44 Amiodarone HCl 540 mg/Dextrose 300 ml @ 16.667 mls/ hr PROTOCOL IV Last administered on 04/27/24at 05:26; Start 04/26/24 at 11:45; Stop 05/26/24 at 11:44 Insulin Human Regular INSULIN SLIDING SCAL... ACHS SQ; Start 04/26/24 at 07:30; Stop 05/26/24 at 07:29 Aspirin 81 mg DAILY PO Last administered on 04/27/24at 08:58; Start 04/26/24 at 09:00; Stop 05/26/24 at 08:59 Polyethylene Glycol 17 gm DAILY PO Last administered on 04/27/24at 08:59; Start 04/27/24 at 09:00; Stop 05/27/24 at 08:59 Pharmacy Profile Note 1 each ONCE MISC; Start 04/26/24 at 10:30; Stop 04/26/24 at 10:27; Status DC Diltiazem HCl 125 ml @ 0 mls/hr AD IV Last administered on 04/26/24at 21:40; Start 04/26/24 at 10:30; Stop 05/26/24 at 10:29 Digoxin 500 mcg ONCE ONCE IV Last administered on 04/26/24at 12:46; Start 04/26/24 at 12:30; Stop 04/26/24 at 12:31; Status DC Digoxin 250 mcg ONCE ONCE IV Last administered on 04/26/24at 17:57; Start 04/26/24 at 18:30; Stop 04/26/24 at 18:31; Status DC Digoxin 250 mcg ONCE ONCE IV; Start 04/27/24 at 00:30; Stop 04/27/24 at 00:31; Status DC Digoxin 125 mcg DAILY PO Last administered on 04/27/24at 08:59; Start 04/27/24 at 09:00; Stop 04/27/24 at 09:07; Status DC Guaifenesin 600 mg BID PO Last administered on 04/27/24at 08:57; Start 04/26/24 at 21:00; Stop 05/26/24 at 20:59 Metoprolol Tartrate 25 mg BID PO Last administered on 04/27/24at 08:58; Start 04/27/24 at 09:00; Stop 05/27/24 at 08:59 Metoprolol Tartrate 25 mg ONCE ONCE PO Last administered on 04/26/24at 17:27; Start 04/26/24 at 17:30; Stop 11/11/24 at 17:31; Status DC Apixaban 5 mg BID PO Last administered on 04/27/24at 10:12; Start 04/27/24 at 09:00; Stop 05/27/24 at 08:59 Amiodarone HCl 200 mg BID PO Last administered on 04/27/24at 08:57; Start 04/27/24 at 09:00; Stop 05/27/24 at 08:59 TOMMY PITT MD Apr 27, 2024 16:07
--- NOTE | 2024-04-27 17:30 | PN ---
SUBJECTIVE: The patient is status post coronary artery bypass grafting, postop day #3. Yesterday, the patient's intraaortic balloon pump was removed and he was weaned off of his epinephrine drip. OBJECTIVE: VITAL SIGNS: Reveal pulse 83, blood pressure is 134/87, respirations are 7, oxygen saturations 94%. HEENT: Reveals normocephalic, atraumatic. He has nasal cannula oxygen prongs under his nose. CHEST: His sternal wound is bandaged. Chest tubes are in place with 50 mL of output over the last 24 hours. HEART: S1, S2 and regular. LUNGS: Unlabored at rest on nasal cannula oxygen, lying flat in bed. ABDOMEN: Flat with positive bowel sounds. EXTREMITIES: He has SCDs and FRAN stockings on his lower extremities. ASSESSMENT AND PLAN: * Status post coronary artery bypass grafting, postoperative day #3. Continue aspirin, metoprolol, Lasix. Discontinue his chest tubes, art line, central venous line and Felix catheter. * Postoperative paroxysmal atrial fibrillation. The patient is now converted. I will change his amiodarone drip to amiodarone 200 mg p.o. b.i.d. and begin Eliquis 5 mg twice a day. * Postoperative acute pulmonary insufficiency secondary to thoracic surgery. Wean nasal cannula oxygen to maintain oxygen saturation greater than 90% on room air. * Hypercholesterolemia. Lipitor 40 mg p.o. at bedtime, low cholesterol, cardiac diet. * History of seizure disorder. Continue Keppra at home dose. * Deep venous thrombosis prophylaxis. The patient should be covered with his Eliquis being started for atrial fibrillation. Time spent 30 minutes. The patient is critically ill in the ICU. TID: [id number] RECEIPT: [id number]
[2024-04-28] VITALS (10 sets, daily range): BP systolic 106–168; BP diastolic 51–91; PULSE 50–91; RESP 13–18; TEMP 98.1–99.1; O2SAT 92–96
[2024-04-28 04:03] LABS: HEMATOCRIT 31.4 % (42-54); MEAN CORPUSCULAR HEMOGLOBIN 30.4 pg (27.0-33.0); MEAN CORPUSCULAR HGB CONC 33.1 g/dL (32.0-36.0); MEAN CORPUSCULAR VOLUME 91.8 fL (79-99); RED BLOOD CELL COUNT(AUTO) 3.42 MIL/uL (4.50-6.20); RED CELL DISTRIBUTION WIDTH 13.3 % (11.0-15.5); WHITE BLOOD COUNT (AUTO) 8.6 K/uL (4.8-10.8)
[2024-04-28 04:19] LABS: CREATININE 1.2 mg/dL (0.5-1.3); POTASSIUM 3.5 mmol/L (3.5-5.1)
[2024-04-28] MEDS: PoTASSium chloRIDE 20MEQ ER 20 MEQ ERTAB PO ONE (05:14)
[2024-04-28] MEDS ORDERED: PoTASSium chl 10% ELIXIR 20MEQ 20 MEQ/15 ML UDCUP PO PRN (08:30)
[2024-04-28] MEDS ORDERED: PoTASSium chloRIDE 20MEQ/100ML 100 ML IV PRN (08:30)
[2024-04-28] MEDS: PoTASSium chloRIDE 20MEQ ER 20 MEQ ERTAB PO PRN (09:22)
--- NOTE | 2024-04-28 09:26 | HMCIMG ---
CHEST 1VW REASON: s/p CABG COMPARISON: 04/27/2024 FINDINGS: Left chest tube is been removed. There is no pneumothorax. There is persistent mild atelectasis medial left lung base. Exam is otherwise unremarkable. IMPRESSION: 1. No pneumothorax following left chest tube removal.
--- NOTE | 2024-04-28 10:37 | NUR ---
report given to larry gomez. pt aware of transfer, spouse at bedside. made RN aware of plan of care. notified [employer] of pending shower for pt. pt educated on heart healthy lifestyle, no smoking, drug use nor alcohol. sternal precautions, IS. mid sternal incision checks once d/c. plan for rehab.
--- NOTE | 2024-04-28 10:57 | PN ---
CARDIOLOGY Reason for consult: Chest pain HPI/story at presentation: This is a pleasant 61-year-old past medical history as per present with complaints of chest discomfort. Known history of cocaine/marijuana use at baseline and has been having issues with retrosternal chest pain at presentation. EKG without significant ischemic changes but patient did have elevated troponins greater than 600. Cardiology was consulted for further evaluation management Subjective: 04/22/2024 Chest pain 04/24/2024 plan for surgery today, anxious 04/25/2024 extubated 04/26/2024 No complaints 04/27/2024 no complaints 04/28/2024 no complaints Past medical history: See below Allergies, Meds See chart Review of systems Review of Systems Constitutional: Negative for chills and fever. HENT: Negative for ear discharge and ear pain. Eyes: Negative for photophobia and discharge. Respiratory: Negative for cough, sputum production and stridor. Cardiovascular: Negative for chest pain and palpitations. Gastrointestinal: Negative for diarrhea and vomiting. Genitourinary: Negative for frequency. Musculoskeletal: Negative for myalgias. Skin: Negative for rash. Neurological: Negative for focal weakness and seizures. Endo/Heme/Allergies: Negative for polydipsia. Psychiatric/Behavioral: Negative for hallucinations. Vitals see chart PHYSICAL EXAMINATION GENERAL: The patient is alert HEENT: Nonicteric sclerae, non traumatic HEART: IRREGUALR 04/26/2024 LUNGS: Clear to auscultation bilaterally ABDOMEN: No acute issues, non tender GENITAL, RECTAL: deferred SKIN: No rash NEUROLOGIC: NFND EXTREMITIES: No edema ASSESSMENT CHEST PAIN, NSTEMI, S/P BYPASS NOLAN to LAD, SVG to Diag,m CX was not bypassed :HC with severe disease of LM, s/p IABP History of EKG without ischemic changes trop > 600 04/2024 UDS positive for cocaine and marijuana CVA History of, 2019 HYPERTENSION, HYPERLIPIDEMIA TOBACCO USE OTHER MEDICAL PROBLEMS arthritis seizures PLAN 04/22/2024 patient with non-STEMI, no significant ischemic changes on EKG. Can start heparin, will consider cardiac catheterization tomorrow to further evaluate coronaries. UDS positive for cocaine and marijuana, will need to address compliance with medical therapy prior to any intervention. No history of significant peripheral vascular disease with history of strokes in the past. 04/23/2024 Remains on balloon pump, having issues with back pain in the setting of arthritis but otherwise, stable hemodynamic and electrical status. Remains on heparin drip and tolerating well. Timing of surgery per CVT. On metoprolol statin and aspirin, continue. Echocardiogram showed normal ejection fraction as well. 04/24/2024 reportedly plan for surgery today, remains on IABP 1:1. on good meds, will follow perioperatively, multiple questions answered. 04/25/2024atient status post bypass yesterday, doing well, extubated overnight, currently on a small dose of pressors. The patient received SVG to the diagonal and NOLAN to the LAD, obtuse marginal was not bypassed as it was a small-vessel may consider intervention to the true circumflex if needed as an outpatient. Intra-aortic balloon pump remains in situ. Currently on Lasix we will update medical therapy for CAD once patient is off pressors. 04/26/2024 Patient converted to atrial fibrillation this morning, currently on amiodarone. Currently, balloon pump is set at 1 is to 3 and patient remains hemodynamically stable with. Possibly, balloon pump may get pulled today. Family at bedside, questions answered. Will go ahead and start Cardizem as well to try to help with rate, will start this without a bolus and adjust as needed. Chest tube still considerable, urine output is good. Currently on IV diuresis as well., Agree. Good blood pressure room. Atelectasis on x-ray. EF on echocardiogram was normal prior to bypass. ideally, will need anticoagulation for afib 04/27/2024 Was loaded with digoxin yesterday and has converted to NSR, primary has started him on eliquis as well. Continue amio. Currently off cardizem, feeling much improved.Chest tube is likely being removed today. Appreciate CVT surgery, critical care. 04/28/2024 Doing well, remains in normal sinus rhythm, no active complaints at this time. Ambulating, remains on oral amiodarone. X-ray without evidence of pneumothorax. On Eliquis and aspirin as well. On oral Lasix metoprolol ATTESTATION I was involved substantially in the care of this patient Number and complexity of problems addressed: 1 acute illness with systemic features Amount and or complexity of data Review of prior external note(s) from each unique source: 2+ Ordering of each unique test : 1 Review of the result(s) of each unique test: 2+ Assessment requiring an independent historian(s): No Independent interpretation of test performed by another MD/QHCP/appropriate source (not separately reported) : No Discussion of management or test interpretation with external MD/QHCP/appropriate source (not separately reported) : No Risk status (cardiac, billing related): Moderate Vitals/Labs Vital Signs Date Time Temp Pulse Resp B/P (MAP) Pulse Ox O2 Delivery O2 Flow Rate FiO2 04/28/24 09:16 87 14 164/83 92 Room Air 04/28/24 08:30 0 21 04/28/24 08:00 98.1 Laboratory Tests 04/28/24 03:48 Medications Current Medications Nitroglycerin 0.4 mg AD PRN SL Last administered on 04/21/24at 22:27; Start 04/21/24 at 21:30; Stop 04/24/24 at 14:51; Status DC Ondansetron HCl 4 mg Q6H PRN IV Last administered on 04/22/24at 09:41; Start 04/21/24 at 23:30; Stop 04/24/24 at 14:51; Status DC Nitroglycerin 0.5 inch Q8H TD Last administered on 04/23/24at 08:25; Start 04/21/24 at 23:30; Stop 04/23/24 at 09:03; Status DC Hydralazine HCl 10 mg Q6H PRN IV Last administered on 04/24/24at 13:43; Start 04/21/24 at 23:30; Stop 04/24/24 at 14:51; Status DC Famotidine 20 mg BID IV Last administered on 04/24/24at 08:21; Start 04/22/24 at 09:00; Stop 04/24/24 at 14:51; Status DC Pharmacy Profile Note PLEASE ENTER HT AND WT Q15M MISC; Start 04/21/24 at 23:45; Stop 04/22/24 at 00:16; Status DC Insulin Human Regular INSULIN SLIDING SCAL... ACHS SQ; Start 04/22/24 at 07:30; Stop 04/24/24 at 14:51; Status DC Dextrose 50 ml AD PRN IV; Start 04/22/24 at 00:00; Stop 04/24/24 at 15:13; Status DC Glucagon 1 mg AD PRN IM; Start 04/22/24 at 00:00; Stop 04/24/24 at 15:15; Status DC Potassium Chloride 100 ml @ 50 mls/hr AD PRN IV; Start 04/22/24 at 00:00; Stop 04/24/24 at 14:51; Status DC Magnesium Sulfate 50 ml @ 0 mls/hr PROTOCOL PRN IV; Start 04/22/24 at 00:00; Stop 04/24/24 at 14:51; Status DC Morphine Sulfate 2 mg Q4H PRN IVP Last administered on 04/24/24at 12:12; Start 04/22/24 at 00:00; Stop 04/24/24 at 14:51; Status DC Sodium Chloride 1,000 ml @ 75 mls/hr [id number] IV Last administered on 04/23/24at 17:50; Start 04/22/24 at 00:00; Stop 04/23/24 at 23:59; Status DC Aspirin 81 mg DAILY PO Last administered on 04/25/24at 08:16; Start 04/22/24 at 09:00; Stop 04/26/24 at 08:22; Status DC Atorvastatin Calcium 40 mg HS PO Last administered on 04/27/24at 20:59; Start 04/22/24 at 21:00; Stop 05/22/24 at 20:59 Heparin Sodium (Porcine) *calculation based on ACTUAL B... AD PRN IV Last administered on 04/22/24at 02:08; Start 04/22/24 at 02:30; Stop 04/24/24 at 14:51; Status DC Heparin Sodium/ Dextrose 250 ml @ 0 mls/hr Q6H IV Last administered on 04/23/24at 18:56; Start 04/22/24 at 02:30; Stop 04/24/24 at 14:51; Status DC Insulin Human Regular INSULIN SLIDING SCAL... ACHS SQ; Start 04/22/24 at 11:30; Stop 04/22/24 at 07:51; Status DC Dextrose 50 ml AD PRN IV; Start 04/22/24 at 08:00; Stop 04/22/24 at 07:52; Status DC Glucagon 1 mg AD PRN IM; Start 04/22/24 at 08:00; Stop 04/22/24 at 07:52; Status DC Magnesium Sulfate 50 ml @ 0 mls/hr PROTOCOL PRN IV; Start 04/22/24 at 08:00; Stop 04/22/24 at 07:52; Status DC Potassium Chloride 100 ml @ 100 mls/hr AD PRN IV; Start 04/22/24 at 08:00; Stop 04/22/24 at 07:52; Status DC Potassium Chloride 20 meq AD PRN PO; Start 04/22/24 at 08:00; Stop 04/24/24 at 14:51; Status DC Potassium Chloride 20 meq AD PRN PO Last administered on 04/23/24at 08:24; Start 04/22/24 at 08:00; Stop 04/24/24 at 14:51; Status DC Lorazepam 2 mg ONCE ONCE IVP; Start 04/22/24 at 10:00; Stop 04/22/24 at 10:01; Status DC Levetiracetam 500 mg ONCE STAT IV Last administered on 04/22/24at 10:05; Start 04/22/24 at 09:47; Stop 04/22/24 at 09:56; Status DC Levetiracetam 1000 mg/Sodium Chloride 100 ml @ 400 mls/hr BID IV Last administered on 04/28/24at 09:21; Start 04/22/24 at 21:00; Stop 05/22/24 at 20:59 Acetaminophen 650 mg Q6H PRN PO Last administered on 04/22/24at 20:22; Start 04/22/24 at 15:30; Stop 04/24/24 at 14:51; Status DC Acetaminophen 650 mg Q4H PRN PO; Start 04/22/24 at 15:30; Stop 04/24/24 at 14:51; Status DC Lidocaine HCl 20 ml STK-MED ONCE .ROUTE; Start 04/22/24 at 16:21; Stop 04/22/24 at 16:24; Status DC Iohexol 35,000 mg STK-MED ONCE IV; Start 04/22/24 at 16:21; Stop 04/22/24 at 16:24; Status DC Heparin Sodium/ Sodium Chloride 1,000 ml @ As Directed STK-MED ONCE IV; Start 04/22/24 at 16:22; Stop 04/22/24 at 16:24; Status DC Nitroglycerin 50 mg STK-MED ONCE .ROUTE; Start 04/22/24 at 16:22; Stop 04/22/24 at 16:24; Status DC Heparin Sodium (Porcine) 10,000 unit STK-MED ONCE .ROUTE; Start 04/22/24 at 16:36; Stop 04/22/24 at 16:36; Status DC Nicardipine HCl 25 mg STK-MED ONCE IV; Start 04/22/24 at 17:07; Stop 04/22/24 at 17:08; Status DC Fentanyl Citrate 100 mcg STK-MED ONCE .ROUTE; Start 04/22/24 at 17:09; Stop 04/22/24 at 17:09; Status DC Midazolam HCl 2 mg STK-MED ONCE .ROUTE; Start 04/22/24 at 17:09; Stop 04/22/24 at 17:09; Status DC Heparin Sodium/ Dextrose 250 ml @ As Directed STK-MED ONCE IV; Start 04/22/24 at 17:46; Stop 04/22/24 at 17:46; Status DC Lidocaine 1 each ONCE STAT TP Last administered on 04/23/24at 04:30; Start 04/23/24 at 04:20; Stop 04/23/24 at 04:26; Status DC Cefazolin Sodium 2 gm ONCALL IVP Last administered on 04/23/24at 21:38; Start 04/23/24 at 21:30; Stop 04/25/24 at 21:29; Status DC Metoprolol Tartrate 12.5 mg ONCE ONCE PO Last administered on 04/24/24at 08:21; Start 04/24/24 at 09:00; Stop 04/24/24 at 09:01; Status DC Epinephrine HCl 10 mg/Sodium Chloride 250 ml @ 0 mls/hr AD PRN IV; Start 04/24/24 at 11:00; Stop 04/24/24 at 15:17; Status DC Norepinephrine Bitartrate 250 ml @ 0 mls/hr AD PRN IV; Start 04/24/24 at 11:00; Stop 04/24/24 at 15:13; Status DC Aminocaproic Acid 57539 mg/Sodium Chloride 480 ml @ 0 mls/hr AD PRN IV; Start 04/24/24 at 11:00; Stop 04/24/24 at 15:05; Status DC Nitroglycerin/ Dextrose 1 ml @ As Directed STK-MED ONCE .ROUTE; Start 04/24/24 at 11:17; Stop 04/24/24 at 11:17; Status DC Cefazolin Sodium 1 gm STK-MED ONCE .ROUTE; Start 04/24/24 at 11:44; Stop 04/24/24 at 11:44; Status DC Heparin Sodium/ Sodium Chloride 500 ml @ As Directed STK-MED ONCE IV Last administered on 04/24/24at 11:57; Start 04/24/24 at 11:44; Stop 04/24/24 at 11:45; Status DC Papaverine HCl 60 mg STK-MED ONCE .ROUTE; Start 04/24/24 at 11:45; Stop 04/24/24 at 11:45; Status DC Cefazolin Sodium 2 gm STK-MED ONCE IVPB; Start 04/24/24 at 00:00; Stop 04/24/24 at 00:01; Status Cancel Papaverine HCl 60 mg STK-MED ONCE IRRIG; Start 04/24/24 at 00:00; Stop 04/24/24 at 00:01; Status Cancel Cefazolin Sodium 1 gm STK-MED ONCE .ROUTE; Start 04/24/24 at 11:55; Stop 04/24/24 at 11:55; Status DC Cefazolin Sodium 1 gm STK-MED ONCE IRRIG; Start 04/24/24 at 00:00; Stop 04/24/24 at 00:01; Status Cancel Ipratropium Nelson 0.5 mg STK-MED ONCE IH Last administered on 04/24/24at 13:50; Start 04/24/24 at 13:44; Stop 04/24/24 at 13:44; Status DC Midazolam HCl 2 mg STK-MED ONCE .ROUTE; Start 04/24/24 at 14:12; Stop 04/24/24 at 14:12; Status DC Protamine Sulfate 250 mg STK-MED ONCE IV; Start 04/24/24 at 14:23; Stop 04/24/24 at 14:23; Status DC Lidocaine HCl 100 mg STK-MED ONCE .ROUTE; Start 04/24/24 at 14:23; Stop 04/24/24 at 14:23; Status DC Heparin Sodium (Porcine) 10,000 unit STK-MED ONCE .ROUTE; Start 04/24/24 at 14:23; Stop 04/24/24 at 14:23; Status DC Epinephrine HCl 1 mg STK-MED ONCE .ROUTE; Start 04/24/24 at 14:23; Stop 04/24/24 at 14:23; Status DC Sodium Bicarbonate 200 ml @ As Directed STK-MED ONCE .ROUTE; Start 04/24/24 at 14:23; Stop 04/24/24 at 14:23; Status DC Norepinephrine Bitartrate 4 mg STK-MED ONCE IV; Start 04/24/24 at 14:23; Stop 04/24/24 at 14:24; Status DC Propofol 200 mg STK-MED ONCE IV; Start 04/24/24 at 14:24; Stop 04/24/24 at 14:24; Status DC Fentanyl Citrate 1,000 mcg STK-MED ONCE IJ; Start 04/24/24 at 14:24; Stop 04/24/24 at 14:24; Status DC Glycopyrrolate 1 mg STK-MED ONCE .ROUTE; Start 04/24/24 at 14:24; Stop 04/24/24 at 14:24; Status DC Rocuronium Nelson 50 mg STK-MED ONCE .ROUTE; Start 04/24/24 at 14:24; Stop 04/24/24 at 14:25; Status DC Ketamine HCl 50 mg STK-MED ONCE .ROUTE; Start 04/24/24 at 14:25; Stop 04/24/24 at 14:25; Status DC Ipratropium Nelson 0.5 MG Q4H PRN IH; Start 04/24/24 at 14:30; Stop 05/24/24 at 14:29 Acetaminophen 1,000 mg Q6H6 IV Last administered on 04/25/24at 17:42; Start 04/24/24 at 18:00; Stop 04/25/24 at 17:59; Status DC Aspirin 81 mg ONCE ONCE NG Last administered on 04/24/24at 19:58; Start 04/24/24 at 18:00; Stop 04/24/24 at 18:01; Status DC Docusate Sodium 100 mg BID PO Last administered on 04/28/24at 09:22; Start 04/24/24 at 21:00; Stop 05/24/24 at 20:59 Lactulose 20 gm BID PRN PO Last administered on 04/27/24at 16:05; Start 04/24/24 at 15:00; Stop 05/24/24 at 14:59 Furosemide 20 mg Q12H PO Last administered on 04/28/24at 09:22; Start 04/26/24 at 09:00; Stop 05/26/24 at 08:59 Furosemide 20 mg Q12H IV Last administered on 04/25/24at 21:12; Start 04/25/24 at 09:00; Stop 04/26/24 at 08:59; Status DC Magnesium Hydroxide 30 ml DAILY PRN PO; Start 04/24/24 at 15:00; Stop 05/24/24 at 14:59 Dexmedetomidine/ Sodium Chloride 400 mcg PROTOCOL IV Last administered on 04/24/24at 19:02; Start 04/24/24 at 15:00; Stop 04/25/24 at 14:59; Status DC Acetaminophen 650 mg Q6H PRN PO; Start 04/24/24 at 15:00; Stop 04/24/24 at 15:55; Status DC Sodium Chloride 1,000 ml @ 10 mls/hr ONCE IV Last administered on 04/24/24at 17:18; Start 04/24/24 at 15:00; Stop 04/25/24 at 14:59; Status DC Sodium Chloride 10 ml Q8H PRN IVP; Start 04/24/24 at 15:00; Stop 05/24/24 at 14:59 Morphine Sulfate 0.5 mg Q2H PRN IV; Start 04/24/24 at 15:00; Stop 04/25/24 at 14:59; Status DC Morphine Sulfate 1 mg Q2H PRN IV Last administered on 04/24/24at 20:15; Start 04/24/24 at 15:00; Stop 04/25/24 at 14:59; Status DC Acetaminophen 650 mg Q4H PRN RC; Start 04/24/24 at 15:00; Stop 04/24/24 at 15:57; Status DC Ondansetron HCl 4 mg Q6H PRN IV; Start 04/24/24 at 15:00; Stop 05/24/24 at 14:59 Sodium Chloride 500 ml @ 0 mls/hr AD IV; Start 04/24/24 at 15:00; Stop 05/24/24 at 14:59 Nitroglycerin/ Dextrose 0 ml @ 0 mls/hr AD IV Last administered on 04/24/24at 17:30; Start 04/24/24 at 15:00; Stop 04/27/24 at 14:59; Status DC Propofol 100 ml @ 0 mls/hr AD PRN IV; Start 04/24/24 at 15:00; Stop 04/28/24 at 14:59 Norepinephrine Bitartrate 8 mg/ Dextrose 250 ml @ 0 mls/hr AD PRN IV; Start 04/24/24 at 15:00; Stop 04/29/24 at 14:59 Epinephrine HCl 10 mg/Sodium Chloride 250 ml @ 11.533 mls/ hr AD PRN IV; Start 04/24/24 at 15:00; Stop 04/29/24 at 14:59 Aminocaproic Acid 34771 mg/Sodium Chloride 310 ml @ 25 mls/hr AD IV; Start 04/24/24 at 15:00; Stop 04/25/24 at 03:23; Status DC Calcium Gluconate 1 gm/Sodium Chloride 60 ml @ 200 mls/hr AD PRN IV Last administered on 04/25/24at 04:58; Start 04/24/24 at 15:00; Stop 05/24/24 at 14:59 Magnesium Sulfate 50 ml @ 12.5 mls/hr AD PRN IV Last administered on 04/27/24at 10:35; Start 04/24/24 at 15:00; Stop 05/24/24 at 14:59 Potassium Chloride 100 ml @ 100 mls/hr AD PRN IV Last administered on 04/25/24at 02:26; Start 04/24/24 at 15:00; Stop 04/28/24 at 08:24; Status DC Potassium Phosphate 250 ml @ 42 mls/hr AD PRN IV; Start 04/24/24 at 15:00; Stop 05/24/24 at 14:59 Albumin Human 250 ml @ 0 mls/hr AD PRN IV Last administered on 04/24/24at 18:56; Start 04/24/24 at 15:00; Stop 04/24/24 at 18:56; Status DC Acetaminophen 650 mg Q4H PRN PO; Start 04/24/24 at 15:00; Stop 04/24/24 at 15:56; Status DC Insulin Human Regular 100 unit/ Sodium Chloride 100 ml @ 0 mls/hr AD IV Last administered on 04/24/24at 17:21; Start 04/24/24 at 15:00; Stop 04/26/24 at 14:59; Status DC Cefazolin Sodium 2 gm Q8H IVPB Last administered on 04/25/24at 11:30; Start 04/24/24 at 20:00; Stop 04/25/24 at 12:01; Status DC Tramadol HCl 25 mg Q6H PRN PO Last administered on 04/26/24at 02:16; Start 04/24/24 at 15:00; Stop 04/29/24 at 14:59 Tramadol HCl 50 mg Q6H PRN PO Last administered on 04/28/24at 02:56; Start 04/24/24 at 15:00; Stop 04/29/24 at 14:59 Famotidine 20 mg BID IV Last administered on 04/28/24at 09:23; Start 04/24/24 at 21:00; Stop 05/24/24 at 20:59 Sodium Bicarbonate 50 meq AD PRN IV Last administered on 04/24/24at 22:30; Start 04/24/24 at 15:00; Stop 04/27/24 at 14:59; Status DC Dextrose 50 ml AD PRN IV; Start 04/24/24 at 15:00; Stop 05/24/24 at 14:59 Glucagon 1 mg AD PRN IM; Start 04/24/24 at 15:00; Stop 05/24/24 at 14:59 Vasopressin 20 units STK-MED ONCE .ROUTE; Start 04/24/24 at 15:10; Stop 04/24/24 at 15:10; Status DC Heparin Sodium (Porcine) 10,000 unit STK-MED ONCE .ROUTE; Start 04/24/24 at 15:19; Stop 04/24/24 at 15:19; Status DC Potassium Chloride 100 ml @ As Directed STK-MED ONCE IV; Start 04/24/24 at 15:31; Stop 04/24/24 at 15:32; Status DC Cefazolin Sodium 2 gm STK-MED ONCE IVPB Last administered on 04/24/24at 14:45; Start 04/24/24 at 14:45; Stop 04/24/24 at 15:45; Status DC Papaverine HCl 60 mg STK-MED ONCE IRRIG Last administered on 04/24/24at 15:05; Start 04/24/24 at 15:05; Stop 04/24/24 at 15:45; Status DC Cefazolin Sodium 1 gm STK-MED ONCE IRRIG Last administered on 04/24/24at 15:05; Start 04/24/24 at 15:05; Stop 04/24/24 at 15:45; Status DC Acetaminophen 650 mg Q6H PRN PO Last administered on 04/27/24at 09:35; Start 04/25/24 at 18:00; Stop 05/25/24 at 17:59 Acetaminophen 650 mg Q4H PRN PO; Start 04/25/24 at 18:00; Stop 05/25/24 at 17:59 Acetaminophen 650 mg Q4H PRN RC; Start 04/25/24 at 18:00; Stop 05/25/24 at 17:59 Ketamine HCl 50 mg STK-MED ONCE .ROUTE; Start 04/24/24 at 16:11; Stop 04/24/24 at 16:11; Status DC Nicardipine HCl 100 mg/Sodium Chloride 100 ml @ 0 mls/hr PROTOCOL IV; Start 04/24/24 at 18:00; Stop 05/24/24 at 17:59 Dexmedetomidine/ Sodium Chloride 400 mcg PROTOCOL IV; Start 04/24/24 at 20:00; Stop 05/24/24 at 19:59 Sodium Bicarbonate 150 ml @ As Directed STK-MED ONCE .ROUTE; Start 04/24/24 at 22:15; Stop 04/24/24 at 22:15; Status DC Calcium Gluconate 1 gm STK-MED ONCE .ROUTE; Start 04/25/24 at 04:56; Stop 04/25/24 at 04:57; Status DC Amiodarone HCl 150 mg/Dextrose 100 ml @ 400 mls/hr PROTOCOL IV Last administered on 04/26/24at 05:47; Start 04/26/24 at 05:30; Stop 04/26/24 at 07:16; Status DC Amiodarone HCl 540 mg/Dextrose 300 ml @ 0 mls/hr PROTOCOL IV; Start 04/26/24 at 05:30; Stop 04/26/24 at 05:29; Status DC Amiodarone HCl 360 mg/Dextrose 200 ml @ 33.333 mls/ hr PROTOCOL IV Last administered on 04/26/24at 05:48; Start 04/26/24 at 05:45; Stop 04/28/24 at 07:04; Status DC Amiodarone HCl 540 mg/Dextrose 300 ml @ 16.667 mls/ hr PROTOCOL IV Last administered on 04/27/24at 05:26; Start 04/26/24 at 11:45; Stop 05/26/24 at 11:44 Insulin Human Regular INSULIN SLIDING SCAL... ACHS SQ; Start 04/26/24 at 07:30; Stop 05/26/24 at 07:29 Aspirin 81 mg DAILY PO Last administered on 04/28/24at 09:23; Start 04/26/24 at 09:00; Stop 05/26/24 at 08:59 Polyethylene Glycol 17 gm DAILY PO Last administered on 04/28/24at 09:21; Start 04/27/24 at 09:00; Stop 05/27/24 at 08:59 Pharmacy Profile Note 1 each ONCE MISC; Start 04/26/24 at 10:30; Stop 04/26/24 at 10:27; Status DC Diltiazem HCl 125 ml @ 0 mls/hr AD IV Last administered on 04/26/24at 21:40; Start 04/26/24 at 10:30; Stop 05/26/24 at 10:29 Digoxin 500 mcg ONCE ONCE IV Last administered on 04/26/24at 12:46; Start 04/26/24 at 12:30; Stop 04/26/24 at 12:31; Status DC Digoxin 250 mcg ONCE ONCE IV Last administered on 04/26/24at 17:57; Start 04/26/24 at 18:30; Stop 04/26/24 at 18:31; Status DC Digoxin 250 mcg ONCE ONCE IV; Start 04/27/24 at 00:30; Stop 04/27/24 at 00:31; Status DC Digoxin 125 mcg DAILY PO Last administered on 04/27/24at 08:59; Start 04/27/24 at 09:00; Stop 04/27/24 at 09:07; Status DC Guaifenesin 600 mg BID PO Last administered on 04/28/24at 09:22; Start 04/26/24 at 21:00; Stop 05/26/24 at 20:59 Metoprolol Tartrate 25 mg BID PO Last administered on 04/28/24at 09:23; Start 04/27/24 at 09:00; Stop 05/27/24 at 08:59 Metoprolol Tartrate 25 mg ONCE ONCE PO Last administered on 04/26/24at 17:27; Start 04/26/24 at 17:30; Stop 04/26/24 at 17:31; Status DC Apixaban 5 mg BID PO Last administered on 04/28/24at 09:23; Start 04/27/24 at 09:00; Stop 05/27/24 at 08:59 Amiodarone HCl 200 mg BID PO Last administered on 04/28/24at 09:23; Start 04/27/24 at 09:00; Stop 05/27/24 at 08:59 Potassium Chloride 20 meq STK-MED ONCE PO Last administered on 04/28/24at 05:14; Start 04/28/24 at 05:09; Stop 04/28/24 at 05:11; Status DC Potassium Chloride 100 ml @ 100 mls/hr AD PRN IV; Start 04/28/24 at 08:30; Stop 05/28/24 at 08:29 Potassium Chloride 20 meq AD PRN PO; Start 04/28/24 at 08:30; Stop 05/28/24 at 08:29 Potassium Chloride 20 meq AD PRN PO Last administered on 04/28/24at 09:22; Start 04/28/24 at 08:30; Stop 05/28/24 at 08:29 TOMMY PITT MD Apr 28, 2024 10:56
[2024-04-28] MEDS: traMADol HCL 50 MG TABLET PO PRN (12:14)
--- NOTE | 2024-04-28 12:54 | PN ---
[facility] PROGRESS NOTE Date Patient Seen: Apr 28, 2024 Time of Visit: 12:54 Supervising Physician: Dr. Santo Primary Care Physician: Adolfo Morales MD Outpatient Specialists: None Inpatient Consults: BRIANA, Dr Murray, Dr Rasheed, Dr Yee PROBLEM LIST: Severe coronary artery disease to left main 90% stenosis S/P CABG X2 on 04/24/24 (Dr Rasheed ) Postoperative AFib with RVR on amiodarone drip 04/26/24 Postop acute hypoxic respiratory failure as expected NSTEMI status post LHC and Balloon Pump placement for MCS 04/23- dc on 04/26 Polysubstance abuse POA + cocaine and marijuana Suspicion for COPD, POA Thrombocytopenia not POA Normocytic normochromic anemia POA Hyperglycemia, POA Hyperlipidemia POA Essential Hypertension POA Constipation History of seizure disorder POA History of Parkinson's disease POA History of multiple CVA POA Active smoker POA LVEF is 55-60% with normal ventricular diastolic function. On 2D echo 04/23/24 INTERVAL HISTORY: 04/24-Patient is awake alert and oriented x3 hemodynamically stable. Continues with balloon pump 1:1 MCS. Patient was seen by CV surgery and has agreed to move all with CABG. Heparin is on hold. Scheduled for CABG for noon today. Chest x-ray with no acute pulmonary infiltrates seen. Balloon pump seems in proper position. On arterial ultrasound no hemodynamically significant lesions seen either extracranial carotid arteries. Patient has good urine output 2 L in the last 24, CBC unremarkable similar to yesterday. Chemistry kidneys are doing well creatinine 1.1 GFR of 75 BUN of 19 total calcium 8.1 albumin 2.9. We will continue to follow alongside cardiovascular surgeon and Cardiology. 04/25-patient is awake alert and oriented x3 he was extubated around midnight last night. He continues on low-dose epinephrine at 0.02 micrograms/kilogram per minute and MCS with balloon pump support of 1:2. Patient is afebrile, heart rate in the 80s, respiratory rate of 18 unlabored saturating 98% with 2 L via nasal cannula, blood pressure via arterial line 137/55 patient has good urine output 2.9 L in the last 24 hours chest tube output 350 mL with a balance of-1.4 L. H&H slightly lower than yesterday 9.2/28.7 platelet count trended down today [id number]. Chemistry unremarkable. Chest x-ray shows bilateral pulmonary infiltrates with this is pulmonary vascular congestion. Post sternotomy changes. Enlarged heart. Balloon pump and left subclavian Cordis central line in place. 04/26 patient is awake alert and oriented x3. Denies any chest pain does report palpitations. Reports no bowel movement for 4 days, currently receiving bowel regimen. This morning patient converted to AFib with RVR was given amiodarone bolus and started on amiodarone drip per protocol. Patient continues on low- dose epinephrine at 0.01 micrograms/kilogram per minute. Balloon pump support decreased today to 1:3. Plans for removal of balloon pump today. Otherwise patient is hemodynamically stable blood pressure 154/59 saturating 96% with 2 L via nasal cannula heart rate in the 130s AFib with RVR. T-max 99.9 with a T low of 97.2. Urine output 3.1 L with a balance of-1.2 L chest tube output 70 mL. On laboratory WBCs trended up slightly 12.4 H&H is 10.3/32.5 [place] [address]. Similar to yesterday. Chemistries sodium 134 chloride 97 carbon dioxide 33 creatinine is 1.2 GFR of 68 glucose 115 mg/dL. pH Chest x- ray with increased pulmonary vascular congestion patient has been started on Lasix 20 mg q.12 IV per Cardiology. Patient given bowel regimen for constipation. 04/27 patient is awake alert oriented x3 not in acute distress. No acute event overnight. He had his intra-aortic balloon pump removed yesterday. Chest x-ray with no acute changes. Left septal given central line in place no pneumothorax. Chest tube in place. Continue with incentive spirometry. Urine output is 2.3 L with the chest tube output of 20 cc. Net balance is-1.4 L. lab this morning with WBC down to 10 from 12 hemoglobin is 9.7 platelet count is 106 up from 95. Chemistry he is unremarkable. He remains afib last night but converted to sinus rhythm, on amiodarone and loaded digoxin. Cardiology following. Repeat magnesium level. Will continue post CABG care, IS, PT, ambulation, wound care. 04/28 Patient is lying in bed accompanied by his at the bedside. He has been downgraded to PCU this morning, not in acute distress. He is on room air sat 97%. T-max is 99.0 heart rate is 81. He has ambulated with physical therapy and he had been only ambulating 20 ft. Continue physical therapy and likely he will need Rehabilitation post discharge from hospital. Otherwise, pain management. Neb treatment, IS. REVIEW OF SYSTEMS: Const: [no fever, fatigue, or weight changes] Eyes:[ no recent vision problems] ENT: [No congestion, ear pain, or sore throat] C/V: [no chest pain, palpitations or edema] Resp: [No cough, congestion, wheezing , no for shortness of breaths GI: [No abdominal pain, nausea, vomiting, yes to constipation, no diarrhea] : [No incontinence of or dyuria] M/S: [No joint or pain swelling] Skin: [No rash] Neuro: [no headache, focal numbness, or weakness, dizziness or seizures] Psych: [no depression or anxiety] Heme: [no abnormal bruising or bleeding] Lymph: [no swollen glands] PHYSICAL EXAM: GENERAL: alert, weak, awake oriented x 3 HEENT: EOMI, Sclera non icteric, moist mucosa NECK: Supple, no JVD, trachea midline LUNGS: Diminished breath sounds bilaterally. No wheezes HEART: Regular rate and rhythm. Normal S1 and S2, without murmurs. ABD: Abdomen soft, nontender. Bowel sounds present EXT: No clubbing cyanosis or edema, +1 pedal pulse bilaterally NEURO: Alert and oriented to person, follows commands Vital Signs (last 8hr) Date Time Temp Pulse Resp B/P (MAP) Pulse Ox O2 Delivery O2 Flow Rate FiO2 04/28/24 09:16 87 14 164/83 92 Room Air 04/28/24 08:30 92 Room Air* 0 21 04/28/24 08:20 82 18 N/Cannula Low lpm 2.0 28 04/28/24 08:00 98.1 04/28/24 08:00 88 18 168/91 92 Room Air LABS: Hematology Labs: Test 04/28/24 03:48 Range/Units White Blood Count 8.6 4.8-10.8 K/uL Red Blood Count 3.42 L 4.50-6.20 MIL/uL Hemoglobin 10.4 L 14.0-18.0 g/dL Hematocrit 31.4 L 42-54 % Mean Corpuscular Volume 91.8 79-99 fL Mean Corpuscular Hemoglobin 30.4 27.0-33.0 pg Mean Corpuscular Hemoglobin Concent 33.1 32.0-36.0 g/dL Red Cell Distribution Width 13.3 11.0-15.5 % Platelet Count 148 # 130-400 K/uL Mean Platelet Volume 10.0 7.5-10.5 fL Nucleated Red Blood Cells 0.0 0.0-0.19 % Chemistry Labs: Test 04/28/24 08:04 04/28/24 03:48 04/27/24 05:10 Range/Units Whole Blood Glucose 114 H 70-110 MG/DL Sodium Level 139 136-145 mmol/L Potassium Level 3.5 3.5-5.1 mmol/L Chloride Level 102 101-111 mmol/L Carbon Dioxide Level 31 21-32 mmol/L Blood Urea Nitrogen 17 7-18 mg/dL Creatinine 1.2 0.5-1.3 mg/dL Glomerular Filtration Rate Calc 68 >90 mL/min Random Glucose 131 H 70-105 mg/dL Total Calcium 8.4 L 8.5-10.1 mg/dL Magnesium Level 1.80 1.80-2.40 mg/dL DIAGNOSTICS / RADIOLOGY RESULTS: [ ] PLAN NEURO: Minimize central acting medications as possible. Maintain fall precautions, adequate lighting during the day PULMONARY: Supplemental 02 as needed. Maintain aspiration precautions at all times CARDIOVASCULAR: Follow hemodynamics. Vital signs per facility protocol GI & NUTRITION: Continue with nutritional support. Continue stool softeners and laxatives as needed. KIDNEYS & ELECTROLYTES: Strict monitoring of intake, output and overall fluid balance. Avoid nephrotoxic medications to the extent possible. Medications to be dosed according to renal function. Monitor electrolytes and replace as needed ENDOCRINE: Maintain blood glucose between 100-180 at all times. Hypoglycemia protocol in place INFECTIOUS DISEASE: Trend temperature, WBC and procalcitonin level Follow cultures, deescalate antibiotics as soon as possible. Panculture if new onset fever ONCOLOGY/HEMATOLOGY/COAGULATION: Monitor for s/s of bleeding Monitor hemoglobin, coagulation studies as needed SKIN: Pressure ulcer prevention per facility protocol Specialty mattress ORTHO/REHAB: Continue PT/OT Prophylaxis: Continue GI and DVT prophylaxis Code Status: Full Resuscitation Disposition: TBD Other: Total patient care time exceeds 35 minutes excluding all procedures. MARCOS REDMAN [employer] Apr 28, 2024 12:54
--- NOTE | 2024-04-28 13:10 | PN ---
[facility] PROGRESS NOTE Date of Service: Apr 28, 2024 Time of Service: 13:06 SUBJECTIVE: 63-year-old male who presented to the emergency department with chest pain, he is known with positive UDS with marijuana and cocaine. He presented with non- STEMI with elevated troponin. He was evaluated by the green building architect who recommended cardiac catheterization. Status post left heart catheterization noted mid distal LM 90% lesion in, proximal circumflex with 60-60% disease, patient had an insertion of IABP. Cardiovascular surgeon consulted. We will continue to follow. 04/26 - Pt seen at bedside, he converted to afib with RVR overnight and was started on amiodarone drip. He continued to be in rvr into the am and cardiology started cardizem drip, will defer further adjustements to cardiology. He remains on balloon pump, and low dose levophed. CT surgery to manage. Hgb improved from 9.2 up to 10.3, platelets mildly decreased at 95, similar to yesterday, remainder of labs relatively unremarkable. 04/27 - Pt seen at bedside, no acute events overnight. He is s/p CABG post op day 2. Digoxin was added on yesterday in addition to amiodarone and cardizem. Pt was rate controlled this am and diltiazem and digoxin were discontinued. He was transitioned to PO amiodarone. Chest tube and galicia will be removed today and patient will be weaned off pressors. PT consulted to start working with patient. Continue aggressive spirometry. WBC improved from 12.4 down to 10.9, Hgb decreased from 10.3 down to 9.7, remainder of hs labs are relatively unremarkable 04/28 the patient has been seen and examined during rounding, acute events overnight, he is currently on Keppra IV. Blood pressure 140/76, heart rate controlled at 81, respiratory rate of 16. He is afebrile, saturating normal room air. No chest pain, shortness shortness for breath, no nausea, no vomiting. REVIEW OF SYSTEMS 12 point ROS negative unless noted in HPI PHYSICAL EXAM GENERAL APPEARANCE: The patient is awake, alert, and oriented, in no acute cardiopulmonary distress. NEUROLOGICAL: Cranial nerves II-XII grossly intact. Motor is 5/5 in bilateral upper and lower extremities proximal to distal. No sensory deficits. HEENT: Face is symmetric. Pupils are equal and reactive. Extraocular movements are intact. NECK: Supple. No JVD. No thyromegaly. No submental, submandibular, pre- /postauricular, occipital or supraclavicular lymphadenopathy. CHEST: Normal chest expansion. No Telemetry. LUNGS: Absence of any rales, rhonchi or any wheezing. CARDIOVASCULAR: Regular. S1 and S2 normal. No appreciable rubs, murmurs or gallops. ABDOMEN: Soft, nontender, and nondistended. There is no rebound, voluntary guarding, or rigidity. : Deferred. No Galicia. EXTREMITIES: Non-edematous and not cyanotic. No clubbing. Good capillary refill. SKIN: No skin breakdown. Vital Signs (last 8hr) Date Time Temp Pulse Resp B/P (MAP) Pulse Ox O2 Delivery O2 Flow Rate FiO2 04/28/24 13:03 99.0 81 16 148/76 97 Room Air 04/28/24 09:16 87 14 164/83 92 Room Air 04/28/24 08:30 92 Room Air* 0 21 04/28/24 08:20 82 18 N/Cannula Low lpm 2.0 28 04/28/24 08:00 98.1 04/28/24 08:00 88 18 168/91 92 Room Air LABS: Laboratory: Test 04/28/24 08:04 04/28/24 03:48 04/27/24 05:10 Range/Units Whole Blood Glucose 114 H 70-110 MG/DL White Blood Count 8.6 4.8-10.8 K/uL Red Blood Count 3.42 L 4.50-6.20 MIL/uL Hemoglobin 10.4 L 14.0-18.0 g/dL Hematocrit 31.4 L 42-54 % Mean Corpuscular Volume 91.8 79-99 fL Mean Corpuscular Hemoglobin 30.4 27.0-33.0 pg Mean Corpuscular Hemoglobin Concent 33.1 32.0-36.0 g/dL Red Cell Distribution Width 13.3 11.0-15.5 % Platelet Count 148 # 130-400 K/uL Mean Platelet Volume 10.0 7.5-10.5 fL Nucleated Red Blood Cells 0.0 0.0-0.19 % Sodium Level 139 136-145 mmol/L Potassium Level 3.5 3.5-5.1 mmol/L Chloride Level 102 101-111 mmol/L Carbon Dioxide Level 31 21-32 mmol/L Blood Urea Nitrogen 17 7-18 mg/dL Creatinine 1.2 0.5-1.3 mg/dL Glomerular Filtration Rate Calc 68 >90 mL/min Random Glucose 131 H 70-105 mg/dL Total Calcium 8.4 L 8.5-10.1 mg/dL Magnesium Level 1.80 1.80-2.40 mg/dL Current Medications Medications (Trade) Dose Ordered Sig/Aaron Route PRN Reason Start Time Stop Time Status Last Admin Dose Admin Acetaminophen (TYLenol 325MG TAB) 650 mg Q4H PRN PO Temp >38.3C(AFTER EXTUBATION) 04/25/24 18:00 05/25/24 17:59 Acetaminophen (TYLenol 325MG TAB) 650 mg Q4H PRN PO TEMPERATURE GREATER THAN 101.5 04/22/24 15:30 04/24/24 14:51 DC Acetaminophen (TYLenol 325MG TAB) 650 mg Q4H PRN PO Temp >38.3C(AFTER EXTUBATION) 04/24/24 15:00 04/24/24 15:56 DC Acetaminophen (TYLenol 325MG TAB) 650 mg Q6H PRN PO MILD PAIN (1-3) 04/25/24 18:00 05/25/24 17:59 04/27/24 09:35 650 MG Acetaminophen (TYLenol 325MG TAB) 650 mg Q6H PRN PO MILD PAIN (1-3) 04/22/24 15:30 04/24/24 14:51 DC 04/22/24 20:22 650 MG Acetaminophen (TYLenol 325MG TAB) 650 mg Q6H PRN PO MILD PAIN (1-3) 04/24/24 15:00 04/24/24 15:55 DC Acetaminophen (TYLenol 650MG SUPPOSITORY) 650 mg Q4H PRN RC Temp >38.3C WHILE INTUBATED 04/25/24 18:00 05/25/24 17:59 Acetaminophen (TYLenol 650MG SUPPOSITORY) 650 mg Q4H PRN RC Temp >38.3C WHILE INTUBATED 04/24/24 15:00 04/24/24 15:57 DC Acetaminophen (acetaMINOPHEN) 1,000 mg Q6H6 IV 04/24/24 18:00 04/25/24 17:59 DC 04/25/24 17:42 1,000 MG Albumin Human 250 ml @ 0 mls/hr AD PRN IV IF HEMODYNAMICALLY UNSTABLE 04/24/24 15:00 04/24/24 18:56 DC 04/24/24 18:56 250 MLS/HR Aminocaproic Acid 51551 mg/Sodium Chloride 310 ml @ 25 mls/hr AD IV 04/24/24 15:00 04/25/24 03:23 DC Aminocaproic Acid 80014 mg/Sodium Chloride 480 ml @ 0 mls/hr AD PRN IV BLEEDING CONTROL 04/24/24 11:00 04/24/24 15:05 DC Amiodarone HCl (pacERONE 200MG) 200 mg BID PO 04/27/24 09:00 05/27/24 08:59 04/28/24 09:23 200 MG Amiodarone HCl 150 mg/Dextrose 100 ml @ 400 mls/hr PROTOCOL IV 04/26/24 05:30 04/26/24 07:16 DC 04/26/24 05:47 400 MLS/HR Amiodarone HCl 360 mg/Dextrose 200 ml @ 33.333 mls/ hr PROTOCOL IV 04/26/24 05:45 04/28/24 07:04 DC 04/26/24 05:48 33.333 MLS/HR Amiodarone HCl 540 mg/Dextrose 300 ml @ 16.667 mls/ hr PROTOCOL IV 04/26/24 11:45 04/28/24 10:57 DC 04/27/24 05:26 16.667 MLS/HR Amiodarone HCl 540 mg/Dextrose 300 ml @ 0 mls/hr PROTOCOL IV 04/26/24 05:30 04/26/24 05:29 DC Apixaban (EliquIS) 5 mg BID PO 04/27/24 09:00 05/27/24 08:59 04/28/24 09:23 5 MG Aspirin (Aspirin 81mg Ec Tab) 81 mg DAILY PO 04/26/24 09:00 05/26/24 08:59 04/28/24 09:23 81 MG Aspirin (Aspirin 81mg Ec Tab) 81 mg DAILY PO 04/22/24 09:00 04/26/24 08:22 DC 04/25/24 08:16 81 MG Atorvastatin Calcium (LIPItor 40MG) 40 mg HS PO 04/22/24 21:00 05/22/24 20:59 04/27/24 20:59 40 MG Calcium Gluconate 1 gm/Sodium Chloride 60 ml @ 200 mls/hr AD PRN IV HYPOCALCEMIA 04/24/24 15:00 05/24/24 14:59 04/25/24 04:58 200 MLS/HR Cefazolin Sodium (Ancef) 2 gm ONCALL IVP 04/23/24 21:30 04/25/24 21:29 DC 04/23/24 21:38 2 GM Cefazolin Sodium (Ancef) 2 gm Q8H IVPB 04/24/24 20:00 04/25/24 12:01 DC 04/25/24 11:30 2 GM Dexmedetomidine/ Sodium Chloride (PRECEdex 400MCG/ 100ML-NS) 400 mcg PROTOCOL IV 04/24/24 15:00 04/25/24 14:59 DC 04/24/24 19:02 400 MCG Dexmedetomidine/ Sodium Chloride (PRECEdex 400MCG/ 100ML-NS) 400 mcg PROTOCOL IV 04/24/24 20:00 04/28/24 12:54 DC Dextrose (D50w) 50 ml AD PRN IV HYPOGLYCEMIA PROTOCOL 04/22/24 00:00 04/24/24 15:13 DC Dextrose (D50w) 50 ml AD PRN IV HYPOGLYCEMIA PROTOCOL 04/22/24 08:00 04/22/24 07:52 DC Dextrose (D50w) 50 ml AD PRN IV HYPOGLYCEMIA PROTOCOL 04/24/24 15:00 05/24/24 14:59 Digoxin (LANOxin 125mcg) 125 mcg DAILY PO 04/27/24 09:00 04/27/24 09:07 DC 04/27/24 08:59 125 MCG Diltiazem HCl 125 ml @ 0 mls/hr AD IV 04/26/24 10:30 04/28/24 10:57 DC 04/26/24 21:40 10 MLS/HR Docusate Sodium (COLace 100MG CAP) 100 mg BID PO 04/24/24 21:00 05/24/24 20:59 04/28/24 09:22 100 MG Epinephrine HCl 10 mg/Sodium Chloride 250 ml @ 11.533 mls/ hr AD PRN IV POST-OP CARDIOVASCULAR ORDERS 04/24/24 15:00 04/28/24 12:54 DC Epinephrine HCl 10 mg/Sodium Chloride 250 ml @ 0 mls/hr AD PRN IV TITRATE 04/24/24 11:00 04/24/24 15:17 DC Famotidine (Pepcid 20mg Vial) 20 mg BID IV 04/22/24 09:00 04/24/24 14:51 DC 04/24/24 08:21 20 MG Famotidine (Pepcid 20mg Vial) 20 mg BID IV 04/24/24 21:00 05/24/24 20:59 04/28/24 09:23 20 MG Furosemide (LASix 20MG TAB) 20 mg Q12H PO 04/26/24 09:00 05/26/24 08:59 04/28/24 09:22 20 MG Furosemide (LASix 20MG VIAL) 20 mg Q12H IV 04/25/24 09:00 04/26/24 08:59 DC 04/25/24 21:12 20 MG Gabapentin (NEURontin 300 MG CAP) 300 mg TID PO 04/28/24 14:00 05/28/24 13:59 Glucagon (Glucagon 1mg Kit) 1 mg AD PRN IM HYPOGLYCEMIA PROTOCOL 04/22/24 00:00 04/24/24 15:15 DC Glucagon (Glucagon 1mg Kit) 1 mg AD PRN IM HYPOGLYCEMIA PROTOCOL 04/22/24 08:00 04/22/24 07:52 DC Glucagon (Glucagon 1mg Kit) 1 mg AD PRN IM HYPOGLYCEMIA PROTOCOL 04/24/24 15:00 05/24/24 14:59 Guaifenesin (MUCinex 600 MG TABLET.ER) 600 mg BID PO 04/26/24 21:00 05/26/24 20:59 04/28/24 09:22 600 MG Heparin Sodium (Porcine) (HEParin 5,000 UNIT VIAL) *calculation based on ACTUAL B... AD PRN IV HEPARIN PROTOCOL 04/22/24 02:30 04/24/24 14:51 DC 04/22/24 02:08 5,000 UNIT Heparin Sodium/ Dextrose 250 ml @ 0 mls/hr Q6H IV 04/22/24 02:30 04/24/24 14:51 DC 04/23/24 18:56 10.8 MLS/HR Hydralazine HCl (APRESOLine 20MG INJ) 10 mg Q6H PRN IV For:SBP above 160;DBP above 90 04/21/24 23:30 04/24/24 14:51 DC 04/24/24 13:43 10 MG Insulin Human Regular (humuLIN R 100 UNIT/ML 3ML) INSULIN SLIDING SCAL... ACHS SQ 04/26/24 07:30 05/26/24 07:29 Insulin Human Regular (humuLIN R 100 UNIT/ML 3ML) INSULIN SLIDING SCAL... ACHS SQ 04/22/24 07:30 04/24/24 14:51 DC Insulin Human Regular (humuLIN R 100 UNIT/ML 3ML) INSULIN SLIDING SCAL... ACHS SQ 04/22/24 11:30 04/22/24 07:51 DC Insulin Human Regular 100 unit/ Sodium Chloride 100 ml @ 0 mls/hr AD IV 04/24/24 15:00 04/26/24 14:59 DC 04/24/24 17:21 1.5 MLS/HR Ipratropium [place] (AtrovENT UD) 0.5 MG Q4H PRN IH SHORTNESS OF BREATH 04/24/24 14:30 05/24/24 14:29 Lactulose (Constulose 20gm/ 30ml Udcup) 20 gm BID PRN PO CONSTIPATION 04/24/24 15:00 05/24/24 14:59 04/27/24 16:05 20 GM Levetiracetam (kepPRA 500 MG/5 ML SD VIAL) 500 mg ONCE STAT IV 04/22/24 09:47 04/22/24 09:56 DC 04/22/24 10:05 500 MG Levetiracetam 1000 mg/Sodium Chloride 100 ml @ 400 mls/hr BID IV 04/22/24 21:00 05/22/24 20:59 04/28/24 09:21 400 MLS/HR Lidocaine (Lidocaine Patch 4%) 1 each ONCE STAT TP 04/23/24 04:20 04/23/24 04:26 DC 04/23/24 04:30 1 EACH Magnesium Hydroxide (Milk Of Magnesium 30ml) 30 ml DAILY PRN PO CONSTIPATION 04/24/24 15:00 05/24/24 14:59 Magnesium Sulfate 50 ml @ 12.5 mls/hr AD PRN IV MAG LEVEL LESS THAN 2.0 04/24/24 15:00 05/24/24 14:59 04/27/24 10:35 12.5 MLS/HR Magnesium Sulfate 50 ml @ 0 mls/hr PROTOCOL PRN IV OTHER [SEE ORDER COMMENTS] 04/22/24 00:00 04/24/24 14:51 DC Magnesium Sulfate 50 ml @ 0 mls/hr PROTOCOL PRN IV MAGNESIUM PROTOCOL 04/22/24 08:00 04/22/24 07:52 DC Metoprolol Tartrate (loprESSOR) 25 mg BID PO 04/27/24 09:00 05/27/24 08:59 04/28/24 09:23 25 MG Morphine Sulfate (morPHINE 2MG SYG) 0.5 mg Q2H PRN IV MODERATE PAIN (4-6) 04/24/24 15:00 04/25/24 14:59 DC Morphine Sulfate (morPHINE 2MG SYG) 2 mg Q4H PRN IVP SEVERE PAIN (7-10) 04/22/24 00:00 04/24/24 14:51 DC 04/24/24 12:12 2 MG Morphine Sulfate (morPHINE 4MG SYG) 1 mg Q2H PRN IV SEVERE PAIN (7-10) 04/24/24 15:00 04/25/24 14:59 DC 04/24/24 20:15 1 MG Nicardipine HCl 100 mg/Sodium Chloride 100 ml @ 0 mls/hr PROTOCOL IV 04/24/24 18:00 04/28/24 12:54 DC Nitroglycerin (Nitroglycerin 1gm Oint) 0.5 inch Q8H TD 04/21/24 23:30 04/23/24 09:03 DC 04/23/24 08:25 0.5 INCH Nitroglycerin (Nitrostat) 0.4 mg AD PRN SL CHEST PAIN 04/21/24 21:30 04/24/24 14:51 DC 04/21/24 22:27 0.4 MG Nitroglycerin/ Dextrose 0 ml @ 0 mls/hr AD IV 04/24/24 15:00 04/27/24 14:59 DC 04/24/24 17:30 3 MLS/HR Norepinephrine Bitartrate 250 ml @ 0 mls/hr AD PRN IV TITRATE 04/24/24 11:00 04/24/24 15:13 DC Norepinephrine Bitartrate 8 mg/ Dextrose 250 ml @ 0 mls/hr AD PRN IV POST-OP CARDIOVASCULAR ORDERS 04/24/24 15:00 04/28/24 12:54 DC Ondansetron HCl (zoFRAN 4MG INJ) 4 mg Q6H PRN IV NAUSEA/VOMITING 04/21/24 23:30 04/24/24 14:51 DC 04/22/24 09:41 4 MG Ondansetron HCl (zoFRAN 4MG INJ) 4 mg Q6H PRN IV NAUSEA/VOMITING 04/24/24 15:00 05/24/24 14:59 Pharmacy Profile Note (Pharmacy Communication) [address] [facility] [place] 04/26/24 10:30 04/26/24 10:27 DC Pharmacy Profile Note (Pharmacy Communication) PLEASE ENTER HT AND WT Q15M [facility] [place] 04/21/24 23:45 04/22/24 00:16 DC Polyethylene Glycol (MIRalax 3350 17 GM POWD.PACK) 17 gm DAILY PO 04/27/24 09:00 05/27/24 08:59 04/28/24 09:21 17 GM Potassium Phosphate 250 ml @ 42 mls/hr AD PRN IV LOW PHOS LEVEL 04/24/24 15:00 05/24/24 14:59 Potassium Chloride 100 ml @ 50 mls/hr AD PRN IV POTASSIUM PROTOCOL 04/22/24 00:00 04/24/24 14:51 DC Potassium Chloride 100 ml @ 100 mls/hr AD PRN IV POTASSIUM PROTOCOL 04/28/24 08:30 05/28/24 08:29 Potassium Chloride 100 ml @ 100 mls/hr AD PRN IV POTASSIUM PROTOCOL 04/22/24 08:00 04/22/24 07:52 DC Potassium Chloride 100 ml @ 100 mls/hr AD PRN IV HYPOKALEMIA 04/24/24 15:00 04/28/24 08:24 DC 04/25/24 02:26 100 MLS/HR Potassium Chloride (K-Dur/Klor-Con 20meq) 20 meq AD PRN PO POTASSIUM PROTOCOL 04/28/24 08:30 05/28/24 08:29 04/28/24 09:22 20 MEQ Potassium Chloride (K-Dur/Klor-Con 20meq) 20 meq AD PRN PO POTASSIUM PROTOCOL 04/22/24 08:00 04/24/24 14:51 DC 04/23/24 08:24 20 MEQ Potassium Chloride (KCl 10% Elixir 20meq/15ml) 20 meq AD PRN PO POTASSIUM PROTOCOL 04/28/24 08:30 05/28/24 08:29 Potassium Chloride (KCl 10% Elixir 20meq/15ml) 20 meq AD PRN PO POTASSIUM PROTOCOL 04/22/24 08:00 04/24/24 14:51 DC Propofol 100 ml @ 0 mls/hr AD PRN IV SEDATION 04/24/24 15:00 04/28/24 12:54 DC Sodium Bicarbonate (Sodium Bicarb 50meq 50ml Vial) 50 meq AD PRN IV OTHER[SEE DOSING INSTRUCTIONS] 04/24/24 15:00 04/27/24 14:59 DC 04/24/24 22:30 150 MEQ Sodium Chloride 500 ml @ 0 mls/hr AD IV 04/24/24 15:00 05/24/24 14:59 Sodium Chloride 1,000 ml @ 10 mls/hr ONCE IV 04/24/24 15:00 04/25/24 14:59 DC 04/24/24 17:18 10 MLS/HR Sodium Chloride 1,000 ml @ 75 mls/hr [id number] IV 04/22/24 00:00 04/23/24 23:59 DC 04/23/24 17:50 75 MLS/HR Sodium Chloride (NS Flush 10ml) 10 ml Q8H PRN IVP IV LINE FLUSH 04/24/24 15:00 05/24/24 14:59 Tramadol HCl (UltRAM) 25 mg Q6H PRN PO MODERATE PAIN (4-6) 04/24/24 15:00 04/28/24 11:43 DC 04/26/24 02:16 50 MG Tramadol HCl (UltRAM) 50 mg Q6H PRN PO MODERATE PAIN (4-6) 04/24/24 15:00 04/29/24 14:59 04/28/24 02:56 50 MG Tramadol HCl (UltRAM) 100 mg Q6H PRN PO SEVERE PAIN (7-10) 04/28/24 12:00 05/03/24 11:59 04/28/24 12:14 100 MG DIAGNOSTICS / RADIOLOGY: [ ] CHEST 1VW REASON: s/p CABG COMPARISON: 04/27/2024 FINDINGS: Left chest tube is been removed. There is no pneumothorax. There is persistent mild atelectasis medial left lung base. Exam is otherwise unremarkable. IMPRESSION: 1. No pneumothorax following left chest tube removal. ASSESSMENT: CAD s/p CABG (04/25/24) POA New onset afib with RVR, rate controlled POA Mid distal LM 90% lesion by left heart catheterization, POA Prox CX with 60-60% disease, by by left heart catheterization, POA Polysubstance abuse POA Active smoker, POA Normocytic normochromic anemia POA Diabetes POA Hyperlipidemia POA Hypertension POA Seizure disorder POA Parkinson's disease POA History of multiple CVA POA PLAN: The patient to be downgraded from the ICU to the PCU Continue to follow Cardiology input and recommendation. Continue Eliquis 5 mg p.o. b.i.d. Continue metoprolol 25mg BID Continue aspirin 81mg q24h Continue lasix 20mg PO BID Continue PO amiodarone 200mg BID Close monitoring of the patient's blood pressure Continue to monitor respiratory status Counseled on polysubstance abuse Continue Keppra 1 g IV b.i.d. Continue to replace electrolytes IV per protocol GI and DVT prophylaxis Disposition: The patient to be downgraded to the PCU. Continue color television console monitor. Further orders per hospitalization course. Plan of action discussed, all questions answered, agreed and understood the information provided. Total ICU time spent greater than 30 minutes. MELISSA ROJAS MD Apr 28, 2024 13:10
[2024-04-28] MEDS: GABAPENTIN 300 MG CAPSULE PO SCH (13:22)
--- NOTE | 2024-04-28 18:25 | NUR ---
CM NOTE/[facility] CM spoke to patient and spouse regarding d/c planning. CM discussed returning home vs short term SNF/rehab. States he has discussed with spouse and feels safer going to SNF. CM offered in network choices. CM obtained [facility] for [facility]1 [facility] and [facility]. CM to fax referral to [facility] and follow up. Addendum: 04/28/24 at 1827 by CATIE NIETO CM Amended: Links added.
--- NOTE | 2024-04-28 20:13 | PN ---
SUBJECTIVE: The patient is postop day #4 from a coronary artery bypass grafting. The patient is doing relatively well in the ICU and on telemetry floor. He, however, is somewhat slow to rehab. He is only able to walk around with assistance in the room. OBJECTIVE: VITAL SIGNS: He is afebrile. Vital signs are stable. HEENT: Normocephalic, atraumatic. Extraocular movements intact. He wears glasses. He has been weaned off of nasal cannula oxygen. CHEST: His sternal wound is bandaged. HEART: S1, S2, currently regular. LUNGS: Unlabored at rest, lying flat in bed, off of oxygen. ABDOMEN: Flat with positive bowel sounds. His femoral artery balloon pump has been removed. EXTREMITIES: He has FRAN stockings on his lower extremities. ASSESSMENT AND PLAN: * Status post coronary artery bypass grafting. Continue aspirin, beta harvinder, Lasix, cardiac rehab and plan evaluation by case management for placement in an inpatient rehab unit. * Hypercholesterolemia. Lipitor at bedtime. Low cholesterol, cardiac diet. * Deep venous thrombosis prophylaxis. Lovenox subQ q. day. TID: [id number] RECEIPT: [id number]
[2024-04-29] VITALS (14 sets, daily range): BP systolic 79–134; BP diastolic 41–74; PULSE 49–97; RESP 15–20; TEMP 98.1–100; O2SAT 96–97
[2024-04-29 03:46] LABS: HEMATOCRIT 32.3 % (42-54); MEAN CORPUSCULAR HEMOGLOBIN 29.4 pg (27.0-33.0); MEAN CORPUSCULAR HGB CONC 32.2 g/dL (32.0-36.0); MEAN CORPUSCULAR VOLUME 91.2 fL (79-99); RED BLOOD CELL COUNT(AUTO) 3.54 MIL/uL (4.50-6.20); RED CELL DISTRIBUTION WIDTH 13.2 % (11.0-15.5); WHITE BLOOD COUNT (AUTO) 5.8 K/uL (4.8-10.8)
[2024-04-29 04:01] LABS: CREATININE 1.3 mg/dL (0.5-1.3)
--- NOTE | 2024-04-29 04:26 | NUR ---
PATIENT C/O LEFT SHOULDER PAIN. PATIENT OFFERED THE PAIN MEDICATION ORDERED BY SURGEON. PATIENT REFUSED MEDICATION AT THIS TIME. DID APPLY WARM COMPRESS ON THE SHOULDER FOR COMFORT.
[2024-04-29 08:53] LABS: APPEARANCE,URINE CLEAR (CLEAR); BILIRUBIN,URINE NEGATIVE (NEGATIVE); COLOR,URINE YELLOW (YELLOW); GLUCOSE, URINE (UA) NEGATIVE (NEGATIVE); KETONES,URINE 5 mg/dL (NEGATIVE); LEUKOCYTE ESTERASE ,URINE NEGATIVE Leu/uL (NEGATIVE); NITRATE,URINE NEGATIVE (NEGATIVE); PH,URINE 6.5 (5.0-8.0); PROTEIN,URINE 50 mg/dL (NEGATIVE); UROBILINOGEN,URINE 12 mg/dL (0.2-1.0)
[2024-04-29 08:54] LABS: ADD UA MICROSCOPIC YES
[2024-04-29 08:55] LABS: MUCUS,URINE RARE LPF (None Seen)
[2024-04-29] MEDS: cefTRIAXone 1G VIAL IVPB SCH (10:23)
--- NOTE | 2024-04-29 10:32 | HMCIMG ---
CHEST 1VW REASON: s/p CABG COMPARISON: 04/28/2024 FINDINGS: There is a left pleural effusion which is decreasing. Lungs are otherwise clear. Heart size is normal with no vascular congestion. Presents median sternotomy is noted. IMPRESSION: 1. Decreasing atelectasis and effusion left lung base.
--- NOTE | 2024-04-29 11:15 | PN ---
CARDIOLOGY Reason for consult: Chest pain HPI/story at presentation: This is a pleasant 61-year-old past medical history as per present with complaints of chest discomfort. Known history of cocaine/marijuana use at baseline and has been having issues with retrosternal chest pain at presentation. EKG without significant ischemic changes but patient did have elevated troponins greater than 600. Cardiology was consulted for further evaluation management Subjective: 04/22/2024 Chest pain 04/24/2024 plan for surgery today, anxious 04/25/2024 extubated 04/26/2024 No complaints 04/27/2024 no complaints 04/28/2024 no complaints 04/29/2024 feeling better Past medical history: See below Allergies, Meds See chart Review of systems Review of Systems Constitutional: Negative for chills and fever. HENT: Negative for ear discharge and ear pain. Eyes: Negative for photophobia and discharge. Respiratory: Negative for cough, sputum production and stridor. Cardiovascular: Negative for chest pain and palpitations. Gastrointestinal: Negative for diarrhea and vomiting. Genitourinary: Negative for frequency. Musculoskeletal: Negative for myalgias. Skin: Negative for rash. Neurological: Negative for focal weakness and seizures. Endo/Heme/Allergies: Negative for polydipsia. Psychiatric/Behavioral: Negative for hallucinations. Vitals see chart PHYSICAL EXAMINATION GENERAL: The patient is alert HEENT: Nonicteric sclerae, non traumatic HEART: IRREGUALR 04/26/2024 LUNGS: Clear to auscultation bilaterally ABDOMEN: No acute issues, non tender GENITAL, RECTAL: deferred SKIN: No rash NEUROLOGIC: NFND EXTREMITIES: No edema ASSESSMENT CHEST PAIN, NSTEMI, S/P BYPASS NOLAN to LAD, SVG to Diag,m CX was not bypassed :HC with severe disease of LM, s/p IABP History of EKG without ischemic changes trop > 600 04/2024 UDS positive for cocaine and marijuana ATRIAL FIB post op on eliquis, amoi and BB 04/29/2024 CVA History of, 2019 HYPERTENSION, HYPERLIPIDEMIA TOBACCO USE OTHER MEDICAL PROBLEMS arthritis seizures PLAN 04/22/2024 patient with non-STEMI, no significant ischemic changes on EKG. Can start heparin, will consider cardiac catheterization tomorrow to further evaluate coronaries. UDS positive for cocaine and marijuana, will need to address compliance with medical therapy prior to any intervention. No history of significant peripheral vascular disease with history of strokes in the past. 04/23/2024 Remains on balloon pump, having issues with back pain in the setting of arthritis but otherwise, stable hemodynamic and electrical status. Remains on heparin drip and tolerating well. Timing of surgery per CVT. On metoprolol statin and aspirin, continue. Echocardiogram showed normal ejection fraction as well. 04/24/2024 reportedly plan for surgery today, remains on IABP 1:1. on good meds, will follow perioperatively, multiple questions answered. 04/25/2024atient status post bypass yesterday, doing well, extubated overnight, currently on a small dose of pressors. The patient received SVG to the diagonal and NOLAN to the LAD, obtuse marginal was not bypassed as it was a small-vessel may consider intervention to the true circumflex if needed as an outpatient. Intra-aortic balloon pump remains in situ. Currently on Lasix we will update medical therapy for CAD once patient is off pressors. 04/26/2024 Patient converted to atrial fibrillation this morning, currently on amiodarone. Currently, balloon pump is set at 1 is to 3 and patient remains hemodynamically stable with. Possibly, balloon pump may get pulled today. Family at bedside, questions answered. Will go ahead and start Cardizem as well to try to help with rate, will start this without a bolus and adjust as needed. Chest tube still considerable, urine output is good. Currently on IV diuresis as well., Agree. Good blood pressure room. Atelectasis on x-ray. EF on echocardiogram was normal prior to bypass. ideally, will need anticoagulation for afib 04/27/2024 Was loaded with digoxin yesterday and has converted to NSR, primary has started him on eliquis as well. Continue amio. Currently off cardizem, feeling much improved.Chest tube is likely being removed today. Appreciate CVT surgery, critical care. 04/28/2024 Doing well, remains in normal sinus rhythm, no active complaints at this time. Ambulating, remains on oral amiodarone. X-ray without evidence of pneumothorax. On Eliquis and aspirin as well. On oral Lasix metoprolol 04/29/2024 Concern for UTI, however, UA done today was within normal limits. Doing well, currently off all support, remains in normal sinus rhythm and doing well. Plans remain for possible rehab at discharge. On Eliquis beta-harvinder and amiodarone to help with underlying atrial fibrillation. Chest x-ray with improvement in lung aeration. ATTESTATION I was involved substantially in the care of this patient Number and complexity of problems addressed: 1 acute illness with systemic features Amount and or complexity of data Review of prior external note(s) from each unique source: 2+ Ordering of each unique test : 1 Review of the result(s) of each unique test: 2+ Assessment requiring an independent historian(s): No Independent interpretation of test performed by another MD/QHCP/appropriate source (not separately reported) : No Discussion of management or test interpretation with external MD/QHCP/appropriate source (not separately reported) : No Risk status (cardiac, billing related): Moderate Vitals/Labs Vital Signs Date Time Temp Pulse Resp B/P (MAP) Pulse Ox O2 Delivery O2 Flow Rate FiO2 04/29/24 07:00 100.0 83 19 134/73 96 Room Air 04/29/24 06:33 2.0 28 Laboratory Tests 04/29/24 03:21 Medications Current Medications Nitroglycerin 0.4 mg AD PRN SL Last administered on 04/21/24at 22:27; Start 04/21/24 at 21:30; Stop 04/24/24 at 14:51; Status DC Ondansetron HCl 4 mg Q6H PRN IV Last administered on 04/22/24at 09:41; Start 04/21/24 at 23:30; Stop 04/24/24 at 14:51; Status DC Nitroglycerin 0.5 inch Q8H TD Last administered on 04/23/24at 08:25; Start 04/21/24 at 23:30; Stop 04/23/24 at 09:03; Status DC Hydralazine HCl 10 mg Q6H PRN IV Last administered on 04/24/24at 13:43; Start 04/21/24 at 23:30; Stop 04/24/24 at 14:51; Status DC Famotidine 20 mg BID IV Last administered on 04/24/24at 08:21; Start 04/22/24 at 09:00; Stop 04/24/24 at 14:51; Status DC Pharmacy Profile Note PLEASE ENTER HT AND WT Q15M MISC; Start 04/21/24 at 23:45; Stop 04/22/24 at 00:16; Status DC Insulin Human Regular INSULIN SLIDING SCAL... ACHS SQ; Start 04/22/24 at 07:30; Stop 04/24/24 at 14:51; Status DC Dextrose 50 ml AD PRN IV; Start 04/22/24 at 00:00; Stop 04/24/24 at 15:13; Status DC Glucagon 1 mg AD PRN IM; Start 04/22/24 at 00:00; Stop 04/24/24 at 15:15; Status DC Potassium Chloride 100 ml @ 50 mls/hr AD PRN IV; Start 04/22/24 at 00:00; Stop 04/24/24 at 14:51; Status DC Magnesium Sulfate 50 ml @ 0 mls/hr PROTOCOL PRN IV; Start 04/22/24 at 00:00; Stop 04/24/24 at 14:51; Status DC Morphine Sulfate 2 mg Q4H PRN IVP Last administered on 04/24/24at 12:12; Start 04/22/24 at 00:00; Stop 04/24/24 at 14:51; Status DC Sodium Chloride 1,000 ml @ 75 mls/hr [id number] IV Last administered on 04/23/24at 17:50; Start 04/22/24 at 00:00; Stop 04/23/24 at 23:59; Status DC Aspirin 81 mg DAILY PO Last administered on 04/25/24at 08:16; Start 04/22/24 at 09:00; Stop 04/26/24 at 08:22; Status DC Atorvastatin Calcium 40 mg HS PO Last administered on 04/28/24at 20:50; Start 04/22/24 at 21:00; Stop 05/22/24 at 20:59 Heparin Sodium (Porcine) *calculation based on ACTUAL B... AD PRN IV Last administered on 04/22/24at 02:08; Start 04/22/24 at 02:30; Stop 04/24/24 at 14:51; Status DC Heparin Sodium/ Dextrose 250 ml @ 0 mls/hr Q6H IV Last administered on 04/23/24at 18:56; Start 04/22/24 at 02:30; Stop 04/24/24 at 14:51; Status DC Insulin Human Regular INSULIN SLIDING SCAL... ACHS SQ; Start 04/22/24 at 11:30; Stop 04/22/24 at 07:51; Status DC Dextrose 50 ml AD PRN IV; Start 04/22/24 at 08:00; Stop 04/22/24 at 07:52; Status DC Glucagon 1 mg AD PRN IM; Start 04/22/24 at 08:00; Stop 04/22/24 at 07:52; Status DC Magnesium Sulfate 50 ml @ 0 mls/hr PROTOCOL PRN IV; Start 04/22/24 at 08:00; Stop 04/22/24 at 07:52; Status DC Potassium Chloride 100 ml @ 100 mls/hr AD PRN IV; Start 04/22/24 at 08:00; Stop 04/22/24 at 07:52; Status DC Potassium Chloride 20 meq AD PRN PO; Start 04/22/24 at 08:00; Stop 04/24/24 at 14:51; Status DC Potassium Chloride 20 meq AD PRN PO Last administered on 04/23/24at 08:24; Start 04/22/24 at 08:00; Stop 04/24/24 at 14:51; Status DC Lorazepam 2 mg ONCE ONCE IVP; Start 04/22/24 at 10:00; Stop 04/22/24 at 10:01; Status DC Levetiracetam 500 mg ONCE STAT IV Last administered on 04/22/24at 10:05; Start 04/22/24 at 09:47; Stop 04/22/24 at 09:56; Status DC Levetiracetam 1000 mg/Sodium Chloride 100 ml @ 400 mls/hr BID IV Last administered on 04/29/24at 10:44; Start 04/22/24 at 21:00; Stop 05/22/24 at 20:59 Acetaminophen 650 mg Q6H PRN PO Last administered on 04/22/24at 20:22; Start 04/22/24 at 15:30; Stop 04/24/24 at 14:51; Status DC Acetaminophen 650 mg Q4H PRN PO; Start 04/22/24 at 15:30; Stop 04/24/24 at 14:51; Status DC Lidocaine HCl 20 ml STK-MED ONCE .ROUTE; Start 04/22/24 at 16:21; Stop 04/22/24 at 16:24; Status DC Iohexol 35,000 mg STK-MED ONCE IV; Start 04/22/24 at 16:21; Stop 04/22/24 at 16:24; Status DC Heparin Sodium/ Sodium Chloride 1,000 ml @ As Directed STK-MED ONCE IV; Start 04/22/24 at 16:22; Stop 04/22/24 at 16:24; Status DC Nitroglycerin 50 mg STK-MED ONCE .ROUTE; Start 04/22/24 at 16:22; Stop 04/22/24 at 16:24; Status DC Heparin Sodium (Porcine) 10,000 unit STK-MED ONCE .ROUTE; Start 04/22/24 at 16:36; Stop 04/22/24 at 16:36; Status DC Nicardipine HCl 25 mg STK-MED ONCE IV; Start 04/22/24 at 17:07; Stop 04/22/24 at 17:08; Status DC Fentanyl Citrate 100 mcg STK-MED ONCE .ROUTE; Start 04/22/24 at 17:09; Stop 04/22/24 at 17:09; Status DC Midazolam HCl 2 mg STK-MED ONCE .ROUTE; Start 04/22/24 at 17:09; Stop 04/22/24 at 17:09; Status DC Heparin Sodium/ Dextrose 250 ml @ As Directed STK-MED ONCE IV; Start 04/22/24 at 17:46; Stop 04/22/24 at 17:46; Status DC Lidocaine 1 each ONCE STAT TP Last administered on 04/23/24at 04:30; Start 04/23/24 at 04:20; Stop 04/23/24 at 04:26; Status DC Cefazolin Sodium 2 gm ONCALL IVP Last administered on 04/23/24at 21:38; Start 04/23/24 at 21:30; Stop 04/25/24 at 21:29; Status DC Metoprolol Tartrate 12.5 mg ONCE ONCE PO Last administered on 04/24/24at 08:21; Start 04/24/24 at 09:00; Stop 04/24/24 at 09:01; Status DC Epinephrine HCl 10 mg/Sodium Chloride 250 ml @ 0 mls/hr AD PRN IV; Start 04/24/24 at 11:00; Stop 04/24/24 at 15:17; Status DC Norepinephrine Bitartrate 250 ml @ 0 mls/hr AD PRN IV; Start 04/24/24 at 11:00; Stop 04/24/24 at 15:13; Status DC Aminocaproic Acid 31769 mg/Sodium Chloride 480 ml @ 0 mls/hr AD PRN IV; Start 04/24/24 at 11:00; Stop 04/24/24 at 15:05; Status DC Nitroglycerin/ Dextrose 1 ml @ As Directed STK-MED ONCE .ROUTE; Start 04/24/24 at 11:17; Stop 04/24/24 at 11:17; Status DC Cefazolin Sodium 1 gm STK-MED ONCE .ROUTE; Start 04/24/24 at 11:44; Stop 04/24/24 at 11:44; Status DC Heparin Sodium/ Sodium Chloride 500 ml @ As Directed STK-MED ONCE IV Last administered on 04/24/24at 11:57; Start 04/24/24 at 11:44; Stop 04/24/24 at 11:45; Status DC Papaverine HCl 60 mg STK-MED ONCE .ROUTE; Start 04/24/24 at 11:45; Stop 04/24/24 at 11:45; Status DC Cefazolin Sodium 2 gm STK-MED ONCE IVPB; Start 04/24/24 at 00:00; Stop 04/24/24 at 00:01; Status Cancel Papaverine HCl 60 mg STK-MED ONCE IRRIG; Start 04/24/24 at 00:00; Stop 04/24/24 at 00:01; Status Cancel Cefazolin Sodium 1 gm STK-MED ONCE .ROUTE; Start 04/24/24 at 11:55; Stop 04/24/24 at 11:55; Status DC Cefazolin Sodium 1 gm STK-MED ONCE IRRIG; Start 04/24/24 at 00:00; Stop 04/24/24 at 00:01; Status Cancel Ipratropium Jefferson 0.5 mg STK-MED ONCE IH Last administered on 04/24/24at 13:50; Start 04/24/24 at 13:44; Stop 04/24/24 at 13:44; Status DC Midazolam HCl 2 mg STK-MED ONCE .ROUTE; Start 04/24/24 at 14:12; Stop 04/24/24 at 14:12; Status DC Protamine Sulfate 250 mg STK-MED ONCE IV; Start 04/24/24 at 14:23; Stop 04/24/24 at 14:23; Status DC Lidocaine HCl 100 mg STK-MED ONCE .ROUTE; Start 04/24/24 at 14:23; Stop 04/24/24 at 14:23; Status DC Heparin Sodium (Porcine) 10,000 unit STK-MED ONCE .ROUTE; Start 04/24/24 at 14:23; Stop 04/24/24 at 14:23; Status DC Epinephrine HCl 1 mg STK-MED ONCE .ROUTE; Start 04/24/24 at 14:23; Stop 04/24/24 at 14:23; Status DC Sodium Bicarbonate 200 ml @ As Directed STK-MED ONCE .ROUTE; Start 04/24/24 at 14:23; Stop 04/24/24 at 14:23; Status DC Norepinephrine Bitartrate 4 mg STK-MED ONCE IV; Start 04/24/24 at 14:23; Stop 04/24/24 at 14:24; Status DC Propofol 200 mg STK-MED ONCE IV; Start 04/24/24 at 14:24; Stop 04/24/24 at 14:24; Status DC Fentanyl Citrate 1,000 mcg STK-MED ONCE IJ; Start 04/24/24 at 14:24; Stop 04/24/24 at 14:24; Status DC Glycopyrrolate 1 mg STK-MED ONCE .ROUTE; Start 04/24/24 at 14:24; Stop 04/24/24 at 14:24; Status DC Rocuronium Jefferson 50 mg STK-MED ONCE .ROUTE; Start 04/24/24 at 14:24; Stop 04/24/24 at 14:25; Status DC Ketamine HCl 50 mg STK-MED ONCE .ROUTE; Start 04/24/24 at 14:25; Stop 04/24/24 at 14:25; Status DC Ipratropium Jefferson 0.5 MG Q4H PRN IH; Start 04/24/24 at 14:30; Stop 05/24/24 at 14:29 Acetaminophen 1,000 mg Q6H6 IV Last administered on 04/25/24at 17:42; Start 04/24/24 at 18:00; Stop 04/25/24 at 17:59; Status DC Aspirin 81 mg ONCE ONCE NG Last administered on 04/24/24at 19:58; Start 04/24/24 at 18:00; Stop 04/24/24 at 18:01; Status DC Docusate Sodium 100 mg BID PO Last administered on 04/29/24at 10:22; Start 04/24/24 at 21:00; Stop 05/24/24 at 20:59 Lactulose 20 gm BID PRN PO Last administered on 04/27/24at 16:05; Start 04/24/24 at 15:00; Stop 05/24/24 at 14:59 Furosemide 20 mg Q12H PO Last administered on 04/29/24at 10:21; Start 04/26/24 at 09:00; Stop 05/26/24 at 08:59 Furosemide 20 mg Q12H IV Last administered on 04/25/24at 21:12; Start 04/25/24 at 09:00; Stop 04/26/24 at 08:59; Status DC Magnesium Hydroxide 30 ml DAILY PRN PO; Start 04/24/24 at 15:00; Stop 05/24/24 at 14:59 Dexmedetomidine/ Sodium Chloride 400 mcg PROTOCOL IV Last administered on 04/24/24at 19:02; Start 04/24/24 at 15:00; Stop 04/25/24 at 14:59; Status DC Acetaminophen 650 mg Q6H PRN PO; Start 04/24/24 at 15:00; Stop 04/24/24 at 15:55; Status DC Sodium Chloride 1,000 ml @ 10 mls/hr ONCE IV Last administered on 04/24/24at 17:18; Start 04/24/24 at 15:00; Stop 04/25/24 at 14:59; Status DC Sodium Chloride 10 ml Q8H PRN IVP; Start 04/24/24 at 15:00; Stop 05/24/24 at 14:59 Morphine Sulfate 0.5 mg Q2H PRN IV; Start 04/24/24 at 15:00; Stop 04/25/24 at 14:59; Status DC Morphine Sulfate 1 mg Q2H PRN IV Last administered on 04/24/24at 20:15; Start 04/24/24 at 15:00; Stop 04/25/24 at 14:59; Status DC Acetaminophen 650 mg Q4H PRN RC; Start 04/24/24 at 15:00; Stop 04/24/24 at 15:57; Status DC Ondansetron HCl 4 mg Q6H PRN IV; Start 04/24/24 at 15:00; Stop 05/24/24 at 14:59 Sodium Chloride 500 ml @ 0 mls/hr AD IV; Start 04/24/24 at 15:00; Stop 05/24/24 at 14:59 Nitroglycerin/ Dextrose 0 ml @ 0 mls/hr AD IV Last administered on 04/24/24at 17:30; Start 04/24/24 at 15:00; Stop 04/27/24 at 14:59; Status DC Propofol 100 ml @ 0 mls/hr AD PRN IV; Start 04/24/24 at 15:00; Stop 04/28/24 at 12:54; Status DC Norepinephrine Bitartrate 8 mg/ Dextrose 250 ml @ 0 mls/hr AD PRN IV; Start 04/24/24 at 15:00; Stop 04/28/24 at 12:54; Status DC Epinephrine HCl 10 mg/Sodium Chloride 250 ml @ 11.533 mls/ hr AD PRN IV; Start 04/24/24 at 15:00; Stop 04/28/24 at 12:54; Status DC Aminocaproic Acid 99793 mg/Sodium Chloride 310 ml @ 25 mls/hr AD IV; Start 04/24/24 at 15:00; Stop 04/25/24 at 03:23; Status DC Calcium Gluconate 1 gm/Sodium Chloride 60 ml @ 200 mls/hr AD PRN IV Last administered on 04/25/24at 04:58; Start 04/24/24 at 15:00; Stop 05/24/24 at 14:59 Magnesium Sulfate 50 ml @ 12.5 mls/hr AD PRN IV Last administered on 04/27/24at 10:35; Start 04/24/24 at 15:00; Stop 05/24/24 at 14:59 Potassium Chloride 100 ml @ 100 mls/hr AD PRN IV Last administered on 04/25/24at 02:26; Start 04/24/24 at 15:00; Stop 04/28/24 at 08:24; Status DC Potassium Phosphate 250 ml @ 42 mls/hr AD PRN IV; Start 04/24/24 at 15:00; Stop 05/24/24 at 14:59 Albumin Human 250 ml @ 0 mls/hr AD PRN IV Last administered on 04/24/24at 18:56; Start 04/24/24 at 15:00; Stop 04/24/24 at 18:56; Status DC Acetaminophen 650 mg Q4H PRN PO; Start 04/24/24 at 15:00; Stop 04/24/24 at 15:56; Status DC Insulin Human Regular 100 unit/ Sodium Chloride 100 ml @ 0 mls/hr AD IV Last administered on 04/24/24at 17:21; Start 04/24/24 at 15:00; Stop 04/26/24 at 14:59; Status DC Cefazolin Sodium 2 gm Q8H IVPB Last administered on 04/25/24at 11:30; Start 04/24/24 at 20:00; Stop 04/25/24 at 12:01; Status DC Tramadol HCl 25 mg Q6H PRN PO Last administered on 04/26/24at 02:16; Start 04/24/24 at 15:00; Stop 04/28/24 at 11:43; Status DC Tramadol HCl 50 mg Q6H PRN PO Last administered on 04/28/24at 20:52; Start 04/24/24 at 15:00; Stop 04/29/24 at 14:59 Famotidine 20 mg BID IV Last administered on 04/29/24at 10:22; Start 04/24/24 at 21:00; Stop 05/24/24 at 20:59 Sodium Bicarbonate 50 meq AD PRN IV Last administered on 04/24/24at 22:30; Start 04/24/24 at 15:00; Stop 04/27/24 at 14:59; Status DC Dextrose 50 ml AD PRN IV; Start 04/24/24 at 15:00; Stop 05/24/24 at 14:59 Glucagon 1 mg AD PRN IM; Start 04/24/24 at 15:00; Stop 05/24/24 at 14:59 Vasopressin 20 units STK-MED ONCE .ROUTE; Start 04/24/24 at 15:10; Stop 04/24/24 at 15:10; Status DC Heparin Sodium (Porcine) 10,000 unit STK-MED ONCE .ROUTE; Start 04/24/24 at 15:19; Stop 04/24/24 at 15:19; Status DC Potassium Chloride 100 ml @ As Directed STK-MED ONCE IV; Start 04/24/24 at 15:31; Stop 04/24/24 at 15:32; Status DC Cefazolin Sodium 2 gm STK-MED ONCE IVPB Last administered on 04/24/24at 14:45; Start 04/24/24 at 14:45; Stop 04/24/24 at 15:45; Status DC Papaverine HCl 60 mg STK-MED ONCE IRRIG Last administered on 04/24/24at 15:05; Start 04/24/24 at 15:05; Stop 04/24/24 at 15:45; Status DC Cefazolin Sodium 1 gm STK-MED ONCE IRRIG Last administered on 04/24/24at 15:05; Start 04/24/24 at 15:05; Stop 04/24/24 at 15:45; Status DC Acetaminophen 650 mg Q6H PRN PO Last administered on 04/28/24at 20:52; Start 04/25/24 at 18:00; Stop 05/25/24 at 17:59 Acetaminophen 650 mg Q4H PRN PO; Start 04/25/24 at 18:00; Stop 05/25/24 at 17:59 Acetaminophen 650 mg Q4H PRN RC; Start 04/25/24 at 18:00; Stop 05/25/24 at 17:59 Ketamine HCl 50 mg STK-MED ONCE .ROUTE; Start 04/24/24 at 16:11; Stop 04/24/24 at 16:11; Status DC Nicardipine HCl 100 mg/Sodium Chloride 100 ml @ 0 mls/hr PROTOCOL IV; Start 04/24/24 at 18:00; Stop 04/28/24 at 12:54; Status DC Dexmedetomidine/ Sodium Chloride 400 mcg PROTOCOL IV; Start 04/24/24 at 20:00; Stop 04/28/24 at 12:54; Status DC Sodium Bicarbonate 150 ml @ As Directed STK-MED ONCE .ROUTE; Start 04/24/24 at 22:15; Stop 04/24/24 at 22:15; Status DC Calcium Gluconate 1 gm STK-MED ONCE .ROUTE; Start 04/25/24 at 04:56; Stop 04/25/24 at 04:57; Status DC Amiodarone HCl 150 mg/Dextrose 100 ml @ 400 mls/hr PROTOCOL IV Last administered on 04/26/24at 05:47; Start 04/26/24 at 05:30; Stop 04/26/24 at 07:16; Status DC Amiodarone HCl 540 mg/Dextrose 300 ml @ 0 mls/hr PROTOCOL IV; Start 04/26/24 at 05:30; Stop 04/26/24 at 05:29; Status DC Amiodarone HCl 360 mg/Dextrose 200 ml @ 33.333 mls/ hr PROTOCOL IV Last administered on 04/26/24at 05:48; Start 04/26/24 at 05:45; Stop 04/28/24 at 07:04; Status DC Amiodarone HCl 540 mg/Dextrose 300 ml @ 16.667 mls/ hr PROTOCOL IV Last administered on 04/27/24at 05:26; Start 04/26/24 at 11:45; Stop 04/28/24 at 10:57; Status DC Insulin Human Regular INSULIN SLIDING SCAL... ACHS SQ; Start 04/26/24 at 07:30; Stop 05/26/24 at 07:29 Aspirin 81 mg DAILY PO Last administered on 04/29/24at 10:23; Start 04/26/24 at 09:00; Stop 05/26/24 at 08:59 Polyethylene Glycol 17 gm DAILY PO Last administered on 04/29/24at 10:23; Start 04/27/24 at 09:00; Stop 05/27/24 at 08:59 Pharmacy Profile Note 1 each ONCE MISC; Start 04/26/24 at 10:30; Stop 04/26/24 at 10:27; Status DC Diltiazem HCl 125 ml @ 0 mls/hr AD IV Last administered on 04/26/24at 21:40; Start 04/26/24 at 10:30; Stop 04/28/24 at 10:57; Status DC Digoxin 500 mcg ONCE ONCE IV Last administered on 04/26/24at 12:46; Start 04/26/24 at 12:30; Stop 04/26/24 at 12:31; Status DC Digoxin 250 mcg ONCE ONCE IV Last administered on 04/26/24at 17:57; Start 04/26/24 at 18:30; Stop 04/26/24 at 18:31; Status DC Digoxin 250 mcg ONCE ONCE IV; Start 04/27/24 at 00:30; Stop 04/27/24 at 00:31; Status DC Digoxin 125 mcg DAILY PO Last administered on 04/27/24at 08:59; Start 04/27/24 at 09:00; Stop 04/27/24 at 09:07; Status DC Guaifenesin 600 mg BID PO Last administered on 04/29/24at 10:24; Start 04/26/24 at 21:00; Stop 05/26/24 at 20:59 Metoprolol Tartrate 25 mg BID PO Last administered on 04/29/24at 10:22; Start 04/27/24 at 09:00; Stop 05/27/24 at 08:59 Metoprolol Tartrate 25 mg ONCE ONCE PO Last administered on 04/26/24at 17:27; Start 04/26/24 at 17:30; Stop 04/26/24 at 17:31; Status DC Apixaban 5 mg BID PO Last administered on 04/29/24at 10:23; Start 04/27/24 at 09:00; Stop 05/27/24 at 08:59 Amiodarone HCl 200 mg BID PO Last administered on 04/29/24at 10:22; Start 04/27/24 at 09:00; Stop 05/27/24 at 08:59 Potassium Chloride 20 meq STK-MED ONCE PO Last administered on 04/28/24at 05:14; Start 04/28/24 at 05:09; Stop 04/28/24 at 05:11; Status DC Potassium Chloride 100 ml @ 100 mls/hr AD PRN IV; Start 04/28/24 at 08:30; Stop 05/28/24 at 08:29 Potassium Chloride 20 meq AD PRN PO; Start 04/28/24 at 08:30; Stop 05/28/24 at 08:29 Potassium Chloride 20 meq AD PRN PO Last administered on 04/28/24at 09:22; Start 04/28/24 at 08:30; Stop 05/28/24 at 08:29 Tramadol HCl 100 mg Q6H PRN PO Last administered on 04/28/24at 12:14; Start 04/28/24 at 12:00; Stop 05/03/24 at 11:59 Gabapentin 300 mg TID PO Last administered on 04/29/24at 10:22; Start 04/28/24 at 14:00; Stop 05/28/24 at 13:59 Ceftriaxone Sodium 1 gm Q24H IVPB Last administered on 04/29/24at 10:23; Start 04/29/24 at 09:30; Stop 05/09/24 at 09:29 TOMMY PITT MD Apr 29, 2024 11:15
[2024-04-29] MEDS ORDERED: COMPOUND IV MISC 1 EACH IVSOLN MISC PRN (11:30)
--- NOTE | 2024-04-29 11:39 | PN ---
[facility] PROGRESS NOTE Date of Service: Apr 29, 2024 Time of Service: 11:37 SUBJECTIVE: 63-year-old male who presented to the emergency department with chest pain, he is known with positive UDS with marijuana and cocaine. He presented with non- STEMI with elevated troponin. He was evaluated by the mileage clerk who recommended cardiac catheterization. Status post left heart catheterization noted mid distal LM 90% lesion in, proximal circumflex with 60-60% disease, patient had an insertion of IABP. Cardiovascular surgeon consulted. We will continue to follow. 04/26 - Pt seen at bedside, he converted to afib with RVR overnight and was started on amiodarone drip. He continued to be in rvr into the am and cardiology started cardizem drip, will defer further adjustements to cardiology. He remains on balloon pump, and low dose levophed. CT surgery to manage. Hgb improved from 9.2 up to 10.3, platelets mildly decreased at 95, similar to yesterday, remainder of labs relatively unremarkable. 04/27 - Pt seen at bedside, no acute events overnight. He is s/p CABG post op day 2. Digoxin was added on yesterday in addition to amiodarone and cardizem. Pt was rate controlled this am and diltiazem and digoxin were discontinued. He was transitioned to PO amiodarone. Chest tube and galicia will be removed today and patient will be weaned off pressors. PT consulted to start working with patient. Continue aggressive spirometry. WBC improved from 12.4 down to 10.9, Hgb decreased from 10.3 down to 9.7, remainder of hs labs are relatively unremarkable 04/28 the patient has been seen and examined during rounding, acute events overnight, he is currently on Keppra IV. Blood pressure 140/76, heart rate controlled at 81, respiratory rate of 16. He is afebrile, saturating normal room air. No chest pain, shortness shortness for breath, no nausea, no vomiting. 04/29 the patient has been seen and examined during my rounding, no acute events overnight, slight temperature 100.0 earlier this morning, he denied chest pain, no cough but is bringing up white phlegm. No nausea, no vomiting, no abdominal discomfort. at bedside during my visit. REVIEW OF SYSTEMS 12 point ROS negative unless noted in HPI PHYSICAL EXAM GENERAL APPEARANCE: The patient is awake, alert, and oriented, in no acute cardiopulmonary distress. NEUROLOGICAL: Cranial nerves II-XII grossly intact. Motor is 5/5 in bilateral upper and lower extremities proximal to distal. No sensory deficits. HEENT: Face is symmetric. Pupils are equal and reactive. Extraocular movements are intact. NECK: Supple. No JVD. No thyromegaly. No submental, submandibular, pre- /postauricular, occipital or supraclavicular lymphadenopathy. CHEST: Normal chest expansion. No Telemetry. LUNGS: Absence of any rales, rhonchi or any wheezing. CARDIOVASCULAR: Regular. S1 and S2 normal. No appreciable rubs, murmurs or gallops. ABDOMEN: Soft, nontender, and nondistended. There is no rebound, voluntary guarding, or rigidity. : Deferred. No Gal[place]. EXTREMITIES: Non-edematous and not cyanotic. No clubbing. Good capillary refill. SKIN: No skin breakdown. Vital Signs (last 8hr) Date Time Temp Pulse Resp B/P (MAP) Pulse Ox O2 Delivery O2 Flow Rate FiO2 04/29/24 07:00 100.0 83 19 134/73 96 Room Air 04/29/24 06:33 86 15 N/Cannula Low lpm 2.0 28 LABS: Laboratory: Test 04/29/24 11:13 04/29/24 08:40 04/29/24 03:21 Range/Units Whole Blood Glucose 177 H 70-110 MG/DL Urine Color YELLOW YELLOW Urine Appearance CLEAR CLEAR Urine pH 6.5 5.0-8.0 Urine Specific [place] 1.028 1.001-1.031 Urine Protein 50 H NEGATIVE mg/dL Urine Glucose (UA) NEGATIVE NEGATIVE mg/dL Urine Ketones 5 H NEGATIVE mg/dL Urine Occult Blood +- (TRACE) H NEGATIVE Urine Nitrate NEGATIVE NEGATIVE Urine Bilirubin NEGATIVE NEGATIVE mg/dL Urine Urobilinogen 12 H 0.2-1.0 mg/dL Urine Leukocyte Esterase NEGATIVE NEGATIVE Madelyn/uL Urine RBC 6-10 H 0-1 /HPF Urine WBC 2-5 H 0-1 /HPF Urine Bacteria None None Seen /HPF White Blood Count 5.8 # 4.8-10.8 K/uL Red Blood Count 3.54 L 4.50-6.20 MIL/uL Hemoglobin 10.4 L 14.0-18.0 g/dL Hematocrit 32.3 L 42-54 % Mean Corpuscular Volume 91.2 79-99 fL Mean Corpuscular Hemoglobin 29.4 27.0-33.0 pg Mean Corpuscular Hemoglobin Concent 32.2 32.0-36.0 g/dL Red Cell Distribution Width 13.2 11.0-15.5 % Platelet Count 215 # 130-400 K/uL Mean Platelet Volume 10.0 7.5-10.5 fL Nucleated Red Blood Cells 0.0 0.0-0.19 % Sodium Level 142 136-145 mmol/L Potassium Level 4.0 3.5-5.1 mmol/L Chloride Level 105 101-111 mmol/L Carbon Dioxide Level 32 21-32 mmol/L Blood Urea Nitrogen 22 H 7-18 mg/dL Creatinine 1.3 0.5-1.3 mg/dL Glomerular Filtration Rate Calc 62 >90 mL/min Random Glucose 141 H 70-105 mg/dL Total Calcium 8.3 L 8.5-10.1 mg/dL Current Medications Medications (Trade) Dose Ordered Sig/Aaron Route PRN Reason Start Time Stop Time Status Last Admin Dose Admin Acetaminophen (TYLenol 325MG TAB) 650 mg Q4H PRN PO Temp >38.3C(AFTER EXTUBATION) 04/25/24 18:00 05/25/24 17:59 Acetaminophen (TYLenol 325MG TAB) 650 mg Q4H PRN PO TEMPERATURE GREATER THAN 101.5 04/22/24 15:30 04/24/24 14:51 DC Acetaminophen (TYLenol 325MG TAB) 650 mg Q4H PRN PO Temp >38.3C(AFTER EXTUBATION) 04/24/24 15:00 04/24/24 15:56 DC Acetaminophen (TYLenol 325MG TAB) 650 mg Q6H PRN PO MILD PAIN (1-3) 04/25/24 18:00 05/25/24 17:59 04/28/24 20:52 650 MG Acetaminophen (TYLenol 325MG TAB) 650 mg Q6H PRN PO MILD PAIN (1-3) 04/22/24 15:30 04/24/24 14:51 DC 04/22/24 20:22 650 MG Acetaminophen (TYLenol 325MG TAB) 650 mg Q6H PRN PO MILD PAIN (1-3) 04/24/24 15:00 04/24/24 15:55 DC Acetaminophen (TYLenol 650MG SUPPOSITORY) 650 mg Q4H PRN RC Temp >38.3C WHILE INTUBATED 04/25/24 18:00 05/25/24 17:59 Acetaminophen (TYLenol 650MG SUPPOSITORY) 650 mg Q4H PRN RC Temp >38.3C WHILE INTUBATED 04/24/24 15:00 04/24/24 15:57 DC Acetaminophen (acetaMINOPHEN) 1,000 mg Q6H6 IV 04/24/24 18:00 04/25/24 17:59 DC 04/25/24 17:42 1,000 MG Albumin Human 250 ml @ 0 mls/hr AD PRN IV IF HEMODYNAMICALLY UNSTABLE 04/24/24 15:00 04/24/24 18:56 DC 04/24/24 18:56 250 MLS/HR Aminocaproic Acid 33131 mg/Sodium Chloride 310 ml @ 25 mls/hr AD IV 04/24/24 15:00 04/25/24 03:23 DC Aminocaproic Acid 03804 mg/Sodium Chloride 480 ml @ 0 mls/hr AD PRN IV BLEEDING CONTROL 04/24/24 11:00 04/24/24 15:05 DC Amiodarone HCl (pacERONE 200MG) 200 mg BID PO 04/27/24 09:00 05/27/24 08:59 04/29/24 10:22 200 MG Amiodarone HCl 150 mg/Dextrose 100 ml @ 400 mls/hr PROTOCOL IV 04/26/24 05:30 04/26/24 07:16 DC 04/26/24 05:47 400 MLS/HR Amiodarone HCl 360 mg/Dextrose 200 ml @ 33.333 mls/ hr PROTOCOL IV 04/26/24 05:45 04/28/24 07:04 DC 04/26/24 05:48 33.333 MLS/HR Amiodarone HCl 540 mg/Dextrose 300 ml @ 16.667 mls/ hr PROTOCOL IV 04/26/24 11:45 04/28/24 10:57 DC 04/27/24 05:26 16.667 MLS/HR Amiodarone HCl 540 mg/Dextrose 300 ml @ 0 mls/hr PROTOCOL IV 04/26/24 05:30 04/26/24 05:29 DC Apixaban (EliquIS) 5 mg BID PO 04/27/24 09:00 05/27/24 08:59 04/29/24 10:23 5 MG Aspirin (Aspirin 81mg Ec Tab) 81 mg DAILY PO 04/26/24 09:00 05/26/24 08:59 04/29/24 10:23 81 MG Aspirin (Aspirin 81mg Ec Tab) 81 mg DAILY PO 04/22/24 09:00 04/26/24 08:22 DC 04/25/24 08:16 81 MG Atorvastatin Calcium (LIPItor 40MG) 40 mg HS PO 04/22/24 21:00 05/22/24 20:59 04/28/24 20:50 40 MG Calcium Gluconate 1 gm/Sodium Chloride 60 ml @ 200 mls/hr AD PRN IV HYPOCALCEMIA 04/24/24 15:00 05/24/24 14:59 04/25/24 04:58 200 MLS/HR Cefazolin Sodium (Ancef) 2 gm ONCALL IVP 04/23/24 21:30 04/25/24 21:29 DC 04/23/24 21:38 2 GM Cefazolin Sodium (Ancef) 2 gm Q8H IVPB 04/24/24 20:00 04/25/24 12:01 DC 04/25/24 11:30 2 GM Ceftriaxone Sodium (ROCEphine 1G INJ) 1 gm Q24H IVPB 04/29/24 09:30 05/09/24 09:29 04/29/24 10:23 1 GM Dexmedetomidine/ Sodium Chloride (PRECEdex 400MCG/ 100ML-NS) 400 mcg PROTOCOL IV 04/24/24 15:00 04/25/24 14:59 DC 04/24/24 19:02 400 MCG Dexmedetomidine/ Sodium Chloride (PRECEdex 400MCG/ 100ML-NS) 400 mcg PROTOCOL IV 04/24/24 20:00 04/28/24 12:54 DC Dextrose (D50w) 50 ml AD PRN IV HYPOGLYCEMIA PROTOCOL 04/22/24 00:00 04/24/24 15:13 DC Dextrose (D50w) 50 ml AD PRN IV HYPOGLYCEMIA PROTOCOL 04/22/24 08:00 04/22/24 07:52 DC Dextrose (D50w) 50 ml AD PRN IV HYPOGLYCEMIA PROTOCOL 04/24/24 15:00 05/24/24 14:59 Digoxin (LANOxin 125mcg) 125 mcg DAILY PO 04/27/24 09:00 04/27/24 09:07 DC 04/27/24 08:59 125 MCG Diltiazem HCl 125 ml @ 0 mls/hr AD IV 04/26/24 10:30 04/28/24 10:57 DC 04/26/24 21:40 10 MLS/HR Docusate Sodium (COLace 100MG CAP) 100 mg BID PO 04/24/24 21:00 05/24/24 20:59 04/29/24 10:22 100 MG Epinephrine HCl 10 mg/Sodium Chloride 250 ml @ 11.533 mls/ hr AD PRN IV POST-OP CARDIOVASCULAR ORDERS 04/24/24 15:00 04/28/24 12:54 DC Epinephrine HCl 10 mg/Sodium Chloride 250 ml @ 0 mls/hr AD PRN IV TITRATE 04/24/24 11:00 04/24/24 15:17 DC Famotidine (Pepcid 20mg Vial) 20 mg BID IV 04/22/24 09:00 04/24/24 14:51 DC 04/24/24 08:21 20 MG Famotidine (Pepcid 20mg Vial) 20 mg BID IV 04/24/24 21:00 05/24/24 20:59 04/29/24 10:22 20 MG Furosemide (LASix 20MG TAB) 20 mg Q12H PO 04/26/24 09:00 05/26/24 08:59 04/29/24 10:21 20 MG Furosemide (LASix 20MG VIAL) 20 mg Q12H IV 04/25/24 09:00 04/26/24 08:59 DC 04/25/24 21:12 20 MG Gabapentin (NEURontin 300 MG CAP) 300 mg TID PO 04/28/24 14:00 05/28/24 13:59 04/29/24 10:22 300 MG Glucagon (Glucagon 1mg Kit) 1 mg AD PRN IM HYPOGLYCEMIA PROTOCOL 04/22/24 00:00 04/24/24 15:15 DC Glucagon (Glucagon 1mg Kit) 1 mg AD PRN IM HYPOGLYCEMIA PROTOCOL 04/22/24 08:00 04/22/24 07:52 DC Glucagon (Glucagon 1mg Kit) 1 mg AD PRN IM HYPOGLYCEMIA PROTOCOL 04/24/24 15:00 05/24/24 14:59 Guaifenesin (MUCinex 600 MG TABLET.ER) 600 mg BID PO 04/26/24 21:00 05/26/24 20:59 04/29/24 10:24 600 MG Heparin Sodium (Porcine) (HEParin 5,000 UNIT VIAL) *calculation based on ACTUAL B... AD PRN IV HEPARIN PROTOCOL 04/22/24 02:30 04/24/24 14:51 DC 04/22/24 02:08 5,000 UNIT Heparin Sodium/ Dextrose 250 ml @ 0 mls/hr Q6H IV 04/22/24 02:30 04/24/24 14:51 DC 04/23/24 18:56 10.8 MLS/HR Hydralazine HCl (APRESOLine 20MG INJ) 10 mg Q6H PRN IV For:SBP above 160;DBP above 90 04/21/24 23:30 04/24/24 14:51 DC 04/24/24 13:43 10 MG Insulin Human Regular (humuLIN R 100 UNIT/ML 3ML) INSULIN SLIDING SCAL... ACHS SQ 04/26/24 07:30 05/26/24 07:29 Insulin Human Regular (humuLIN R 100 UNIT/ML 3ML) INSULIN SLIDING SCAL... ACHS SQ 04/22/24 07:30 04/24/24 14:51 DC Insulin Human Regular (humuLIN R 100 UNIT/ML 3ML) INSULIN SLIDING SCAL... ACHS SQ 04/22/24 11:30 04/22/24 07:51 DC Insulin Human Regular 100 unit/ Sodium Chloride 100 ml @ 0 mls/hr AD IV 04/24/24 15:00 04/26/24 14:59 DC 04/24/24 17:21 1.5 MLS/HR Ipratropium [place] (AtrovENT UD) 0.5 MG Q4H PRN IH SHORTNESS OF BREATH 04/24/24 14:30 05/24/24 14:29 Lactulose (Constulose 20gm/ 30ml Udcup) 20 gm BID PRN PO CONSTIPATION 04/24/24 15:00 05/24/24 14:59 04/27/24 16:05 20 GM Levetiracetam (kepPRA 500 MG/5 ML SD VIAL) 500 mg ONCE STAT IV 04/22/24 09:47 04/22/24 09:56 DC 04/22/24 10:05 500 MG Levetiracetam 1000 mg/Sodium Chloride 100 ml @ 400 mls/hr BID IV 04/22/24 21:00 05/22/24 20:59 04/29/24 10:44 400 MLS/HR Lidocaine (Lidocaine Patch 4%) 1 each ONCE STAT TP 04/23/24 04:20 04/23/24 04:26 DC 04/23/24 04:30 1 EACH Magnesium Hydroxide (Milk Of Magnesium 30ml) 30 ml DAILY PRN PO CONSTIPATION 04/24/24 15:00 05/24/24 14:59 Magnesium Sulfate 50 ml @ 12.5 mls/hr AD PRN IV MAG LEVEL LESS THAN 2.0 04/24/24 15:00 05/24/24 14:59 04/27/24 10:35 12.5 MLS/HR Magnesium Sulfate 50 ml @ 0 mls/hr PROTOCOL PRN IV OTHER [SEE ORDER COMMENTS] 04/22/24 00:00 04/24/24 14:51 DC Magnesium Sulfate 50 ml @ 0 mls/hr PROTOCOL PRN IV MAGNESIUM PROTOCOL 04/22/24 08:00 04/22/24 07:52 DC Metoprolol Tartrate (loprESSOR) 25 mg BID PO 04/27/24 09:00 05/27/24 08:59 04/29/24 10:22 25 MG Morphine Sulfate (morPHINE 2MG SYG) 0.5 mg Q2H PRN IV MODERATE PAIN (4-6) 04/24/24 15:00 04/25/24 14:59 DC Morphine Sulfate (morPHINE 2MG SYG) 2 mg Q4H PRN IVP SEVERE PAIN (7-10) 04/22/24 00:00 04/24/24 14:51 DC 04/24/24 12:12 2 MG Morphine Sulfate (morPHINE 4MG SYG) 1 mg Q2H PRN IV SEVERE PAIN (7-10) 04/24/24 15:00 04/25/24 14:59 DC 04/24/24 20:15 1 MG Nicardipine HCl 100 mg/Sodium Chloride 100 ml @ 0 mls/hr PROTOCOL IV 04/24/24 18:00 04/28/24 12:54 DC Nitroglycerin (Nitroglycerin 1gm Oint) 0.5 inch Q8H TD 04/21/24 23:30 04/23/24 09:03 DC 04/23/24 08:25 0.5 INCH Nitroglycerin (Nitrostat) 0.4 mg AD PRN SL CHEST PAIN 04/21/24 21:30 04/24/24 14:51 DC 04/21/24 22:27 0.4 MG Nitroglycerin/ Dextrose 0 ml @ 0 mls/hr AD IV 04/24/24 15:00 04/27/24 14:59 DC 04/24/24 17:30 3 MLS/HR Norepinephrine Bitartrate 250 ml @ 0 mls/hr AD PRN IV TITRATE 04/24/24 11:00 04/24/24 15:13 DC Norepinephrine Bitartrate 8 mg/ Dextrose 250 ml @ 0 mls/hr AD PRN IV POST-OP CARDIOVASCULAR ORDERS 04/24/24 15:00 04/28/24 12:54 DC Ondansetron HCl (zoFRAN 4MG INJ) 4 mg Q6H PRN IV NAUSEA/VOMITING 04/21/24 23:30 04/24/24 14:51 DC 04/22/24 09:41 4 MG Ondansetron HCl (zoFRAN 4MG INJ) 4 mg Q6H PRN IV NAUSEA/VOMITING 04/24/24 15:00 05/24/24 14:59 Pharmacy Profile Note (Pharmacy Communication) 1 each ONCE [facility] [place] 04/26/24 10:30 04/26/24 10:27 DC Pharmacy Profile Note (Pharmacy Communication) PLEASE ENTER HT AND WT Q15M MIS 04/21/24 23:45 04/22/24 00:16 DC Polyethylene Glycol (MIRalax 3350 17 GM POWD.PACK) 17 gm DAILY PO 04/27/24 09:00 05/27/24 08:59 04/29/24 10:23 17 GM Potassium Phosphate 250 ml @ 42 mls/hr AD PRN IV LOW PHOS LEVEL 04/24/24 15:00 05/24/24 14:59 Potassium Chloride 100 ml @ 50 mls/hr AD PRN IV POTASSIUM PROTOCOL 04/22/24 00:00 04/24/24 14:51 DC Potassium Chloride 100 ml @ 100 mls/hr AD PRN IV POTASSIUM PROTOCOL 04/28/24 08:30 05/28/24 08:29 Potassium Chloride 100 ml @ 100 mls/hr AD PRN IV POTASSIUM PROTOCOL 04/22/24 08:00 04/22/24 07:52 DC Potassium Chloride 100 ml @ 100 mls/hr AD PRN IV HYPOKALEMIA 04/24/24 15:00 04/28/24 08:24 DC 04/25/24 02:26 100 MLS/HR Potassium Chloride (K-Dur/Klor-Con 20meq) 20 meq AD PRN PO POTASSIUM PROTOCOL 04/28/24 08:30 05/28/24 08:29 04/28/24 09:22 20 MEQ Potassium Chloride (K-Dur/Klor-Con 20meq) 20 meq AD PRN PO POTASSIUM PROTOCOL 04/22/24 08:00 04/24/24 14:51 DC 04/23/24 08:24 20 MEQ Potassium Chloride (KCl 10% Elixir 20meq/15ml) 20 meq AD PRN PO POTASSIUM PROTOCOL 04/28/24 08:30 05/28/24 08:29 Potassium Chloride (KCl 10% Elixir 20meq/15ml) 20 meq AD PRN PO POTASSIUM PROTOCOL 04/22/24 08:00 04/24/24 14:51 DC Propofol 100 ml @ 0 mls/hr AD PRN IV SEDATION 04/24/24 15:00 04/28/24 12:54 DC Sodium Bicarbonate (Sodium Bicarb 50meq 50ml Vial) 50 meq AD PRN IV OTHER[SEE DOSING INSTRUCTIONS] 04/24/24 15:00 04/27/24 14:59 DC 04/24/24 22:30 150 MEQ Sodium Chloride 500 ml @ 0 mls/hr AD IV 04/24/24 15:00 05/24/24 14:59 Sodium Chloride 1,000 ml @ 10 mls/hr ONCE IV 04/24/24 15:00 04/25/24 14:59 DC 04/24/24 17:18 10 MLS/HR Sodium Chloride 1,000 ml @ 75 mls/hr [id number] IV 04/22/24 00:00 04/23/24 23:59 DC 04/23/24 17:50 75 MLS/HR Sodium Chloride (NS Flush 10ml) 10 ml Q8H PRN IVP IV LINE FLUSH 04/24/24 15:00 05/24/24 14:59 Tramadol HCl (UltRAM) 25 mg Q6H PRN PO MODERATE PAIN (4-6) 04/24/24 15:00 04/28/24 11:43 DC 04/26/24 02:16 50 MG Tramadol HCl (UltRAM) 50 mg Q6H PRN PO MODERATE PAIN (4-6) 04/24/24 15:00 04/29/24 14:59 04/28/24 20:52 50 MG Tramadol HCl (UltRAM) 100 mg Q6H PRN PO SEVERE PAIN (7-10) 04/28/24 12:00 05/03/24 11:59 04/28/24 12:14 100 MG DIAGNOSTICS / RADIOLOGY: [ ] ASSESSMENT: CAD s/p CABG (04/25/24) POA New onset afib with RVR, rate controlled POA Mid distal LM 90% lesion by left heart catheterization, POA Prox CX with 60-60% disease, by by left heart catheterization, POA Polysubstance abuse POA Active smoker, POA Normocytic normochromic anemia POA Diabetes POA Hyperlipidemia POA Hypertension POA Seizure disorder POA Parkinson's disease POA History of multiple CVA POA PLAN: The patient to be downgraded from the ICU to the PCU Continue to follow Cardiology input and recommendation. Continue Eliquis 5 mg p.o. b.i.d. Continue metoprolol 25mg BID Continue aspirin 81mg q24h Continue lasix 20mg PO BID Continue PO amiodarone 200mg BID Close monitoring of the patient's blood pressure Continue to monitor respiratory status Counseled on polysubstance abuse Continue Keppra 1 g IV b.i.d. Continue to replace electrolytes IV per protocol GI and DVT prophylaxis Disposition: Patient remains admitted to the PCU, continue telemetry monitoring, follow UA, chest x-ray, empiric IV antibiotics with Rocephin 1 g IV daily, follow serology tests to include influenza A and B, rapid strep antigen as well as SARS antigen. Discharge plan discussed with case management, [facility], we will monitor for additional 24 hours, if medically stable and afebrile, anticipate discharge by tomorrow. Plan of action discussed, all questions answered, agreed and understood the information provided. Total PCU time spent greater than 30 minutes. MELISSA ROJAS MD 14, 2024 11:39
--- NOTE | 2024-04-29 13:55 | NUR ---
Pt seen for PT this PM. Patient in bed and reports was ambulating to restroom this AM and noted PT refusal this AM following shower at 1120. Patient agreed to participate with PT this PM and reports feeling dizzy and fatigued due to lack of sleep. Patient noted to have BP of 104/48 and notified Primary RN. Patient assessed for Orthostatic as per nursing request. Orthostatic pressures attempted, however upon standing, the patient began to demonstrated seizure like symptoms and was immediately returned to bed. Upon laying down, Patient began to seize multiple times for approximately 30-45 sec intermittently over several minutes with MIKO Ridley present at time of seizures. Patient was positioned to Right side-lying with Pillow/wedge positioned accordingly. PT session was ended with continued care from primary RN. PT to follow-up and progress within patient tolerance. Addendum: 04/29/24 at 1729 by JESS ROLDAN PT PT Amended: Links added.
[2024-04-29] MEDS: LORazepam 2 MG/ML 1 ML VIAL ONE (14:22)
[2024-04-29] MEDS ORDERED: METF-444 PO (14:47)
[2024-04-29] MEDS: LORazepam 2 MG/ML 1 ML VIAL IVP ONE (15:09)
--- NOTE | 2024-04-29 15:13 | CONS ---
CONSULTATION NOTE Date of Service: Apr 29, 2024 Reason for Consultation: eval of seizures Requesting Physician: Dr Yee HISTORY OF PRESENT ILLNESS: This is a 63 years old right-handed gentleman who has a past medical history remarkable for depression, anxiety, epilepsy, coronary artery disease status post CABG who was admitted for evaluation and management of chest pain. The patient was diagnosed with coronary artery disease and required a CABG done during this hospitalization April 22, 2024. The patient was stable was placed on levetiracetam 500 mg IV b.i.d. on admission no seizures since then until today with the patient had six seizures according to the nurse the patient did not loss consciousness while having generalized upper or lower extremity jerking movements rhythmic with no urinary incontinence no tongue biting no other complaints at this time. Patient's was at bedside describes that the patient has been diagnosed with epilepsy since the previous stroke several years ago. The patient has been placed on Depakote unknown dose one tablet twice a day. REVIEW OF SYSTEMS CONSTITUTIONAL: Denies fever, chills, or fatigue. HEAD/FACE: No signs of trauma. EENT: Denies eye pain, blurred vision, double vision, or light sensitivity. RESPIRATORY: Denies shortness of breath, cough, wheezing CARDIOVASCULAR: Denies chest pain, palpitation, syncope GASTROINTESTINAL/ABDOMINAL: Denies abdominal pain, constipation, diarrhea, nausea or vomiting GENITOURINARY: Denies dysuria or hematuria. MUSCULOSKELETAL: Denies joint pain, tenderness, or trauma. INTEGUMENTARY: Denies rash or itchiness NEUROLOGICAL/PSYCH: Positive for seizures. Denies anxiety, depression, heat or cold intolerance. PAST MEDICAL HISTORY: Epilepsy, depression, anxiety, coronary disease, stroke PAST SURGICAL HISTORY: None contributory PAST SOCIAL HISTORY: no tobacco alcohol recreational drug abuse FAMILY HISTORY: No family history of stroke or seizures Coded Allergies: ibuprofen (Unverified Allergy, Unknown, 04/07/20) naproxen (Unverified Allergy, Unknown, 04/07/20) PHYSICAL EXAM Mental status: The patient is obtunded. Following simple commands. Cranial nerves: CN II: Visual licona are full to confrontation. CN III, IV, : At primary gaze, there is no eye deviation. CN V: Facial sensation is intact to pinprick in all 3 divisions bilaterally. Corneal responses are intact. CN VII: Face is symmetric with normal eye closure and smile. CN VIII: Hearing is normal to rubbing fingers CN IX, X: Palate elevates symmetrically. Phonation is normal. CN XI: Head turning and shoulder shrug are intact CN XII: Tongue is midline with normal movements and no atrophy. Motor: There is no pronator drift of out-stretched arms. Muscle bulk and tone are normal. Strength is full bilaterally. Reflexes: Reflexes are 2+ and symmetric at the biceps, triceps, knees, and ankles. Plantar responses are flexor. Sensory: Light touch, pinprick, position sense, and vibration sense are intact in fingers and toes. Coordination: Rapid alternating movements and fine finger movements are intact. There is no dysmetria on [id number] and [id number]. There are no abnormal or extraneous movements. Romberg is absent. Gait/Stance: Not evaluated Vital Sign (Last 24 Hours) 04/29/24 04/29/24 06:33 11:00 Temp 98.6 Pulse 64 Resp 17 B/P (MAP) 109/70 Pulse Ox 94 O2 Delivery Room Air O2 Flow Rate 2.0 FiO2 28 Intake & Output (last 24hrs) 04/28/24 04/28/24 04/29/24 15:00 23:00 07:00 Intake Total 580.0 ml 340.0 ml 375 ml Output Total 200 ml Balance 380.0 ml 340.0 ml 375 ml LABS: Laboratory: Test 04/29/24 11:13 04/29/24 08:40 04/29/24 03:21 Range/Units Whole Blood Glucose 177 H 70-110 MG/DL Urine Color YELLOW YELLOW Urine Appearance CLEAR CLEAR Urine pH 6.5 5.0-8.0 Urine Specific [place] 1.028 1.001-1.031 Urine Protein 50 H NEGATIVE mg/dL Urine Glucose (UA) NEGATIVE NEGATIVE mg/dL Urine Ketones 5 H NEGATIVE mg/dL Urine Occult Blood +- (TRACE) H NEGATIVE Urine Nitrate NEGATIVE NEGATIVE Urine Bilirubin NEGATIVE NEGATIVE mg/dL Urine Urobilinogen 12 H 0.2-1.0 mg/dL Urine Leukocyte Esterase NEGATIVE NEGATIVE Madelyn/uL Urine RBC 6-10 H 0-1 /HPF Urine WBC 2-5 H 0-1 /HPF Urine Bacteria None None Seen /HPF White Blood Count 5.8 # 4.8-10.8 K/uL Red Blood Count 3.54 L 4.50-6.20 MIL/uL Hemoglobin 10.4 L 14.0-18.0 g/dL Hematocrit 32.3 L 42-54 % Mean Corpuscular Volume 91.2 79-99 fL Mean Corpuscular Hemoglobin 29.4 27.0-33.0 pg Mean Corpuscular Hemoglobin Concent 32.2 32.0-36.0 g/dL Red Cell Distribution Width 13.2 11.0-15.5 % Platelet Count 215 # 130-400 K/uL Mean Platelet Volume 10.0 7.5-10.5 fL Nucleated Red Blood Cells 0.0 0.0-0.19 % Sodium Level 142 136-145 mmol/L Potassium Level 4.0 3.5-5.1 mmol/L Chloride Level 105 101-111 mmol/L Carbon Dioxide Level 32 21-32 mmol/L Blood Urea Nitrogen 22 H 7-18 mg/dL Creatinine 1.3 0.5-1.3 mg/dL Glomerular Filtration Rate Calc 62 >90 mL/min Random Glucose 141 H 70-105 mg/dL Total Calcium 8.3 L 8.5-10.1 mg/dL DIAGNOSTICS / RADIOLOGY: ASSESSMENT / PLAN: 1).-Epilepsy - the patient has had seizures today while on LVT 500mg po day. Multiple today. I will sign off. LVT can increase the risk for depression and anxiety. Seizure precautions. Start Depakote 500mg po bid after a loading of 1mg IV. Thank you for your consultation. PAUL PICHARDO MD Apr 29, 2024 15:13
--- NOTE | 2024-04-29 15:37 | PN ---
[facility] PROGRESS NOTE Date Patient Seen: Apr 29, 2024 Time of Visit: 15:36 Supervising Physician: Dr. Santo Primary Care Physician: Adolfo Morales MD Outpatient Specialists: None Inpatient Consults: BRIANA, Dr Murray, Dr Rasheed, Dr Yee PROBLEM LIST: Severe coronary artery disease to left main 90% stenosis S/P CABG X2 on 04/24/24 (Dr Rasheed ) Postoperative AFib with RVR on amiodarone drip 04/26/24 Postop acute hypoxic respiratory failure as expected NSTEMI status post LHC and Balloon Pump placement for MCS 04/23- dc on 04/26 Polysubstance abuse POA + cocaine and marijuana Suspicion for COPD, POA Thrombocytopenia not POA Normocytic normochromic anemia POA Hyperglycemia, POA Hyperlipidemia POA Essential Hypertension POA Constipation History of seizure disorder POA History of Parkinson's disease POA History of multiple CVA POA Active smoker POA LVEF is 55-60% with normal ventricular diastolic function. On 2D echo 04/23/24 INTERVAL HISTORY: 04/24-Patient is awake alert and oriented x3 hemodynamically stable. Continues with balloon pump 1:1 MCS. Patient was seen by CV surgery and has agreed to move all with CABG. Heparin is on hold. Scheduled for CABG for noon today. Chest x-ray with no acute pulmonary infiltrates seen. Balloon pump seems in proper position. On arterial ultrasound no hemodynamically significant lesions seen either extracranial carotid arteries. Patient has good urine output 2 L in the last 24, CBC unremarkable similar to yesterday. Chemistry kidneys are doing well creatinine 1.1 GFR of 75 BUN of 19 total calcium 8.1 albumin 2.9. We will continue to follow alongside cardiovascular surgeon and Cardiology. 04/25-patient is awake alert and oriented x3 he was extubated around midnight last night. He continues on low-dose epinephrine at 0.02 micrograms/kilogram per minute and MCS with balloon pump support of 1:2. Patient is afebrile, heart rate in the 80s, respiratory rate of 18 unlabored saturating 98% with 2 L via nasal cannula, blood pressure via arterial line 137/55 patient has good urine output 2.9 L in the last 24 hours chest tube output 350 mL with a balance of-1.4 L. H&H slightly lower than yesterday 9.2/28.7 platelet count trended down today [id number]. Chemistry unremarkable. Chest x-ray shows bilateral pulmonary infiltrates with this is pulmonary vascular congestion. Post sternotomy changes. Enlarged heart. Balloon pump and left subclavian Cordis central line in place. 04/26 patient is awake alert and oriented x3. Denies any chest pain does report palpitations. Reports no bowel movement for 4 days, currently receiving bowel regimen. This morning patient converted to AFib with RVR was given amiodarone bolus and started on amiodarone drip per protocol. Patient continues on low- dose epinephrine at 0.01 micrograms/kilogram per minute. Balloon pump support decreased today to 1:3. Plans for removal of balloon pump today. Otherwise patient is hemodynamically stable blood pressure 154/59 saturating 96% with 2 L via nasal cannula heart rate in the 130s AFib with RVR. T-max 99.9 with a T low of 97.2. Urine output 3.1 L with a balance of-1.2 L chest tube output 70 mL. On laboratory WBCs trended up slightly 12.4 H&H is 10.3/32.5 [place] [address]. Similar to yesterday. Chemistries sodium 134 chloride 97 carbon dioxide 33 creatinine is 1.2 GFR of 68 glucose 115 mg/dL. pH Chest x- ray with increased pulmonary vascular congestion patient has been started on Lasix 20 mg q.12 IV per Cardiology. Patient given bowel regimen for constipation. 04/27 patient is awake alert oriented x3 not in acute distress. No acute event overnight. He had his intra-aortic balloon pump removed yesterday. Chest x-ray with no acute changes. Left septal given central line in place no pneumothorax. Chest tube in place. Continue with incentive spirometry. Urine output is 2.3 L with the chest tube output of 20 cc. Net balance is-1.4 L. lab this morning with WBC down to 10 from 12 hemoglobin is 9.7 platelet count is 106 up from 95. Chemistry he is unremarkable. He remains afib last night but converted to sinus rhythm, on amiodarone and loaded digoxin. Cardiology following. Repeat magnesium level. Will continue post CABG care, IS, PT, ambulation, wound care. 04/28 Patient is lying in bed accompanied by his at the bedside. He has been downgraded to PCU this morning, not in acute distress. He is on room air sat 97%. T-max is 99.0 heart rate is 81. He has ambulated with physical therapy and he had been only ambulating 20 ft. Continue physical therapy and likely he will need Rehabilitation post discharge from hospital. Otherwise, pain management. Neb treatment, IS. 04/29 patient is lying down in bed not in acute distress. Patient had low-grade fever at 100.0. UA has been requested. send flu and covid swab. Chest xray with no changes. This morning with the WBC 5.8 hemoglobin is 10.4. Chemistry creatinine is 1.3. Bicarb is 32. Otherwise he has been ambulating. Plan for rehab. Continue with IS. REVIEW OF SYSTEMS: Const: [no fever, fatigue, or weight changes] Eyes:[ no recent vision problems] ENT: [No congestion, ear pain, or sore throat] C/V: [no chest pain, palpitations or edema] Resp: [No cough, congestion, wheezing , no for shortness of breaths GI: [No abdominal pain, nausea, vomiting, yes to constipation, no diarrhea] : [No incontinence of or dyuria] M/S: [No joint or pain swelling] Skin: [No rash] Neuro: [no headache, focal numbness, or weakness, dizziness or seizures] Psych: [no depression or anxiety] Heme: [no abnormal bruising or bleeding] Lymph: [no swollen glands] PHYSICAL EXAM: GENERAL: alert, weak, awake oriented x 3 HEENT: EOMI, Sclera non icteric, moist mucosa NECK: Supple, no JVD, trachea midline LUNGS: Diminished breath sounds bilaterally. No wheezes HEART: Regular rate and rhythm. Normal S1 and S2, without murmurs. ABD: Abdomen soft, nontender. Bowel sounds present EXT: No clubbing cyanosis or edema, +1 pedal pulse bilaterally NEURO: Alert and oriented to person, follows commands Vital Signs (last 8hr) Date Time Temp Pulse Resp B/P (MAP) Pulse Ox O2 Delivery O2 Flow Rate FiO2 04/29/24 15:27 56 79/41 99 Room Air 04/29/24 14:27 49 80/53 99 Room Air 04/29/24 14:21 67 90/54 99 Room Air 04/29/24 14:11 74 118/65 100 Room Air 04/29/24 14:07 96 110/50 96 Room Air 04/29/24 11:00 98.6 64 17 109/70 94 Room Air LABS: Hematology Labs: Test 04/29/24 03:21 Range/Units White Blood Count 5.8 # 4.8-10.8 K/uL Red Blood Count 3.54 L 4.50-6.20 MIL/uL Hemoglobin 10.4 L 14.0-18.0 g/dL Hematocrit 32.3 L 42-54 % Mean Corpuscular Volume 91.2 79-99 fL Mean Corpuscular Hemoglobin 29.4 27.0-33.0 pg Mean Corpuscular Hemoglobin Concent 32.2 32.0-36.0 g/dL Red Cell Distribution Width 13.2 11.0-15.5 % Platelet Count 215 # 130-400 K/uL Mean Platelet Volume 10.0 7.5-10.5 fL Nucleated Red Blood Cells 0.0 0.0-0.19 % Chemistry Labs: Test 04/29/24 11:13 04/29/24 03:21 Range/Units Whole Blood Glucose 177 H 70-110 MG/DL Sodium Level 142 136-145 mmol/L Potassium Level 4.0 3.5-5.1 mmol/L Chloride Level 105 101-111 mmol/L Carbon Dioxide Level 32 21-32 mmol/L Blood Urea Nitrogen 22 H 7-18 mg/dL Creatinine 1.3 0.5-1.3 mg/dL Glomerular Filtration Rate Calc 62 >90 mL/min Random Glucose 141 H 70-105 mg/dL Total Calcium 8.3 L 8.5-10.1 mg/dL DIAGNOSTICS / RADIOLOGY RESULTS: [ ] PLAN NEURO: Minimize central acting medications as possible. Maintain fall precautions, adequate lighting during the day PULMONARY: Supplemental 02 as needed. Maintain aspiration precautions at all times CARDIOVASCULAR: Follow hemodynamics. Vital signs per facility protocol GI & NUTRITION: Continue with nutritional support. Continue stool softeners and laxatives as needed. KIDNEYS & ELECTROLYTES: Strict monitoring of intake, output and overall fluid balance. Avoid nephrotoxic medications to the extent possible. Medications to be dosed according to renal function. Monitor electrolytes and replace as needed ENDOCRINE: Maintain blood glucose between 100-180 at all times. Hypoglycemia protocol in place INFECTIOUS DISEASE: Trend temperature, WBC and procalcitonin level Follow cultures, deescalate antibiotics as soon as possible. Panculture if new onset fever ONCOLOGY/HEMATOLOGY/COAGULATION: Monitor for s/s of bleeding Monitor hemoglobin, coagulation studies as needed SKIN: Pressure ulcer prevention per facility protocol Specialty mattress ORTHO/REHAB: Continue PT/OT Prophylaxis: Continue GI and DVT prophylaxis Code Status: Full Resuscitation Disposition: TBD Other: Total patient care time exceeds 35 minutes excluding all procedures. MARCOS REDMAN [facility] Apr 29, 2024 15:37
--- NOTE | 2024-04-29 16:00 | NUR ---
14:06 DR ROJAS MADE AWARE OF PT HAVING SEIZURES. PHYSYCAL THERAPY AND I AND DIGITAL MEDIA PLANNER IN ROOM TAKING ORTHOSTATIC VITAL SIGNS BEFORE PATIENT WALKED. DUE TO DIZZINESS PRIOR. PT STARTED HAVING SEIZURES AFTER FEELING DIZZY AND GOING LIMP. TURNED ON HIS SIDE TO AVOID ASPIRATION. ATIVAN ADM. PT HAD SEVERAL SEIZURES BACK TO BACK LASTING 10-45 SECONDS. NONE AFTER ATIVAN ADM. PLACED ON [address] BARRETO NEUROLOGY MADE AWARE OF PATIENT. 14:30 DR ROJAS IN TO SEE PT. 14:58 DR BARRETO IN TO SEE PT.SEE NOTES AND ORDERS.
--- NOTE | 2024-04-29 18:36 | NUR ---
18:15 DR. HINTON IN TO SEE PT. MADE AWARE OF TODAYS EVENTS. LAB ORDERED FOR MARTA VACA.
[2024-04-29 19:33] LABS: RAPID GROUP A STREP negative (NEGATIVE)
[2024-04-29 19:43] LABS: COVID19 (SARS ANTIGEN RAPID) PRESUMPTIVE NEGATIVE (NEGATIVE); INFLUENZA TYPE A Negative For Type A (NEGATIVE); INFLUENZA TYPE B Negative For Type B (NEGATIVE)
[2024-04-29] MEDS: divALPRoex SOdium 250 MG TAB PO SCH (21:04)
--- NOTE | 2024-04-29 21:25 | NUR ---
The patient informed the LACE ROLLERFranko, of his intention to leave against medical advice. I did go into room 223 and assessed the patient's orientation and found the patient to be alert and oriented x4. His was present at bedside, packing up all of their belongings, I attempted to dissuade the patient from leaving by informing him of risks involved, particularly given his elevated heart rate of 140s and in atrial fibrillation. However, both patient and his spouse remained adamant about leaving despite potential consequences to his health. The patient emphasized the urgency of him leaving the hospital due to an eviction by the landlord, resulting in removal of his belongings. Patient was advised to return to the hospital at any time or call 911 if in distress. Patient agreed. I spoke with Dr. Celaya and notified him of patient's decision to leave, despite our efforts to convince him otherwise. I also informed Jazzmine Moffett, the nurse practitioner for [facility], of the patient's demand to leave. Jazzmine did make the attempt to speak with patient but patient was not willing to stay due to his ride threatening to leave him behind. Peripheral IV removed. Telemetry removed. All belongings gathered by spouse. AMA formed signed by patient. Important phone numbers for patient
--- NOTE | 2024-04-29 23:57 | PN ---
SUBJECTIVE: The patient is postoperative day #5 from coronary artery bypass grafting. The patient has a history of seizures, had multiple seizures this afternoon. Neurology evaluated the patient and added Depakote to his Keppra and I believe they are going to increase the dose of the Keppra. OBJECTIVE: VITAL SIGNS: He is afebrile. His vital signs are stable. HEENT: Reveals normocephalic, atraumatic. Extraocular movements are intact. HEART: S1, S2 and currently regular. LUNGS: Unlabored. CHEST: His sternal wound is bandaged. His chest tubes are out. ABDOMEN: Flat with positive bowel sounds. ASSESSMENT AND PLAN: * Status post coronary artery bypass grafting, postoperative day #5. Continue aspirin, metoprolol and Lasix. Continue sternal precautions. Plan to transfer to care home facility once bed is available. * Hypercholesterolemia. Lipitor 40 mg p.o. at bedtime. Low cholesterol, cardiac diet. * Breakthrough seizures. Agree with Depakote in addition to the Keppra. We will defer further management to neurology. * History of paroxysmal atrial fibrillation. Continue amiodarone 200 mg twice a day and Eliquis 5 mg twice a day. TID: [id number] RECEIPT: [id number]
--- NOTE | 2024-04-30 13:38 | DS ---
Discharge Summary Hospital Course Summary: The patient was initially admitted to hospital 04/21/24 with the following history of the present illness: This is a 63-year-old male with past medical history of arthritis , diabetes, hyperlipidemia, hypertension, multiple stroke, Parkinson's disease and seizure disorder who presented to the ED via EMS for complaints of midsternal chest pain radiating to bilateral arms and neck associated with palpitation, diaphoresis an d shortness of breaths onset 30 minutes prior to ER arrival. Seen and examined patient in the ER awake alert and coherent appears uncomfortable continue to complain of chest pain 8/10 pain level. Shalonda Weinstein was at bedside during evaluation. Vital signs temperature 98.2, heart rate 66, blood pressure 145/85, saturation 100% on room air. Labs: Hemoglobin 12.7, hematocrit 38.5, platelet count 204. Sodium 137, potassium 3.6, BUN 24, creatinine 1.0 glucose 119, total calcium 8.2 troponin high sens 59 and troponin one less than 0.05. BNP 90. Urine toxicology positive with cocaine and marijuana. Chest x-ray result no acute pulmonary infiltrate is seen. While in the ER patient was given Nitrostat. Patient evaluated by ict managers, left heart catheterization done 04/22/2024, with finding of mid/distal LM 90% lesion, proximal circumflex with 60-70% disease. Cardiothoracic surgery consultation requested. Patient underwent CABG 04/24/2024, tolerated the procedure well. Patient downgraded from the ICU to the PCU. On 04/29/2020, the patient had some episodes of jerky movement, total of six, there was no loss of consciousness, no urinary incontinence or tongue laceration. Patient previously placed on Keppra 500 mg IV b.i.d.. The the patient with a history of seizures, was taking Depakote however unknown dose. Neurology consultation requested, recommended to initiate Depakote 500 mg p.o. b.i.d. after a loading dose of 1 mg IV. Yesterday last night, patient decided to sign against medical advice. He remains alert oriented x3, long discussion was done regarding risks versus benefits of his decision, however he decided to sign against medical advice. He was advised to return to the hospital if his condition changes. Architecture Department Chair(s): Cardiology and Cardiothoracic surgeon. Procedure(s): OPERATIVE REPORT Name: CHARLES BREEN Acct: [id number] MR: [id number] : 1960 Admit Date: 04/21/24 JACKELYN VITALE MD [facility] [address] [place] [id number] DATE OF PROCEDURE: 04/24/2024 PREOPERATIVE DIAGNOSIS: Coronary artery disease, left main. POSTOPERATIVE DIAGNOSIS: Coronary artery disease, left main. PROCEDURES PERFORMED: Off-pump CABG x 2, NOLAN to LAD, reverse saphenous vein graft to first diagonal. SURGEON: Jackelyn Vitale MD ARMATURE VARNISHER: Dominic. ANESTHESIA: Card. ____: Dr. Jacobson. DISPOSITION: Stable. COMPLICATIONS: None. INDICATIONS FOR SURGERY: The patient of Dr. Jacobson who has history of drug abuse with cocaine, presents with chest pain. Cardiac catheterization demonstrates left main coronary artery disease with a clean coronaries after this. An intraaortic balloon pump was placed and the patient was referred for surgical revascularization. I have had the opportunity to review the films, discussed the case with Dr. Jacobson and agreed with him that surgery is indicated and we have recommended. I have discussed with the patient and his indications for surgery as well as the potential complications of the operation including but not limited to postoperative bleeding, infection, stroke and/or . He understands and would like to proceed with surgical revascularization. Plan for surgical revascularization. IMPLANTS: Three JOLENE plates with eighteen #16 gauge screws. DRAINS: A #32 mediastinal and #19 left-sided Kevin. FINDINGS AT TIME OF SURGERY: The NOLAN was anastomosed to the LAD, which was a good size vessel a 2.5 mm and there was a diagonal #1 which was about 2 mm. The oblique marginal was a small vessel of 1.5. At the end of procedure, the patient was hemodynamically stable and EKG was isoelectric. DESCRIPTION OF PROCEDURE IN DETAIL: With the patient in supine position after adequate induction of general endotracheal anesthesia, preoperative intravenous antibiotics, percutaneous arterial and venous lines, surgeon directed timeout utilizing 2 patient identifiers followed by mid sternotomy, then harvesting of the left internal mammary artery from anterior left chest wall and greater saphenous vein from the left lower extremity using endoscopic technique. The patient systemically heparinized and the mammary artery from chest in preparation for bypass. Chest retractor was placed. Utilizing mechanical stabilizer, 4-prong tourniquet for vascular control, 2 distal anastomoses performed in sterile fashion with NOLAN and LAD, and reverse saphenous vein graft and first diagonal. Partial occlusion clamp placed on the ascending aorta and one 4.8 mm punch was performed, running suture of 5-0 Prolene to construct the proximal anastomosis. Grafts de-aired and myocardium revascularized. Protamine, hemostasis and closure. Two chest drains, stainless steel wires for sternum, open reduction and internal fixation utilizing 3 JOLENE plates and eighteen #16 gauge screws, #1 Vicryl and 3-0 Monocryl for closure. The patient was transferred in stable condition to the ICU. TID: [id number] RECEIPT: [id number] Electronically Signed by: JACKELYN VITALE MD04/28/24 1514 Electronically Co-Signed by: Assessment/Plan: Final diagnosis CAD s/p CABG (04/25/24) POA New onset afib with RVR, rate controlled POA Mid distal LM 90% lesion by left heart catheterization, POA Prox CX with 60-60% disease, by by left heart catheterization, POA Polysubstance abuse POA Active smoker, POA Normocytic normochromic anemia POA Diabetes POA Hyperlipidemia POA Hypertension POA Seizure disorder POA Parkinson's disease POA History of multiple CVA POA Home Medications: Reported Medications Metformin HCl (Metformin HCl) 500 Mg Tablet, 1 TAB PO DAILY for 30 Days, #60 TAB 0 Refills 04/29/24 Discontinued Scripts Oseltamivir Phosphate (Tamiflu) 75 Mg Cap, 75 MG PO BID, #10 TAB Prov:JULES AG MD 07/30/23 Time spent arranging discharge: 31-60 minutes MELISSA ROJAS MD Apr 30, 2024 13:38
== END 2024-04-29 21:25 | disposition left against medical advice (07) | DRG 233 ==
LOC: EDH 21:08 → EDHIP 23:26 → 2DH 04-22 15:30 → 2BH 04-22 18:13 → 2CV 04-24 14:21 → 2BH 04-25 13:50 → 2DH 04-28 11:20
PROVIDERS: ADMIT Internal Medicine; ATTEND Internal Medicine
PROC: 4A023N7 Measurement of Cardiac Sampling and Pressure, Left Heart, Percutaneous Approach (ICD-10-PCS; principal; 2024-04-22)
PROC: 5A02210 Assistance with Cardiac Output using Balloon Pump, Continuous (ICD-10-PCS; 2024-04-22)
PROC: B2111ZZ Fluoroscopy of Multiple Coronary Arteries using Low Osmolar Contrast (ICD-10-PCS; 2024-04-22)
PROC: 021009W Bypass Coronary Artery, One Artery from Aorta with Autologous Venous Tissue, Open Approach (ICD-10-PCS; 2024-04-24)
PROC: 02100Z9 Bypass Coronary Artery, One Artery from Left Internal Mammary, Open Approach (ICD-10-PCS; 2024-04-24)
PROC: 5A02210 Assistance with Cardiac Output using Balloon Pump, Continuous (ICD-10-PCS; 2024-04-24)
PROC: 06BQ4ZZ Excision of Left Saphenous Vein, Percutaneous Endoscopic Approach (ICD-10-PCS; 2024-04-24)
PROC: 0PH000Z Insertion of Rigid Plate Internal Fixation Device into Sternum, Open Approach (ICD-10-PCS; 2024-04-24)
DX: I25.10 Atherosclerotic heart disease of native coronary artery without angina pectoris (principal); I21.4 Non-ST elevation (NSTEMI) myocardial infarction; J96.01 Acute respiratory failure with hypoxia; I97.190 Other postprocedural cardiac functional disturbances following cardiac surgery; D64.9 Anemia, unspecified; E78.5 Hyperlipidemia, unspecified; D69.6 Thrombocytopenia, unspecified; E11.65 Type 2 diabetes mellitus with hyperglycemia; E78.00 Pure hypercholesterolemia, unspecified; F17.210 Nicotine dependence, cigarettes, uncomplicated; G40.909 Epilepsy, unspecified, not intractable, without status epilepticus; I48.0 Paroxysmal atrial fibrillation; F32.A Depression, unspecified; F41.9 Anxiety disorder, unspecified; I10 Essential (primary) hypertension; G20.A1 Parkinson's disease without dyskinesia, without mention of fluctuations; G51.0 Bell's palsy; I25.2 Old myocardial infarction; Z79.01 Long term (current) use of anticoagulants; Z79.82 Long term (current) use of aspirin; Z79.899 Other long term (current) drug therapy; Z86.73 Personal history of transient ischemic attack (TIA), and cerebral infarction without residual deficits; Z91.128 Patient's intentional underdosing of medication regimen for other reason; F12.10 Cannabis abuse, uncomplicated; F14.10 Cocaine abuse, uncomplicated; Z59.71 Insufficient health insurance coverage
CPT/HCPCS: 33967; 36415; 36600; 70450; 71045; 80048; 80053; 80061; 80305; 81001; 82330; 82435; 82550; 82803; 82947; 82948; 83036; 83605; 83735; 83880; 84100; 84132; 84295; 84443; 84484; 85018; 85025; 85027; 85347; 85384; 85610; 85730; 86850; 86900; 86901; 86923; 87426; 87641; 87804; 87880; 93005; 93306; 93312; 93325; 93356; 93458; 93880; 94002; 94003; 94010; 94150; 94640; 94664; 99156; 99157; 99291; A4450; A7048; C1769; C1894; G0378; J0171; J0282; J0360; J0612; J0690; J0696; J1160; J1644; J1815; J1940; J1953; J2003; J2060; J2250; J2270; J2405; J2440; J2704; J2720; J3010; J3475; J3480; J3490; J7030; J7040; J7060; P9045; Q9967; A4649; A4930; A6204; C1713; C1776; C1887; Q9965

== ENCOUNTER 2024-11-04 09:51 | Emergency (ER) | payer OTHER ==
[~2024-11-04] VITALS: Ht 180.3 cm; Wt 72.6 kg
[~2024-11-04 09:51] MED LIST changes: +METF-444 PO; -OSEL75 PO
[2024-11-04 10:05] LABS: BASOPHILS # (AUTO) 0.02 K/uL (0.00-0.20); BASOPHILS % (AUTO) 0.4 % (0.0-5.0); EOSINOPHILS # (AUTO) 0.12 K/uL (0.00-0.70); EOSINOPHILS % (AUTO) 2.3 % (0.0-8.0); HEMATOCRIT 38.7 % (42-54); IMMATURE GRANULOCYTE ABSOLUTE 0.01 K/uL (0-1); LYMPHOCYTES # (AUTO) 1.7 K/uL (1.0-4.8); LYMPHOCYTES % (AUTO) 33.3 % (21.0-51.0); MEAN CORPUSCULAR HGB CONC 33.6 g/dL (32.0-36.0); MEAN CORPUSCULAR VOLUME 89.2 fL (79-99); MONOCYTES # (AUTO) 0.4 K/uL (0.1-1.0); MONOCYTES % (AUTO) 8.2 % (3.0-13.0); NEUTROPHILS # (AUTO) 2.9 K/uL (1.8-7.7); NEUTROPHILS % (AUTO) 55.6 % (40.0-77.0); PLATELET COUNT (AUTO) 212 K/uL (130-400); RED BLOOD CELL COUNT(AUTO) 4.34 MIL/uL (4.50-6.20); RED CELL DISTRIBUTION WIDTH 14.2 % (11.0-15.5); WHITE BLOOD COUNT (AUTO) 5.1 K/uL (4.8-10.8)
--- NOTE | 2024-11-04 10:14 | EKG ---
[facility] Test Date: 2024-11-04 Test Time: 09:51:25 Pat Name: CHARLES BREEN Department: ED Room: Gender: M Community Support Professional: [id number] : 1960 Requested By: PRIYANKA AMEZCUA Order Number: [id number] Reading MD: Andi Miranda Measurements Intervals [place] Rate: 60 P: 77 [place]: 162 QRS: 65 QRSD: 105 T: 82 QT: 419 QTc: 420 Interpretive Statements Sinus rhythm Electronically Signed On 11-04-2024 16:57:38 CDT by Andi Miranda Please click the below link to view image of tracing.
[2024-11-04 10:16] LABS: CREATININE 1.1 mg/dL (0.5-1.3); POTASSIUM 3.7 mmol/L (3.5-5.1)
[2024-11-04 10:22] LABS: MAGNESIUM 1.9 mg/dL (1.80-2.40)
[2024-11-04 10:24] LABS: INR 1.05 (0.85-1.15); PROTHROMBIN TIME 11.1 SEC (9.6-11.6)
[2024-11-04 10:25] LABS: PARTIAL THROMBOPLASTIN TIME 25.4 SEC (26.3-35.5)
--- NOTE | 2024-11-04 10:33 | ERN ---
General Chief Complaint: Chest Pain Stated Complaint: CHEST PAIN Time Seen by MD: 09:52 Source: patient, EMS History of Present Illness Initial Comments Patient is a 63-year-old male coming in complaining of chest pain. Per patient he has been having chest pain since April. He states he had open heart surgery but has not been able to get any pain medications from his PCP. Issues with the PCP have prevented him from getting his medication for pain. Allergies: Coded Allergies: ibuprofen (Unverified Allergy, Unknown, 04/07/20) naproxen (Unverified Allergy, Unknown, 04/07/20) Home Meds Reported Medications Metformin HCl (Metformin HCl) 500 Mg Tablet, 1 TAB PO DAILY for 30 Days, #60 TAB 0 Refills 04/29/24 Past Medical History Past Medical History: CVA, High Cholesterol, Hypertension Medical History Other: [facility] Past Surgical History: CABG Surgical History Other: TUMORS X 2 REMOVED FROM RUQ Family History Family History: Negative Social History Social History: Smokers, Drugs, Lives with family ROS Dictation CONSTITUTIONAL: No chills, no fever, no weakness, no diaphoresis, no malaise. HEAD/FACE: No signs of trauma. EENT: No eye pain, no blurred vision, no tearing, no double vision, no ear pain, no ear discharge, no nose pain, no nasal congestion, no throat pain, no throat swelling, no mouth pain. RESPIRATORY: No cough, no orthopnea, no SOB, no stridor, no wheezing. CARDIOVASCULAR: No chest pain, no edema, no palpitations, no syncope. GASTROINTESTINAL/ABDOMINAL: No abdominal pain, no constipation, no diarrhea, no nausea, no vomiting. GENITOURINARY: No abnormal discharge, no dysuria, no frequent urination, no hematuria. No complaints of pain in the genitals. MUSCULOSKELETAL: No back pain, no gout, no joint pain, no joint swelling, no muscle pain, no muscle stiffness, no neck pain. INTEGUMENTARY: No change in color, no change in hair/nails, no dryness, no lesion, no lumps, no rash. NEUROLOGICAL/PSYCH: No anxiety, not depressed, no emotional problem, no headache, no numbness, no pre-existing deficit, no history of seizures, no tremors, no weakness. HEMATOLOGIC/LYMPHATIC: Not anemic, no history of blood clots, no apparent bleeding, no bruising, glands not swollen. All Systems Negative, Except as Noted. Physical Exam Physical Exam Dictation VITAL SIGNS: Reviewed. GENERAL APPEARANCE: Alert, oriented x3, no acute distress, obese. HEAD AND FACE: Non-traumatic. EYES: PERRL, pink conjunctivas, eyelid no trauma, anterior chamber clear. EARS: Pinnas intact and no signs of trauma or erythema. Ear canals clear and no discharge. TMs no erythema. NOSE: No discharge, no bleeding. OROPHARYNX: Mouth normal, teeth no caries, tongue pink. Pharynx clear, no erythema. Tonsils no exudates, no abscesses noted. Mucous membrane moist. NECK: Supple, non-tender, no thyromegaly, no masses, no JVD, no bruits. BREAST: Deferred. CHEST: No tenderness, no crepitus, no paradoxical movement, no retractions. LUNGS: Clear, well-ventilated, symmetric, no rales, no wheezing, no rhonchi, no stridor, good breath sounds bilaterally. HEART: Regular rate, regular rhythm, no murmur, no gallops. VASCULAR: No peripheral edema. ABDOMEN: Soft, positive bowel sounds, nondistended, no guarding, nontender, no rebound, no masses no hepatomegaly, no splenomegaly, no Niño's sign, no hernias. RECTAL: Deferred. GENITAL: Deferred. NEUROLOGICAL: Normal speech, gross motor function intact, gross sensory function intact. MUSCULOSKELETAL: Neck nontender, full range of motion, back nontender, full range of motion. EXTREMITIES: Nontender, full range of motion. SKIN: Color pink, dry, no turgor, no rash, no lacerations, no abrasions, no contusions. LYMPHATICS: Deferred. Results Laboratory and Microbiology Lab and Micro Result Laboratory Tests Test 11/04/24 09:57 11/04/24 11:15 11/04/24 12:14 White Blood Count 5.1 K/uL (4.8-10.8) Red Blood Count 4.34 MIL/uL (4.50-6.20) L Hemoglobin 13.0 g/dL (14.0-18.0) L Hematocrit 38.7 % (42-54) L Mean Corpuscular Volume 89.2 fL (79-99) Mean Corpuscular Hemoglobin 30.0 pg (27.0-33.0) Mean Corpuscular Hemoglobin Concent 33.6 g/dL (32.0-36.0) Red Cell Distribution Width 14.2 % (11.0-15.5) Platelet Count 212 K/uL (130-400) Mean Platelet Volume 10.2 fL (7.5-10.5) Immature Granulocyte % (Auto) 0.2 % (0-1) Neutrophils (%) (Auto) 55.6 % (40.0-77.0) Lymphocytes (%) (Auto) 33.3 % (21.0-51.0) Monocytes (%) (Auto) 8.2 % (3.0-13.0) Eosinophils (%) (Auto) 2.3 % (0.0-8.0) Basophils (%) (Auto) 0.4 % (0.0-5.0) Neutrophils # (Auto) 2.9 K/uL (1.8-7.7) Lymphocytes # (Auto) 1.7 K/uL (1.0-4.8) Monocytes # (Auto) 0.4 K/uL (0.1-1.0) Eosinophils # (Auto) 0.12 K/uL (0.00-0.70) Basophils # (Auto) 0.02 K/uL (0.00-0.20) Absolute Immature Granulocyte (auto 0.01 K/uL (0-1) Nucleated Red Blood Cells 0.0 % (0.0-0.19) Prothrombin Time 11.1 SEC (9.6-11.6) Prothromb Time International Ratio 1.05 (0.85-1.15) Activated Partial Thromboplast Time 25.4 SEC (26.3-35.5) L Sodium Level 144 mmol/L (136-145) Potassium Level 3.7 mmol/L (3.5-5.1) Chloride Level 106 mmol/L (101-111) Carbon Dioxide Level 28 mmol/L (21-32) Blood Urea Nitrogen 14 mg/dL (7-18) Creatinine 1.1 mg/dL (0.5-1.3) Glomerular Filtration Rate Calc 75 mL/min (>90) Random Glucose 109 mg/dL (70-105) H Total Calcium 8.5 mg/dL (8.5-10.1) Magnesium Level 1.90 mg/dL (1.80-2.40) Total Creatine Kinase 177 U/L (21-232) # Troponin I High Sensitivity 13 ng/L (4-75) 13 ng/L (4-75) B-Type Natriuretic Peptide 168 pg/mL (0-100) H Urine Color LIGHT-YELLOW (YELLOW) Urine Appearance CLEAR (CLEAR) Urine pH 7.0 (5.0-8.0) Urine Specific [place] 1.011 (1.001-1.031) Urine Protein NEGATIVE mg/dL (NEGATIVE) Urine Glucose (UA) NEGATIVE mg/dL (NEGATIVE) Urine Ketones NEGATIVE mg/dL (NEGATIVE) Urine Occult Blood NEGATIVE (NEGATIVE) Urine Nitrate NEGATIVE (NEGATIVE) Urine Bilirubin NEGATIVE mg/dL (NEGATIVE) Urine Urobilinogen 0.2 mg/dL (0.2-1.0) Urine Leukocyte Esterase NEGATIVE [place]/uL Urine Opiates Screen NEGATIVE (NEGATIVE) Urine Barbiturates Screen NEGATIVE (NEGATIVE) Urine Phencyclidine Screen NEGATIVE (NEGATIVE) Urine Amphetamines Screen NEGATIVE (NEGATIVE) Urine Benzodiazepines Screen NEGATIVE (NEGATIVE) Urine Cocaine Screen POSITIVE (NEGATIVE) H Urine Marijuana (THC) Screen POSITIVE (NEGATIVE) H Labs Reviewed?: Yes EKG/XRAY/US/CT/MRI EKG Comment 11/04/2024 time 9:51 a.m. Ventricular rate 60 Sinus rhythm [place] [address] wave elevation or depression X-RAY Comment [address] [address] IMAGING REPORT Signed PATIENT: CHARLES BREEN MR#: [id number] : 1960 SEX: M AGE: 63 LOCATION: ED ORDER 4 STATUS: REG ER REPORT#: [id number] SERVICE REASON: cp ORDERING PHYSICIAN: PRIYANKA AMEZCUA MD PROCEDURE: CXR1VW - CHEST 1VW CHEST 1VW HISTORY: Chest pain COMPARISON: 04/29/2024 FINDINGS: A frontal projection of the chest was obtained. No acute pulmonary infiltrates is seen. Poststernotomy changes are seen. The heart is enlarged. Degenerative changes of the thoracolumbar spine are present. Degenerative changes are seen. No evidence of aortic calcification is seen. IMPRESSION: 1. No acute pulmonary infiltrate is seen. DICTATED BY: KWAME JUSTICE MD DATE: 11/04/24 1135 ELECTRONICALLY SIGNED BY: KWAME JUSTICE MD DATE: 11/04/24 1140 MDM MDM: Differential diagnosis: Cocaine abuse, cannabis abuse, history of open heart surgery Rationale: Tests considered and ordered secondary to shared decision making include: Previous outside records reviewed: Old ER visits. Risk of complication and/or morbidity or mortality of patient management: None Patient is a 63-year-old male coming in to be evaluated for chest pressure. Patient states that he has had chest pressure since April. He states he had problems with his PCP in his not gotten anything for pain. Laboratory workup negative for acute findings except for cocaine and marijuana. I did drug and alcohol counsellor him into avoiding cocaine as this could lead him to have another heart attack. ED Course Orders Procedure Category Date Status Time Cbc With Differential LAB 11/04/24 Complete 09:53 Prothrombin Time With LAB 11/04/24 Complete INR 09:53 B-Type Natriuretic LAB 11/04/24 Complete Peptide 09:53 Chest 1vw RAD 11/04/24 Resulted 09:53 12 Lead Ekg Tracing- EKG 11/04/24 Complete Technical 09:53 Magnesium LAB 11/04/24 Complete 09:53 Creatine Kinase, Total LAB 11/04/24 Complete 09:53 Troponin I High LAB 11/04/24 Complete Sensitivity 09:53 Urinalysis Profile LAB 11/04/24 Complete 09:53 Partial LAB 11/04/24 Complete Thromboplastin Time 09:53 Basic Metabolic Panel LAB 11/04/24 Complete 09:53 Drug Screen Urine LAB 11/04/24 Complete 09:53 Troponin I High LAB 11/04/24 Complete Sensitivity 11:51 Vital Signs Date Time Temp Pulse Resp B/P (MAP) Pulse Ox O2 Delivery O2 Flow Rate FiO2 11/04/24 09:52 66 15 165/85 97 Room Air 0 DX & DISP Disposition: Discharge Departure Impression: Primary Impression: Cocaine abuse Additional Impressions: Chest pain, Marijuana abuse Condition: Stable Additional Instructions: You have been reviewed in the emergency department at [facility] after presenting with chest pain. After considering your history, your risk factors, your EKG and your blood test troponins, have been found to be at very low risk less than (1 in 100) of having a major adverse cardiac event (like heart attack) in the near future. In the " low risk" group, the risks of doing further tests and treatment as the inpatient outweighs the benefits. In many patients in the low risk group for the test of any sort or unnecessary, however he should discuss this further with his general practitioner who will understand the medical and personal backgrounds better. Because we have never declared you" no risk" we would suggest. 1 returning for medical review if you have further episodes of chest pain/arm pain or other concerning symptoms like dizziness, collapse, palpitations or shortness of breath. 2. Following up with your local doctor who will consider the need for further testing and will also ensure that any modifiable risk factors you may have for heart disease are optimally managed. Patient will be discharged in stable condition at the moment discharge patient states , no chest pain Referrals: BRIAN NELSON (PCP) Time of Disposition: 12:46 PRIYANKA AMEZCUA MD November 04, 2024 10:33
[2024-11-04 10:40] LABS: B-TYPE NATRIURETIC PEPTIDE 168 pg/mL (0-100)
--- NOTE | 2024-11-04 10:57 | NUR ---
PT STATES " I DID COCAINE 2 DAYS AGO, AND I DO SMOKE MARIJUANA"
[2024-11-04 11:33] LABS: APPEARANCE,URINE CLEAR (CLEAR); BILIRUBIN,URINE NEGATIVE (NEGATIVE); COLOR,URINE LIGHT-YELLOW (YELLOW); GLUCOSE, URINE (UA) NEGATIVE (NEGATIVE); KETONES,URINE NEGATIVE (NEGATIVE); LEUKOCYTE ESTERASE ,URINE NEGATIVE Leu/uL (NEGATIVE); NITRATE,URINE NEGATIVE (NEGATIVE); OCCULT BLOOD,URINE NEGATIVE (NEGATIVE); PROTEIN,URINE NEGATIVE (NEGATIVE); UROBILINOGEN,URINE 0.2 mg/dL (0.2-1.0)
[2024-11-04 11:35] LABS: ADD UA MICROSCOPIC NO
[2024-11-04 11:39] LABS: AMPHET/METH SCREEN,URINE NEGATIVE (NEGATIVE); BARBITURATE SCREEN, URINE NEGATIVE (NEGATIVE); BENZODIAZEPINES SCREEN,URINE NEGATIVE (NEGATIVE); CANNABINOID SCREEN,URINE POSITIVE (NEGATIVE); COCAINE SCREEN,URINE POSITIVE (NEGATIVE); OPIATE SCREEN,URINE NEGATIVE (NEGATIVE); PHENCYCLIDINE SCREEN,URINE NEGATIVE (NEGATIVE)
--- NOTE | 2024-11-04 11:40 | HMCIMG ---
CHEST 1VW HISTORY: Chest pain COMPARISON: 04/29/2024 FINDINGS: A frontal projection of the chest was obtained. No acute pulmonary infiltrates is seen. Poststernotomy changes are seen. The heart is enlarged. Degenerative changes of the thoracolumbar spine are present. Degenerative changes are seen. No evidence of aortic calcification is seen. IMPRESSION: 1. No acute pulmonary infiltrate is seen.
[2024-11-04 13:12] VITALS: BP 157/86; PULSE 62; RESP 18; O2SAT 99
== END 2024-11-04 13:11 | disposition home or self-care (01) ==
LOC: EDH 09:51
DX: R07.89 Other chest pain (principal); F14.10 Cocaine abuse, uncomplicated; F12.10 Cannabis abuse, uncomplicated; E78.00 Pure hypercholesterolemia, unspecified; F17.200 Nicotine dependence, unspecified, uncomplicated; G20.A1 Parkinson's disease without dyskinesia, without mention of fluctuations; I10 Essential (primary) hypertension; Z79.84 Long term (current) use of oral hypoglycemic drugs; Z86.73 Personal history of transient ischemic attack (TIA), and cerebral infarction without residual deficits; Z88.6 Allergy status to analgesic agent; Z95.1 Presence of aortocoronary bypass graft
CPT/HCPCS: 36415; 71045; 80048; 80305; 81003; 82550; 83735; 83880; 84484; 85025; 85610; 85730; 93005; 99285